=== PATIENT | female | born 1955 | race Caucasian/White ===

== ENCOUNTER 2025-05-12 08:24 | Outpatient (RCR) | payer MEDICARE, SELFPAY ==
--- NOTE | 2025-05-12 09:30 | HP.PTEVAL ---
Patient's Visit Information Visit Information Visit Information: JEOVANY POLO is a 70 year old F referred to Physical Therapy by Dr. Wilfrid Layne MD with a diagnosis of cervical spondylosis, lumbar radiculopathy. Date of Evaluation: 05/12/25 Physical Therapist: Peewee Mclean, JILLT, OCS, CSCS Visit Plan Frequency: 2x /Week Duration: 4-6 Weeks Plan: 2x/week for 3 visits in water to TEEACH cervical and lumbar ROM, general strength, core and postural strength with postural and NS focus and get I for her community pool in [place]. Pt wants to keep visits to min due to cost and try to do this in 3 visits then f/u with therapist a month later. Please ensure her I pool program is good after 3 visits if at all possible and consider more visits if unable to be I at that time up to 2x/week for 4 weeks. IE: Educated on activity modification, benefits of ex and movement, need to change something to expect improvements and importance of jail compliance. Subjective Subjective: I have pain issues. Dr. Matos sent to [facility]. Pain mgmt says nothing to do until tries PT due to Insurance. Will see pain mgmt in 2 weeks. Neck pain is intermittent and wors with housework and lifting for that. Volume of lifting groceries will cause pain next day. Pain is central neck and has hurt for years, just put up with it. Has had x rays and is full of OA. Tramadol used to help, not as much now.Numbness and tingling in both arms sleepy often often with reading or suing them. Back years of pain and worse with grocery which is once per month. Worse with activity. Feet can tingle with activity. Feels better with sitting down. Sleep is not great. Just can't sleep , pain may be a slight issue. Not employed. Retired hotel and dining room cashier. Spends day MF ex at center, Tuesdays done due to eex, usually does chair ex. Does some yoga also and spends an hour. Cleans house. Most of ex is seated UE adn LE movements. Walks with rollator which allows her to walk further or leans on cart. Pain Neck pain: Pain Intensity (Out of 10): 8 Pain Intensity Range: 0 and 8 LBP: Pain Intensity (Out of 10): 2 Pain Intensity Range: 0 and 9 Objective Objective: Walks into PT I but very short steps and no pelvic movement, stiff spine. Trasnfers I chair and bed with UE. Good balance. Hunched FW in stance with flat lordosis and max protruded head and neck protrusion structurally. [place] Hump is tender as are the muscle of the neck and scapula B. moderately. cervical AROM 40 B rotation, 6 B SB, 35 ext, poor reetraction. All of them accompanid by slight wincing. Lumbar AROM eext nil and painful, flexion tight in HS only and fair, SB max deficits. Most pain with x centrally. reeflxees 1/3 patella and achilles and bi and tri sensation UE WNL and LE WNL to gross light touch B. strength core 3/5, hip 3/5 with instability in seated teesting on core. knees 4-, anklees 4-, shoulders 3+, eelbows and wrist 4-. No specific myotomal problems. Balance/Special Test Scores Oswestry Low Back Score: 15 Goals Goal 1:: I appropriate pool baseed cervical and lumbar ROM, core and postural strength adn general ex to limit future problems. Goal Time Frame: 4-6 Weeks Goal 2:: Pt feel 50% better in overall pain to 4/10 at worst Goal Time Frame: 4-6 Weeks Goal 3:: Toleerate grocery trip without increased pain Goal Time Frame: 4-6 Weeks Goal 4:: oswestry 10 or beetter Goal Time Frame: 4-6 Weeks Rehabilitation Potential Physical Therapy Diagnosis: stiffness, loss of ROM, weakness and postural deficits comtributing to pain and diminished QOL Rehabilitation Potential: Fair Anticipated Interventions Patient/Client Instruction: Educate patient on: Condition For the Purpose of:: To decrease pain, To improve nutrient delivery to tissue, To improve muscle performance and motor function, To increase tolerance to activity/condition/position and To improve gait and locomotor functions Therapeutic Exercise to Include: Strength training, Postural training, Flexibilty training, In an aquatic setting, Passive ROM and Active ROM For the Purpose of:: To decrease pain, To increase ROM, To improve nutrient delivery to tissue, To improve muscle performance and motor function, To increase tolerance to activity/condition/position, To improve ability of physical actions for home/community/work/leisure and To improve gait and locomotor functions Text: Thank you for the opportunity to evaluate your patient. For Medicare and Medicare HMO plans, please review the plan of care and approve it. It will need to be FAXED BACK to us at [phone] for Medicare purposes. For Medicare only, by signing this I certify the plan of care. Please let me know if there are questions or concerns regarding this plan of care. Physician Signature: Date:
--- NOTE | 2025-07-08 15:39 | HP.PTDCNRP_ITS ---
Patient Information Patient Information: JEOVANY POLO was seen in my office for initial evaluation on 05/12/25. The following Plan of Care was established for this patient: POC Established Initial Frequency: 2x /Week Initial Duration: 4-6 Weeks Anticipated Interventions Patient/Client Instruction: Educate patient on: Condition For the Purpose of:: To decrease pain, To improve nutrient delivery to tissue, To improve muscle performance and motor function, To increase tolerance to activity/condition/position and To improve gait and locomotor functions Therapeutic Exercise to Include: Strength training, Postural training, Flexibilty training, In an aquatic setting, Passive ROM and Active ROM For the Purpose of:: To decrease pain, To increase ROM, To improve nutrient delivery to tissue, To improve muscle performance and motor function, To increase tolerance to activity/condition/position, To improve ability of phy sical actions for home/community/work/leisure and To improve gait and locomotor functions Last Seen Last Seen: This patient was last seen in our office 05/12/25. Pertinent comments regarding their Physical therapy will appear below: Pt seen for IE and POC stablished. She did not return for any further visits. At this point, it has been nearly two months and I will discontinue due to nonattendance. At this point I will be discontinuing this patient from physical therapy. I would be happy to see this patient again in the future if found appropriate by the physician. Thank you! Peewee Mclean, DPT, OCS, CSCS Balance/Gait/Functional tests Balance/Special Test Scores Oswestry Low Back Score: 15
== END 2025-05-12 19:00 | disposition home or self-care (01) ==
LOC: PT 08:24
PROVIDERS: PCP Anesthesiology; Referring Provider Anesthesiology; Visit Provider Anesthesiology
DX: M54.16 Radiculopathy, lumbar region (principal); M47.812 Spondylosis without myelopathy or radiculopathy, cervical region
CPT/HCPCS: 97162

== ENCOUNTER → 2025-06-25 | Outpatient (CLI) | payer MEDICARE, SELFPAY ==
--- NOTE | 2025-06-25 06:39 | MRI_ITS ---
PROCEDURE: SPINE LUMBAR (ROUTINE) 06/25/2025 REASON FOR EXAM: LUMBAR RADICULOPATHY TECHNIQUE: SPINE LUMBAR (ROUTINE) COMPARISON: Unremarkable. FINDINGS: Vertebrae: Unremarkable. No compression fracture. Alignment: Unremarkable. Conus Medullaris: Unremarkable. L1-2: Disc desiccation. Disc bulge. A superimposed 2 mm central disc protrusion. Facet joint arthropathy. Severe canal stenosis. Severe bilateral foramina stenosis. L2-3: Disc desiccation. Disc bulge. Facet joint arthropathy. Moderate bilateral foramina stenosis. Severe canal stenosis. L3-4: Disc desiccation. Disc bulge. Facet joint arthropathy. Moderate bilateral foramina stenosis. Severe canal stenosis. L4-5: Disc bulge. Facet joint arthropathy. Mild bilateral foramina stenosis. No significant canal stenosis. L5-S1: Disc desiccation. Disc bulge. Facet joint arthropathy. Mild bilateral foramina stenosis. No canal stenosis. Sacrum: Unremarkable. 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 Severe bilateral foramina stenosis at L1-L2. Moderate bilateral foramina steno sis at L3-L4. Reading Location: [id number]
--- OUTSIDE RECORDS SUMMARY | 2025-06-25 07:00 | XMS RPT_ITS | CCD ---
Author Organization [facility] Care Team Providers Care Fabric Cutter Name Role Phone Hong Matos DO Primary Care Provider HONG MATOS DO Primary Care Physician Hong Matos DO Primary Care Provider Hong Matos DO Primary Care Provider Hong Matos DO Primary Care Provider Hong Matos DO Primary Care Provider Will Alejandre MD Primary Care Provider Aj MANAGER MEDIA RELATIONS.Nisa RIVAS Unavailable Waleska MANAGER MEDIA RELATIONS.Petty RIVAS Unavailable Tatiana SCHAFER, Jarrod Unavailable MATOS, HONG L Attending Unavailable MATOS, HONG L Primary Care Unavailable MATOS, HONG L Referring Unavailable MATOS, HONG L Primary Care Unavailable MATOS, HONG L Attending Unavailable MATOS, HONG L Primary Care Unavailable MATOS, HONG L Referring Unavailable MATOS, HONG L Primary Care Unavailable MATOS, HONG L Attending Unavailable MATOS, HONG L Primary Care Unavailable MATOS, HONG L Referring Unavailable MATOS, HONG L Primary Care Unavailable MATOS, HONG L Referring Unavailable MATOS, HONG L Primary Care Unavailable MATOS, HONG L Attending Unavailable MATOS, HONG L Primary Care Unavailable MATOS, HONG L Referring Unavailable MATOS, HONG L Primary Care Unavailable MATOS, HONG L Referring Unavailable MATOS, HONG L Primary Care Unavailable Wilfrid Layne Referring Unavailable Wilfrid Layne Primary Care Unavailable Wilfrid Layne Attending Unavailable Wilfrid Layne Referring Unavailable Wilfrid Layne Primary Care Unavailable Wilfrid Layne Attending Unavailable Allergies Allergy Classification Reported Allergen(s) Allergy Type Date of Onset Reaction(s) Facility (20 sources) Acetaminophen / HYDROcodone; Translations: [acetaminophen-hyd rocodone] Drug [facility] Work Phone: Medications Current Medications Medication Drug Class(es) Dates Sig (Normalized) Sig (Original) acetaminophen 325 mg / HYDROcodone bitartrate 5 mg oral tablet (1 source) Opioid Agonist Start: 04-04-20 End: 04-07-20 take 1 tablet by mouth every six hours as needed for pain [place] 325- 5 mg oral tablet Dose = 1 tab(s), Oral, q6h, PRN as needed for pain, X 3 day(s), # 12 tab(s), 0 Refill(s), Drug reaction Anxiety, 88.2 Start Date: 04/04/22 Stop Date: 04/07/22 Status: Ordered amoxicillin 875 mg oral tablet (2 sources) Penicillin-class Antibacterial Start: 10-03-20 End: 10-13-20 take 1 tablet by mouth twice daily amoxicillin (AMOXIL) 875 mg tablet Indications: History of COVID-19 , Acute non-recurrent frontal sinusitis Take 1 tablet by mouth twice daily for 10 days. 20 tablet 0 10/03/2022 10/13/2022 Active Comment on above: Take 1 tablet by fox twice daily for 10 days. amoxicillin 875 mg / clavulanate 125 mg oral tablet (2 sources) Penicillin-class Antibacterial Start: 01-13-20 End: 01-23-20 take 1 tablet by mouth twice daily amoxicillin-clavulanate potassium (AUGMENTIN) 875-125 mg per tablet Indications: Acute non-recurrent maxillary sinusitis Take 1 tablet by mouth two times a day for 10 days. 20 tablet 01/13/2025 01/23/2025 Active atorvastatin 10 mg oral tablet (20 sources) HMG-CoA Reductase Inhibitor Start: 12-26-19 End: 06-14-20 take 1 tablet by mouth once daily at bedtime for hyperlipidemia atorvastatin (LIPITOR) 10 mg tablet Indications: Hyperlipidemia, mixed , Hypertriglyceridemia Take 1 tablet by mouth daily at bedtime. For cholesterol. 90 tablet 1 12/16/2024 06/14/2025 Active Comment on above: Take 1 tablet by [facility] daily at bedtime. For cholesterol. azithromycin 250 mg oral tablet (2 sources) Macrolide Antimicrobial Start: 11-07-20 End: 11-12-20 azithromycin (ZITHROMAX Z-VAN) 250 mg tablet Take 2 tablets day one, then, 1 tablet daily until gone. 6 tablet 0 11/07/2023 11/12/2023 Active Comment on above: Take 2 tablets day o ne, then, 1 tablet daily until gone. cephalexin 500 mg oral capsule (1 source) Cephalosporin Antibacterial Start: 07-22-20 End: 08-01-20 take 1 capsule by mouth four times daily cephALEXin (KEFLEX) 500 mg capsule Indications: Gluteal abscess Take 1 capsule by mouth four times daily for 10 days. 40 capsule 1 07/22/2024 08/01/2024 Active cholecalciferol 0.125 mg oral capsule (20 sources) Vitamin D Start: 04-06-20 take 1 capsule by mouth once daily Cholecalciferol, Vitamin D3, 5,000 unit cap Take 1 capsule by mouth once daily. 04/06/2019 Active Comment on above: Take 1 capsule by [facility] once daily. ciprofloxacin 500 mg oral tablet (1 source) Quinolone Antimicrobial Start: 07-04-20 End: 07-09-20 take 1 tablet by mouth twice daily ciprofloxacin HCl (CIPRO) 500 mg tablet Take 1 tablet by mouth twice daily for 5 days. 10 tablet 0 07/04/2022 07/09/2022 Active Comment on above: Take 1 tablet by [facility] twice daily for 5 days. cyclobenzaprine hydrochloride 10 mg oral tablet (1 source) Muscle Relaxant Start: 04-04-20 End: 04-09-20 cyclobenzaprine 10 mg oral tablet Dose : 10 mg = 1 tab(s), Oral, TID, X 5 day(s), # 20 tab(s), 0 Refill(s), 04/09/22 15:38:00 EDT, Drug reaction Anxiety Start Date: 04/04/22 Stop Date: 04/09/22 Status: Ordered DULoxetine 30 mg delayed release oral capsule (1 source) Serotonin and Norepinephrine Reuptake Inhibitor Start: 04-19-20 take 1 capsule by mouth once daily, then take 1 capsule by mouth once daily in the morning, then take 2 capsules by mouth once daily in the morning DULoxetine (CYMBALTA) 30 mg capsule Indications: Fibromyalgia , VÍCTOR (generalized anxiety disorder) , Depressive disorder Take 1 capsule by mouth once daily. Take 1 capsule PO daily in the AM x 2 weeks and then increase to 2 capsules PO daily in the AM 180 capsule 1 04/19/2025 Active estradiol 0.1 mg/ml vaginal cream (20 sources) Estrogen Start: 06-30-20 estradiol (ESTRACE) 0.01 % (0.1 mg/gram) vaginal cream Finger-tip amount each night applied as directed in instructions 42.5 g 2 06/30/2021 Active Comment on above: Finger-tip amount ea ch night applied as directed in instructions furosemide 20 mg oral tablet (20 sources) Loop Diuretic Start: 11-01-20 End: 12-15-19 furosemide (LASIX) 20 mg tablet Indications: Ankle edema, bilateral TAKE 1 TABLET ONE TIME DAILY NEEDED FOR SWELLING/EDEMA 90 tablet 1 12/16/2024 Active Comment on above: Take 1 tablet by fox th once daily as needed for swelling/edema. TAKE 1 TABLET ONE TI ME DAILY NEEDED FOR SWELLING/EDEMA gabapentin 600 mg oral tablet (20 sources) Anti-epileptic Agent Start: 07-23-20 End: 01-18-20 take 1 tablet by mouth three times daily gabapentin (NEURONTIN) 600 mg tablet Take 1 tablet by mouth three times a day for 90 days. 270 tablet 1 10/20/2024 Active Start: 12-23-2023 End: 02-02-2025 gabapentin (NEURONTIN) 300 m g capsule Indications: Osteoarthritis of spine with radiculopathy, lumbar region , Chronic midline low back pain with bilateral sciatica , Chronic pain syndrome , Chronic bilateral thoracic back pain , Fibromyalgia , Restless leg , Vitamin B12 deficiency Add to 600 mg capsule to total 900 mg 3 times a day for chronic pain 270 capsule 1 10/20/2024 Active Start: 12-23-2023 End: 07-20-2024 take 1 tablet by mouth three times daily gabapentin (NEURONTIN) 600 mg tablet Take 1 tablet by mouth three times a day for 90 days. 270 tablet 1 04/17/2024 07/20/2024 Discontinued Start: 04-11-2022 End: 12-07-2023 gabapentin (NEURONTIN) 300 m g capsule Indications: Osteoarthritis of spine with radiculopathy, lumbar region , Chronic midline low back pain with bilateral sciatica , Chronic pain syndrome , Chronic bilateral thoracic back pain , Fibromyalgia , Restless leg , Vitamin B12 deficiency Add to 600 mg capsule to total 900 mg 3 times a day for chronic pain 270 capsule 1 09/06/2023 12/07/2023 Active Start: 03-19-2022 End: 12-05-2023 take 1 tablet by mouth three times daily gabapentin (NEURONTIN) 600 mg tablet Take 1 tablet by mouth three times a day for 90 days. 270 tablet 1 09/06/2023 12/05/2023 Active Start: 12-15-2021 End: 04-11-2022 take 1 capsule by mouth three times daily gabapentin (NEURONTIN) 300 mg capsule Indications: Osteoarthritis of spine with radiculopathy, lumbar region , Chronic midline low back pain with bilateral sciatica , Chronic pain syndrome , Chronic bilateral thoracic back pain , Fibromyalgia , Restless leg , Vitamin B12 deficiency Take 1 capsule by mouth three times daily for 90 days. 90 capsule 2 12/15/2021 04/11/2022 Discontinued Start: 11-01-2021 take 1 tablet by fox three times daily gabapentin (NEURONTIN) 600 mg tablet Take 1 tablet by mouth three times daily for 90 days. 270 tablet 1 11/01/2021 Active Comment on above: Take 1 capsule by [facility] three times daily for 90 days. Take 1 tablet by fox three times daily for 90 days. Add to 600 mg capsul e to total 900 mg 3 times a day for chronic pain Take 1 tablet by fox th three times a day for 90 days. lisinopril 10 mg oral tablet (20 sources) Angiotensin Converting Enzyme Inhibitor Start: 10-05-2024 End: 02-23-2025 take 1 tablet by mouth once daily lisinopril (ZESTRIL) 10 mg tablet Indications: Hyperlipidemia, mixed Take 1 tablet by mouth once daily. 90 tablet 3 02/23/2025 Active Start: 11-01-2021 End: 10-02-2024 take 1 tablet by mouth once daily lisinopril (ZESTRIL) 10 mg tablet Indications: Hyperlipidemia, mixed Take 1 tablet by mouth once daily. 90 tablet 3 09/06/2023 10/02/2024 Discontinued Start: 01-14-2020 End: 12-28-2020 take 1 tablet by mouth once daily lisinopril (ZESTRIL, PRINIVIL) 10 mg tablet Indications: Hyperlipidemia, mixed Take 1 tablet by mouth once daily. 90 tablet 3 01/14/2020 12/28/2020 Discontinued Comment on above: Take 1 tablet by fox once daily. Magnesium (20 sources) take 1 tablet by mouth twice daily Magnesium 250 mg tab Take 250 mg by mouth twice daily. Active take 1 tablet by mouth twice fabián ly Magnesium 250 mg tab Take 250 mg by mouth twice daily. 0 Active Comment on above: Take 250 mg by mouth twice daily. MULTIVITAMIN ORAL (20 sources) MULTIVITAMIN ORA L Take by mouth. Active MULTIVITAMIN ORA L Take by mouth. 0 Active Comment on above: Take by mouth. nystatin 100 unt/mg topical ointment (3 sources) Polyene Antifungal Start: 12-23-2023 End: 01-22-2024 nystatin (MYCOSTATIN) ointment Indications: Gluteal abscess Apply to affected area two times a day. On sore on gluteal 30 g 1 12/23/2023 01/22/2024 Active Start: 03-19-2022 End: 04-18-2022 nystatin (MYCOSTATIN) ointme nt Indications: Gluteal abscess Apply to affected area twice daily. On sore on gluteal 30 g 1 03/19/2022 04/18/2022 Active Comment on above: Apply to affected ar ea twice daily. On sore on gluteal Apply to affected ar ea two times a day. On sore on gluteal ondansetron 4 mg disintegrating oral tablet (1 source) Serotonin-3 Receptor Antagonist Start: 04-04-20 End: 04-08-20 ondansetron 4 mg oral tablet, disintegrating Dose : 4 mg = 1 tab(s), Oral, q6h, X 4 day(s), # 16 tab(s), 0 Refill(s), 04/08/22 15:38:00 EDT, Drug reaction Anxiety Start Date: 04/04/22 Stop Date: 04/08/22 Status: Ordered phenazopyridine hydrochloride 200 mg oral tablet (20 sources) Start: 06-06-20 take 1 tablet by mouth every eight hours as needed phenazopyridine (PYRIDIUM) 200 mg tablet Take 1 tablet by mouth three times daily as needed. 14 tablet 06/06/2021 Active Comment on above: Take 1 tablet by fox th three times daily as needed. rosuvastatin calcium 10 mg oral tablet (20 sources) HMG-CoA Reductase Inhibitor Start: 01-25-20 End: 06-24-20 take 1 tablet by mouth once daily at bedtime rosuvastatin (CRESTOR) 10 mg tablet Indications: Hyperlipidemia, mixed Take 1 tablet by mouth daily at bedtime. 90 tablet 1 2023 Active Start: 06-13-2020 End: 10-17-2020 take 0.5 tablet by mouth once daily rosuvastatin (CRESTOR) 40 mg tablet Indications: Hyperlipidemia, mixed Take 0.5 tablets by mouth once daily. 45 tablet 1 06/13/2020 10/17/2020 Discontinued Comment on above: Take 1 tablet by fox th daily at bedtime. sertraline 50 mg oral tablet (20 sources) Serotonin Reuptake Inhibitor Start: 12-23-2023 End: 02-23-2025 take 1 tablet by mouth once daily at bedtime sertraline (ZOLOFT) 100 mg tablet Indications: VÍCTOR (generalized anxiety disorder) , Depressive disorder Take 1 tablet by mouth daily at bedtime. Take with 50 mg tablet to total 150 mg a day 90 tablet 3 02/23/2025 Active Start: 12-23-2023 End: 02-23-2025 take 1 tablet by mouth once daily sertraline (ZOLOFT) 50 mg tablet Take 1 tablet by mouth once daily. Add to 100 mg to total 150 mg a day 90 tablet 1 02/23/2025 Active Start: 09-06-2023 take 1 tablet by fox th once daily sertraline (ZOLOFT) 50 mg tablet Take 1 tablet by mouth once daily. Add to 100 mg to total 150 mg a day 90 tablet 1 09/06/2023 Active Start: 10-03-2022 End: 09-06-2023 take 1 tablet by mouth once daily at bedtime sertraline (ZOLOFT) 25 mg tablet Indications: VÍCTOR (generalized anxiety disorder) , Depressive disorder Take 1 tablet by mouth daily at bedtime. Take with 100 mg tablet to total 125 mg a day 90 tablet 3 03/07/2023 09/06/2023 Discontinued Start: 07-04-2022 End: 03-07-2023 take 1 tablet by mouth once daily at bedtime sertraline (ZOLOFT) 100 mg tablet Indications: VÍCTOR (generalized anxiety disorder) , Depressive disorder Take 1 tablet by mouth daily at bedtime. Take with 25 mg tablet to total 125 mg a day 90 tablet 3 03/07/2023 Active Start: 12-15-2021 End: 07-04-2022 take 1 tablet by mouth once daily at bedtime sertraline (ZOLOFT) 25 mg tablet Indications: VÍCTOR (generalized anxiety disorder) , Depressive disorder Take 1 tablet by mouth daily at bedtime. Take with 50 mg tablet to total 75 mg a day 90 tablet 1 04/26/2022 07/04/2022 Discontinued Start: 12-15-2021 End: 07-04-2022 take 1 tablet by mouth once daily at bedtime sertraline (ZOLOFT) 50 mg tablet Indications: VÍCTOR (generalized anxiety disorder) , Depressive disorder Take 1 tablet by mouth daily at bedtime. Take with 25 mg tablet to total 75 mg a day 90 tablet 1 04/26/2022 07/04/2022 Discontinued Comment on above: Take 1 tablet by fox th daily at bedtime. Take with 25 mg tablet to total 75 mg a day Take 1 tablet by fox th daily at bedtime. Take with 50 mg tablet to total 75 mg a day Take 1 tablet by fox th daily at bedtime. Take with 25 mg tablet to total 125 mg a day Take 1 tablet by fox th daily at bedtime. Take with 100 mg tablet to total 125 mg a day Take 1 tablet by fox th once daily. Add to 100 mg to total 150 mg a day traMADol hydrochloride 50 mg oral tablet (20 sources) Opioid Agonist Start: End: take 2 tablets by mouth every eight hours as needed for pain traMADol (ULTRAM) 50 mg tablet Indications: Osteoarthritis of spine with radiculopathy, lumbar region , Chronic midline low back pain with bilateral sciatica , Chronic pain syndrome , Chronic bilateral thoracic back pain , Fibromyalgia Take 2 tablets by mouth every 8 hours as needed for pain for up to 30 days. 180 tablet 2 04/19/2025 05/19/2025 Active Start: 03-16-2025 End: 04-15-2025 take 2 tablets by mouth every eight hours as needed for pain traMADol (ULTRAM) 50 mg tablet Indications: Osteoarthritis of spine with radiculopathy, lumbar region , Chronic midline low back pain with bilateral sciatica , Chronic pain syndrome , Chronic bilateral thoracic back pain , Fibromyalgia Take 2 tablets by mouth every 8 hours as needed for pain for up to 30 days. 180 tablet 03/16/2025 04/15/2025 Active Start: 03-15-2025 End: 03-15-2025 take 1 tablet by mouth every six hours as needed for pain traMADol (ULTRAM) 50 mg tablet Indications: Acute right-sided low back pain with bilateral sciatica , Right hip pain , Fibromyalgia , Chronic pain syndrome , Osteoarthritis of spine with radiculopathy, lumbar region Take 1 tablet by mouth every 6 hours as needed for pain for up to 30 days. 180 tablet 03/15/2025 03/15/2025 Discontinued (Erroneous entry) Start: 12-16-2024 End: 12-26-2024 traMADol (ULTRAM) 50 mg tabl et Indications: Osteoarthritis of spine with radiculopathy, lumbar region , Chronic midline low back pain with bilateral sciatica , Chronic pain syndrome , Chronic bilateral thoracic back pain , Fibromyalgia Take 2 every 8 hours as needed 180 tablet 2 12/16/2024 12/26/2024 Active Start: 10-27-2024 End: 11-07-2024 traMADol (ULTRAM) 50 mg tabl et Indications: Osteoarthritis of spine with radiculopathy, lumbar region , Chronic midline low back pain with bilateral sciatica , Chronic pain syndrome , Chronic bilateral thoracic back pain , Fibromyalgia Take 2 every 8 hours as needed Patient should start on October 27, 2024. 180 tablet 2 10/27/2024 11/07/2024 Active Start: 09-02-2024 End: 09-20-2024 traMADol (ULTRAM) 50 mg tabl et Indications: Osteoarthritis of spine with radiculopathy, lumbar region , Chronic midline low back pain with bilateral sciatica , Chronic pain syndrome , Chronic bilateral thoracic back pain , Fibromyalgia Take 2 every 8 hours as needed 180 tablet 2 09/02/2024 09/20/2024 Active Start: 07-23-2024 End: 08-19-2024 traMADol (ULTRAM) 50 mg tabl et Indications: Osteoarthritis of spine with radiculopathy, lumbar region , Chronic midline low back pain with bilateral sciatica , Chronic pain syndrome , Chronic bilateral thoracic back pain , Fibromyalgia Take 2 every 8 hours as needed 180 tablet 2 07/23/2024 08/19/2024 Active Start: 04-17-2024 End: 05-17-2024 traMADol (ULTRAM) 50 mg tabl et Indications: Osteoarthritis of spine with radiculopathy, lumbar region , Chronic midline low back pain with bilateral sciatica , Chronic pain syndrome , Chronic bilateral thoracic back pain , Fibromyalgia Take 2 every 8 hours as needed 180 tablet 2 04/17/2024 05/17/2024 Active Start: 12-23-2023 End: 01-22-2024 traMADol (ULTRAM) 50 mg tabl et Indications: Osteoarthritis of spine with radiculopathy, lumbar region , Chronic midline low back pain with bilateral sciatica , Chronic pain syndrome , Chronic bilateral thoracic back pain , Fibromyalgia Take 2 every 8 hours as needed 180 tablet 2 12/23/2023 01/22/2024 Active Start: 11-22-2023 traMADol (ULTR AM) 50 mg tablet Indications: Osteoarthritis of spine with radiculopathy, lumbar region , Chronic midline low back pain with bilateral sciatica , Chronic pain syndrome , Chronic bilateral thoracic back pain , Fibromyalgia Take 2 every 8 hours as needed Do not start before November 22, 2023. 180 tablet 1 11/22/2023 Active Start: 11-22-2023 traMADol (ULTR AM) 50 mg tablet Indications: Osteoarthritis of spine with radiculopathy, lumbar region , Chronic midline low back pain with bilateral sciatica , Chronic pain syndrome , Chronic bilateral thoracic back pain , Fibromyalgia Take 2 every 8 hours as needed Do not start before November 22, 2023. 180 tablet 1 11/22/2023 Active Start: 11-22-2023 traMADol (ULTR AM) 50 mg tablet Indications: Osteoarthritis of spine with radiculopathy, lumbar region , Chronic midline low back pain with bilateral sciatica , Chronic pain syndrome , Chronic bilateral thoracic back pain , Fibromyalgia Take 2 every 8 hours as needed Do not start before November 22, 2023. 180 tablet 1 11/22/2023 Active Start: 11-22-2023 traMADol (ULTR AM) 50 mg tablet Indications: Osteoarthritis of spine with radiculopathy, lumbar region , Chronic midline low back pain with bilateral sciatica , Chronic pain syndrome , Chronic bilateral thoracic back pain , Fibromyalgia Take 2 every 8 hours as needed Do not start before November 22, 2023. 180 tablet 1 11/22/2023 Active Start: 11-22-2023 traMADol (ULTR AM) 50 mg tablet Indications: Osteoarthritis of spine with radiculopathy, lumbar region , Chronic midline low back pain with bilateral sciatica , Chronic pain syndrome , Chronic bilateral thoracic back pain , Fibromyalgia Take 2 every 8 hours as needed Do not start before November 22, 2023. 180 tablet 1 11/22/2023 Active Start: 11-22-2023 End: 10-25-2023 traMADol (ULTRAM) 50 mg tabl et Indications: Osteoarthritis of spine with radiculopathy, lumbar region , Chronic midline low back pain with bilateral sciatica , Chronic pain syndrome , Chronic bilateral thoracic back pain , Fibromyalgia Take 2 every 8 hours as needed Do not start before November 22, 2023. 180 tablet 0 11/22/2023 10/25/2023 Discontinued Start: 11-20-2023 End: 11-25-2023 take 2 tablets by mouth every eight hours as needed for pain traMADol (ULTRAM) 50 mg tablet Indications: Chronic bilateral thoracic back pain , Fibromyalgia , Restless leg Take 2 tablets by mouth every 8 hours as needed for pain for up to 5 days. 30 tablet 0 11/20/2023 11/25/2023 Active Start: 11-13-2023 End: 11-18-2023 take 2 tablets by mouth every eight hours as needed for pain traMADol (ULTRAM) 50 mg tablet Indications: Chronic bilateral thoracic back pain , Fibromyalgia , Restless leg Take 2 tablets by mouth every 8 hours as needed for pain for up to 5 days. 30 tablet 0 11/13/2023 11/18/2023 Active Start: 11-06-2023 End: 11-11-2023 take 2 tablets by mouth every eight hours as needed for pain traMADol (ULTRAM) 50 mg tablet Indications: Chronic bilateral thoracic back pain , Fibromyalgia , Restless leg Take 2 tablets by mouth every 8 hours as needed for pain for up to 5 days. 30 tablet 0 11/06/2023 11/11/2023 Active Start: 08-29-2023 End: 10-30-2023 take 2 tablets by mouth every eight hours as needed for pain traMADol (ULTRAM) 50 mg tablet Indications: Chronic bilateral thoracic back pain , Fibromyalgia , Restless leg Take 2 tablets by mouth every 8 hours as needed for pain for up to 5 days. 30 tablet 0 10/25/2023 10/25/2023 Discontinued Start: 07-13-2022 End: 02-04-2023 traMADol (ULTRAM) 50 mg tabl et Indications: Osteoarthritis of spine with radiculopathy, lumbar region , Chronic midline low back pain with bilateral sciatica , Chronic pain syndrome , Chronic bilateral thoracic back pain , Fibromyalgia Take 2 every 8 hours as needed 540 tablet 1 02/04/2023 Active Start: 03-19-2022 End: 06-17-2022 take 1 tablet by mouth every eight hours as needed for pain traMADol (ULTRAM) 100 mg tablet Indications: Osteoarthritis of spine with radiculopathy, lumbar region , Chronic midline low back pain with bilateral sciatica , Chronic pain syndrome , Chronic bilateral thoracic back pain , Fibromyalgia Take 1 tablet by mouth every 8 hours as needed for pain for up to 90 days. 270 tablet 0 03/19/2022 06/17/2022 Active Comment on above: Take 1 tablet by fox every 8 hours as needed for pain for up to 90 days. Take 2 every 8 hours as needed Take 2 tablets by mo ut every 8 hours as needed for pain for up to 7 days. Take 2 every 8 hours as needed Do not start before November 22, 2023. Take 2 tablets by mo ut every 8 hours as needed for pain for up to 5 days. triamcinolone acetonide 5 mg/ml topical cream (20 sources) Corticosteroid Start: 06-06-2021 triamcinolone acetonide (KENALOG) 0.5 % cream Indications: Lichen sclerosus et atrophicus Apply to affected area twice daily. 15 g 6 06/06/2021 Active Comment on above: Apply to affected ar ea twice daily. Vitamin B Complex (20 sources) vitamin B comple x (B COMPLEX-100 ORAL) Take by mouth. Active vitamin B comple x (B COMPLEX-100 ORAL) Take by mouth. 0 Active Comment on above: Take by mouth. vitamin b12 1 mg/ml injectable solution (20 sources) Vitamin B12 Start: 12-23-19 inject 1 mL by intramuscular injection every other week cyanocobalamin 1,000 mcg/mL Indications: Vitamin B12 deficiency Inject 1 mL intramuscularly every 2 weeks. Vitamin B12 deficiency 10 mL 3 12/23/2023 Active Start: 02-26-2023 End: 01-27-2024 cyanocobalamin 1,000 mcg inj ection Start: 12-15-2021 End: 02-18-2023 cyanocobalamin 1,000 mcg inj ection Comment on above: Inject 1 mL intramus cularly every 2 weeks. Vitamin B12 deficiency WALKER ROLLATOR SEAT WITH 6" WHEELS - RED (20 sources) Start: 10-17-2022 WALKER ROLLATOR SEAT WITH 6" WHEELS - RED Dx: low back pain, lumbar DDD, lumbar DJD,balance disorder 1 Each 10/17/2022 Active Start: 10-17-2022 WALKER ROLLATO R SEAT WITH 6" WHEELS - RED Dx: low back pain, lumbar DDD, lumbar DJD,balance disorder 1 Each 0 10/17/2022 Active Start: 10-03-2022 WALKER ROLLATO R SEAT WITH 6" WHEELS - RED Dx: low back pain, lumbar DDD, lumbar DJD,balance disorder 1 Each 0 10/03/2022 Active Comment on above: Dx: low back pain, l umbar DDD, lumbar DJD,balance disorder Completed/Discontinued Medications Medication Drug Class(es) Dates Sig (Normalized) Sig (Original) acetaminophen 325 mg / oxyCODONE hydrochloride 5 mg oral tablet (2 sources) Opioid Agonist Start: 07-04-2022 End: 07-13-2022 take 1 tablet by mouth every eight hours as needed for pain oxyCODONE-acetamino phen (PERCOCET) 5-325 mg tablet Indications: Osteoarthritis of spine with radiculopathy, lumbar region , Chronic midline low back pain with bilateral sciatica , Chronic pain syndrome , Chronic bilateral thoracic back pain , Fibromyalgia , Restless leg Take 1 tablet by mouth every 8 hours as needed for pain. 60 tablet 0 07/04/2022 07/13/2022 Discontinued Comment on above: Take 1 tablet by fox th every 8 hours as needed for pain. Apple Cider Vinegar (1 source) End: 08-01-2021 APPLE CIDER VINEGAR ORAL Take by mouth. 08/01/2021 Discontinued bismuth subsalicylate 262 mg chewable tablet (20 sources) Bismuth Start: 10-17-2020 End: 04-17-2024 take 1 tablet by mouth four times daily bismuth subsalicylate (PEPTO-BISMOL) 262 mg chew Indications: Helicobacter pylori stool test positive Take 1 tablet by mouth four times daily for 14 days. 56 tablet 0 10/17/2020 04/17/2024 Discontinued Comment on above: Take 1 tablet by fox four times daily for 14 days. clobetasol propionate 0.0005 mg/mg topical ointment (1 source) Corticosteroid Start: 06-17-2020 End: 12-23-2023 clobetasol (TEMOVATE) 0.05 % ointment Indications: Lichen sclerosus et atrophicus Apply 1 application to affected area twice daily. 60 g 6 06/17/2020 12/23/2023 Discontinued 24 hr desvenlafaxine succinate 50 mg extended release oral tablet (1 source) Serotonin and Norepinephrine Reuptake Inhibitor Start: 06-13-2020 End: 12-28-2020 take 1 tablet by mouth once daily desvenlafaxine ER (PRISTIQ) 50 mg 24 hr tablet Take 1 tablet by mouth once daily. 90 tablet 1 06/13/2020 12/28/2020 Discontinued ezetimibe 10 mg oral tablet (15 sources) Dietary Cholesterol Absorption Inhibitor Start: 01-25-2023 End: 09-06-2023 ezetimibe (ZETIA) 10 mg tablet TAKE 1 TABLET EVERY DAY 90 tablet 1 04/11/2023 09/06/2023 Discontinued Start: 06-13-2020 End: 12-28-2020 take 1 tablet by mouth once daily ezetimibe (ZETIA) 10 mg tablet Indications: Hyperlipidemia, mixed Take 1 tablet by mouth once daily. 90 tablet 1 06/13/2020 12/28/2020 Discontinued Comment on above: Take 1 tablet by fox once daily. TAKE 1 TABLET EVERY DAY fluticasone propionate 0.05 mg/actuat metered dose nasal spray (4 sources) Corticosteroid Start: 08-12-20 End: 09-11-20 take 2 spray(s) by mouth once daily fluticasone (FLONASE) 50 mcg/actuation nasal spray Use 2 Sprays in each nostril once daily. Rinse mouth after use. 16 g 0 08/12/2023 09/11/2023 Comment on above: Use 2 Sprays in each nostril once daily. Rinse mouth after use. magnesium oxide 400 mg oral tablet (1 source) End: 08-01-20 take 1 tablet by mouth once daily magnesium oxide (MAG-OX) 400 mg (241.3 mg magnesium) tablet Take 400 mg by mouth once daily. 08/01/2021 Discontinued Omeprazole (20 sources) Proton Pump Inhibitor End: 03-26-20 omeprazole magnesium (PRILOSEC ORAL) Take by mouth. 0 2023 Discontinued omeprazole magne sium (PRILOSEC ORAL) Take by mouth. 0 Active Comment on above: Take by mouth. PARoxetine hydrochloride 40 mg oral tablet (16 sources) Serotonin Reuptake Inhibitor Start: 4 End: take 1 tablet by mouth once daily PARoxetine (PAXIL) 40 mg tablet Take 1 tablet by mouth once daily. 90 tablet 1 07/23/2024 02/23/2025 Discontinued rOPINIRole 1 mg oral tablet (2 sources) Nonergot Dopamine Agonist Start: take 1-2 tablets by mouth once daily at bedtime rOPINIRole (REQUIP) 1 mg tablet Indications: Restless leg Take 1-2 tablets by mouth daily at bedtime. 0 07/18/2021 Active Start: 09-23-2020 End: 12-28-2020 take 1-2 tablets by mouth once daily at bedtime, then take 1 tablet by mouth at bedtime rOPINIRole (REQUIP) 1 mg tablet Indications: Restless leg Take 1-2 tablets by mouth daily at bedtime. Take one pill 1-3 hours before bedtime 09/23/2020 12/28/2020 Discontinued Comment on above: Take 1-2 tablets by mouth daily at bedtime. Problems Active Problems Problem Classification Problem Date Documented Da te Episodic/Chronic Acquired foot deformities (1 source) Deformity of foot; Translations: [Other acquired deformities of unspecified foot] 01-10-2024 Episodic Anxiety disorders (20 sources) Generalized anxiety disorder; Translations: [Generalized anxiety disorder] Onset: 08-01-2021 08-01-2021 Chronic Disorders of lipid metabolism (20 sources) Mixed hyperlipidemia; Translations: [Mixed hyperlipidemia] Onset: 08-01-2021 08-01-2021 Chronic E Codes: Adverse effects of medical drugs (1 source) Adverse reaction to biological substance; Translations: [Adverse effect of unspecified drugs, medicaments and biological substances, initial encounter] Onset: 04-04-2022 Episodic Genitourinary symptoms and ill-defined conditions (20 sources) Dysuria; Translations: [Dysuria] Onset: 02-04-2014 Resolved: 03-22-2014 Episodic Mood disorders (20 sources) Depressive disorder; Translations: [Depressive disorder] Onset: 08-01-2021 08-01-2021 Chronic Nausea and vomiting (1 source) Nausea; Translations: [Nausea] Episodic Nutritional deficiencies (20 sources) Vitamin D deficiency; Translations: [Vitamin D deficiency, unspecified] Onset: 12-15-2021 12-15-2021 Chronic Osteoarthritis (1 source) Inflammation of joint of foot; Translations: [Primary osteoarthritis, unspecified ankle and foot] 01-10-2024 Chronic Other connective tissue disease (20 sources) Fibromyalgia; Translations: [Fibromyalgia] 01-14-2020 Episodic Other connective tissue disease (1 source) Pain in both feet; Translations: [Pain in right foot] 01-10-2024 Episodic Other gastrointestinal disorders (1 source) Diarrhea; Translations: [Diarrhea, unspecified] 11-06-2023 Episodic Other hereditary and degenerative nervous system conditions (20 sources) Restless legs; Translations: [Restless legs syndrome] Onset: 08-01-2021 08-01-2021 Chronic Other infections; including parasitic (1 source) Personal history of other infectious and parasitic diseases; Translations: [History of COVID-19] Episodic Other nervous system disorders (20 sources) Chronic pain syndrome; Translations: [Chronic pain syndrome] Onset: 03-27-2021 03-27-2021 Chronic Other nervous system disorders (2 sources) Other chronic pain; Translations: [Chronic midline low back pain with bilateral sciatica] Onset: 03-27-2021 Chronic Other nervous system disorders (1 source) Chronic pain syndrome; Translations: [Chronic pain syndrome] Onset: 03-27-2021 Chronic Other non-traumatic joint disorders (6 sources) Ankle edema; Translations: [Effusion, right ankle] Episodic Other non-traumatic joint disorders (5 sources) Hip pain; Translations: [Pain in right hip] 01-13-2025 Episodic Other nutritional; endocrine; and metabolic disorders (20 sources) Body mass index 40+ - severely obese; Translations: [Body mass index (BMI) 45.0-49.9, adult] Onset: 03-27-2023 Chronic Other nutritional; endocrine; and metabolic disorders (20 sources) Hypercalcemia; Translations: [Hypercalcemia] Onset: 04-22-2024 04-17-2024 Chronic Other nutritional; endocrine; and metabolic disorders (1 source) Hypercalcemia; Translations: [Hypercalcemia] Onset: 04-22-2024 Chronic Other skin disorders (20 sources) Lichen sclerosus et atrophicus; Translations: [Circumscribed scleroderma] Onset: 03-22-2014 03-22-2014 Chronic Other upper respiratory disease (1 source) Respiratory tract congestion; Translations: [Nasal congestion] 08-12-2023 Episodic Other upper respiratory infections (3 sources) Acute frontal sinusitis; Translations: [Acute frontal sinusitis, unspecified] Episodic Peripheral and visceral atherosclerosis (20 sources) Peripheral vascular disease; Translations: [Peripheral vascular disease, unspecified] Onset: 03-27-2023 Chronic Residual codes; unclassified (1 source) Generalized aches and pains; Translations: [Pain, unspecified] 11-06-2023 Episodic Residual codes; unclassified (2 sources) Amnesia; Translations: [Other amnesia] 10-20-2024 Episodic Spondylosis; intervertebral disc disorders; other back problems (20 sources) Disorder of joint of spine; Translations: [Other spondylosis with radiculopathy, lumbar region] Onset: 03-27-2021 03-27-2021 Chronic Spondylosis; intervertebral disc disorders; other back problems (20 sources) Chronic thoracic back pain; Translations: [Pain in thoracic spine] Onset: 03-27-2021 03-27-2021 Episodic Viral infection (1 source) Disease caused by 2019-nCoV; Translations: [COVID-19] Episodic Past or Other Problems Problem Classification Problem Date Documented Date Episodic/Chronic Allergic reactions (20 sources) Vulval eczema; Translations: [Dermatitis, unspecified] Onset: 02-04-2014 Resolved: 03-22-2014 03-22-2014 Episodic Conditions associated with dizziness or vertigo (4 sources) Lightheadedness; Translations: [Dizziness and giddiness] Onset: 11-03-2024 Episodic Diabetes mellitus without complication (20 sources) Impaired fasting glycemia; Translations: [Impaired fasting glucose] Onset: 08-01-2021 08-01-2021 Episodic Malaise and fatigue (20 sources) Fatigue; Translations: [Other fatigue] Onset: 12-24-2023 12-24-2023 Episodic Nutritional deficiencies (20 sources) Cobalamin deficiency; Translations: [Deficiency of other specified B group vitamins] Onset: 12-15-2021 12-15-2021 Episodic Other connective tissue disease (1 source) Fibromyalgia; Translations: [Fibromyalgia] Onset: 01-14-2020 Episodic Other female genital disorders (20 sources) Lesion of vulva; Translations: [Other specified noninflammatory disorders of vulva and perineum] Onset: 02-04-2014 Resolved: 03-22-2014 03-22-2014 Episodic Other non-traumatic joint disorders (1 source) Pain in right hip; Translations: [Right hip pain] Onset: 01-14-2025 Episodic Other screening for suspected conditions (not mental disorders or infectious disease) (20 sources) Thyroid function tests abnormal; Translations: [Abnormal results of thyroid function studies] Onset: 04-22-2024 04-17-2024 Episodic Other skin disorders (20 sources) Excessive sweating; Translations: [Generalized hyperhidrosis] Onset: 04-22-2024 04-22-2024 Episodic Residual codes; unclassified (1 source) Other amnesia; Translations: [Memory loss] Onset: 11-03-2024 Episodic Skin and subcutaneous tissue infections (20 sources) Abscess of buttock; Translations: [Cutaneous abscess of buttock] Onset: 03-21-2022 03-21-2022 Episodic Results Test Name Value Interpretation Reference Range Facility Inital Evaluation (1) - PTon 05-12-2025 Inital Evaluation (1) - PT [facility] [address] [place] [address]. [address] [place] [address] / REHABILITATION SERVICES INITIAL EVALUATION MR#: [id number] Acct: [id number] Name: VALENCIA POLO Rep #: [id number] : 1955 70 From: Peewee MELCHORT, OCS, CSCS Referring Dr.: Dr. Wilfrid Layne MD Status: REG RCR Insurance: [employer] MEDICARE SELF PAY INSURANCE Patient's Visit Information Visit Information Visit Information: VALENCIA POLO is a 70 year old F referred to Physical Therapy by Dr. Wilfrid Layne MD with a diagnosis of cervical spondylosis, lumbar radiculopathy. Date of Evaluation: 05/12/25 Physical Therapist: Peewee Mclean DPT, OCS, CSCS Visit Plan Frequency: 2x /Week Duration: 4-6 Weeks Plan: 2x/week for 3 visits in water to TEEACH cervical and lumbar ROM, general strength, core and postural strength with postural and NS focus and get I for her community pool in [place]. Pt wants to keep visits to min due to cost and try to do this in 3 visits then f/u with therapist a month later. Please ensure her I pool program is good after 3 visits if at all possible and consider more visits if unable to be I at that time up to 2x/week for 4 weeks. IE: Educated on activity modification, benefits of ex and movement, need to change something to expect improvements and importance of long term care administrator compliance. Subjective Subjective: I have pain issues. Dr. Matos sent to [facility]. Pain mgmt says nothing to do until tries PT due to Insurance. Will see pain mgmt in 2 weeks. Neck pain is intermittent and wors with housework and lifting for that. Volume of lifting groceries will cause pain next day. Pain is central neck and has hurt for years, just put up with it. Has had x rays and is full of OA. Tramadol used to help, not as much now.Numbness and tingling in both arms sleepy often often with reading or suing them. Back years of pain and worse with grocery which is once per month. Worse with activity. Feet can tingle with activity. Feels better with sitting down. Sleep is not great. Just can't sleep , pain may be a slight issue. Not employed. Retired casino cashier. Spends day MF ex at center, Tuesdays done due to eex, usually does chair ex. Does some yoga also and spends an hour. Cleans house. Most of ex is seated UE adn LE movements. Walks with rollator which allows her to walk further or leans on cart. Pain Neck pain: Pain Intensity (Out of 10): 8 Pain Intensity Range: 0 and 8 LBP: Pain Intensity (Out of 10): 2 Pain Intensity Range: 0 and 9 Objective Objective: Walks into PT I but very short steps and no pelvic movement, stiff spine. Trasnfers I chair and bed with UE. Good balance. Hunched FW in stance with flat lordosis and max protruded head and neck protrusion structurally. Dowagers Hump is tender as are the muscle of the neck and scapula B. moderately. cervical AROM 40 B rotation, 6 B SB, 35 ext, poor reetraction. All of them accompanid by slight wincing. Lumbar AROM eext nil and painful, flexion tight in HS only and fair, SB max deficits. Most pain with x centrally. reeflxees 1/3 patella and achilles and bi and tri sensation UE WNL and LE WNL to gross light touch B. strength core 3/5, hip 3/5 with instability in seated teesting on core. knees 4-, anklees 4-, shoulders 3+, eelbows and wrist 4-. No specific myotomal problems. Balance/Special Test Scores Oswestry Low Back Score: 15 Goals Goal 1:: I appropriate pool baseed cervical and lumbar ROM, core and postural strength adn general ex to limit future problems. Goal Time Frame: 4-6 Weeks Goal 2:: Pt feel 50% better in overall pain to 4/10 at worst Goal Time Frame: 4-6 Weeks Goal 3:: Toleerate grocery trip without increased pain Goal Time Frame: 4-6 Weeks Goal 4:: oswestry 10 or beetter Goal Time Frame: 4-6 Weeks Rehabilitation Potential Physical Therapy Diagnosis: stiffness, loss of ROM, weakness and postural deficits comtributing to pain and diminished QOL Rehabilitation Potential: Fair Anticipated Interventions Patient/Client Instruction: Educate patient on: Condition For the Purpose of:: To decrease pain, To improve nutrient delivery to tissue, To improve muscle performance and motor function, To increase tolerance to activity/condition/p osition and To improve gait and locomotor functions Therapeutic Exercise to Include: Strength training, Postural training, Flexibilty training, "In an aquatic setting", Passive ROM and Active ROM For the Purpose of:: To decrease pain, To increase ROM, To improve nutrient delivery to tissue, To improve muscle performance and motor function, To increase tolerance to activity/condition/p osition, To improve ability of physical actions for home/community/work/ leisure and To improve gait and locomotor functions Text: Thank you for the opportunity to evaluate your patient. (more content not included)... Normal [facility] Bacteria Ur Culton 5 Bacteria identified Cx Nom (U) ORGANISM ID: 1 10,000 -<50,000 CFU/ml Escherichia coli ORGANISM ID: 1 (ESCHERICHIA COLI) ANTIBIOTIC INTERPRETATION HOLLEY STATUS REFERENCE RANGE Ampicillin S <=2 F Susceptible <=8 , Intermediate >8 , Resistant >16 Cefazolin S <=4 F Susceptible 0-16 , Intermediate <0 or >16 , Resistant >16 For uncomplicated urinary tract infections, cefazolin results can be used to predict susceptibility or resistance to cephalexin. Ceftriaxone S <=1 F Susceptible <=1 , Intermediate >1 , Resistant >=4 Cefepime S <=1 F Susceptible <=2 , Susceptible-Dose Dependent >2 , Resistant >=16 Ertapenem S <=0.5 F Susceptible <=0.5 , Intermediate >.5 , Resistant >1 Meropenem S <=0.25 F Susceptible <=1 , Intermediate >1 , Resistant >2 Ampicillin/Sulbact S <=2 F Susceptible <=8 , Intermediate >8 , Resistant >16 Piperacillin/Tazobac S <=4 F Susceptible <16 , Susceptible-Dose Dependent >=16 , Resistant >=32 Gentamicin S <=1 F Susceptible <=2 , Intermediate >2 , Resistant >=8 Tobramycin S <=1 F Susceptible <4 , Intermediate >=4 , Resistant >=8 Trimeth sulfameth S <=20 F Susceptible <=40 , Resistant >40 Ciprofloxacin S <=0.25 F Susceptible <0.5 , Intermediate >=.5 , Resistant >=1 Nitrofurantoin S <=16 F Susceptible <=32 , Intermediate >32 , Resistant >64 Abnormal [facility] Comment on above: Performed By: #### 6 30-4 #### [facility] CLIA [id number] [address] [place] [address] OF [facility] CNOVon 04-19-2025 CNOV Office Visit (FAMPWS) CHRISTVALENCIA HERNDON ([id number]) 1955 F Date Time Provider Department 04/19/25 12:40 PM [facility] During your visit today, we recorded the following information about you: Temperature Pulse Respiration Blood pressure 97 degrees 80/minute 20/minute 110/70 Weight Height 88.5 kg 1.53 m Hong Matos DO 04/19/2025 1:38 PM Signed CC: Valencia Polo is a 70 year old female who presents to the office for follow up HPI: Recently with increased Right low back pain raditating into right gluteal area and into right thigh posterior and right calf. Was only getting minimal relief with layiing on her right side in the bed and stretching her leg out. Hx of arthritis in lumbar spine, last xrays in 01/2025- hasn't had any recent falls or injuries Restless legs, chronic. Last labs in April 2024. Has a fmhx in her mother of severe RLS Urinary symptoms of urgency and frequency and dysuria the last few days. No hematuria, no fevers or chills or flank pains. Chronic pain, has been taking her gabapentin 900 mg 3 times a day as well as the Tramadol. She feels that the tramadol is helping her pain symptoms, she is trying to do walking and stretches to help with management of her chronic neck pain, chronic low back pain and chronic myalgia discomfort. she is still trying to do exercises she is able and stretches at least 3 days a week at the [facility] for chair exercises- knows that this benefits her even though it is uncomfortable for her to perform. She notices that her pain is increased the day after she exercises to the point that she is unsure if she can still exercise. Hasn't gotten opinion from pain mgmt recently but is interested in this. Mood, taking zoloft 150 mg at bedtime, struggling with depressed mood and lack of motivation. Was previously in 2017/2018 on cymbalta without any SE. Did have SE with Pristiq as well as Paxil in the past few years. No SI or HI. Does have support from her daughter. PAST MEDICAL HISTORY Diagnosis Date Chronic pain syndrome normal ESR, suspect fibromyalgia Depression Elevated cholesterol with high triglycerides Fibromyalgia GERD (gastroesophageal reflux disease) Hypertension Prediabetes RLS (restless legs syndrome) PAST SURGICAL HISTORY Procedure Laterality Date HYSTERECTOMY HX 1989 ovaries removed PAST SURGICAL HISTORY OF gallbladder removal PAST SURGICAL HISTORY OF benign tumor removed from L shoulder blade Current Outpatient Medications Medication Sig lisinopril (ZESTRIL) 10 mg tablet Take 1 tablet by mouth once daily. sertraline (ZOLOFT) 100 mg tablet Take 1 tablet by mouth daily at bedtime. Take with 50 mg tablet to total 150 mg a day sertraline (ZOLOFT) 50 mg tablet Take 1 tablet by mouth once daily. Add to 100 mg to total 150 mg a day atorvastatin (LIPITOR) 10 mg tablet Take 1 tablet by mouth daily at bedtime. For cholesterol. furosemide (LASIX) 20 mg tablet TAKE 1 TABLET ONE TIME DAILY NEEDED FOR SWELLING/EDEMA gabapentin (NEURONTIN) 300 mg capsule Add to 600 mg capsule to total 900 mg 3 times a day for chronic pain gabapentin (NEURONTIN) 600 mg tablet Take 1 tablet by mouth three times a day for 90 days. cyanocobalamin 1,000 mcg/mL Inject 1 mL intramuscularly every 2 weeks. Vitamin B12 deficiency Syringe with Needle, Disp, 1 mL 25 gauge x 1" syrg 1 Syringe as directed. Vitamin b12 deficiency rosuvastatin (CRESTOR) 10 mg tablet Take 1 tablet by mouth daily at bedtime. WALKER ROLLATOR SEAT WITH 6" WHEELS - RED Dx: low back pain, lumbar DDD, lumbar DJD,balance disorder vitamin B complex (B COMPLEX-100 ORAL) Take by mouth. Magnesium 250 mg tab Take 250 mg by mouth twice daily. estradiol (ESTRACE) 0.01 % (0.1 mg/gram) vaginal cream Finger-tip amount each night applied as directed in instructions phenazopyridine (PYRIDIUM) 200 mg tablet Take 1 tablet by mouth three times daily as needed. triamcinolone acetonide (KENALOG) 0.5 % cream Apply to affected area twice daily. Cholecalciferol, Vitamin D3, 5,000 unit cap Take 1 capsule by mouth once daily. MULTIVITAMIN ORAL Take by mouth. No current facility-administere d medications for this visit. ALLERGIES Allergen Reactions Upper Tract [Hydrocodone-* Hives Social History Tobacco Use Smoking status: Former Smokeless tobacco: Never Substance Use Topics Alcohol use: Not Currently Drug use: No ROS: See HPI PE: BP 110/70 Pulse 80 Temp (Src) 97 (Left Tympanic) Resp 20 Ht 5' .236" (1.53m) Wt 195 lb (88.5kg) BMI 37.79 kg/(m2). Gen: AANDO, NAD, non-toxic appearing, hard of hearing, cooperative HEENT: NT/AC, PERRLA, EOMs intact b/l, sinus TTP frontal and maxillary, nares clear and patent b/l, pharynx without erythema, exudate or lesions. MMM, Uvula midline. EACs without erythema or debris. Neck: supple, No (more content not included)... Normal [facility] Comprehensive metabolic 2000 panelon 04-19-2025 Albumin [Mass/Vol] 4.8 g/dL Normal 3.9-4.9 [facility] Comment on above: Order Comment: Speci men Type: BLOOD SPECIMENOrdering Facility: [facility] Address: [address] [place], [place] [id number] Performed By: #### 2 4323-8, 2532-0, 2731-8 ####[facility] [id number] [place] [address] [place] ALP [Catalytic activity/Vol] 70 U/L Normal 34-123 [facility] Comment on above: Order Comment: Speci men Type: BLOOD SPECIMENOrdering Facility: [facility] Address: [address] [place] [address] Performed By: #### 2 4323-8, 2531-0, 2731-07 ####[facility] [id number] [place] [address] [place] ALT [Catalytic activity/Vol] 17 U/L Normal 7-38 [facility] Comment on above: Order Comment: Speci men Type: BLOOD SPECIMENOrdering Facility: [facility] Address: [address] [place] [address] Performed By: #### 2 4323-8, 2531-0, 2731-07 ####[facility] [id number] [place] [address] [place] Anion gap [Moles/Vol] 18 mmol/L High 8-15 [facility] Comment on above: Order Comment: Speci men Type: BLOOD SPECIMENOrdering Facility: [facility] Address: [address] [place] [address] Performed By: #### 2 4323-8, 2531-0, 2731-07 ####[facility] [id number] [place] [address] [place] AST [Catalytic activity/Vol] 22 U/L Normal 13-35 [facility] Comment on above: Order Comment: Speci men Type: BLOOD SPECIMENOrdering Facility: [facility] Address: [address] [place] [address] Performed By: #### 2 4323-8, 2531-0, 8 ####[facility] [id number] [place] [id number] [place] Bilirubin [Mass/Vol] 0.2 mg/dL Normal 0.2-1.3 [facility] Comment on above: Order Comment: Speci men Type: BLOOD SPECIMENOrdering Facility: [facility] Address: [address] [place], [place] [id number] Performed By: #### 2 4323-8, 2531-0, 2731-07 ####[facility] [id number] [facility] [address] [address] [place] Calcium [Mass/Vol] 10.6 mg/dL High 8.5-10.2 [facility] Comment on above: Order Comment: Speci men Type: BLOOD SPECIMENOrdering Facility: [facility] Address: [address] [place] [address] Performed By: #### 2 4323-8, 0, 2731-07 ####[facility] LABCLIA [id number] [facility] [place] [id number] [place] Chloride [Moles/Vol] 99 mmol/L Normal 98-107 [facility] Comment on above: Order Comment: Speci men Type: BLOOD SPECIMENOrdering Facility: [facility] Address: [address] [place] [address] Performed By: #### 2 4323-8, 0, 2731-07 ####[facility] LABCLIA [id number] [facility] [address] [address] [place] CO2 [Moles/Vol] 23 mmol/L Normal 22-30 [facility] Comment on above: Order Comment: Speci men Type: BLOOD SPECIMENOrdering Facility: [facility] Address: [address] [place] [address] Performed By: #### 2 4323-8, 0, 2731-07 ####[facility] LABCLIA [id number] [facility] [address] [address] [place] Creatinine [Mass/Vol] 0.76 mg/dL Normal 0.58-0.96 [facility] Comment on above: Order Comment: Ashley fairbanks Type: BLOOD SPECIMENOrdering Facility: [facility] Address: [address] [place] [address] Performed By: #### 2 4323-8, 2-0, 2731-07 ####[facility] LABCLIA [id number] [place] [address] [place] Creatinine and Glomerular filtration rate.predicted panel (S/P/Bld) 83 mL/min/1.73m??? Normal >=60 [facility] Comment on above: Order Comment: Ashley fairbanks Type: BLOOD SPECIMENOrdering Facility: [facility] Address: [address] [place] [address] Result Comment: Iona mated Glomerular Filtration Rate (eGFR) is calculated using the 2020 CKD-EPI creatinine equation. This equation utilizes serum creatinine, sex, and age as parameters. The creatinine assay has traceable calibration to isotope dilution-mass spectrometry. Refer to KDIGO guidelines for clinical interpretation. In patients with unstable renal function, e.g. those with acute kidney injury, the eGFR may not accurately reflect actual GFR. Performed By: #### 2 4323-8, 2-0, 2731-07 ####[facility] LABIA [id number] [place] [address] [place] Glucose [Mass/Vol] 97 mg/dL Normal 74-99 [facility] Comment on above: Order Comment: Ashley fairbanks Type: BLOOD SPECIMENOrdering Facility: [facility] Address: [address] [place] [address] Result Comment: The [place] Diabetes Association (ADA) provides guidance for cutoff values for fasting glucose and random glucose. The ADA defines fasting as no caloric intake for at least 8 hours. Fasting plasma glucose results between 100 to 125 mg/dL indicate increased risk for diabetes (prediabetes). Fasting plasma glucose results greater than or equal to 126 mg/dL meet the criteria for diagnosis of diabetes. In the absence of unequivocal hyperglycemia, results should be confirmed by repeat testing. In a patient with classic symptoms of hyperglycemia or hyperglycemic crisis, random plasma glucose results greater than or equal to 200 mg/dL meet the criteria for diagnosis of diabetes. Reference: Standards of Medical Care in Diabetes 2016, [place] Diabetes Association. Diabetes Care. 2016.39(Suppl 1). Performed By: #### 2 4323-8, 0, 2731-07 ####[facility] LABCLIA [id number] [address] [address] [place] Potassium [Moles/Vol] 4.5 mmol/L Normal 3.7-5.1 [facility] Comment on above: Order Comment: Speci men Type: BLOOD SPECIMENOrdering Facility: [facility] Address: [address] [place] [address] Performed By: #### 2 4323-8, 0, 2731-07 ####[facility] LABCLIA [id number] [place] [id number] [place] Protein [Mass/Vol] 7.6 g/dL Normal 6.3-8.0 [facility] Comment on above: Order Comment: Speci men Type: BLOOD SPECIMENOrdering Facility: [facility] Address: [address] [place] [address] Performed By: #### 2 4323-8, 0, 2731-07 ####[facility] LABCLIA [id number] [address] [address] [place] Sodium [Moles/Vol] 140 mmol/L Normal 136-144 [facility] Comment on above: Order Comment: Speci men Type: BLOOD SPECIMENOrdering Facility: [facility] Address: [address] [place], [place] [id number] Performed By: #### 2 4323-8, 0, 2731-07 ####[facility] LABCLIA [id number] [address] [address] [place] Urea nitrogen [Mass/Vol] 20 mg/dL Normal 7-21 [facility] Comment on above: Order Comment: Speci men Type: BLOOD SPECIMENOrdering Facility: [facility] Address: [address] [place] [address] Performed By: #### 2 4323-8, 0, 2731-07 ####[facility] [id number] [place] [address] [place] LDH SerPl-cCncon 04-19-2025 LDH [Catalytic activity/Vol] 150 U/L Normal 135-214 [facility] Comment on above: Order Comment: Speci men Type: BLOOD SPECIMENOrdering Facility: [facility] Address: [address] [place] [address] Performed By: #### 2 4323-8, 0, 2731-07 ####[facility] [id number] [place] [address] [place] PTH-Intact SerPl-mCncon 04-01 Parathyrin.intact [Mass/Vol] 24 pg/mL Normal 15-65 [facility] Comment on above: Order Comment: Speci men Type: BLOOD SPECIMENOrdering Facility: [facility] Address: [address] [place] [address] Performed By: #### 2 4323-8, 2531-0, 2731-07 ####[facility] [id number] [address] [place] UA DIP, URINE (POC)on 2024 BILIRUBIN UA (POCT) Negative Negative [facility] CLARITY UA (POCT) Clear [facility] COLOR UA (POCT) Yellow [facility] GLUCOSE UA (POCT) Negative Negative mg/dL [facility] Hemoglobin Ql (U) Negative Negative [facility] Interpretation and review of laboratory results Abnormal [facility] KETONE UA (POCT) Negative Negative mg/dL [facility] LEUKOCYTES UA (POCT) Small Abnormal Negative [facility] NITRITE UA (POCT) Negative Negative [facility] PH UA (POCT) 7 4.5 - 8.0 [facility] Protein Ql (U) Negative Negative mg/dL [facility] SPECIFIC GRAVITY UA (POCT) 1.015 1.005 - 1.030 [facility] UROBILINOGEN UA (POCT) 0.2 Normal E.U./dL [facility] Location:[facility], [address], [place], [place], [id number] [place] [address] POINT OF CARE [facility] CNPNon 03-15-2025 CNPN Telephone (FAMPWS) VALENCIA POLO ([id number]) 1955 F Date Time Provider Department 03/15/25 HONG MATOS FAMPWS During your visit today, we recorded the following information about you: Stacie Lemons RN 03/15/2025 4:31 PM Signed Veronica from [facility] pharmacy in [place] calling in questioning prescription refill that just got sent in to them from [facility] for pt's Tramadol. Script sent in today has directions of take 1 tablet by mouth every 6 hours as needed for up to 30 days. Dispense # was 180 with no refills. Per directions, the dispense # is 60 more tablets (1 every 6 hrs for 30 days would be 120). Also Veronica states pt's previous scripts' directions have been take 2 every 8 hours as needed. Dispense 180 with 2 refills. Wondering if the new directions are correct. Called and spoke with pt who states that she takes 2 tablets 3 times a day (approx every 8 hrs). 1) Questioning directions as different from previous scripts? 2) # of tablets to dispense needs to match directions? Needs corrected new script sent to pharmacy. Script pended with previous directions of take 2 tablets 3 times a day as needed. Provider to confirm these directions and gerardo # to dispense and if any refills. Art Starr PA-C 03/16/2025 11:38 AM Signed The following approved medication requests have been transmitted electronically. Requested Prescriptions Signed Prescriptions Disp Refills traMADol (ULTRAM) 50 mg tablet 180 tablet 0 Sig: Take 2 tablets by mouth every 8 hours as needed for pain for up to 30 days. Authorizing Provider: ART STARR PA-C Allergies As of Date: 03/15/2025 Noted Allergy Reaction NORCO (HYDROCODONE-ACETAMI NOPHEN) 06/13/2021 4 - Hives Date Reviewed: 01/13/2025 Reviewed by: Marta So MA - Fully Assessed Reason for Visit: Medication Problem [65] Cmt: Tramadol prescription Visit Diagnoses:Osteoarthr itis of spine with radiculopathy, lumbar region [M47.26] Chronic midline low back pain with bilateral sciatica [M54.41, M54.42, G89.29] Chronic pain syndrome [G89.4] Chronic bilateral thoracic back pain [M54.6, G89.29] Fibromyalgia [M79.7] Order(s):traMADol (ULTRAM) 50 mg tabletTake 2 tablets by mouth every 8 hours as needed for pain for up to 30 days.Disp: 180 tabletRfl: 0 Prescriptions as of 03/16/2025 - traMADol (ULTRAM) 50 mg tablet Take 2 tablets by mouth every 8 hours as needed for pain for up to 30 days. - lisinopril (ZESTRIL) 10 mg tablet Take 1 tablet by mouth once daily. - sertraline (ZOLOFT) 100 mg tablet Take 1 tablet by mouth daily at bedtime. Take with 50 mg tablet to total 150 mg a day - sertraline (ZOLOFT) 50 mg tablet Take 1 tablet by mouth once daily. Add to 100 mg to total 150 mg a day - atorvastatin (LIPITOR) 10 mg tablet Take 1 tablet by mouth daily at bedtime. For cholesterol. - furosemide (LASIX) 20 mg tablet TAKE 1 TABLET ONE TIME DAILY NEEDED FOR SWELLING/EDEMA - gabapentin (NEURONTIN) 300 mg capsule Add to 600 mg capsule to total 900 mg 3 times a day for chronic pain - gabapentin (NEURONTIN) 600 mg tablet Take 1 tablet by mouth three times a day for 90 days. - cyanocobalamin 1,000 mcg/mL Inject 1 mL intramuscularly every 2 weeks. Vitamin B12 deficiency - Syringe with Needle, Disp, 1 mL 25 gauge x 1" syrg 1 Syringe as directed. Vitamin b12 deficiency - rosuvastatin (CRESTOR) 10 mg tablet Take 1 tablet by mouth daily at bedtime. - WALKER ROLLATOR SEAT WITH 6" WHEELS - RED Dx: low back pain, lumbar DDD, lumbar DJD,balance disorder - vitamin B complex (B COMPLEX-100 ORAL) Take by mouth. - Magnesium 250 mg tab Take 250 mg by mouth twice daily. - estradiol (ESTRACE) 0.01 % (0.1 mg/gram) vaginal cream Finger-tip amount each night applied as directed in instructions - phenazopyridine (PYRIDIUM) 200 mg tablet Take 1 tablet by mouth three times daily as needed. - triamcinolone acetonide (KENALOG) 0.5 % cream Apply to affected area twice daily. - clobetasol (TEMOVATE) 0.05 % ointment (Discontinued) Apply 1 application to affected area twice daily. - Cholecalciferol, Vitamin D3, 5,000 unit cap Take 1 capsule by mouth once daily. - MULTIVITAMIN ORAL Take by mouth. Problem List As Of Date 03/15/2025 Noted Resolved Dysuria [R30.0] 02/04/2014 03/22/2014 Hematuria [R31.9] 02/04/2014 03/22/2014 Vulval lesion [N90.89] 02/04/2014 03/22/2014 Vulvar dermatitis [L30.9] 02/04/2014 03/22/2014 Lichen sclerosus [L90.0] 03/22/2014 Fibromyalgia [M79.7] Chronic bilateral thoracic back pain [M54.6, G8*03/27/2021 Chronic pain syndrome [G89.4] 03/27/2021 Chronic midline low back pain with bilateral sc*03/27/2021 Osteoarthritis of spine with radiculopathy, lum*03/27/2021 IFG (impaired fasting glucose) [R73.01] 08/01/2021 Restless leg [G25.81] 08/01/2021 Hyperlipidemia, mixed [E78 (more content not included)... Normal [facility] Marjan 02-23-2025 [facility] Telephone (FAMPWS) CHRISTVALENCIA Christian ([id number]) 1955 F Date Time Provider Department 02/23/25 HONG MATOS During your visit today, we recorded the following information about you: Lesvia Naranjo LPN 02/23/2025 3:06 PM Signed Diamond with [facility] is calling in regards to the two sertraline rx sent in today. There is a rx for 100 mg (take 1 tab at bedtime with 25 mg tab to total 125 mg daily) and a rx for 50 mg (take 1 tablet daily with 100 mg to total 150 mg a day). Diamond is calling to ask if pt is taking 125 mg daily or 150 mg daily. Please clarify. Call Diamond with 's message. JEAN Brand Jordan L, DO 02/23/2025 4:54 PM Signed The following approved medication requests have been transmitted electronically. Requested Prescriptions Signed Prescriptions Disp Refills sertraline (ZOLOFT) 100 mg tablet 90 tablet 3 Sig: Take 1 tablet by mouth daily at bedtime. Take with 50 mg tablet to total 150 mg a day Authorizing Provider: HONG MATOS sertraline (ZOLOFT) 50 mg tablet 90 tablet 1 Sig: Take 1 tablet by mouth once daily. Add to 100 mg to total 150 mg a day Authorizing Provider: HONG MATOS DO Allergies As of Date: 02/23/2025 Noted Allergy Reaction NORCO (HYDROCODONE-ACETAMI NOPHEN) 06/13/2021 4 - Hives Date Reviewed: 01/13/2025 Reviewed by: Marta So MA - Fully Assessed Reason for Visit: Medication Question [5838] Visit Diagnoses:VÍCTOR (generalized anxiety disorder) [F41.1] Depressive disorder [F32.A] Order(s):sertraline (ZOLOFT) 100 mg tabletTake 1 tablet by mouth daily at bedtime. Take with 50 mg tablet to total 150 mg a dayDisp: 90 tabletRfl: 3 sertraline (ZOLOFT) 50 mg tabletTake 1 tablet by mouth once daily. Add to 100 mg to total 150 mg a dayDisp: 90 tabletRfl: 1 Prescriptions as of 02/23/2025 - lisinopril (ZESTRIL) 10 mg tablet Take 1 tablet by mouth once daily. - sertraline (ZOLOFT) 100 mg tablet Take 1 tablet by mouth daily at bedtime. Take with 50 mg tablet to total 150 mg a day - sertraline (ZOLOFT) 50 mg tablet Take 1 tablet by mouth once daily. Add to 100 mg to total 150 mg a day - traMADol (ULTRAM) 50 mg tablet Take 50 mg by mouth every 6 hours as needed for pain. - atorvastatin (LIPITOR) 10 mg tablet Take 1 tablet by mouth daily at bedtime. For cholesterol. - furosemide (LASIX) 20 mg tablet TAKE 1 TABLET ONE TIME DAILY NEEDED FOR SWELLING/EDEMA - gabapentin (NEURONTIN) 300 mg capsule Add to 600 mg capsule to total 900 mg 3 times a day for chronic pain - gabapentin (NEURONTIN) 600 mg tablet Take 1 tablet by mouth three times a day for 90 days. - cyanocobalamin 1,000 mcg/mL Inject 1 mL intramuscularly every 2 weeks. Vitamin B12 deficiency - Syringe with Needle, Disp, 1 mL 25 gauge x 1" syrg 1 Syringe as directed. Vitamin b12 deficiency - rosuvastatin (CRESTOR) 10 mg tablet Take 1 tablet by mouth daily at bedtime. - WALKER ROLLATOR SEAT WITH 6" WHEELS - RED Dx: low back pain, lumbar DDD, lumbar DJD,balance disorder - vitamin B complex (B COMPLEX-100 ORAL) Take by mouth. - Magnesium 250 mg tab Take 250 mg by mouth twice daily. - estradiol (ESTRACE) 0.01 % (0.1 mg/gram) vaginal cream Finger-tip amount each night applied as directed in instructions - phenazopyridine (PYRIDIUM) 200 mg tablet Take 1 tablet by mouth three times daily as needed. - triamcinolone acetonide (KENALOG) 0.5 % cream Apply to affected area twice daily. - clobetasol (TEMOVATE) 0.05 % ointment (Discontinued) Apply 1 application to affected area twice daily. - Cholecalciferol, Vitamin D3, 5,000 unit cap Take 1 capsule by mouth once daily. - MULTIVITAMIN ORAL Take by mouth. Problem List As Of Date 02/23/2025 Noted Resolved Dysuria [R30.0] 02/04/2014 03/22/2014 Hematuria [R31.9] 02/04/2014 03/22/2014 Vulval lesion [N90.89] 02/04/2014 03/22/2014 Vulvar dermatitis [L30.9] 02/04/2014 03/22/2014 Lichen sclerosus [L90.0] 03/22/2014 Fibromyalgia [M79.7] Chronic bilateral thoracic back pain [M54.6, G8*03/27/2021 Chronic pain syndrome [G89.4] 03/27/2021 Chronic midline low back pain with bilateral sc*03/27/2021 Osteoarthritis of spine with radiculopathy, lum*03/27/2021 IFG (impaired fasting glucose) [R73.01] 08/01/2021 Restless leg [G25.81] 08/01/2021 Hyperlipidemia, mixed [E78.2] 08/01/2021 VÍCTOR (generalized anxiety disorder) [F41.1] 08/01/2021 Depressive disorder [F32.A] 08/01/2021 Vitamin B12 deficiency [E53.8] 12/15/2021 Vitamin D deficiency [E55.9] 12/15/2021 Gluteal abscess [L02.31] 03/21/2022 PVD (peripheral vascular disease) ([facility]) [I73.9] 03/27/2023 Body mass index (BMI) 45.0-49.9, adult (HCC) [Z*03/27/2023 PAD (peripheral artery disease) ([facility]) [I73.9] 09/12/2023 Fatigue [R53.83] 12/24/2023 Hypercalcemia [E83.52] 04/22/2024 Sweating increase [R61] (more content not included)... Normal [facility] Marjan 02-03-2025 [facility] CHRIST,VALENCIA S ([id number]) 1955 F Date Time Provider Department 02/03/25 HONG MATOS FAMPWS During your visit today, we recorded the following information about you: Leena Mathur, RN 02/03/2025 9:34 AM Signed Pt asking pcp to review and advise on labs and xrays done on 01-14-25. Hong Matos DO 02/08/2025 8:24 AM Signed Please let her know that her protein levels and calcium were slightly high. I would like these to be rechecked and some additional labs obtained to check to see if improved Also her cholesterol is high. She needs to cut back on her animal fats, fried/fast and fatty foods. Eat more lean meats and vegetables and fresh fruits Other labs are overall stable. Can cut back to every other day dosing of her vitamin B12 as well. Her hip xrays show moderate osteoarthritis of the right hip and mild osteoarthritis of the left hip. Can consider seeing orthopedics for injections as well as PHYSICAL THERAPY if interested Her xrays of her lumbar spine show significant osteoarthritis in the low back and degenerative disc changes as well. No instability. Can consider pain mgmt for injections as well as PHYSICAL THERAPY DO Victoriano Sigala Jane, MA 02/08/2025 8:49 AM Signed Patient notified. Allergies As of Date: 02/03/2025 Noted Allergy Reaction NORCO (HYDROCODONE-ACETAMI NOPHEN) 06/13/2021 4 - Hives Date Reviewed: 01/13/2025 Reviewed by: Marta So MA - Fully Assessed Reason for Visit: Results [95] Prescriptions as of 02/08/2025 - traMADol (ULTRAM) 50 mg tablet Take 50 mg by mouth every 6 hours as needed for pain. - atorvastatin (LIPITOR) 10 mg tablet Take 1 tablet by mouth daily at bedtime. For cholesterol. - furosemide (LASIX) 20 mg tablet TAKE 1 TABLET ONE TIME DAILY NEEDED FOR SWELLING/EDEMA - gabapentin (NEURONTIN) 300 mg capsule Add to 600 mg capsule to total 900 mg 3 times a day for chronic pain - gabapentin (NEURONTIN) 600 mg tablet Take 1 tablet by mouth three times a day for 90 days. - lisinopril (ZESTRIL) 10 mg tablet Take 1 tablet by mouth once daily. - sertraline (ZOLOFT) 100 mg tablet Take 1 tablet by mouth daily at bedtime. Take with 25 mg tablet to total 125 mg a day - sertraline (ZOLOFT) 50 mg tablet Take 1 tablet by mouth once daily. Add to 100 mg to total 150 mg a day - PARoxetine (PAXIL) 40 mg tablet Take 1 tablet by mouth once daily. - cyanocobalamin 1,000 mcg/mL Inject 1 mL intramuscularly every 2 weeks. Vitamin B12 deficiency - Syringe with Needle, Disp, 1 mL 25 gauge x 1" syrg 1 Syringe as directed. Vitamin b12 deficiency - rosuvastatin (CRESTOR) 10 mg tablet Take 1 tablet by mouth daily at bedtime. - WALKER ROLLATOR SEAT WITH 6" WHEELS - RED Dx: low back pain, lumbar DDD, lumbar DJD,balance disorder - vitamin B complex (B COMPLEX-100 ORAL) Take by mouth. - Magnesium 250 mg tab Take 250 mg by mouth twice daily. - estradiol (ESTRACE) 0.01 % (0.1 mg/gram) vaginal cream Finger-tip amount each night applied as directed in instructions - phenazopyridine (PYRIDIUM) 200 mg tablet Take 1 tablet by mouth three times daily as needed. - triamcinolone acetonide (KENALOG) 0.5 % cream Apply to affected area twice daily. - clobetasol (TEMOVATE) 0.05 % ointment (Discontinued) Apply 1 application to affected area twice daily. - Cholecalciferol, Vitamin D3, 5,000 unit cap Take 1 capsule by mouth once daily. - MULTIVITAMIN ORAL Take by mouth. Problem List As Of Date 02/03/2025 Noted Resolved Dysuria [R30.0] 02/04/2014 03/22/2014 Hematuria [R31.9] 02/04/2014 03/22/2014 Vulval lesion [N90.89] 02/04/2014 03/22/2014 Vulvar dermatitis [L30.9] 02/04/2014 03/22/2014 Lichen sclerosus [L90.0] 03/22/2014 Fibromyalgia [M79.7] Chronic bilateral thoracic back pain [M54.6, G8*03/27/2021 Chronic pain syndrome [G89.4] 03/27/2021 Chronic midline low back pain with bilateral sc*03/27/2021 Osteoarthritis of spine with radiculopathy, lum*03/27/2021 IFG (impaired fasting glucose) [R73.01] 08/01/2021 Restless leg [G25.81] 08/01/2021 Hyperlipidemia, mixed [E78.2] 08/01/2021 VÍCTOR (generalized anxiety disorder) [F41.1] 08/01/2021 Depressive disorder [F32.A] 08/01/2021 Vitamin B12 deficiency [E53.8] 12/15/2021 Vitamin D deficiency [E55.9] 12/15/2021 Gluteal abscess [L02.31] 03/21/2022 PVD (peripheral vascular disease) ([facility]) [I73.9] 03/27/2023 Body mass index (BMI) 45.0-49.9, adult (HCC) [Z*03/27/2023 PAD (peripheral artery disease) ([facility]) [I73.9] 09/12/2023 Fatigue [R53.83] 12/24/2023 Hypercalcemia [E83.52] 04/22/2024 Sweating increase [R61] 04/22/2024 Borderline abnormal thyroid function test [R94.*04/22/2024 Low serum cortisol level [R79.89] 07/23/2024 Hypertriglyceridemia [E78.1] 01/13/2025 Encounter Status:Closed by ELAINE PASTRANA on 02/08/25 Normal [facility] 25(OH)D3 [facility] 20[facility] 25-hydroxyvitamin D3 [Mass/Vol] 68.9 ng/mL Normal >=30.0 [facility] Comment on above: Order Comment: Speci men Type: BLOOD SPECIMENOrdering Facility: [facility] Address: [address] [place] [address] Result Comment: Clas sification of 25 [place] Vitamin D status: Deficiency: <= 20.0 ng/ml. Insufficiency: 21.0-29.0 ng/ml. Sufficiency: >= 30.0 ng/ml. Performed By: #### 1 989-3 ####[facility] LABORATORYCLIA [id number] [place] [address] [place] CBC W Auto Differential pane l (Bld)on 01-14-2025 Basophils (Bld) [#/Vol] 0.03 10*3/uL Normal <0.11 [facility] Comment on above: Order Comment: Speci men Type: BLOOD SPECIMENOrdering Facility: [facility] Address: [address] [place] [address] Performed By: #### 5 7021-8 ####[facility] [id number] [place] [address] [place] Basophils/100 WBC (Bld) 0.5 % Normal [facility] Comment on above: Order Comment: Speci men Type: BLOOD SPECIMENOrdering Facility: [facility] Address: [address] [place] [address] Performed By: #### 5 7021-8 ####[facility] [id number] [place] [address] [place] Differential cell count method Nom (Bld) Auto Normal [facility] Comment on above: Order Comment: Speci men Type: BLOOD SPECIMENOrdering Facility: [facility] Address: [address] [place] [address] Performed By: #### 5 7021-8 ####[facility] [id number] [place] [address] [place] Eosinophils (Bld) [#/Vol] 0.10 10*3/uL Normal <0.46 [facility] Comment on above: Order Comment: Speci men Type: BLOOD SPECIMENOrdering Facility: [facility] Address: [address] [place] [address] Performed By: #### 5 7021-8 ####[facility] [id number] [place] [address] [place] Eosinophils/100 WBC (Bld) 1.7 % Normal [facility] Comment on above: Order Comment: Speci men Type: BLOOD SPECIMENOrdering Facility: [facility] Address: [address] [place] [address] Performed By: #### 5 7021-8 ####[facility] NANCY [id number] [place] [address] [place] Erythrocyte distribution width (RBC) [Ratio] 14.2 % Normal 11.5-15.0 [facility] Comment on above: Order Comment: Speci men Type: BLOOD SPECIMENOrdering Facility: [facility] Address: [address] [place] [address] Performed By: #### 5 7021-8 ####[facility] SHRAVANSAN PEDRONAIN [id number] [place] [address] [place] Hematocrit (Bld) [Volume fraction] 43.6 % Normal 36.0-46.0 [facility] Comment on above: Order Comment: Speci men Type: BLOOD SPECIMENOrdering Facility: [facility] Address: [address] [place] [address] Performed By: #### 5 7021-8 ####[facility] SHRA[facility]ANS[facility] PEDROBHASKARA [id number] [place] [address] [place] Hemoglobin (Bld) [Mass/Vol] 14.7 g/dL Normal 11.5-15.5 [facility] Comment on above: Order Comment: Speci men Type: BLOOD SPECIMENOrdering Facility: [facility] Address: [address] [place] [address] Performed By: #### 5 7021-8 ####[facility] EMERGENCYWESLYLIA [id number] [place] [address] [place] Immature granulocytes (Bld) [#/Vol] 0.03 10*3/uL Normal <0.10 [facility] Comment on above: Order Comment: Speci men Type: BLOOD SPECIMENOrdering Facility: [facility] Address: [address] [place] [address] Performed By: #### 5 7021-8 ####[facility] MILLWNCLIA [id number] [place] [address] [place] Immature granulocytes/100 WBC (Bld) 0.5 % Normal [facility] Comment on above: Order Comment: Speci men Type: BLOOD SPECIMENOrdering Facility: [facility] Address: [address] [place] [address] Performed By: #### 5 7021-8 ####[facility] EMERGENCYNCLIA [id number] [place] [address] [place] Lymphocytes (Bld) [#/Vol] 1.42 10*3/uL Normal 1.00-4.00 [facility] Comment on above: Order Comment: Speci men Type: BLOOD SPECIMENOrdering Facility: [facility] Address: [address] [place] [address] Performed By: #### 5 7021-8 ####[facility] EMERGENCYNCLIA [id number] [place] [address] [place] Lymphocytes/100 WBC (Bld) 23.5 % Normal [facility] Comment on above: Order Comment: Speci men Type: BLOOD SPECIMENOrdering Facility: [facility] Address: [address] [place] [address] Performed By: #### 5 7021-8 ####[facility] EMERGENCYWESLYLIA [id number] [place] [address] [place] MCH (RBC) [Entitic mass] 31.3 pg Normal 26.0-34.0 [facility] Comment on above: Order Comment: Speci men Type: BLOOD SPECIMENOrdering Facility: [facility] Address: [address] [place] [address] Performed By: #### 5 7021-8 ####[facility] EMERGENCYNCLIA [id number] [place] [address] [place] MCHC (RBC) [Mass/Vol] 33.7 g/dL Normal 30.5-36.0 [facility] Comment on above: Order Comment: Speci men Type: BLOOD SPECIMENOrdering Facility: [facility] Address: [address] [place] [address] Performed By: #### 5 7021-8 ####[facility] EMERGENCYWESLYA [id number] [place] [address] [place] MCV (RBC) [Entitic vol] 93.0 fL Normal 80.0-100.0 [facility] Comment on above: Order Comment: Speci men Type: BLOOD SPECIMENOrdering Facility: [facility] Address: [address] [place] [address] Performed By: #### 5 7021-8 ####[facility] EMERGENCYNCA [id number] [place] [address] [place] Monocytes (Bld) [#/Vol] 0.44 10*3/uL Normal <0.87 [facility] Comment on above: Order Comment: Speci men Type: BLOOD SPECIMENOrdering Facility: [facility] Address: [address] [place] [address] Performed By: #### 5 7021-8 ####[facility] [id number] [place] [address] [place] Monocytes/100 WBC (Bld) 7.3 % Normal [facility] Comment on above: Order Comment: Speci men Type: BLOOD SPECIMENOrdering Facility: [facility] Address: [address] [place] [address] Performed By: #### 5 7021-8 ####[facility] EMERGENCYNCLIA [id number] [place] [address] [place] Neutrophils (Bld) [#/Vol] 4.03 10*3/uL Normal 1.45-7.50 [facility] Comment on above: Order Comment: Speci men Type: BLOOD SPECIMENOrdering Facility: [facility] Address: [address] [place] [address] Performed By: #### 5 7021-8 ####[facility] SHRAVANACACIA [id number] [place] [address] [place] Neutrophils/100 WBC (Bld) 66.5 % Normal [facility] Comment on above: Order Comment: Speci men Type: BLOOD SPECIMENOrdering Facility: [facility] Address: [address] [place] [address] Performed By: #### 5 7021-8 ####[facility]ENCYNC[facility] [id number] [place] [address] [place] Nucleated RBC (Bld) [#/Vol] 10*3/uL Normal <0.01 [facility] Comment on above: Order Comment: Speci men Type: BLOOD SPECIMENOrdering Facility: [facility] Address: [address] [place] [address] Performed By: #### 5 7021-8 ####[facility] [id number] [place] [address] [place] Nucleated RBC/100 WBC (Bld) [Ratio] 0.0 /100 WBC Normal [facility] Comment on above: Order Comment: Speci men Type: BLOOD SPECIMENOrdering Facility: [facility] Address: [address] [place] [address] Performed By: #### 5 7021-8 ####[facility] [id number] [place] [address] [place] Platelet mean volume (Bld) [Entitic vol] 8.9 fL Low 9.0-12.7 [facility] Comment on above: Order Comment: Speci men Type: BLOOD SPECIMENOrdering Facility: [facility] Address: [address] [place] [address] Performed By: #### 5 7021-8 ####[facility] EMERGENCYNCLIA [id number] [place] [address] [place] Platelets (Bld) [#/Vol] 186 10*3/uL Normal 150-400 [facility] Comment on above: Order Comment: Speci men Type: BLOOD SPECIMENOrdering Facility: [facility] Address: [address] [place] [address] Performed By: #### 5 7021-8 ####[facility] EMERGENCYNCLIA [id number] [place] [address] [place] RBC (Bld) [#/Vol] 4.69 10*6/uL Normal 3.90-5.20 [facility] Comment on above: Order Comment: Speci men Type: BLOOD SPECIMENOrdering Facility: [facility] Address: [address] [place] [address] Performed By: #### 5 7021-8 ####[facility] [id number] [place] [address] [place] WBC (Bld) [#/Vol] 6.05 10*3/uL Normal 3.70-11.00 [facility] Comment on above: Order Comment: Speci men Type: BLOOD SPECIMENOrdering Facility: [facility] Address: [address] [place] [address] Performed By: #### 5 7021-8 ####[facility] [id number] [place] [address] [place] Cholesterol in LDL Direct as say [Mass/Vol]on 01-14-2025 Cholesterol in LDL [Mass/Vol] 159 mg/dL High <100 [facility] Comment on above: Order Comment: Speci men Type: BLOOD SPECIMENOrdering Facility: [facility] Address: [address] [place] [address] Result Comment: <100 mg/dL, Optimal 100-129 mg/dL, Near optimal/above optimal 130-159 mg/dL, Borderline high 160-189 mg/dL, High >189 mg/dL, Very high Secondary prevention optimal LDL Cholesterol levels are recommended to be < 70 mg/dL Performed By: #### 6 30-4 #### [facility] CLIA [id number] [address] [place], [place] [address] [place] Cholesterol in VLDL [Mass/Vol] 81 mg/dL High <30 [facility] Comment on above: Order Comment: Speci men Type: BLOOD SPECIMENOrdering Facility: [facility] Address: [address] [place] [address] Performed By: #### 6 30-4 #### [facility] CLIA [id number] [address] [place] [address] [place] Comprehensive metabolic 2000 panelon 01-14-2025 Albumin [Mass/Vol] 5.0 g/dL High 3.9-4.9 [facility] Comment on above: Order Comment: Speci men Type: BLOOD SPECIMENOrdering Facility: [facility] Address: [address] [place] [address] Performed By: #### 6 30-4 #### [facility] CLIA [id number] [address] [place], [place] [address] [place] ALP [Catalytic activity/Vol] 73 U/L Normal 34-123 [facility] Comment on above: Order Comment: Speci men Type: BLOOD SPECIMENOrdering Facility: [facility] Address: [address] [place] [address] Performed By: #### 6 30-4 #### [facility] CLIA [id number] [address] [place] [address] [place] ALT [Catalytic activity/Vol] 15 U/L Normal 7-38 [facility] Comment on above: Order Comment: Speci men Type: BLOOD SPECIMENOrdering Facility: [facility] Address: [address] [place] [address] Performed By: #### 6 30-4 #### [facility] CLIA [id number] [address] [place] [address] [place] Anion gap [Moles/Vol] 14 mmol/L Normal 8-15 [facility] Comment on above: Order Comment: Speci men Type: BLOOD SPECIMENOrdering Facility: [facility] Address: [address] [place] [address] Performed By: #### 6 30-4 #### [facility] CLIA [id number] [address] [place] [address] [place] AST [Catalytic activity/Vol] 23 U/L Normal 13-35 [facility] Comment on above: Order Comment: Speci men Type: BLOOD SPECIMENOrdering Facility: [facility] Address: [address] [place] [address] Performed By: #### 6 30-4 #### [facility] CLIA [id number] [address] [place] [address] [place] Bilirubin [Mass/Vol] 0.4 mg/dL Normal 0.2-1.3 [facility] Comment on above: Order Comment: Speci men Type: BLOOD SPECIMENOrdering Facility: [facility] Address: [address] [place] [address] Performed By: #### 6 30-4 #### [facility] CLIA [id number] [address] [place] [address] [place] Calcium [Mass/Vol] 10.5 mg/dL High 8.5-10.2 [facility] Comment on above: Order Comment: Speci men Type: BLOOD SPECIMENOrdering Facility: [facility] Address: [address] [place] [address] Performed By: #### 6 30-4 #### [facility] CLIA [id number] [address] [place], [place] [address] [place] Chloride [Moles/Vol] 98 mmol/L Normal 98-107 [facility] Comment on above: Order Comment: Speci men Type: BLOOD SPECIMENOrdering Facility: [facility] Address: [address] [place] [address] Performed By: #### 6 30-4 #### [facility] CLIA [id number] [address] [place] [address] [place] CO2 [Moles/Vol] 25 mmol/L Normal 22-30 [facility] Comment on above: Order Comment: Speci men Type: BLOOD SPECIMENOrdering Facility: [facility] Address: [address] [place] [address] Performed By: #### 6 30-4 #### [facility] CLIA [id number] [address] [place] [address] [place] Creatinine [Mass/Vol] 0.82 mg/dL Normal 0.58-0.96 [facility] Comment on above: Order Comment: Speci men Type: BLOOD SPECIMENOrdering Facility: [facility] Address: [address] [place] [address] Performed By: #### 6 30-4 #### [facility] CLIA [id number] [address] [place] [address] [facility] Creatinine and Glomerular filtration rate.predicted panel (S/P/Bld) 77 mL/min/1.73m??? Normal >=60 [facility] Comment on above: Order Comment: Speci men Type: BLOOD SPECIMENOrdering Facility: [facility] Address: [address] [place] [address] Result Comment: Iona mated Glomerular Filtration Rate (eGFR) is calculated using the 2020 CKD-EPI creatinine equation. This equation utilizes serum creatinine, sex, and age as parameters. The creatinine assay has traceable calibration to isotope dilution-mass spectrometry. Refer to KDIGO guidelines for clinical interpretation. In patients with unstable renal function, e.g. those with acute kidney injury, the eGFR may not accurately reflect actual GFR. Performed By: #### 6 30-4 #### [facility] CLIA [id number] [address] [place] [address] [place] Glucose [Mass/Vol] 88 mg/dL Normal 74-99 [facility] Comment on above: Order Comment: Speci men Type: BLOOD SPECIMENOrdering Facility: [facility] Address: [address] [place] [address] Result Comment: The [place] Diabetes Association (ADA) provides guidance for cutoff values for fasting glucose and random glucose. The ADA defines fasting as no caloric intake for at least 8 hours. Fasting plasma glucose results between 100 to 125 mg/dL indicate increased risk for diabetes (prediabetes). Fasting plasma glucose results greater than or equal to 126 mg/dL meet the criteria for diagnosis of diabetes. In the absence of unequivocal hyperglycemia, results should be confirmed by repeat testing. In a patient with classic symptoms of hyperglycemia or hyperglycemic crisis, random plasma glucose results greater than or equal to 200 mg/dL meet the criteria for diagnosis of diabetes. Reference: Standards of Medical Care in Diabetes 2016, [place] Diabetes Association. Diabetes Care. 2016.39(Suppl 1). Performed By: #### 6 30-4 #### [facility] IA [id number] [address] [place] [address] [place] Potassium [Moles/Vol] 3.9 mmol/L Normal 3.7-5.1 [facility] Comment on above: Order Comment: Speci men Type: BLOOD SPECIMENOrdering Facility: [facility] Address: [address] [place] [address] Performed By: #### 6 30-4 #### [facility] [place] [id number] [address] [place], [place] [address] [place] Protein [Mass/Vol] 8.1 g/dL High 6.3-8.0 [facility] Comment on above: Order Comment: Speci men Type: BLOOD SPECIMENOrdering Facility: [facility] Address: [address] [place] [address] Performed By: #### 6 30-4 #### [facility] IA [id number] [address] [place] [address] [place] Sodium [Moles/Vol] 137 mmol/L Normal 136-144 [facility] Comment on above: Order Comment: Mindyi men Type: BLOOD SPECIMENOrdering Facility: [facility] Address: [address] [place] [address] Performed By: #### 6 30-4 #### [facility] CLIA [id number] [address] [place] [address] [place] Urea nitrogen [Mass/Vol] 25 mg/dL High 7-21 [facility] Comment on above: Order Comment: Mindyi men Type: BLOOD SPECIMENOrdering Facility: [facility] Address: [address] [place] [address] Performed By: #### 6 30-4 #### [facility] CLIA [id number] [address] [place] [address] [place] HbA1c (Bld)on 01-14-2025 Average glucose Estimated from glycated hemoglobin (Bld) [Mass/Vol] 103 mg/dL Normal [facility] Comment on above: Order Comment: Mindyi men Type: BLOOD SPECIMENOrdering Facility: [facility] Address: [address] [place] [address] Result Comment: eAG: (Estimated average glucose) is a calculated value from HgbA1c and is patient intake representative of the average blood glucose level in the last 2-3 month period. Performed By: #### 5 5454-3 ####[facility] [id number] [place] [address] [place] HbA1c (Bld) [Mass fraction] 5.2 % Normal 4.3-5.6 [facility] Comment on above: Order Comment: Ashley men Type: BLOOD SPECIMENOrdering Facility: [facility] Address: [address] [place] [address] Result Comment: Amer [place] Diabetes Association guidelines indicate that patients with HgbA1c in the range 5.7-6.4% are at increased risk for development of diabetes, and intervention by lifestyle modification may be beneficial. HgbA1c greater or equal to 6.5% is considered diagnostic of diabetes. Performed By: #### 5 5454-3 ####[facility] [id number] [place] [address] [place] Lipid 1996 panelon 5 Cholesterol [Mass/Vol] 283 mg/dL High <200 [facility] Comment on above: Order Comment: Speci men Type: BLOOD SPECIMENOrdering Facility: [facility] Address: [address] [place] [address] Result Comment: <200 mg/dL, Desirable 200-239 mg/dL, Borderline high >239 mg/dL, High Performed By: #### 6 30-4 #### [facility] CLIA [id number] [address] [place] [address] [place] Cholesterol in HDL [Mass/Vol] 43 mg/dL Normal >39 [facility] Comment on above: Order Comment: Speci men Type: BLOOD SPECIMENOrdering Facility: [facility] Address: [address] [place] [address] Result Comment: 40-5 9 mg/dL, Acceptable >59 mg/dL, High: Negative risk factor for coronary heart disease <40 mg/dL, Low: Positive risk factor for coronary heart disease Performed By: #### 6 30-4 #### [facility] CLIA [id number] [address] [place] [address] [place] Cholesterol in LDL [Mass/Vol] Normal [facility] Comment on above: Order Comment: Speci men Type: BLOOD SPECIMENOrdering Facility: [facility] Address: [address] [place] [address] Result Comment: Unab le to calculate due to increased Triglycerides. See LDL-Chol, Direct. Performed By: #### 6 30-4 #### [facility] CLIA [id number] [address] [place] [address] [place] Cholesterol in LDL/Cholesterol in HDL [Mass ratio] Normal [facility] Comment on above: Order Comment: Speci men Type: BLOOD SPECIMENOrdering Facility: [facility] Address: [address] [place] [address] Result Comment: Unab le to calculate due to elevated Triglycerides. Reference: 1. National Cholesterol Education Program ATP III Guideline At-A-Glance Quick Desk Reference: National Heart, Lung, and Blood Lingle. National Institutes of Health. 2001: NIH Publication No. 01-3305. 2. An International Atherosclerosis Society position paper: global recommendations for the management of dyslipidemia: executive summary, Atherosclerosis. 2014: 232(2):410-413. Performed By: #### 6 30-4 #### [facility] CLIA [id number] [address] [place] [address] [place] Cholesterol in VLDL [Mass/Vol] Normal [facility] Comment on above: Order Comment: Speci men Type: BLOOD SPECIMENOrdering Facility: [facility] Address: [address] [place] [address] Result Comment: Unab le to calculate due to increased Triglycerides. See LDL-Chol, Direct. Performed By: #### 6 30-4 #### [facility] CLIA [id number] [address] [place] [address] [place] Cholesterol non HDL [Mass/Vol] 240 mg/dL High <130 [facility] Comment on above: Order Comment: Speci men Type: BLOOD SPECIMENOrdering Facility: [facility] Address: [address] [place] [address] Result Comment: <130 mg/dL, Optimal 130-159 mg/dL, Near optimal/above optimal 160-189 mg/dL, Borderline high 190-219 mg/dL, High >219 mg/dL, Very high Secondary prevention optimal non HDL Cholesterol levels are recommended to be <100 mg/dL Performed By: #### 6 30-4 #### [facility] CLIA [id number] [address] [place] [address] [place] Cholesterol.total/Cho lesterol in HDL [Mass ratio] 6.58 {ratio} High <5.10 [facility] Comment on above: Order Comment: Speci men Type: BLOOD SPECIMENOrdering Facility: [facility] Address: [address] [place] [address] Performed By: #### 6 30-4 #### [facility] CLIA [id number] [address] [place] [address] [place] FASTING TIME 12 hrs Normal [facility] Comment on above: Order Comment: Speci men Type: BLOOD SPECIMENOrdering Facility: [facility] Address: [address] [place] [address] Performed By: #### 6 30-4 #### [facility] CLIA [id number] [address] [place] [address] [place] Triglyceride [Mass/Vol] 509 mg/dL High <150 [facility] Comment on above: Order Comment: Speci men Type: BLOOD SPECIMENOrdering Facility: [facility] Address: [address] [place] [address] Result Comment: <150 mg/dL, Normal 150-199 mg/dL, Borderline high 200-499 mg/dL, High >499 mg/dL, Very high Performed By: #### 6 30-4 #### [facility] CLIA [id number] [address] [place] [address] [place] Magnesium SerPl-mCncon 01-14 Magnesium [Mass/Vol] 2.4 mg/dL High 1.7-2.3 [facility] Comment on above: Order Comment: Speci men Type: BLOOD SPECIMENOrdering Facility: [facility] Address: [address] [place] [address] Performed By: #### 6 30-4 #### [facility] CLIA [id number] [address] [place] [address] [place] TOXICOLOGY SCREEN, ROUTINE U RINEon 01-14-2025 Amphetamines Confirm (U) [Mass/Vol] Negative Normal Negative [facility] Comment on above: Order Comment: Speci men Type: URINE SPECIMENOrdering Facility: [facility] Address: [address] [place] [address] Result Comment: Cuto ff threshold at 1000 ng/mL. Performed By: #### 6 30-4 #### [facility] CLIA [id number] [address] [place] [address] [place] BARBITURATES, URINE Negative Normal Negative [facility] Comment on above: Order Comment: Speci men Type: URINE SPECIMENOrdering Facility: [facility] Address: [address] [place] [address] Result Comment: Cuto ff threshold at 200 ng/mL. Performed By: #### 6 30-4 #### [facility] CLIA [id number] [address] [place] [address] [place] BENZODIAZEPINES, UR Negative Normal Negative [facility] Comment on above: Order Comment: Speci men Type: URINE SPECIMENOrdering Facility: [facility] Address: [address] [place] [address] Result Comment: Cuto ff threshold at 200 ng/mL. Performed By: #### 6 30-4 #### [facility] CLIA [id number] [address] [place] [address] [place] Cannabinoids Screen Ql (U) Negative Normal Negative [facility] Comment on above: Order Comment: Speci men Type: URINE SPECIMENOrdering Facility: [facility] Address: [address] [place] [address] Result Comment: Cuto ff threshold at 50 ng/mL. Performed By: #### 6 30-4 #### [facility] CLIA [id number] [address] [place] [address] [place] Cocaine Ql (U) Negative Normal Negative [facility] Comment on above: Order Comment: Speci men Type: URINE SPECIMENOrdering Facility: [facility] [facility] Address: [address] [place] [address] Result Comment: Cuto ff threshold at 300 ng/mL. Performed By: #### 6 30-4 #### [facility] CLIA [id number] [address] [place] [address] [place] Ethanol (U) [Mass/Vol] <11 Normal <11 [facility] Comment on above: Order Comment: Speci men Type: URINE SPECIMENOrdering Facility: [facility] Address: [address] [place] [address] Performed By: #### 6 30-4 #### [facility] CLIA [id number] [address] [place] [address] [place] Opiates Screen Ql (U) Negative Normal Negative [facility] Comment on above: Order Comment: Speci men Type: URINE SPECIMENOrdering Facility: [facility] Address: [address] [place] [address] Result Comment: Cuto ff threshold at 300 ng/mL. Performed By: #### 6 30-4 #### [facility] CLIA [id number] [address] [place] [address] [place] oxyCODONE cutoff Screen (U) [Mass/Vol] Negative Normal Negative [facility] Comment on above: Order Comment: Speci men Type: URINE SPECIMENOrdering Facility: [facility] Address: [address] [place] [address] Result Comment: Cuto ff threshold at 100 ng/mL. Performed By: #### 6 30-4 #### [facility] CLIA [id number] [address] [place] [address] [place] Phencyclidine Ql (U) Negative Normal Negative [facility] Comment on above: Order Comment: Speci men Type: URINE SPECIMENOrdering Facility: [facility] Address: [address] [place] [address] Result Comment: Cuto ff threshold at 25 ng/mL. Performed By: #### 6 30-4 #### [facility] CLIA [id number] [address] [place] [address] [place] TSH SerPl-aCncon 01-14-2025 TSH Qn 0.523 m[IU]/L Normal 0.270-4.200 [facility] Comment on above: Order Comment: Speci men Type: BLOOD SPECIMENOrdering Facility: [facility] Address: [address] [place] [address] Performed By: #### 6 30-4 #### [facility] CLIA [id number] [address] [place] [address] [place] Vit B12 SerPl-mCncon 025 Cobalamin (Vitamin B12) [Mass/Vol] pg/mL High 232-1245 [facility] Comment on above: Order Comment: Speci men Type: BLOOD SPECIMENOrdering Facility: [facility] Address: [address] [place] [address] Performed By: #### 6 30-4 #### [facility] CLIA [id number] [address] [place] [address] [place] XR HIP HARJIT 5V PEL+ AP/LAT EA HIPon 01-14-2025 XR HIP HARJIT 5V PEL+ AP/LAT EA HIP * * *Final Report* * * DATE OF EXAM: Jan 14 2025 9:34AM [id number] - XR HIP HARJIT 5V PEL+ AP/LAT EA HIP / PROCEDURE REASON: multiple diagnoses * * * * Physician Interpretation * * * * EXAM(s): XR HIP HARJIT 5V PEL+ AP/LAT EA HIP..... HISTORY: 69 years old Clinical information: Acute right-sided low back pain with bilateral sciatica Acute right-sided low back pain with bilateral sciatica Right hip pain PT STATES RIGHT HIP PAIN NO FALLS TECHNIQUE: Images: XR HIP HARJIT 5V PEL+ AP/LAT EA HIP Comparison: None. RESULT: Findings: The right femoro-acetabular joint space is moderately narrowed associated with subchondral sclerosis and spur formation. Mild degenerative left hip joint. SI joints are intact. Exostoses at the margins of the greater trochanter bilaterally. Pelvic soft tissues unremarkable.. IMPRESSION: Moderate degenerative changes of the right hip. Crew Clerk: TANYA Transcribe Date/Time: Jan 15 2025 2:49P Dictated by : MURRAY JEFFERY MD This examination was interpreted and the report reviewed and electronically signed by: MURRAY JEFFERY MD on Jan 15 2025 2:54PM EST [id number] CN Normal [facility] XR LUMBAR 3V AP/LAT/L5-S1on 01-14-2025 XR LUMBAR 3V AP/LAT/L5-S1 * * *Final Report* * * DATE OF EXAM: Jan 14 2025 9:35AM [id number] - XR LUMBAR 3V AP/LAT/L5-S1 / PROCEDURE REASON: multiple diagnoses * * * * Physician Interpretation * * * * EXAM(s): XR LUMBAR 3V AP/LAT/L5-S1..... HISTORY: 69 years old Clinical information: Acute right-sided low back pain with bilateral sciatica Acute right-sided low back pain with bilateral sciatica Right hip pain PT STATES HISTORY OF RA LOWER BACK TECHNIQUE: Images: XR LUMBAR 3V AP/LAT/L5-S1 Comparison: 09/23/2020. RESULT: Findings: 5 lumbar type vertebral bodies. Generalized osteopenia. Advanced degenerative disc disease at L5-S1 manifested by disc space narrowing, subchondral sclerosis, and marginal spurring. Degenerative disc disease with prominent osteophyte formation also noted from the T10-L3 levels. No compression fractures. Pedicles intact. Moderate degenerative changes, both hips. SI joints intact. Surgical clips, right upper quadrant. . IMPRESSION: Multilevel lumbar spondylosis associated with advanced degenerative disc disease at the L5-S1 level Crew Clerk: [facility] Transcribe Date/Time: Jan 15 2025 2:45P Dictated by : MURRAY JEFFERY MD This examination was interpreted and the report reviewed and electronically signed by: MURRAY JEFFERY MD on Jan 15 2025 2:48PM EST [id number] CN Normal [facility] CNOVon 01-13-2025 CNOV Office Visit (FAMPWS) VALENCIA POLO ([id number]) 1955 F Date Time Provider Department 01/13/25 10:00 AM HONG MATOSPYOSI During your visit today, we recorded the following information about you: Pulse Respiration Blood pressure Weight 77/minute 16/minute 100/68 85.7 kg Hong Matos, DO 01/13/2025 12:12 PM Signed CC: Valencia Polo is a 69 year old female who presents to the office for follow up. HPI: Recently with increased Right low back pain raditating into right gluteal area and into right thigh posterior and right calf. Was only getting minimal relief with layiing on her right side in the bed and stretching her leg out. 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 Last labs in April 2024. Has a fmhx in her mother of severe RLS Sinus pressure and congestion, x 1 weeks, pressure feeling, no fevers or chills. Using OTC supplements without relief Chronic pain, has been taking her gabapentin 900 mg 3 times a day as well as the Tramadol. She feels that the tramadol is helping her pain symptoms, she is trying to do walking and stretches to help with management of her chronic neck pain, chronic low back pain and chronic myalgia discomfort. she is still trying to do exercises she is able and stretches at least 3 [facility] a [facility]- knows that this benefits her even though it is uncomfortable for her to perform. She notices that her pain is increased the day after she exercises. PAST MEDICAL HISTORY Diagnosis Date Chronic pain syndrome normal ESR, suspect fibromyalgia Depression Elevated cholesterol with high triglycerides Fibromyalgia GERD (gastroesophageal reflux disease) Hypertension Prediabetes RLS (restless legs syndrome) PAST SURGICAL HISTORY Procedure Laterality Date HYSTERECTOMY HX 1989 ovaries removed PAST SURGICAL HISTORY OF gallbladder removal PAST SURGICAL HISTORY OF benign tumor removed from L shoulder blade Current Outpatient Medications Medication Sig traMADol (ULTRAM) 50 mg tablet Take 50 mg by mouth every 6 hours as needed for pain. atorvastatin (LIPITOR) 10 mg tablet Take 1 tablet by mouth daily at bedtime. For cholesterol. furosemide (LASIX) 20 mg tablet TAKE 1 TABLET ONE TIME DAILY NEEDED FOR SWELLING/EDEMA gabapentin (NEURONTIN) 300 mg capsule Add to 600 mg capsule to total 900 mg 3 times a day for chronic pain gabapentin (NEURONTIN) 600 mg tablet Take 1 tablet by mouth three times a day for 90 days. lisinopril (ZESTRIL) 10 mg tablet Take 1 tablet by mouth once daily. sertraline (ZOLOFT) 100 mg tablet Take 1 tablet by mouth daily at bedtime. Take with 25 mg tablet to total 125 mg a day sertraline (ZOLOFT) 50 mg tablet Take 1 tablet by mouth once daily. Add to 100 mg to total 150 mg a day cyanocobalamin 1,000 mcg/mL Inject 1 mL intramuscularly every 2 weeks. Vitamin B12 deficiency Syringe with Needle, Disp, 1 mL 25 gauge x 1" syrg 1 Syringe as directed. Vitamin b12 deficiency WALKER ROLLATOR SEAT WITH 6" WHEELS - RED Dx: low back pain, lumbar DDD, lumbar DJD,balance disorder vitamin B complex (B COMPLEX-100 ORAL) Take by mouth. Magnesium 250 mg tab Take 250 mg by mouth twice daily. estradiol (ESTRACE) 0.01 % (0.1 mg/gram) vaginal cream Finger-tip amount each night applied as directed in instructions triamcinolone acetonide (KENALOG) 0.5 % cream Apply to affected area twice daily. Cholecalciferol, Vitamin D3, 5,000 unit cap Take 1 capsule by mouth once daily. MULTIVITAMIN ORAL Take by mouth. amoxicillin-clavulan ate potassium (AUGMENTIN) 875-125 mg per tablet Take 1 tablet by mouth two times a day for 10 days. PARoxetine (PAXIL) 40 mg tablet Take 1 tablet by mouth once daily. rosuvastatin (CRESTOR) 10 mg tablet Take 1 tablet by mouth daily at bedtime. phenazopyridine (PYRIDIUM) 200 mg tablet Take 1 tablet by mouth three times daily as needed. No current facility-administere d medications for this visit. ALLERGIES Allergen Reactions [place] [Hydrocodone-* Hives Social History Tobacco Use Smoking status: Former Smokeless tobacco: Never Substance Use Topics Alcohol use: Not Currently Drug use: No ROS: See HPI PE: BP 100/68 Pulse 77 Resp 16 Wt 189 lb (85.7kg) Gen: AANDO, NAD, non-toxic appearing, hard of hearing, cooperative HEENT: NT/AC, PERRLA, EOMs intact b/l, sinus TTP frontal and maxillary, nares clear and patent b/l, pharynx without erythema, exudate or lesions. MMM, Uvula midline. EACs without erythema or debris. Neck: supple, No cervical LAD, no thyromegaly, no carotid bruits, significant ROM decrease in rotation and Flexion and extension due to arthritis CV: RRR, normal S1 and S2, no murmurs, no gallops, no rubs, Pulses 2+ and symmetric in UE and LE b/l Lungs: norm (more content not included)... [facility]ENC[facility] ([id number]) 1955 F Date Time Provider Department 11/16/24 HONG MATOS [facility] During your visit today, we recorded the following information about you: Hong Matos DO 11/16/2024 7:32 AM Signed Please inform patient that her CT brain is negative/normal DO Coretta Sigala Linda M, [facility] 11/16/2024 2:48 PM Signed Spoke with pt gave information provided. Pt voices understanding. Allergies As of Date: 11/16/2024 Noted Allergy Reaction NORCO (HYDROCODONE-ACETAMI NOPHEN) 06/13/2021 4 - Hives Date Reviewed: 10/30/2024 Reviewed by: Sherry Cruz, RT(R) - Fully Assessed Prescriptions as of 11/16/2024 - gabapentin (NEURONTIN) 300 mg capsule Add to 600 mg capsule to total 900 mg 3 times a day for chronic pain - gabapentin (NEURONTIN) 600 mg tablet Take 1 tablet by mouth three times a day for 90 days. - lisinopril (ZESTRIL) 10 mg tablet Take 1 tablet by mouth once daily. - sertraline (ZOLOFT) 100 mg tablet Take 1 tablet by mouth daily at bedtime. Take with 25 mg tablet to total 125 mg a day - sertraline (ZOLOFT) 50 mg tablet Take 1 tablet by mouth once daily. Add to 100 mg to total 150 mg a day - PARoxetine (PAXIL) 40 mg tablet Take 1 tablet by mouth once daily. - atorvastatin (LIPITOR) 10 mg tablet Take 1 tablet by mouth daily at bedtime. For cholesterol. - furosemide (LASIX) 20 mg tablet TAKE 1 TABLET ONE TIME DAILY NEEDED FOR SWELLING/EDEMA - cyanocobalamin 1,000 mcg/mL Inject 1 mL intramuscularly every 2 weeks. Vitamin B12 deficiency - Syringe with Needle, Disp, 1 mL 25 gauge x 1" syrg 1 Syringe as directed. Vitamin b12 deficiency - rosuvastatin (CRESTOR) 10 mg tablet Take 1 tablet by mouth daily at bedtime. - WALKER ROLLATOR SEAT WITH 6" WHEELS - RED Dx: low back pain, lumbar DDD, lumbar DJD,balance disorder - vitamin B complex (B COMPLEX-100 ORAL) Take by mouth. - Magnesium 250 mg tab Take 250 mg by mouth twice daily. - estradiol (ESTRACE) 0.01 % (0.1 mg/gram) vaginal cream Finger-tip amount each night applied as directed in instructions - phenazopyridine (PYRIDIUM) 200 mg tablet Take 1 tablet by mouth three times daily as needed. - triamcinolone acetonide (KENALOG) 0.5 % cream Apply to affected area twice daily. - clobetasol (TEMOVATE) 0.05 % ointment (Discontinued) Apply 1 application to affected area twice daily. - Cholecalciferol, Vitamin D3, 5,000 unit cap Take 1 capsule by mouth once daily. - MULTIVITAMIN ORAL Take by mouth. Problem List As Of Date 11/16/2024 Noted Resolved Dysuria [R30.0] 02/04/2014 03/22/2014 Hematuria [R31.9] 02/04/2014 03/22/2014 Vulval lesion [N90.89] 02/04/2014 03/22/2014 Vulvar dermatitis [L30.9] 02/04/2014 03/22/2014 Lichen sclerosus [L90.0] 03/22/2014 Fibromyalgia [M79.7] Chronic bilateral thoracic back pain [M54.6, G8*03/27/2021 Chronic pain syndrome [G89.4] 03/27/2021 Chronic midline low back pain with bilateral sc*03/27/2021 Osteoarthritis of spine with radiculopathy, lum*03/27/2021 IFG (impaired fasting glucose) [R73.01] 08/01/2021 Restless leg [G25.81] 08/01/2021 Hyperlipidemia, mixed [E78.2] 08/01/2021 VÍCTOR (generalized anxiety disorder) [F41.1] 08/01/2021 Depressive disorder [F32.A] 08/01/2021 Vitamin B12 deficiency [E53.8] 12/15/2021 Vitamin D deficiency [E55.9] 12/15/2021 Gluteal abscess [L02.31] 03/21/2022 PVD (peripheral vascular disease) (HCC) [I73.9] 03/27/2023 Body mass index (BMI) 45.0-49.9, adult (HCC) [Z*03/27/2023 PAD (peripheral artery disease) (HCC) [I73.9] 09/12/2023 Fatigue [R53.83] 12/24/2023 Hypercalcemia [E83.52] 04/22/2024 Sweating increase [R61] 04/22/2024 Borderline abnormal thyroid function test [R94.*04/22/2024 Low serum cortisol level [R79.89] 07/23/2024 Encounter Status:Closed by DIAMOND DODGE on 11/16/24 [address] [facility] [address] BRAIN WO IVCONon 11-03-20 CT BRAIN WO IVCON * * *Final Report* * * DATE OF EXAM: Nov 03 2024 9:57AM [facility] 0504 - CT BRAIN WO IVCON / PROCEDURE REASON: multiple diagnoses * * * * Physician Interpretation * * * * EXAMINATION: CT BRAIN WO IVCON CLINICAL HISTORY: Memory loss TECHNIQUE: Serial axial images without IV contrast were obtained from the vertex to the foramen magnum. MQ: CTBWO_3 CT Radiation dose: Integrated Dose-Length Product (DLP) for this visit = 719 mGy*cm CT Dose Reduction Employed: Automated exposure control(AEC) and iterative recon COMPARISON: None. RESULT: Localizer images: Unremarkable. Post-operative change: None. Acute change: No evidence of an acute infarct or other acute parenchymal process. Hemorrhage: No evidence of acute intracranial hemorrhage. ECASS hemorrhagic transformation score: Not Applicable Mass Lesion / Mass Effect: There is no evidence of an intracranial mass or extraaxial fluid collection. No mass effect. Chronic change: Intracranial arterial calcifications are present. Parenchyma: There is no significant volume loss. Ventricles: The ventricles are within normal limits of size and configuration for age. Paranasal sinuses and skull base: The visualized paranasal sinuses are grossly clear. The skull base and imaged soft tissues are unremarkable. IMPRESSION: Normal CT of the head for the patient's age. No evidence of acute intracranial abnormality. Crew Clerk: [facility] Transcribe Date/Time: Nov 03 2024 10:43A Dictated by : CORINNA WEBSTER MD This examination was interpreted and the report reviewed and electronically signed by: CORINNA WEBSTER MD on Nov 03 2024 10:46AM EST [id number] CN Normal [facility] CT Head WO contraston 2023 IMPRESSION: Normal CT of the head for the patient's age. No evidence of acute intracranial abnormality. Crew Clerk: [facility] Transcribe Date/Time: Nov 03 2024 10:43A Dictated by : CORINNA WEBSTER MD This examination was interpreted and the report reviewed and electronically signed by: CORINNA WEBSTER MD on Nov 03 2024 10:46AM EST DIVISION OF RADIOLOGY * * *Final Report* * * DATE OF EXAM: Nov 03 2024 9:57AM [facility] 0504 - CT BRAIN WO IVCON / PROCEDURE REASON: multiple diagnoses * * * * Physician Interpretation * * * * EXAMINATION: CT BRAIN WO IVCON CLINICAL HISTORY: Memory loss TECHNIQUE: Serial axial images without IV contrast were obtained from the vertex to the foramen magnum. MQ: CTBWO_3 CT Radiation dose: Integrated Dose-Length Product (DLP) for this visit = 719 mGy*cm CT Dose Reduction Employed: Automated exposure control(AEC) and iterative recon COMPARISON: None. RESULT: Localizer images: Unremarkable. Post-operative change: None. Acute change: No evidence of an acute infarct or other acute parenchymal process. Hemorrhage: No evidence of acute intracranial hemorrhage. ECASS hemorrhagic transformation score: Not Applicable Mass Lesion / Mass Effect: There is no evidence of an intracranial mass or extraaxial fluid collection. No mass effect. Chronic change: Intracranial arterial calcifications are present. Parenchyma: There is no significant volume loss. Ventricles: The ventricles are within normal limits of size and configuration for age. Paranasal sinuses and skull base: The visualized paranasal sinuses are grossly clear. The skull base and imaged soft tissues are unremarkable. DIVISION OF RADIOLOGY Provider, [facility] [place] - 11/03/2024 * * *Final Report* * * DATE OF EXAM: Nov 03 2024 9:57AM [facility] 0504 - CT BRAIN WO IVCON / PROCEDURE REASON: multiple diagnoses * * * * Physician Interpretation * * * * EXAMINATION: CT BRAIN WO IVCON CLINICAL HISTORY: Memory loss TECHNIQUE: Serial axial images without IV contrast were obtained from the vertex to the foramen magnum. MQ: CTBWO_3 CT Radiation dose: Integrated Dose-Length Product (DLP) for this visit = 719 mGy*cm CT Dose Reduction Employed: Automated exposure control(AEC) and iterative recon COMPARISON: None. RESULT: Localizer images: Unremarkable. Post-operative change: None. Acute change: No evidence of an acute infarct or other acute parenchymal process. Hemorrhage: No evidence of acute intracranial hemorrhage. ECASS hemorrhagic transformation score: Not Applicable Mass Lesion / Mass Effect: There is no evidence of an intracranial mass or extraaxial fluid collection. No mass effect. Chronic change: Intracranial arterial calcifications are present. Parenchyma: There is no significant volume loss. Ventricles: The ventricles are within normal limits of size and configuration for age. Paranasal sinuses and skull base: The visualized paranasal sinuses are grossly clear. The skull base and imaged soft tissues are unremarkable. IMPRESSION IMPRESSION: Normal CT of the head for the patient's age. No evidence of acute intracranial abnormality. Crew Clerk: [facility] Transcribe Date/Time: Nov 03 2024 10:43A Dictated by : CORINNA WEBSTER MD This examination was interpreted and the report reviewed and electronically signed by: CORINNA WEBSTER MD on Nov 03 2024 10:46AM EST [facility] Radiology Study observation (narrative) [facility] CT Head WO contrastOrdered B y: [facility] Provider on 11-03-2024 [facility] CNOVon 10-20-2024 CNOV Office Visit (FAMPWS) VALENCIA POLO ([id number]) 1955 F Date Time Provider Department 10/20/24 10:00 AM HONG MATOSPWS During your visit today, we recorded the following information about you: Temperature Pulse Respiration Blood pressure 97 degrees 80/minute 16/minute 110/60 Weight 87.5 kg Hnog Matos, DO 10/20/2024 10:31 AM Signed OMRON blood pressure upper arm automatic cuff Hong Matos, DO 10/20/2024 5:18 PM Signed CC: Valencia Polo is a 69 year old female who presents to follow up HPI: Seen in office last on 01/02/2023, at that time Chronic pain, has been taking her gabapentin as well as the Tramadol. Really not feeling that the tramadol is helping her pain symptoms, is interested in any other options to help with management of her chronic neck pain, chronic low back pain and chronic myalgia discomfort. Sometimes feels like it makes her overwhelmed and she will cry in the afternoon. Does feel the zoloft is helping mood but wondering if rx dosing needs adjusted. Lives alone in an apartment complex. No SI or HI. Does have support from her grown children. Knows she would benefit from a rollator walker. Sometimes struggles with her balance due to her arthritis HTN, stable, taking medications as prescribed Mood, still feels that she gets "antsy" and restless at times, mostly in the afternoon. Does feel that her zoloft is helping at 125 mg a day. No SI or HI. Does live alone and has been going to the local community center and doing chair exercise Sat, Sat and Saturday and also going to play bingo or do crafts there intermittently At follow up on 2023 Chronic pain, has been taking her gabapentin as well as the Tramadol. Really not feeling that the tramadol is helping her pain symptoms, is interested in any other options to help with management of her chronic neck pain, chronic low back pain and chronic myalgia discomfort. Sometimes feels like it makes her overwhelmed and she will cry in the afternoon. Does feel the zoloft is helping mood but wondering if rx dosing needs adjusted. Lives alone in an apartment complex. No SI or HI. Does have support from her grown children Mood, stable, no recent concerns, trying to be involved in the community areas around her home. At follow up on 09/06/2023 Chronic pain, has been taking her gabapentin 900 mg 3 times a day as well as the Tramadol. She now feels that the tramadol is helping her pain symptoms, she is trying to do walking and stretches to help with management of her chronic neck pain, chronic low back pain and chronic myalgia discomfort. Sometimes feels like it makes her overwhelmed and she will cry in the afternoon. Does feel the zoloft is helping mood but wondering if rx dosing needs adjusted. Lives alone in an apartment complex. No SI or HI. Does have support from her grown children Mood, stable, no recent concerns, trying to be involved in the community areas around her home. Taking zoloft as prescribed Does have pain in her legs with walking. No known hx of PAD but does feel sometimes her feet and lower legs are more cold than she would expect. At OFFICE VISIT on 12/23/23 Chronic pain, has been taking her gabapentin 900 mg 3 times a day as well as the Tramadol. She now feels that the tramadol is helping her pain symptoms, she is trying to do walking and stretches to help with management of her chronic neck pain, chronic low back pain and chronic myalgia discomfort. she is still trying to do exercises she is able and stretches at least 3 days a week- knows that this benefits her even though it is uncomfortable for her to perform. Mood, Does feel the zoloft is helping mood but wondering if rx dosing needs adjusted. Lives alone in an apartment complex. No SI or HI. Does have support from her grown children + chronic fatigue, vitamin B12 deficiency, has been taking oral supplement but still struggling with fatigue Skin lesion / sore on buttock on right, has had this in the past about 2 years ago and resolved. Needing assessed again, it is sore. Chronic foot pain, soles of the feet, no obvious injuries, no swelling or skin changes. At OFFICE VISIT on 04/17/2024 Chronic pain, has been taking her gabapentin 900 mg 3 times a day as well as the Tramadol. She now feels that the tramadol is helping her pain symptoms, she is trying to do walking and stretches to help with management of her chronic neck pain, chronic low back pain and chronic myalgia discomfort. she is still trying to do exercises she is able and stretches at least 3 days a [facility]- knows that this benefits her even though it is uncomfortable for her to perform. Mood, Does feel the zoloft is helping mood . No SI or HI. Does have support from her grown children + chronic fatigue, vitamin B12 defi (more content not included)... Normal [facility] [facility] CNPN Telephone (FAMPST) VALENCIA POLO ([id number]) 1955 F Date Time Provider Department 08/24/24 HONG MATOS During your visit today, we recorded the following information about you: Radha Valerio 08/24/2024 3:13 PM Signed Valencia is calling Hong Matos DO today to request a medication not on current med list: Tramadol 50 mg tablet Disp 180 tablets refill "2" Please send to [facility] mail order pharmacy Patient has been identified by name and birthdate. Person calling: self Call patient at: at home [phone] (home) [phone] (cell) Was an appointment scheduled: Yes: Date/Time: 10/20/2024 Last seen 07/20/2024 Closing statement: Results or non-symptom based questions: Thank you for calling [facility], your call will be returned within the next business day. Radha Stokes [facility] [place]li Sorenson MA 08/24/2024 3:32 PM Signed Patient has been identified by name and date of : Yes, Provider Date 08/24/24 Time 3:31 pm Patient phones for refill(s): Requested Prescriptions Pending Prescriptions Disp Refills traMADol (ULTRAM) 50 mg tablet 180 tablet 2 Sig: Take 2 every 8 hours as needed Date of last office visit in primary care: 07/20/2024 Date of next office visit in primary care: 10/20/2024 Please advise. Thank you. Areli Sorenson MA. Lesvia Naranjo LPN 08/31/2024 1:02 PM Signed Pt is calling to check on status of medication. Please review. JEAN Brand Jordan L, DO 09/02/2024 7:52 AM Signed PDMP website checked and validated . All prescriptions have been APPROPRIATELY filled. No suspicious activity was identified. 09/02/2024 by Hong Matos DO The following approved medication requests have been transmitted electronically. Requested Prescriptions Signed Prescriptions Disp Refills traMADol (ULTRAM) 50 mg tablet 180 tablet 2 Sig: Take 2 every 8 hours as needed Authorizing Provider: HONG MATOS DO Hudson, M Robin, RN 09/02/2024 8:02 AM Signed Notified patient. Allergies As of Date: 08/24/2024 Noted Allergy Reaction NORCO (HYDROCODONE-ACETAMI NOPHEN) 06/13/2021 4 - Hives Date Reviewed: 07/20/2024 Reviewed by: Pravin Hernandez LPN - Fully Assessed Reason for Visit: medication not on current med list [Other] Visit Diagnoses:Osteoarthr itis of spine with radiculopathy, lumbar region [M47.26] Chronic midline low back pain with bilateral sciatica [M54.41, M54.42, G89.29] Chronic pain syndrome [G89.4] Chronic bilateral thoracic back pain [M54.6, G89.29] Fibromyalgia [M79.7] Order(s):traMADol (ULTRAM) 50 mg tabletTake 2 every 8 hours as neededDisp: 180 tabletRfl: 2 Prescriptions as of 09/02/2024 - traMADol (ULTRAM) 50 mg tablet Take 2 every 8 hours as needed - gabapentin (NEURONTIN) 300 mg capsule Add to 600 mg capsule to total 900 mg 3 times a day for chronic pain - gabapentin (NEURONTIN) 600 mg tablet Take 1 tablet by mouth three times a day for 90 days. - PARoxetine (PAXIL) 40 mg tablet Take 1 tablet by mouth once daily. - atorvastatin (LIPITOR) 10 mg tablet Take 1 tablet by mouth daily at bedtime. For cholesterol. - furosemide (LASIX) 20 mg tablet TAKE 1 TABLET ONE TIME DAILY NEEDED FOR SWELLING/EDEMA - sertraline (ZOLOFT) 50 mg tablet Take 1 tablet by mouth once daily. Add to 100 mg to total 150 mg a day - sertraline (ZOLOFT) 100 mg tablet Take 1 tablet by mouth daily at bedtime. Take with 25 mg tablet to total 125 mg a day - cyanocobalamin 1,000 mcg/mL Inject 1 mL intramuscularly every 2 weeks. Vitamin B12 deficiency - Syringe with Needle, Disp, 1 mL 25 gauge x 1" syrg 1 Syringe as directed. Vitamin b12 deficiency - lisinopril (ZESTRIL) 10 mg tablet Take 1 tablet by mouth once daily. - rosuvastatin (CRESTOR) 10 mg tablet Take 1 tablet by mouth daily at bedtime. - WALKER ROLLATOR SEAT WITH 6" WHEELS - RED Dx: low back pain, lumbar DDD, lumbar DJD,balance disorder - vitamin B complex (B COMPLEX-100 ORAL) Take by mouth. - Magnesium 250 mg tab Take 250 mg by mouth twice daily. - estradiol (ESTRACE) 0.01 % (0.1 mg/gram) vaginal cream Finger-tip amount each night applied as directed in instructions - phenazopyridine (PYRIDIUM) 200 mg tablet Take 1 tablet by mouth three times daily as needed. - triamcinolone acetonide (KENALOG) 0.5 % cream Apply to affected area twice daily. - clobetasol (TEMOVATE) 0.05 % ointment (Discontinued) Apply 1 application to affected area twice daily. - Cholecalciferol, Vitamin D3, 5,000 unit cap Take 1 capsule by mouth once daily. - MULTIVITAMIN ORAL Take by mouth. Problem List As Of Date 08/24/2024 Noted Resolved Dysuria [R30.0] 02/04/2014 03/22/2014 Hematuria [R31.9] 02/04/2014 03/22/2014 Vulval lesion [N90.89] 02/04/2014 03/22/2014 Vulvar dermatitis [L30.9] 02/04/2014 03/22/20 (more content not included)... [facility] VALENCIA POL[facility] ([id number]) 1955 F Date Time Provider Department 08/18/24 HONG MATOS [facility] During your visit today, we recorded the following information about you: Leena Mathur, HANH 08/18/2024 1:05 PM Signed Patient reports she has taken 2 doses of paxil, and does not feel right when taking it. Last night she was up all night, legs and arms were shaking, the only time they stopped shaking is when she stood up, her stomach is upset and she has diarrhea today. Patient states she wants to stop taking the paxil and go back on the zoloft. Reports she still has zoloft. Please advise patient. Art Starr PA-C 08/18/2024 2:00 PM Signed If she just switched from the Zoloft to the Paxil, she can switch back to the Zoloft 125 mg daily and stop the Paxil.40 mg. It may take more than a few doses to adjust to the new mediation, but can certainly switch back if she prefers. Art Starr PA-C 08/18/2024 Wendy Alva MA 08/18/2024 3:01 PM Signed Pt notified. Would prefer to go back on the Zoloft, has zoloft at home to restart. Wendy Alva MA Allergies As of Date: 08/18/2024 Noted Allergy Reaction NORCO (HYDROCODONE-ACETAMI NOPHEN) 06/13/2021 4 - Hives Date Reviewed: 07/20/2024 Reviewed by: Pravin Hernandez LPN - Fully Assessed Reason for Visit: Medication Problem [65] Prescriptions as of 08/18/2024 - gabapentin (NEURONTIN) 300 mg capsule Add to 600 mg capsule to total 900 mg 3 times a day for chronic pain - gabapentin (NEURONTIN) 600 mg tablet Take 1 tablet by mouth three times a day for 90 days. - traMADol (ULTRAM) 50 mg tablet Take 2 every 8 hours as needed - PARoxetine (PAXIL) 40 mg tablet Take 1 tablet by mouth once daily. - atorvastatin (LIPITOR) 10 mg tablet Take 1 tablet by mouth daily at bedtime. For cholesterol. - furosemide (LASIX) 20 mg tablet TAKE 1 TABLET ONE TIME DAILY NEEDED FOR SWELLING/EDEMA - sertraline (ZOLOFT) 50 mg tablet Take 1 tablet by mouth once daily. Add to 100 mg to total 150 mg a day - sertraline (ZOLOFT) 100 mg tablet Take 1 tablet by mouth daily at bedtime. Take with 25 mg tablet to total 125 mg a day - cyanocobalamin 1,000 mcg/mL Inject 1 mL intramuscularly every 2 weeks. Vitamin B12 deficiency - Syringe with Needle, Disp, 1 mL 25 gauge x 1" syrg 1 Syringe as directed. Vitamin b12 deficiency - lisinopril (ZESTRIL) 10 mg tablet Take 1 tablet by mouth once daily. - rosuvastatin (CRESTOR) 10 mg tablet Take 1 tablet by mouth daily at bedtime. - WALKER ROLLATOR SEAT WITH 6" WHEELS - RED Dx: low back pain, lumbar DDD, lumbar DJD,balance disorder - vitamin B complex (B COMPLEX-100 ORAL) Take by mouth. - Magnesium 250 mg tab Take 250 mg by mouth twice daily. - estradiol (ESTRACE) 0.01 % (0.1 mg/gram) vaginal cream Finger-tip amount each night applied as directed in instructions - phenazopyridine (PYRIDIUM) 200 mg tablet Take 1 tablet by mouth three times daily as needed. - triamcinolone acetonide (KENALOG) 0.5 % cream Apply to affected area twice daily. - clobetasol (TEMOVATE) 0.05 % ointment (Discontinued) Apply 1 application to affected area twice daily. - Cholecalciferol, Vitamin D3, 5,000 unit cap Take 1 capsule by mouth once daily. - MULTIVITAMIN ORAL Take by mouth. Problem List As Of Date 08/18/2024 Noted Resolved Dysuria [R30.0] 02/04/2014 03/22/2014 Hematuria [R31.9] 02/04/2014 03/22/2014 Vulval lesion [N90.89] 02/04/2014 03/22/2014 Vulvar dermatitis [L30.9] 02/04/2014 03/22/2014 Lichen sclerosus [L90.0] 03/22/2014 Fibromyalgia [M79.7] Chronic bilateral thoracic back pain [M54.6, G8*03/27/2021 Chronic pain syndrome [G89.4] 03/27/2021 Chronic midline low back pain with bilateral sc*03/27/2021 Osteoarthritis of spine with radiculopathy, lum*03/27/2021 IFG (impaired fasting glucose) [R73.01] 08/01/2021 Restless leg [G25.81] 08/01/2021 Hyperlipidemia, mixed [E78.2] 08/01/2021 VÍCTOR (generalized anxiety disorder) [F41.1] 08/01/2021 Depressive disorder [F32.A] 08/01/2021 Vitamin B12 deficiency [E53.8] 12/15/2021 Vitamin D deficiency [E55.9] 12/15/2021 Gluteal abscess [L02.31] 03/21/2022 PVD (peripheral vascular disease) ([facility]) [I73.9] 03/27/2023 Body mass index (BMI) 45.0-49.9, adult (HCC) [Z*03/27/2023 PAD (peripheral artery disease) ([facility]) [I73.9] 09/12/2023 Fatigue [R53.83] 12/24/2023 Hypercalcemia [E83.52] 04/22/2024 Sweating increase [R61] 04/22/2024 Borderline abnormal thyroid function test [R94.*04/22/2024 Low serum cortisol level [R79.89] 07/23/2024 Encounter Status:Closed by WENDY ALVA on 08/18/24 Normal [facility] Marjan 08-07-2024 CNPN Telephone (FAMPWS) VALENCIA POLO ([id number]) 1955 F Date Time Provider Department 08/07/24 PETTY MENDENHALL During your visit today, we recorded the following information about you: Petty Mendenhall APRN.CNP 08/07/2024 1:19 PM Signed Please let her know that her cortisol level is 6.4 and has returned to normal target range. ELISHA Licona Jazzmin, MA 08/07/2024 1:24 PM Signed Pt informed Myla Tucker MA Allergies As of Date: 08/07/2024 Noted Allergy Reaction NORCO (HYDROCODONE-ACETAMI NOPHEN) 06/13/2021 4 - Hives Date Reviewed: 07/20/2024 Reviewed by: Pravin Hernandez LPN - Fully Assessed Reason for Visit: Results [95] Prescriptions as of 08/07/2024 - gabapentin (NEURONTIN) 300 mg capsule Add to 600 mg capsule to total 900 mg 3 times a day for chronic pain - gabapentin (NEURONTIN) 600 mg tablet Take 1 tablet by mouth three times a day for 90 days. - traMADol (ULTRAM) 50 mg tablet Take 2 every 8 hours as needed - PARoxetine (PAXIL) 40 mg tablet Take 1 tablet by mouth once daily. - atorvastatin (LIPITOR) 10 mg tablet Take 1 tablet by mouth daily at bedtime. For cholesterol. - furosemide (LASIX) 20 mg tablet TAKE 1 TABLET ONE TIME DAILY NEEDED FOR SWELLING/EDEMA - sertraline (ZOLOFT) 50 mg tablet Take 1 tablet by mouth once daily. Add to 100 mg to total 150 mg a day - sertraline (ZOLOFT) 100 mg tablet Take 1 tablet by mouth daily at bedtime. Take with 25 mg tablet to total 125 mg a day - cyanocobalamin 1,000 mcg/mL Inject 1 mL intramuscularly every 2 weeks. Vitamin B12 deficiency - Syringe with Needle, Disp, 1 mL 25 gauge x 1" syrg 1 Syringe as directed. Vitamin b12 deficiency - lisinopril (ZESTRIL) 10 mg tablet Take 1 tablet by mouth once daily. - rosuvastatin (CRESTOR) 10 mg tablet Take 1 tablet by mouth daily at bedtime. - WALKER ROLLATOR SEAT WITH 6" WHEELS - RED Dx: low back pain, lumbar DDD, lumbar DJD,balance disorder - vitamin B complex (B COMPLEX-100 ORAL) Take by mouth. - Magnesium 250 mg tab Take 250 mg by mouth twice daily. - estradiol (ESTRACE) 0.01 % (0.1 mg/gram) vaginal cream Finger-tip amount each night applied as directed in instructions - phenazopyridine (PYRIDIUM) 200 mg tablet Take 1 tablet by mouth three times daily as needed. - triamcinolone acetonide (KENALOG) 0.5 % cream Apply to affected area twice daily. - clobetasol (TEMOVATE) 0.05 % ointment (Discontinued) Apply 1 application to affected area twice daily. - Cholecalciferol, Vitamin D3, 5,000 unit cap Take 1 capsule by mouth once daily. - MULTIVITAMIN ORAL Take by mouth. Problem List As Of Date 08/07/2024 Noted Resolved Dysuria [R30.0] 02/04/2014 03/22/2014 Hematuria [R31.9] 02/04/2014 03/22/2014 Vulval lesion [N90.89] 02/04/2014 03/22/2014 Vulvar dermatitis [L30.9] 02/04/2014 03/22/2014 Lichen sclerosus [L90.0] 03/22/2014 Fibromyalgia [M79.7] Chronic bilateral thoracic back pain [M54.6, G8*03/27/2021 Chronic pain syndrome [G89.4] 03/27/2021 Chronic midline low back pain with bilateral sc*03/27/2021 Osteoarthritis of spine with radiculopathy, lum*03/27/2021 IFG (impaired fasting glucose) [R73.01] 08/01/2021 Restless leg [G25.81] 08/01/2021 Hyperlipidemia, mixed [E78.2] 08/01/2021 VÍCTOR (generalized anxiety disorder) [F41.1] 08/01/2021 Depressive disorder [F32.A] 08/01/2021 Vitamin B12 deficiency [E53.8] 12/15/2021 Vitamin D deficiency [E55.9] 12/15/2021 Gluteal abscess [L02.31] 03/21/2022 PVD (peripheral vascular disease) ([facility]) [I73.9] 03/27/2023 Body mass index (BMI) 45.0-49.9, adult (HCC) [Z*03/27/2023 PAD (peripheral artery disease) ([facility]) [I73.9] 09/12/2023 Fatigue [R53.83] 12/24/2023 Hypercalcemia [E83.52] 04/22/2024 Sweating increase [R61] 04/22/2024 Borderline abnormal thyroid function test [R94.*04/22/2024 Low serum cortisol level [R79.89] 07/23/2024 Encounter Status:Closed by MYLA TUCKER on 08/07/24 [facility] CNOVon 07-20-2024 CNOV Office Visit (FAMPWS) CHRISTVALENCIA Christian ([id number]) 1955 F Date Time Provider Department 07/20/24 12:00 PM [facility] During your visit today, we recorded the following information about you: Temperature Pulse Respiration Blood pressure 97 degrees 80/minute 20/minute 110/60 Weight 88 kg Hong Matos DO 07/23/2024 12:01 PM Signed CC: Valnecia Christian Christ is a 69 year old female who presents to the office for follow up HPI: Seen in office last on 01/02/2023, at that time Chronic pain, has been taking her gabapentin as well as the Tramadol. Really not feeling that the tramadol is helping her pain symptoms, is interested in any other options to help with management of her chronic neck pain, chronic low back pain and chronic myalgia discomfort. Sometimes feels like it makes her overwhelmed and she will cry in the afternoon. Does feel the zoloft is helping mood but wondering if rx dosing needs adjusted. Lives alone in an apartment complex. No SI or HI. Does have support from her grown children. Knows she would benefit from a rollator walker. Sometimes struggles with her balance due to her arthritis HTN, stable, taking medications as prescribed Mood, still feels that she gets "antsy" and restless at times, mostly in the afternoon. Does feel that her zoloft is helping at 125 mg a day. No SI or HI. Does live alone and has been going to the local [employer] and doing chair exercise Sat, Sat and Saturday and also going to play bingo or do crafts there intermittently At follow up on 2023 Chronic pain, has been taking her gabapentin as well as the Tramadol. Really not feeling that the tramadol is helping her pain symptoms, is interested in any other options to help with management of her chronic neck pain, chronic low back pain and chronic myalgia discomfort. Sometimes feels like it makes her overwhelmed and she will cry in the afternoon. Does feel the zoloft is helping mood but wondering if rx dosing needs adjusted. Lives alone in an apartment complex. No SI or HI. Does have support from her grown children Mood, stable, no recent concerns, trying to be involved in the community areas around her home. At follow up on 09/06/2023 Chronic pain, has been taking her gabapentin 900 mg 3 times a day as well as the Tramadol. She now feels that the tramadol is helping her pain symptoms, she is trying to do walking and stretches to help with management of her chronic neck pain, chronic low back pain and chronic myalgia discomfort. Sometimes feels like it makes her overwhelmed and she will cry in the afternoon. Does feel the zoloft is helping mood but wondering if rx dosing needs adjusted. Lives alone in an apartment complex. No SI or HI. Does have support from her grown children Mood, stable, no recent concerns, trying to be involved in the community areas around her home. Taking zoloft as prescribed Does have pain in her legs with walking. No known hx of PAD but does feel sometimes her feet and lower legs are more cold than she would expect. At OFFICE VISIT on 12/23/23 Chronic pain, has been taking her gabapentin 900 mg 3 times a day as well as the Tramadol. She now feels that the tramadol is helping her pain symptoms, she is trying to do walking and stretches to help with management of her chronic neck pain, chronic low back pain and chronic myalgia discomfort. she is still trying to do exercises she is able and stretches at least 3 days a week- knows that this benefits her even though it is uncomfortable for her to perform. Mood, Does feel the zoloft is helping mood but wondering if rx dosing needs adjusted. Lives alone in an apartment complex. No SI or HI. Does have support from her grown children + chronic fatigue, vitamin B12 deficiency, has been taking oral supplement but still struggling with fatigue Skin lesion / sore on buttock on right, has had this in the past about 2 years ago and resolved. Needing assessed again, it is sore. Chronic foot pain, soles of the feet, no obvious injuries, no swelling or skin changes. At last OFFICE VISIT on 04/17/2024 Chronic pain, has been taking her gabapentin 900 mg 3 times a day as well as the Tramadol. She now feels that the tramadol is helping her pain symptoms, she is trying to do walking and stretches to help with management of her chronic neck pain, chronic low back pain and chronic myalgia discomfort. she is still trying to do exercises she is able and stretches at least 3 days a week at [facility] for chair exercises- knows that this benefits her even though it is uncomfortable for her to perform. Mood, Does feel the zoloft is helping mood . No SI or HI. Does have support from her grown children + chronic fatigue, vitamin B12 deficiency, has been taking oral supplement but still struggling with fatigue. [facility] [place]more content not included)... Normal [facility] Caprice Duffy-Jyoti 07-20-20 24 Cortisol [Mass/Vol] 6.4 ug/dL Normal 4.8-19.5 [facility] Comment on above: Order Comment: Speci men Type: BLOOD SPECIMENOrdering Facility: [facility] Address: [address] [place] [address] Result Comment: Prov ided reference range is from 6-10 AM sample collection time. Cortisol Reference Range: 6-10 AM = 4.8-19.5 ug/dL, 4-8 PM = 2.5-11.9 ug/dL Performed By: #### 6 30-4 #### [facility] CLIA [id number] [address] [place] [address] OF [facility] Marjan 05-04-2024 [facility] VALENCIA POLO ([id number]) 1955 F Date Time Provider Department 05/04/24 [facility] During your visit today, we recorded the following information about you: Hong Matos DO 05/04/2024 7:44 AM Signed Please inform patient that her ACTH level is normal but her cortisol level is still somewhat low, but improved from previous. Need this to be rechecked again in 2-3 weeks between 7-9 am blood draw DO Racquel Sigala Susan LPN 05/04/2024 10:28 AM Signed Pt. informed. Allergies As of Date: 05/04/2024 Noted Allergy Reaction NORCO (HYDROCODONE-ACETAMI NOPHEN) 06/13/2021 4 - Hives Date Reviewed: 04/17/2024 Reviewed by: Pravin Hernandez LPN - Fully Assessed Primary Visit Diagnosis:Low serum cortisol level [R79.89] Order(s):CORTISOL, SERUM [SQCOR] Order #: [id number] FUTURE Prescriptions as of 05/04/2024 - gabapentin (NEURONTIN) 300 mg capsule Add to 600 mg capsule to total 900 mg 3 times a day for chronic pain - gabapentin (NEURONTIN) 600 mg tablet Take 1 tablet by mouth three times a day for 90 days. - traMADol (ULTRAM) 50 mg tablet Take 2 every 8 hours as needed - sertraline (ZOLOFT) 50 mg tablet Take 1 tablet by mouth once daily. Add to 100 mg to total 150 mg a day - atorvastatin (LIPITOR) 10 mg tablet Take 1 tablet by mouth daily at bedtime. For cholesterol. - sertraline (ZOLOFT) 100 mg tablet Take 1 tablet by mouth daily at bedtime. Take with 25 mg tablet to total 125 mg a day - cyanocobalamin 1,000 mcg/mL Inject 1 mL intramuscularly every 2 weeks. Vitamin B12 deficiency - Syringe with Needle, Disp, 1 mL 25 gauge x 1" syrg 1 Syringe as directed. Vitamin b12 deficiency - lisinopril (ZESTRIL) 10 mg tablet Take 1 tablet by mouth once daily. - furosemide (LASIX) 20 mg tablet TAKE 1 TABLET ONE TIME DAILY NEEDED FOR SWELLING/EDEMA - rosuvastatin (CRESTOR) 10 mg tablet Take 1 tablet by mouth daily at bedtime. - WALKER ROLLATOR SEAT WITH 6" WHEELS - RED Dx: low back pain, lumbar DDD, lumbar DJD,balance disorder - vitamin B complex (B COMPLEX-100 ORAL) Take by mouth. - Magnesium 250 mg tab Take 250 mg by mouth twice daily. - estradiol (ESTRACE) 0.01 % (0.1 mg/gram) vaginal cream Finger-tip amount each night applied as directed in instructions - phenazopyridine (PYRIDIUM) 200 mg tablet Take 1 tablet by mouth three times daily as needed. - triamcinolone acetonide (KENALOG) 0.5 % cream Apply to affected area twice daily. - clobetasol (TEMOVATE) 0.05 % ointment (Discontinued) Apply 1 application to affected area twice daily. - Cholecalciferol, Vitamin D3, 5,000 unit cap Take 1 capsule by mouth once daily. - MULTIVITAMIN ORAL Take by mouth. Problem List As Of Date 05/04/2024 Noted Resolved Dysuria [R30.0] 02/04/2014 03/22/2014 Hematuria [R31.9] 02/04/2014 03/22/2014 Vulval lesion [N90.89] 02/04/2014 03/22/2014 Vulvar dermatitis [L30.9] 02/04/2014 03/22/2014 Lichen sclerosus [L90.0] 03/22/2014 Fibromyalgia [M79.7] Chronic bilateral thoracic back pain [M54.6, G8*03/27/2021 Chronic pain syndrome [G89.4] 03/27/2021 Chronic midline low back pain with bilateral sc*03/27/2021 Osteoarthritis of spine with radiculopathy, lum*03/27/2021 IFG (impaired fasting glucose) [R73.01] 08/01/2021 Restless leg [G25.81] 08/01/2021 Hyperlipidemia, mixed [E78.2] 08/01/2021 VÍCTOR (generalized anxiety disorder) [F41.1] 08/01/2021 Depressive disorder [F32.A] 08/01/2021 Vitamin B12 deficiency [E53.8] 12/15/2021 Vitamin D deficiency [E55.9] 12/15/2021 Gluteal abscess [L02.31] 03/21/2022 PVD (peripheral vascular disease) ([facility]) [I73.9] 03/27/2023 Body mass index (BMI) 45.0-49.9, adult (HCC) [Z*03/27/2023 PAD (peripheral artery disease) ([facility]) [I73.9] 09/12/2023 Fatigue [R53.83] 12/24/2023 Hypercalcemia [E83.52] 04/22/2024 Sweating increase [R61] 04/22/2024 Borderline abnormal thyroid function test [R94.*04/22/2024 Encounter Status:Closed by PRAVIN HERNANDEZ LPN on 05/04/24 Normal [facility] ACTH Plas-ncon 04-30-2024 Corticotropin (P) [Mass/Vol] 11.4 pg/mL Normal 7.2-63.3 [facility] Comment on above: Order Comment: Speci men Type: BLOOD SPECIMENOrdering Facility: [facility] Address: [address] [place] [address] Result Comment: ACTH Reference Range: 7-10 am: 7.2 - 63.3 pg/mL Performed By: #### 2 141-0 ####[facility] [id number] [place] [address] [place] Cortis SerPl-mCncon 04-30-20 Cortisol [Mass/Vol] 4.2 ug/dL Low 4.8-19.5 [facility] Comment on above: Order Comment: Speci men Type: BLOOD SPECIMENOrdering Facility: [facility] Address: [address] [place] [address] Result Comment: Prov ided reference range is from 6-10 AM sample collection time. Cortisol Reference Range: 6-10 AM = 4.8-19.5 ug/dL, 4-8 PM = 2.5-11.9 ug/dL Performed By: #### 2 143-6 ####[facility] [id number] [address] [id number] CNPNon 04-28-2024 CNPN Telephone (FAMWS) VALENCIA POLO ([id number]) 1955 F Date Time Provider Department 04/28/24 HONG MATOS [facility] During your visit today, we recorded the following information about you: Hong Matos DO 04/28/2024 8:46 AM Signed Please inform patient that her recent labs overall looked great other than low cortisol levels. This needs to be rechecked as well as ACTH level needs to be checked DO Niurka Sigala [place], [place] 04/28/2024 9:10 AM Signed Pt informed, verbalized understanding. Myla Tucker MA Allergies As of Date: 04/28/2024 Noted Allergy Reaction NORCO (HYDROCODONE-ACETAMI NOPHEN) 06/13/2021 4 - Hives Date Reviewed: 04/17/2024 Reviewed by: Pravin Hernandez LPN - Fully Assessed Primary Visit Diagnosis:Low serum cortisol level [R79.89] Order(s):ACTH BLD [SQACTH] Order #: [id number] FUTURE CORTISOL, SERUM [SQCOR] Order #: [id number] FUTURE Prescriptions as of 04/28/2024 - gabapentin (NEURONTIN) 300 mg capsule Add to 600 mg capsule to total 900 mg 3 times a day for chronic pain - gabapentin (NEURONTIN) 600 mg tablet Take 1 tablet by mouth three times a day for 90 days. - traMADol (ULTRAM) 50 mg tablet Take 2 every 8 hours as needed - sertraline (ZOLOFT) 50 mg tablet Take 1 tablet by mouth once daily. Add to 100 mg to total 150 mg a day - atorvastatin (LIPITOR) 10 mg tablet Take 1 tablet by mouth daily at bedtime. For cholesterol. - sertraline (ZOLOFT) 100 mg tablet Take 1 tablet by mouth daily at bedtime. Take with 25 mg tablet to total 125 mg a day - cyanocobalamin 1,000 mcg/mL Inject 1 mL intramuscularly every 2 weeks. Vitamin B12 deficiency - Syringe with Needle, Disp, 1 mL 25 gauge x 1" syrg 1 Syringe as directed. Vitamin b12 deficiency - lisinopril (ZESTRIL) 10 mg tablet Take 1 tablet by mouth once daily. - furosemide (LASIX) 20 mg tablet TAKE 1 TABLET ONE TIME DAILY NEEDED FOR SWELLING/EDEMA - rosuvastatin (CRESTOR) 10 mg tablet Take 1 tablet by mouth daily at bedtime. - WALKER ROLLATOR SEAT WITH 6" WHEELS - RED Dx: low back pain, lumbar DDD, lumbar DJD,balance disorder - vitamin B complex (B COMPLEX-100 ORAL) Take by mouth. - Magnesium 250 mg tab Take 250 mg by mouth twice daily. - estradiol (ESTRACE) 0.01 % (0.1 mg/gram) vaginal cream Finger-tip amount each night applied as directed in instructions - phenazopyridine (PYRIDIUM) 200 mg tablet Take 1 tablet by mouth three times daily as needed. - triamcinolone acetonide (KENALOG) 0.5 % cream Apply to affected area twice daily. - clobetasol (TEMOVATE) 0.05 % ointment (Discontinued) Apply 1 application to affected area twice daily. - Cholecalciferol, Vitamin D3, 5,000 unit cap Take 1 capsule by mouth once daily. - MULTIVITAMIN ORAL Take by mouth. Problem List As Of Date 04/28/2024 Noted Resolved Dysuria [R30.0] 02/04/2014 03/22/2014 Hematuria [R31.9] 02/04/2014 03/22/2014 Vulval lesion [N90.89] 02/04/2014 03/22/2014 Vulvar dermatitis [L30.9] 02/04/2014 03/22/2014 Lichen sclerosus [L90.0] 03/22/2014 Fibromyalgia [M79.7] Chronic bilateral thoracic back pain [M54.6, G8*03/27/2021 Chronic pain syndrome [G89.4] 03/27/2021 Chronic midline low back pain with bilateral sc*03/27/2021 Osteoarthritis of spine with radiculopathy, lum*03/27/2021 IFG (impaired fasting glucose) [R73.01] 08/01/2021 Restless leg [G25.81] 08/01/2021 Hyperlipidemia, mixed [E78.2] 08/01/2021 VÍCTOR (generalized anxiety disorder) [F41.1] 08/01/2021 Depressive disorder [F32.A] 08/01/2021 Vitamin B12 deficiency [E53.8] 12/15/2021 Vitamin D deficiency [E55.9] 12/15/2021 Gluteal abscess [L02.31] 03/21/2022 PVD (peripheral vascular disease) (HCC) [I73.9] 03/27/2023 Body mass index (BMI) 45.0-49.9, adult (HCC) [Z*03/27/2023 PAD (peripheral artery disease) (HCC) [I73.9] 09/12/2023 Fatigue [R53.83] 12/24/2023 Hypercalcemia [E83.52] 04/22/2024 Sweating increase [R61] 04/22/2024 Borderline abnormal thyroid function test [R94.*04/22/2024 Encounter Status:Closed by HOLIDAYMYLA on 04/28/24 Normal [facility] CK [Catalytic activity/Vol]o n 04-18-2024 Interpretation and review of laboratory results Normal [facility] CORTISOL, SERUMon 04-18-2024 Cortisol [Mass/Vol] 2.8 ug/dL Low 4.8 - 19 .5 ug/dL [facility] Comment on above: Provided reference tasha lester is from 6-10 AM sample collection time. Cortisol Reference Range: 6-10 AM = 4.8-19.5 ug/dL, 4-8 PM = 2.5-11.9 ug/dL CREATINE KINASE/CKon CK [Catalytic activity/Vol] 49 U/L 42 - 196 U/L [facility] Comprehensive metabolic 2000 panelon 04-18-2024 Albumin [Mass/Vol] 4.6 g/dL 3.9 - 4.9 g/dL [facility] ALP [Catalytic activity/Vol] 84 U/L 34 - 123 U/L [facility] ALT [Catalytic activity/Vol] 14 U/L 7 - 38 U/L [facility] Anion gap [Moles/Vol] 14 mmol/L 9 - 18 mmol/L [facility] AST [Catalytic activity/Vol] 20 U/L 13 - 35 U/L [facility] Bilirubin [Mass/Vol] 0.3 mg/dL 0.2 - 1 .3 mg/dL [facility] Calcium [Mass/Vol] 9.7 mg/dL 8.5 - 10. 2 mg/dL [facility] Chloride [Moles/Vol] 100 mmol/L 97 - 10 5 mmol/L [facility] CO2 [Moles/Vol] 24 mmol/L 22 - 30 mmol/L [facility] Creatinine [Mass/Vol] 0.85 mg/dL 0.58 - 0.96 mg/dL [facility] GFR/1.73 sq M.predicted among non-blacks MDRD (S/P/Bld) [Vol rate/Area] 73 mL/min/{1.73_m2} - PINF [facility] Comment on above: Estimated Glomerular Filtration Rate (eGFR) is calculated using the 2020 CKD-EPI creatinine equation. This equation utilizes serum creatinine, sex, and age as parameters. The creatinine assay has traceable calibration to isotope dilution-mass spectrometry. Refer to KDIGO guidelines for clinical interpretation. In patients with unstable renal function, e.g. those with acute kidney injury, the eGFR may not accurately reflect actual GFR. Glucose [Mass/Vol] 92 mg/dL 74 - 99 mg/dL [facility] Comment on above: The [place] Di[employer] (ADA) provides guidance for cutoff values for fasting glucose and random glucose. The ADA defines fasting as no caloric intake for at least 8 hours. Fasting plasma glucose results between 100 to 125 mg/dL indicate increased risk for diabetes (prediabetes). Fasting plasma glucose results greater than or equal to 126 mg/dL meet the criteria for diagnosis of diabetes. In the absence of unequivocal hyperglycemia, results should be confirmed by repeat testing. In a patient with classic symptoms of hyperglycemia or hyperglycemic crisis, random plasma glucose results greater than or equal to 200 mg/dL meet the criteria for diagnosis of diabetes. Reference: Standards of Medical Care in Diabetes 2016, [place] [employer]. Diabetes Care. 2016.39(Suppl 1). Interpretation and review of laboratory results Abnormal [facility] Potassium [Moles/Vol] 4.7 mmol/L 3.7 - 5.1 mmol/L [facility] Protein [Mass/Vol] 6.8 g/dL 6.3 - 8.0 g/dL [facility] Sodium [Moles/Vol] 138 mmol/L 136 - 144 mmol/L [facility] Urea nitrogen [Mass/Vol] 26 mg/dL High 7 - 21 mg/dL [facility] Cortisol [Mass/Vol]on 2023 Interpretation and review of laboratory results Abnormal [facility] HbA1c (Bld)on 04-18-2024 Average glucose Estimated from glycated hemoglobin (Bld) [Mass/Vol] 108 mg/dL [facility] Comment on above: eAG: (Estimated aver age glucose) is a calculated value from HgbA1c and is patient intake representative of the average blood glucose level in the last 2-3 month period. HbA1c (Bld) [Mass fraction] 5.4 % 4.3 - 5.6 % [facility] Comment on above: [place] Diabetes As sociation guidelines indicate that patients with HgbA1c in the range 5.7-6.4% are at increased risk for development of diabetes, and intervention by lifestyle modification may be beneficial. HgbA1c greater or equal to 6.5% is considered diagnostic of diabetes. [facility] No Panel Informationon 04-18 [facility] Interpretation and review of laboratory results Normal [facility] PTH INTACTon 04-18-2024 Parathyrin.intact [Mass/Vol] 33 pg/mL 15 - 65 pg/mL [facility] Parathyrin.intact [Mass/Vol] on 04-18-2024 Interpretation and review of laboratory results Normal [facility] T3, FREEon 04-18-2024 Free T3 [Mass/Vol] 2.7 pg/mL 2.3 - 4.1 pg/mL [facility] T4 FREE/FREE THYROXINEon Free T4 [Mass/Vol] 0.9 ng/dL 0.9 - 1.7 ng/dL [facility] THYROID STIMULATING HORMONEo n 04-18-2024 TSH Qn 1.290 m[IU]/L [facility] CBC W Auto Differential pane l (Bld)on 04-17-2024 Basophils (Bld) [#/Vol] 0.04 10*3/uL [facility] Basophils/100 WBC (Bld) 0.7 % [facility] Differential cell count method Nom (Bld) Auto [facility] Eosinophils (Bld) [#/Vol] 0.13 10*3/uL [facility] Eosinophils/100 WBC (Bld) 2.3 % [facility] Erythrocyte distribution width (RBC) [Ratio] 13.2 % 11.5 - 15.0 % [facility] Hematocrit (Bld) [Volume fraction] 43.8 % 36.0 - 46.0 % [facility] Hemoglobin (Bld) [Mass/Vol] 14.9 g/dL 11.5 - 15.5 g/dL [facility] Immature granulocytes (Bld) [#/Vol] [facility] Immature granulocytes/100 WBC (Bld) 0.2 % [facility] Lymphocytes (Bld) [#/Vol] 1.67 10*3/uL [facility] Lymphocytes/100 WBC (Bld) 29.7 % [facility] MCH (RBC) [Entitic mass] 31.2 pg 26.0 - 34.0 pg [facility] MCHC (RBC) [Mass/Vol] 34.0 g/dL 30.5 - 36.0 g/dL [facility] MCV (RBC) [Entitic vol] 91.6 fL 80.0 - 100.0 fL [facility] Monocytes (Bld) [#/Vol] 0.53 10*3/uL [facility] Monocytes/100 WBC (Bld) 9.4 % [facility] Neutrophils (Bld) [#/Vol] 3.25 10*3/uL [facility] Neutrophils/100 WBC (Bld) 57.7 % [facility] Nucleated RBC (Bld) [#/Vol] [facility] Nucleated RBC/100 WBC (Bld) [Ratio] 0.0 % /100 WBC [facility] Platelet mean volume (Bld) [Entitic vol] 9.5 fL 9.0 - 12.7 fL [facility] Platelets (Bld) [#/Vol] 199 10*3/uL [facility] RBC (Bld) [#/Vol] 4.78 10*6/uL 3.90 - 5.2 0 m/uL [facility] WBC (Bld) [#/Vol] 5.63 10*3/uL [facility] STREP A MOLECULAR (POC)on Procedural Control Valid [facility] Strep A (POCT) Negative Negative [facility] Basic metabolic 2000 panelon 08-20-2022 Anion gap [Moles/Vol] 12 mmol/L 9 - 18 mmol/L [facility] Calcium [Mass/Vol] 9.8 mg/dL 8.5 - 10. 2 mg/dL [facility] Chloride [Moles/Vol] 99 mmol/L 97 - 10 5 mmol/L [facility] CO2 [Moles/Vol] 25 mmol/L 22 - 30 mmol/L [facility] Creatinine [Mass/Vol] 0.78 mg/dL 0.58 - 0.96 mg/dL [facility] Estimated Glomerular Filtration Rate 82 mL/min/1.73m >=60 mL/min/1.73m [facility] Glucose [Mass/Vol] 113 mg/dL High 74 - 99 mg/dL [facility] Potassium [Moles/Vol] 4.2 mmol/L 3.7 - 5.1 mmol/L [facility] Sodium [Moles/Vol] 136 mmol/L 136 - 144 mmol/L [facility] Urea nitrogen [Mass/Vol] 14 mg/dL 7 - 21 mg/dL [facility] CBC W Auto Differential pane l (Bld)on 08-20-2022 Abs Immature Gran <0.10 k/uL [facility] Basophils (Bld) [#/Vol] <0.11 k/uL [facility] Basophils/100 WBC (Bld) 0.3 % [facility] Differential cell count method Nom (Bld) Auto [facility] Eosinophils (Bld) [#/Vol] <0.46 k/uL [facility] Eosinophils/100 WBC (Bld) 0.3 % [facility] Erythrocyte distribution width (RBC) [Ratio] 13.5 % 11.5 - 15.0 % [facility] Hematocrit (Bld) [Volume fraction] 43.9 % 36.0 - 46.0 % [facility] Hemoglobin (Bld) [Mass/Vol] 15.1 g/dL 11.5 - 15.5 g/dL [facility] Immature Gran % 0.3 % [facility] Lymphocytes (Bld) [#/Vol] 1.11 10*3/uL 1.00 - 4.00 k/uL [facility] Lymphocytes/100 WBC (Bld) 32.0 % [facility] MCH (RBC) [Entitic mass] 31.1 pg 26.0 - 34.0 pg [facility] MCHC (RBC) [Mass/Vol] 34.4 g/dL 30.5 - 36.0 g/dL [facility] MCV (RBC) [Entitic vol] 90.5 fL 80.0 - 100.0 fL [facility] Monocytes (Bld) [#/Vol] 0.41 10*3/uL <0.87 k/uL [facility] Monocytes/100 WBC (Bld) 11.8 % [facility] Neutrophils (Bld) [#/Vol] 1.92 10*3/uL 1.45 - 7.50 k/uL [facility] Neutrophils/100 WBC (Bld) 55.3 % [facility] Nucleated RBC (Bld) [#/Vol] <0.01 k/uL [facility] Nucleated RBC/100 WBC (Bld) [Ratio] 0.0 /100 WBC [facility] Platelet mean volume (Bld) [Entitic vol] 9.3 fL 9.0 - 12.7 fL [facility] Platelets (Bld) [#/Vol] 131 10*3/uL Low 150 - 400 k/uL [facility] RBC (Bld) [#/Vol] 4.85 10*6/uL 3.90 - 5.2 0 m/uL [facility] WBC (Bld) [#/Vol] 3.47 10*3/uL Low 3.70 - 11. 00 k/uL [facility] GLUCOSE, BLOOD (POC)on 08-20 Glucose [Mass/Vol] 103 mg/dL Abnormal 74 - 99 mg/dL [facility] UA DIP, URINE (POC)on 2021 BILIRUBIN UA (POCT) Negative Negative [facility] CLARITY UA (POCT) Clear [facility] COLOR UA (POCT) Yellow [facility] GLUCOSE UA (POCT) Negative Negative mg/dL [facility] HEMOGLOBIN/BLOOD UA (POCT) Negative Negative [facility] KETONE UA (POCT) Negative Negative mg/dL [facility] LEUKOCYTES UA (POCT) Negative Negative [facility] NITRITE UA (POCT) Negative Negative [facility] PH UA (POCT) 7.0 4.5 - 8.0 [facility] Protein Ql (U) Negative Negative mg/dL [facility] SPECIFIC GRAVITY UA (POCT) 1.020 1.005 - 1.030 [facility] UROBILINOGEN UA (POCT) 0.2 E.U./dL Normal E.U./dL [facility] UA DIP, URINE (POC)on 2021 BILIRUBIN UA (POCT) Negative Negative [facility] CLARITY UA (POCT) Clear [facility] COLOR UA (POCT) Yellow [facility] GLUCOSE UA (POCT) Negative Negative mg/dL [facility] HEMOGLOBIN/BLOOD UA (POCT) Negative Negative [facility] KETONE UA (POCT) Negative Negative mg/dL [facility] LEUKOCYTES UA (POCT) Negative Negative [facility] NITRITE UA (POCT) Negative Negative [facility] PH UA (POCT) 7.0 4.5 - 8.0 [facility] Protein Ql (U) Negative Negative mg/dL [facility] SPECIFIC GRAVITY UA (POCT) 1.020 1.005 - 1.030 [facility] UROBILINOGEN UA (POCT) 0.2 E.U./dL Normal E.U./dL [facility] .Auto Diffon 04-04-2022 Basophil, Absolute 0.00 10 3/mcL Normal 0.00-0.19 [facility] ([place]) Comment on above: Performed By: #### C BC, ADIFF, ANEU, BMP, GFR, TROPHS #### [address] [address] Basophils/100 WBC (Bld) 0.4 % Normal 0.0-2.5 [facility] ([place]) Comment on above: Performed By: #### C BC, ADIFF, ANEU, BMP, GFR, TROPHS #### [address] [address] Eosinophil, Absolute 0.00 10 3/mcL Normal 0.00-0.40 A [facility] ([place]) Comment on above: Performed By: #### C BC, ADIFF, ANEU, BMP, GFR, TROPHS #### [address] [address] Eosinophils/100 WBC (Bld) 0.0 % Normal 0.0-7.0 [facility] ([place] Comment on above: Performed By: #### C BC, ADIFF, ANEU, BMP, GFR, TROPHS #### [address] [address] Lymphocyte, Absolute 0.90 10 3/mcL Normal 0.77-3.85 A [facility] ([place]) Comment on above: Performed By: #### C BC, ADIFF, ANEU, BMP, GFR, TROPHS #### [address] [address] Lymphocytes/100 WBC (Bld) 13.5 % Normal 10.0-50.0 [facility] ([place] Comment on above: Performed By: #### C BC, ADIFF, ANEU, BMP, GFR, TROPHS #### [address] [address] Monocyte, Absolute 0.30 10 3/mcL Normal 0.15-1.00 [facility] ([place]) Comment on above: Performed By: #### C BC, ADIFF, ANEU, BMP, GFR, TROPHS #### [address] [address] Monocytes/100 WBC (Bld) 4.5 % Normal 1.7-13.0 [facility] ([place] Comment on above: Performed By: #### C BC, ADIFF, ANEU, BMP, GFR, TROPHS #### [address] [address] Neutrophils/100 WBC (Bld) 81.6 % High 37.0-80.0 [facility] ([place] Comment on above: Performed By: #### C BC, ADIFF, ANEU, BMP, GFR, TROPHS #### [address] [address] .GFRon 04-04-2022 GFR 96 ml/min/1.73sqm Normal [facility] ([place] Comment on above: Result Comment: GFR Population mean for , Non- Americans Ages 20-29 = 116 mL/min/1.73 sq.m. Ages 30-39 = 107 mL/min/1.73 sq.m. Ages 40-49 = 99 mL/min/1.73 sq.m. Ages 50-59 = 93 mL/min/1.73 sq.m. Ages 60-69 = 85 mL/min/1.73 sq.m. Ages 70+ = 75 mL/min/1.73 sq.m. Chronic Kidney Disease: Less than 60 mL/min/1.73 square meters End Stage Renal Disease: Less than 15 mL/min/1.73 square meters Performed By: #### C BC, ADIFF, ANEU, BMP, GFR, TROPHS #### [address] [address] GFR Non- 79 ml/min/1.73sqm Normal [facility] ([place] Comment on above: Result Comment: GFR Population mean for , Non- Americans Ages 20-29 = 116 mL/min/1.73 sq.m. Ages 30-39 = 107 mL/min/1.73 sq.m. Ages 40-49 = 99 mL/min/1.73 sq.m. Ages 50-59 = 93 mL/min/1.73 sq.m. Ages 60-69 = 85 mL/min/1.73 sq.m. Ages 70+ = 75 mL/min/1.73 sq.m. Chronic Kidney Disease: Less than 60 mL/min/1.73 square meters End Stage Renal Disease: Less than 15 mL/min/1.73 square meters Performed By: #### C BC, ADIFF, ANEU, BMP, GFR, TROPHS #### [address] [place] [address] .NEUABSon 04-04-2022 Neutrophil, Absolute 5.20 10 3/mcL Normal 2.85-6.16 A [facility] ([place]) Comment on above: Performed By: #### C BC, ADIFF, ANEU, BMP, GFR, TROPHS #### [address] [address] BMPon 04-04-2022 BUN/Creatinine Ratio 18 ratio Normal 7-27 [facility] ([place] Comment on above: Performed By: #### C BC, ADIFF, ANEU, BMP, GFR, TROPHS #### [place] [address] Calcium [Mass/Vol] 9.9 mg/dL Normal 8.4-10.2 [facility] ([place]) Comment on above: Performed By: #### C BC, ADIFF, ANEU, BMP, GFR, TROPHS #### [place] [address] Chloride [Moles/Vol] 102 mmol/L Normal 98-107 [facility] [place] Comment on above: Performed By: #### C BC, ADIFF, ANEU, BMP, GFR, TROPHS #### [place] [address] CO2 [Moles/Vol] 24 mmol/L Normal 23-31 [facility] ([place] Comment on above: Performed By: #### C BC, ADIFF, ANEU, BMP, GFR, TROPHS #### [place] [id number] Creatinine [Mass/Vol] 0.73 mg/dL Normal 0.55-1.02 [facility] ([place]) Comment on above: Performed By: #### C BC, ADIFF, ANEU, BMP, GFR, TROPHS #### [address] [address] Electrolyte Balance 14.0 mEq/L Normal 4.0-15.0 Pending sale to [facility] ([place]) Comment on above: Performed By: #### C BC, ADIFF, ANEU, BMP, GFR, TROPHS #### [address] [address] Glucose [Mass/Vol] 130 mg/dL High 80-115 [facility] ([place]) Comment on above: Performed By: #### C BC, ADIFF, ANEU, BMP, GFR, TROPHS #### [address] [address] Potassium [Moles/Vol] 4.0 mmol/L Normal 3.5-5.1 [facility] ([place]) Comment on above: Performed By: #### C BC, ADIFF, ANEU, BMP, GFR, TROPHS #### [address] [address] Sodium [Moles/Vol] 140 mmol/L Normal 136-145 [facility] ([place]) Comment on above: Performed By: #### C BC, ADIFF, ANEU, BMP, GFR, TROPHS #### [address] [address] Urea nitrogen [Mass/Vol] 13 mg/dL Normal 7-18 [facility] ([place] Comment on above: Performed By: #### C BC, ADIFF, ANEU, BMP, GFR, TROPHS #### [address] [address] CBCon 04-04-2022 Erythrocyte distribution width (RBC) [Ratio] 13.4 % Normal 11.5-14.5 [facility] ([place] Comment on above: Performed By: #### C BC, ADIFF, ANEU, BMP, GFR, TROPHS #### [address] [address] Hematocrit (Bld) [Volume fraction] 46.5 % Normal 37.0-47.0 [facility] ([place] Comment on above: Performed By: #### C BC, ADIFF, ANEU, BMP, GFR, TROPHS #### [address] [address] Hgb 16.2 G/dL High 12.0-16.0 [facility] ([place] Comment on above: Performed By: #### C BC, ADIFF, ANEU, BMP, GFR, TROPHS #### [address] [address] MCH (RBC) [Entitic mass] 31.4 pg High 27.0-31.2 [facility] ([place] Comment on above: Performed By: #### C BC, ADIFF, ANEU, BMP, GFR, TROPHS #### [place] [id number] MCHC 34.9 G/dL Normal 33.0-37.0 [facility] ([place] Comment on above: Performed By: #### C BC, ADIFF, ANEU, BMP, GFR, TROPHS #### [address] [address] MCV (RBC) [Entitic vol] 89.9 fL Normal 80.0-94.0 [facility] ([place] Comment on above: Performed By: #### C BC, ADIFF, ANEU, BMP, GFR, TROPHS #### [address] [address] Platelet 233 10 3/mcL Normal 130-400 [facility] ([place] Comment on above: Performed By: #### C BC, ADIFF, ANEU, BMP, GFR, TROPHS #### [address] [address] Platelet mean volume (Bld) [Entitic vol] 7.2 fL Low 7.4-10.4 [facility] ([place] Comment on above: Performed By: #### C BC, ADIFF, ANEU, BMP, GFR, TROPHS #### [address] [address] RBC 5.17 10 6/mcL Normal 4.20-5.40 [facility] ([place] Comment on above: Performed By: #### C BC, ADIFF, ANEU, BMP, GFR, TROPHS #### [address] [address] WBC 6.40 10 3/mcL Normal 4.60-10.80 [facility] ([place] Comment on above: Performed By: #### C BC, ADIFF, ANEU, BMP, GFR, TROPHS #### [place] [id number] [place], [place] [address] CT ANGIO CHEST W+W/O CONTRAS T DISSECTIONon 04-04-2022 CT ANGIO CHEST W+W/O CONTRAST DISSECTION ORIGINAL EXAMINATION: CTA OF THE CHEST WITH AND WITHOUT CONTRAST 04/04/2022 3:09 pm TECHNIQUE: CTA of the chest was performed before and after the administration of intravenous contrast. Multiplanar reformatted images are provided for review. MIP images are provided for review. Dose modulation, iterative reconstruction, and/or weight based adjustment of the mA/kV was utilized to reduce the radiation dose to as low as reasonably achievable. COMPARISON: None. HISTORY: ORDERING SYSTEM PROVIDED HISTORY: Reason for Exam: r/o dissection Chest pain FINDINGS: There is some patient motion artifact present obscuring portions of the images. There are mild degenerative changes noted in the spine. Scattered areas of pulmonary and pleural scarring are noted. No consolidation is visible and there is no pleural fluid seen. No mediastinal adenopathy is evident. A small sliding hiatal hernia is evident. No definite pulmonary artery abnormality is seen. The thoracic aorta shows only minimal atherosclerotic irregularity. Its enhancement is normal with no evidence for dissection. The ascending thoracic aorta is normal in caliber with no evidence for aneurysm. The noncontrast portion of the study shows no evidence for thoracic aortic mural hematoma. No additional contributory finding seen. IMPRESSION: No acute abnormality identified on this exam. No evidence for thoracic aortic aneurysm or dissection. Interpreted by: Frank Rojas MD Preliminary Report By: Frank Rojas MD Electronically signed By Frank Rojas MD Dictated Date: 04/04/2022 3:19:07 PM Prelim Date: 04/04/2022 3:22:24 PM Sign Date: 04/04/2022 3:22:24 PM Ordering Provider: HENRY [facility] LAB[facility]ATORYOrdered By: Sterling Arguelles on 04-04-2022 Basophil, Absolute 0.00 103/mcL Invalid Interpretation Code 0.00 - 0.19 10^3/mcL AO Auto Heme SS Basophils/100 WBC (Bld) 0.4 % Invalid Interpretation Code 0.0 - 2.5 % AO Auto Heme SS Eosinophil, Absolute 0.00 103/mcL Invalid Interpretation Code 0.00 - 0.40 10^3/mcL AO Auto Heme SS Eosinophils/100 WBC (Bld) 0.0 % Invalid Interpretation Code 0.0 - 7.0 % AO Auto Heme SS Erythrocyte distribution width (RBC) [Ratio] 13.4 % Invalid Interpretation Code 11.5 - 14.5 % AO Auto Heme SS Hematocrit (Bld) [Volume fraction] 46.5 % Invalid Interpretation Code 37.0 - 47.0 % AO Auto Heme SS Hemoglobin (Bld) [Mass/Vol] 16.2 G/dL Invalid Interpretation Code 12.0 - 16.0 G/dL AO Auto Heme SS Lymphocyte, Absolute 0.90 103/mcL Invalid Interpretation Code 0.77 - 3.85 10^3/mcL AO Auto Heme SS Lymphocytes/100 WBC (Bld) 13.5 % Invalid Interpretation Code 10.0 - 50.0 % AO Auto Heme SS MCH (RBC) [Entitic mass] 31.4 pg Invalid Interpretation Code 27.0 - 31.2 pg AO Auto Heme SS MCHC (RBC) [Mass/Vol] 34.9 G/dL Invalid Interpretation Code 33.0 - 37.0 G/dL AO Auto Heme SS MCV (RBC) [Entitic vol] 89.9 fL Invalid Interpretation Code 80.0 - 94.0 fL AO Auto Heme SS Monocyte, Absolute 0.30 103/mcL Invalid Interpretation Code 0.15 - 1.00 10^3/mcL AO Auto Heme SS Monocytes/100 WBC (Bld) 4.5 % Invalid Interpretation Code 1.7 - 13.0 % AO Auto Heme SS Neutrophil, Absolute 5.20 103/mcL Invalid Interpretation Code 2.85 - 6.16 10^3/mcL AO Auto Heme SS Neutrophils/100 WBC (Bld) 81.6 % Invalid Interpretation Code 37.0 - 80.0 % AO Auto Heme SS Platelet mean volume (Bld) [Entitic vol] 7.2 fL Invalid Interpretation Code 7.4 - 10.4 fL AO Auto Heme SS Platelets (Bld) [#/Vol] 233 103/mcL Invalid Interpretation Code 130 - 400 10^3/mcL AO Auto Heme SS RBC (Bld) [#/Vol] 5.17 106/mcL Invalid Interpretation Code 4.20 - 5.40 10^6/mcL AO Auto Heme SS WBC (Bld) [#/Vol] 6.40 103/mcL Invalid Interpretation Code 4.60 - 10.80 10^3/mcL AO Auto Heme SS LABORATORYOrdered By: Kecia Bundy on 04-04-2022 Calcium [Mass/Vol] 9.9 mg/dL Invalid Interpretation Code 8.4 - 10.2 mg/dL AO ADM SS Chloride [Moles/Vol] 102 mmol/L Invalid Interpretation Code 98 - 107 mmol/L AO ADM SS CO2 [Moles/Vol] 24 mmol/L Invalid Interpretation Code 23 - 31 mmol/L AO ADM SS Creatinine [Mass/Vol] 0.73 mg/dL Invalid Interpretation Code 0.55 - 1.02 mg/dL AO ADM SS Electrolyte Balance 14.0 mEq/L Invalid Interpretation Code 4.0 - 15.0 mEq/L AO ADM SS Glucose [Mass/Vol] 130 mg/dL Invalid Interpretation Code 80 - 115 mg/dL AO ADM SS Potassium [Moles/Vol] 4.0 mmol/L Invalid Interpretation Code 3.5 - 5.1 mmol/L AO ADM SS Sodium [Moles/Vol] 140 mmol/L Invalid Interpretation Code 136 - 145 mmol/L AO ADM SS Troponin I.cardiac DL <= 0.01 ng/mL [Mass/Vol] 7.0 ng/L Invalid Interpretation Code 0.0 - 51.4 ng/L AO ADM SS Urea nitrogen [Mass/Vol] 13 mg/dL Invalid Interpretation Code 7 - 18 mg/dL AO ADM SS Urea nitrogen/Creatinine [Mass ratio] 18 ratio Invalid Interpretation Code 7 - 27 ratio AO ADM SS LABORATORYOrdered By: SYSTEM SYSTEM on 04-04-2022 GFR 96 ml/min/1.73sqm Invalid Interpretation Code AO Chemistry S GFR Non- 79 ml/min/1.73sqm Invalid Interpretation Code AO Chemistry S TROPHSon 04-04-2022 Troponin I High Sensitivity 7.0 ng/L Normal 0.0-51.4 [facility], [facility] ([place]) Comment on above: Performed By: #### C BC, ADIFF, ANEU, BMP, GFR, TROPHS #### [id number] [place], [place] [address] No Panel Informationon 09-23 Radiology Study observation (narrative) [facility] XR Cervical spine AP and Lat eral and obliqueon 09-23-2020 IMPRESSION: Osteopenia and degenerative changes as detailed in report. No acute process. Crew Clerk: TANYA Transcribe Date/Time: Sep 23 2020 1:18P Dictated by : REYNA PEREIRA MD This examination was interpreted and the report reviewed and electronically signed by: REYNA PEREIRA MD on Sep 23 2020 1:21PM [facility] DIVISION OF RADIOLOGY * * *Final Report* * * DATE OF EXAM: Sep 23 2020 12:23PM WOX 5311 - XR CERVICAL 4V AP/LAT/OBL / PROCEDURE REASON: multiple diagnoses * * * * Physician Interpretation * * * * EXAMINATION: XR CERVICAL 4V AP/LAT/OBL HISTORY: pt states pain for 2 years on both sides of neck into the shoulders, and all across the lower lumbar. Negative injury. Chronic pain syndrome. Chronic neck pain TECHNIQUE: XR CERVICAL 4V AP/LAT/OBL Laterality: NOT APPLICABLE Number of different views (projections): 4 M: XB_1 COMPARISON: There are no prior relevant examinations available for comparison. RESULT: 4 views of the cervical spine demonstrate osteopenia and multilevel degenerative change with vertebral body osteophytosis and disc space narrowing, greatest at C4-5, C5-6 and C6-7. There is a 1 to 2 mm anterolisthesis of C5 on C6 with intact spinolaminal line suggesting degenerative etiology.. There are no vertebral body compression deformities and alignment is well maintained. Bilateral obliques demonstrate moderate foraminal narrowing at C3-4, C4-5 and C5-6 on the left and at C3-4, C5-6 and C6-7 on the right.. The atlantoaxial interval and craniocervical junction are intact. There is no prevertebral soft tissue abnormality. DIVISION OF RADIOLOGY Provider, [facility] - 09/23/2020 * * *Final Report* * * DATE OF EXAM: Sep 23 2020 12:23PM WOX 5311 - XR CERVICAL 4V AP/LAT/OBL / PROCEDURE REASON: multiple diagnoses * * * * Physician Interpretation * * * * EXAMINATION: XR CERVICAL 4V AP/LAT/OBL HISTORY: pt states pain for 2 years on both sides of neck into the shoulders, and all across the lower lumbar. Negative injury. Chronic pain syndrome. Chronic neck pain TECHNIQUE: XR CERVICAL 4V AP/LAT/OBL Laterality: NOT APPLICABLE Number of different views (projections): 4 M: XB_1 COMPARISON: There are no prior relevant examinations available for comparison. RESULT: 4 views of the cervical spine demonstrate osteopenia and multilevel degenerative change with vertebral body osteophytosis and disc space narrowing, greatest at C4-5, C5-6 and C6-7. There is a 1 to 2 mm anterolisthesis of C5 on C6 with intact spinolaminal line suggesting degenerative etiology.. There are no vertebral body compression deformities and alignment is well maintained. Bilateral obliques demonstrate moderate foraminal narrowing at C3-4, C4-5 and C5-6 on the left and at C3-4, C5-6 and C6-7 on the right.. The atlantoaxial interval and craniocervical junction are intact. There is no prevertebral soft tissue abnormality. IMPRESSION IMPRESSION: Osteopenia and degenerative changes as detailed in report. No acute process. Crew Clerk: TANYA Transcribe Date/Time: Sep 23 2020 1:18P Dictated by : REYNA PEREIRA MD This examination was interpreted and the report reviewed and electronically signed by: REYNA PEREIRA MD on Sep 23 2020 1:21PM EST [facility] XR Cervical spine AP and Lat eral and obliqueOrdered By: Ccf Provider on 09-23-2020 [facility] XR Lumbar spine 3 Viewson IMPRESSION: No radiographic evidence of acute osseous pathology. Moderate lumbar spondylosis. Crew Clerk: TANYA Transcribe Date/Time: Sep 23 2020 2:58P Dictated by : SHANNON HADDAD MD This examination was interpreted and the report reviewed and electronically signed by: SHANNON HADDAD MD on Sep 23 2020 2:59PM [facility] DIVISION OF RADIOLOGY * * *Final Report* * * DATE OF EXAM: Sep 23 2020 12:23PM WOX 5228 - XR LUMBAR 3V AP/LAT/L5-S1 / PROCEDURE REASON: multiple diagnoses * * * * Physician Interpretation * * * * PROCEDURE: LUMBAR SPINE RADIOGRAPHS. CLINICAL INDICATION: Chronic low back pain. COMPARISON: None. TECHNIQUE: AP, lateral and spot lateral views of the lumbar spine were performed. RESULT: No radiographic evidence of fracture. No loss of vertebral body height is noted. No listhesis. Severe narrowing of the T12-L1, L1-L2, L2-L3 and L5-S1 intervertebral disc spaces and plate spurring/osteophyte formation is identified at multiple levels. Hypertrophic changes the facet joints, predominantly the lower levels. Degenerative changes of the bilateral SI joints. The bones appear mildly osteopenic. - DIVISION OF RADIOLOGY Provider, [facility] [place] - 09/23/2020 * * *Final Report* * * DATE OF EXAM: Sep 23 2020 12:23PM WOX 5228 - XR LUMBAR 3V AP/LAT/L5-S1 / PROCEDURE REASON: multiple diagnoses * * * * Physician Interpretation * * * * PROCEDURE: LUMBAR SPINE RADIOGRAPHS. CLINICAL INDICATION: Chronic low back pain. COMPARISON: None. TECHNIQUE: AP, lateral and spot lateral views of the lumbar spine were performed. RESULT: No radiographic evidence of fracture. No loss of vertebral body height is noted. No listhesis. Severe narrowing of the T12-L1, L1-L2, L2-L3 and L5-S1 intervertebral disc spaces and plate spurring/osteophyte formation is identified at multiple levels. Hypertrophic changes the facet joints, predominantly the lower levels. Degenerative changes of the bilateral SI joints. The bones appear mildly osteopenic. - IMPRESSION IMPRESSION: No radiographic evidence of acute osseous pathology. Moderate lumbar spondylosis. Crew Clerk: TANYA Transcribe Date/Time: Sep 23 2020 2:58P Dictated by : SHANNON HADDAD MD This examination was interpreted and the report reviewed and electronically signed by: SHANNON HADDAD MD on Sep 23 2020 2:59PM EST [facility] XR Thoracic spine AP and Lat eral and [place] 09-23-2020 IMPRESSION: No Radiographic evidence of acute osseous pathology. Moderate degenerative changes of the thoracic spine. Crew Clerk: TANYA Transcribe Date/Time: Sep 23 2020 3:00P Dictated by : SHANNON HADDAD MD This examination was interpreted and the report reviewed and electronically signed by: SHANNON HADDAD MD on Sep 23 2020 3:00PM [facility] DIVISION OF RADIOLOGY * * *Final Report* * * DATE OF EXAM: Sep 23 2020 12:23PM WOX 5261 - XR THORACIC 3V AP/LAT/SWIMMERS / PROCEDURE REASON: multiple diagnoses * * * * Physician Interpretation * * * * PROCEDURE: THORACIC SPINE RADIOGRAPHS TECHNIQUE: AP, swimmer's and lateral views of the thoracic spine. CLINICAL INDICATION: Chronic back pain. COMPARISON: None. RESULT: There is no acute fracture, listhesis. No loss of vertebral body height is noted. Osteophyte formation/endplate spurring is identified at multiple levels. Narrowing of multiple intervertebral disc spaces. The bones appear osteopenic. - DIVISION OF RADIOLOGY Provider, [facility] [place] - 09/23/2020 * * *Final Report* * * DATE OF EXAM: Sep 23 2020 12:23PM WOX 5261 - XR THORACIC 3V AP/LAT/SWIMMERS / PROCEDURE REASON: multiple diagnoses * * * * Physician Interpretation * * * * PROCEDURE: THORACIC SPINE RADIOGRAPHS TECHNIQUE: AP, swimmer's and lateral views of the thoracic spine. CLINICAL INDICATION: Chronic back pain. COMPARISON: None. RESULT: There is no acute fracture, listhesis. No loss of vertebral body height is noted. Osteophyte formation/endplate spurring is identified at multiple levels. Narrowing of multiple intervertebral disc spaces. The bones appear osteopenic. - IMPRESSION IMPRESSION: No Radiographic evidence of acute osseous pathology. Moderate degenerative changes of the thoracic spine. Crew Clerk: TANYA Transcribe Date/Time: Sep 23 2020 3:00P Dictated by : SHANNON HADDAD MD This examination was interpreted and the report reviewed and electronically signed by: SHANNON HADDAD MD on Sep 23 2020 3:00PM [facility] Vital Signs Date Time Vital Sign Value Performing Clinician Facility 04-19-2025 12:040 Body height 153 cm Hong Matos DO Work Phone: [facility] 04-19-2025 12:040 Body mass index (BMI) [Ratio] 37.79 kg/m2 Hong Matos DO Work Phone: [facility] 04-19-2025 12:040 Body temperature 97 [degF] Hong Matos DO Work Phone: [facility] 04-19-2025 12:040 Body weight 88.45 kg Hong Matos DO Work Phone: [facility] 04-19-2025 12:26-040 Diastolic blood pressure 70 mm[Hg] Hong Matos DO Work Phone: [facility] 04-19-2025 12:26-0400 Heart rate 80 /min Hong Matos DO Work Phone: [facility] 04-19-2025 12:26-0400 Respiratory rate 20 /min Hong Matos DO Work Phone: [facility] 04-19-2025 12:26-0400 Systolic blood pressure 110 mm[Hg] Hong Matos DO Work Phone: [facility] 01-13-2025 10:15-0500 Body mass index (BMI) [Ratio] 35.13 kg/m2 Hong Matos DO Work Phone: [facility] 01-13-2025 10:15-0500 Body weight 85.73 kg Hong Matos DO Work Phone: [facility] 01-13-2025 10:15-0500 Diastolic blood pressure 68 mm[Hg] Hong Matos DO Work Phone: [facility] 01-13-2025 10:15-0500 Heart rate 77 /min Hong Matos DO Work Phone: [facility] 01-13-2025 10:15-0500 Respiratory rate 16 /min Hong Matos DO Work Phone: [facility] 01-13-2025 10:15-0500 Systolic blood pressure 100 mm[Hg] Hong Matos DO Work Phone: [facility] 10-20-2024 09:54-0500 Body mass index (BMI) [Ratio] 35.88 kg/m2 Hong Matos DO Work Phone: [facility] 10-20-2024 09:54-0500 Body temperature 97 [degF] Hong Matos DO Work Phone: [facility] 10-20-2024 09:54-0500 Body weight 87.54 kg Hong Matos DO Work Phone: [facility] 10-20-2024 09:54-0500 Diastolic blood pressure 60 mm[Hg] Hong Matos DO Work Phone: [facility] 10-20-2024 09:54-0500 Heart rate 80 /min Hong Matos DO Work Phone: [facility] 10-20-2024 09:54-0500 Respiratory rate 16 /min Hong Matos DO Work Phone: [facility] 10-20-2024 09:54-0500 Systolic blood pressure 110 mm[Hg] Hong Matos DO Work Phone: [facility] 07-20-2024 12:03-0400 Body mass index (BMI) [Ratio] 36.06 kg/m2 Hong Matos DO Work Phone: [facility] 07-20-2024 12:03-0400 Body temperature 97 [degF] Hong Matos DO Work Phone: [facility] 07-20-2024 12:03-0400 Body weight 88 kg Hong Matos DO Work Phone: [facility] 07-20-2024 12:03-0400 Diastolic blood pressure 60 mm[Hg] Hong Matos DO Work Phone: [facility] 07-20-2024 12:03-0400 Heart rate 80 /min Hong Matos DO Work Phone: [facility] 07-20-2024 12:03-0400 Respiratory rate 20 /min Hong Matos DO Work Phone: [facility] 07-20-2024 12:03-0400 Systolic blood pressure 110 mm[Hg] Hong Matos DO Work Phone: [facility] 04-17-2024 11:40-0400 Body mass index (BMI) [Ratio] 35.88 kg/m2 Hong Matos DO Work Phone: [facility] 04-17-2024 11:40-0400 Body temperature 97.3 [degF] Hong Matos DO Work Phone: [facility] 04-17-2024 11:40-0400 Body weight 87.54 kg Hong Matos DO Work Phone: [facility] 04-17-2024 11:40-0400 Diastolic blood pressure 60 mm[Hg] Hong Matos DO Work Phone: [facility] 04-17-2024 11:40-0400 Heart rate 80 /min Hong Matos DO Work Phone: [facility] 04-17-2024 11:40-0400 Respiratory rate 16 /min Hong Matos DO Work Phone: [facility] 04-17-2024 11:40-0400 Systolic blood pressure 100 mm[Hg] Hong Matos DO Work Phone: [facility] 11-06-2023 08:11-0500 Body weight 83.01 kg Nisa Rocha MANAGER MEDIA RELATIONS.CARE MANAGEMENT SPECIALIST Work Phone: [facility] 11-06-2023 08:11-0500 Diastolic blood pressure 80 mm[Hg] Nisa Rocha MANAGER MEDIA RELATIONS.CARE MANAGEMENT SPECIALIST Work Phone: [facility] 11-06-2023 08:11-0500 Heart rate 62 /min Nisa Rocha MANAGER MEDIA RELATIONS.CARE MANAGEMENT SPECIALIST Work Phone: [facility] 11-06-2023 08:11-0500 Respiratory rate 14 /min Nisa Rocha MANAGER MEDIA RELATIONS.CARE MANAGEMENT SPECIALIST Work Phone: [facility] 11-06-2023 08:11-0500 Systolic blood pressure 120 mm[Hg] Nisa Rocha MANAGER MEDIA RELATIONS.CARE MANAGEMENT SPECIALIST Work Phone: [facility] 09-06-2023 14:16-0400 Body temperature 96.8 [degF] Hong Matos DO Work Phone: [facility] 09-06-2023 14:16-0400 Body weight 85.91 kg Hong Matos DO Work Phone: [facility] 09-06-2023 14:16-0400 Diastolic blood pressure 62 mm[Hg] Hong Matos DO Work Phone: [facility] 09-06-2023 14:16-0400 Heart rate 83 /min Hong Matos DO Work Phone: [facility] 09-06-2023 14:16-0400 Respiratory rate 16 /min Hong Matos DO Work Phone: [facility] 09-06-2023 14:16-0400 Systolic blood pressure 98 mm[Hg] Hong Matos DO Work Phone: [facility] 08-12-2023 11:27-0400 Body temperature 98.8 [degF] Nisa Rocha MANAGER MEDIA RELATIONS.CARE MANAGEMENT SPECIALIST Work Phone: [facility] 08-12-2023 11:27-0400 Body weight 86.27 kg Nisa Rocha MANAGER MEDIA RELATIONS.CARE MANAGEMENT SPECIALIST Work Phone: [facility] 08-12-2023 11:27-0400 Diastolic blood pressure 60 mm[Hg] Nisa Rocha MANAGER MEDIA RELATIONS.CARE MANAGEMENT SPECIALIST Work Phone: [facility] 08-12-2023 11:27-0400 Heart rate 86 /min Nisa Rocha MANAGER MEDIA RELATIONS.CARE MANAGEMENT SPECIALIST Work Phone: [facility] 08-12-2023 11:27-0400 Respiratory rate 14 /min Nisa Rocha MANAGER MEDIA RELATIONS.CARE MANAGEMENT SPECIALIST Work Phone: [facility] 08-12-2023 11:27-0400 SaO2% (BldA) [Mass fraction] 96 % Nisa Rocha MANAGER MEDIA RELATIONS.CARE MANAGEMENT SPECIALIST Work Phone: [facility] 08-12-2023 11:27-0400 Systolic blood pressure 100 mm[Hg] Nisa Rocha MANAGER MEDIA RELATIONS.CARE MANAGEMENT SPECIALIST Work Phone: [facility] 2023 08:50-0400 Body temperature 97.5 [degF] Hong Matos DO Work Phone: [facility] 2023 08:50-0400 Body weight 86.64 kg Hong Matos DO Work Phone: [facility] 2023 08:50-0400 Diastolic blood pressure 80 mm[Hg] Hong Matos DO Work Phone: [facility] 2023 08:50-0400 Heart rate 80 /min Hong Matos DO Work Phone: [facility] 2023 08:50-0400 Respiratory rate 16 /min Hong Amtos DO Work Phone: [facility] 2023 08:50-0400 Systolic blood pressure 120 mm[Hg] Hong Matos DO Work Phone: [facility] 10-03-2022 09:58-0400 Body temperature 96.49 [degF] Hong Matos DO Work Phone: [facility] 10-03-2022 09:58-0400 Body weight 84.82 kg Hong Matos DO Work Phone: [facility] 10-03-2022 09:58-0400 Diastolic blood pressure 80 mm[Hg] Hong Matos DO Work Phone: [facility] 10-03-2022 09:58-0400 Heart rate 88 /min Hong Matos DO Work Phone: [facility] 10-03-2022 09:58-0400 Respiratory rate 16 /min Hong Matos DO Work Phone: [facility] 10-03-2022 09:58-0400 Systolic blood pressure 110 mm[Hg] Hong Matos DO Work Phone: [facility] 08-27-2022 11:17-0400 Body temperature 97.2 [degF] Petty Waleska MANAGER MEDIA RELATIONS.CARE MANAGEMENT SPECIALIST Work Phone: [facility] 08-27-2022 11:17-0400 Body weight 85.28 kg Petty Waleska MANAGER MEDIA RELATIONS.CARE MANAGEMENT SPECIALIST Work Phone: [facility] 08-27-2022 11:17-0400 Diastolic blood pressure 80 mm[Hg] Petty Waleska MANAGER MEDIA RELATIONS.CARE MANAGEMENT SPECIALIST Work Phone: [facility] 08-27-2022 11:17-0400 Heart rate 87 /min Petty Waleska MANAGER MEDIA RELATIONS.CARE MANAGEMENT SPECIALIST Work Phone: [facility] 08-27-2022 11:17-0400 Respiratory rate 16 /min Petty Waleska MANAGER MEDIA RELATIONS.CARE MANAGEMENT SPECIALIST Work Phone: [facility] 08-27-2022 11:17-0400 SaO2% (BldA) [Mass fraction] 97 % Petty Waleska MANAGER MEDIA RELATIONS.CARE MANAGEMENT SPECIALIST Work Phone: [facility] 08-27-2022 11:17-0400 Systolic blood pressure 106 mm[Hg] Petty Waleska MANAGER MEDIA RELATIONS.CARE MANAGEMENT SPECIALIST Work Phone: [facility] 08-20-2022 10:17-0400 Body temperature 96.4 [degF] Art Bogner PA-C Work Phone: [facility] 08-20-2022 10:17-0400 Body weight 85.19 kg Art Bogner PA-C Work Phone: [facility] 08-20-2022 10:17-0400 Diastolic blood pressure 76 mm[Hg] Art Bogner PA-C Work Phone: [facility] 08-20-2022 10:17-0400 Heart rate 87 /min Art Bogner PA-C Work Phone: [facility] 08-20-2022 10:17-0400 Respiratory rate 18 /min Art Bogner PA-C Work Phone: [facility] 08-20-2022 10:17-0400 SaO2% (BldA) [Mass fraction] 95 % Art Bogner PA-C Work Phone: [facility] 08-20-2022 10:17-0400 Systolic blood pressure 108 mm[Hg] Art Bogner PA-C Work Phone: [facility] 07-04-2022 09:04-0400 Body temperature 96.6 [degF] Hong Matos DO Work Phone: [facility] 07-04-2022 09:04-0400 Body weight 86.64 kg Hong Matos DO Work Phone: [facility] 07-04-2022 09:04-0400 Diastolic blood pressure 60 mm[Hg] Hong Matos DO Work Phone: [facility] 07-04-2022 09:04-0400 Heart rate 80 /min Hong Matos DO Work Phone: [facility] 07-04-2022 09:04-0400 Respiratory rate 16 /min Hong Matos DO Work Phone: [facility] 07-04-2022 09:04-0400 Systolic blood pressure 100 mm[Hg] Hong Matos DO Work Phone: [facility] 04-11-2022 10:20-0400 Body temperature 97 [degF] Hong Matos DO Work Phone: [facility] 04-11-2022 10:20-0400 Body weight 88.45 kg Hong Matos DO Work Phone: [facility] 04-11-2022 10:20-0400 Diastolic blood pressure 60 mm[Hg] Hong Matos DO Work Phone: [facility] 04-11-2022 10:20-0400 Heart rate 76 /min Hong Matos DO Work Phone: [facility] 04-11-2022 10:20-0400 Respiratory rate 16 /min Hong Matos DO Work Phone: [facility] 04-11-2022 10:20-0400 Systolic blood pressure 98 mm[Hg] Hong Matos DO Work Phone: [facility] 04-04-2022 15:52-0400 Diastolic blood pressure 87 mm[Hg] HENRY FROMPREMT DO [facility] 04-04-2022 15:52-0400 Heart rate 88 /min HENRY TOVART DO [facility] 04-04-2022 15:52-0400 Respiratory rate 16 /min HENRY TOVART DO [facility] 04-04-2022 15:52-0400 Systolic blood pressure 131 mm[Hg] HENRY FROMMELT DO [facility] 04-04-2022 15:08-0400 Diastolic blood pressure 105 mm[Hg] HENRY FROMMELT DO [facility] 04-04-2022 15:08-0400 Heart rate 92 /min HENRY FROMMELT DO [facility] 04-04-2022 15:08-0400 Reason For Taking VItal Signs HENRY FROMPREMT DO [facility] 04-04-2022 15:08-0400 Respiratory rate 18 /min HENRY ROWEMELT DO [facility] 04-04-2022 15:08-0400 Systolic blood pressure 156 mm[Hg] HENRY FROMMELT DO [facility] 04-04-2022 14:55-0400 Diastolic blood pressure 98 mm[Hg] HENRY FROMMELT DO [facility] 04-04-2022 14:55-0400 Respiratory rate 16 /min HENRY FROMMELT DO [facility] 04-04-2022 14:55-0400 Systolic blood pressure 168 mm[Hg] HENRY DE SOUZA DO [facility] 04-04-2022 14:29-0400 Heart rate 108 /min HENRY DE SOUZA DO [facility] 04-04-2022 12:42-0400 Heart rate 110 /min HENRY TOVART DO [facility] 04-04-2022 12:05-0400 Heart rate 82 /min HENRY DE SOUZA DO [facility] 04-04-2022 12:05-0400 Reason For Taking VItal Signs HENRY DE SOUZA DO [facility] 04-04-2022 11:18-0400 Body temperature 98.24 [degF] HERNY DE SOUZA DO [facility] 04-04-2022 11:18-0400 Body weight 88.2 kg HENRY DE SOUZA DO [facility] 04-04-2022 11:18-0400 Heart rate 95 /min HENRY DE SOUZA DO [facility] Encounters Encounter Date Encounter Type Care Provider Facility Start: 06-25-2025 ambulatory Wilfrid Sweet ty:[facility] Start: 05-12-2025 ambulatory Wilfrid Sweet ty:[facility] Start: 04-19-2025 End: 04-19-2025 ambulatory HONG MATOS Facility:[facility] Start: 04-19-2025 End: 04-19-2025 Patient encounter procedure Hong Gonsaleson DO Work Phone: [facility] Comment on above: Medicare annual well ness visit, subsequent (Primary Dx); Osteoarthritis of spine with radiculopathy, lumbar region; Chronic midline low back pain with bilateral sciatica; Chronic pain syndrome; Chronic bilateral thoracic back pain; Fibromyalgia; VÍCTOR (generalized anxiety disorder); Depressive disorder; Hyperlipidemia, mixed; Hypercalcemia; Dysuria Start: 04-19-2025 End: 04-19-2025 ambulatory HONG L MATOS Facility:[facility] Start: 03-15-2025 End: 03-16-2025 Refill Hong Gonsaleson DO Work Phone: Family [facility] Comment on above: Refill Request Medication Problem ( Tramadol prescription) Start: 02-23-2025 End: 02-23-2025 Refill Hong Gonsaleson DO Work Phone: [facility] Comment on above: Refill Request Medication Question Start: 02-03-2025 End: 02-08-2025 Telephone encounter Hong Mookie Matos DO Work Phone: [facility] Comment on above: Results Start: 01-14-2025 End: 01-14-2025 Subsequent hospital visit by physician Christian delfino Herrera Mob Work Phone: Radiology Comment on above: Acute right-sided lo w back pain with bilateral sciatica [M54.42, M54.41] Start: 01-14-2025 End: 01-14-2025 ambulatory HONG L MATOS Facility:[facility] Start: 01-13-2025 End: 01-13-2025 ambulatory HONG L MATOS Facility:[facility] Start: 01-13-2025 End: 01-13-2025 Patient encounter procedure Hong Lundyrison DO Work Phone: Family [facility] Comment on above: Acute right-sided lo w back pain with bilateral sciatica (Primary Dx); Right hip pain; Acute non-recurrent maxillary sinusitis; Fibromyalgia; Hypertriglyceridemia; Chronic pain syndrome; Osteoarthritis of spine with radiculopathy, lumbar region; Vitamin B12 deficiency; Vitamin D deficiency; Fatigue, unspecified type; Hyperglycemia; Restless legs Start: 12-15-2024 End: 12-16-2024 Refill Hong Lundyrison DO Work Phone: [facility] [place] Comment on above: Refill Request Start: 11-16-2024 End: 11-16-2024 Refill Nisa Solanoirma PATELCARE MANAGEMENT SPECIALIST Work Phone: [facility] [place] Comment on above: Refill Request Start: 11-16-2024 End: 11-16-2024 Telephone encounter Hong Lundyrison DO Work Phone: [facility] Start: 11-03-2024 End: 11-03-2024 ambulatory HONG L MATOS Facility:[facility] Start: 11-03-2024 End: 11-03-2024 Subsequent hospital visit by physician [facility] W[facility] (I-Stat) Work Phone: Cat Scan Comment on above: Memory loss [R41.3] Start: 10-20-2024 End: 10-20-2024 ambulatory HONG L MATOS Facility:[facility] Start: 10-20-2024 End: 10-20-2024 Patient encounter procedure Hong Lundyrison DO Work Phone: [facility] [place] Comment on above: Memory loss (Primary Dx); Osteoarthritis of spine with radiculopathy, lumbar region; Chronic midline low back pain with bilateral sciatica; Chronic pain syndrome; Chronic bilateral thoracic back pain; Fibromyalgia; Restless leg; Vitamin B12 deficiency; Dizziness Start: 10-02-2024 End: 10-05-2024 Refill Hong Lundyrison DO Work Phone: [facility] [place] Comment on above: Refill Request Start: 09-04-2024 End: 09-04-2024 Refill Hong Mookie LundyMatos DO Work Phone: [facility] [place] Comment on above: Refill Request Start: 08-24-2024 End: 09-02-2024 Telephone encounter Hong Lundyrison DO Work Phone: [facility] [place] Comment on above: medication not on cu rrent med list Start: 08-18-2024 End: 08-18-2024 Telephone encounter Hong Matos DO Work Phone: [facility] [place] Comment on above: Medication Problem Start: 08-07-2024 End: 08-07-2024 Telephone encounter Petty Mendenhall NEVILLE.CARE MANAGEMENT SPECIALIST Work Phone: [facility] [place] Comment on above: Results Start: 07-20-2024 End: 07-22-2024 Refill Hong Matos DO Work Phone: [facility] [place] Comment on above: Refill Request Chronic pain syndrom e (Primary Dx); Osteoarthritis of spine with radiculopathy, lumbar region; Chronic midline low back pain with bilateral sciatica; Chronic bilateral thoracic back pain; Fibromyalgia; Restless leg; Vitamin B12 deficiency; Low serum cortisol level; Fatigue, unspecified type; Vitamin D deficiency Start: 06-24-2024 Refill Hong solis DO Work Phone: [facility] Comment on above: Refill Request Start: 05-04-2024 Telephone encounter Hong hebert DO Work Phone: [facility] [place] Start: 04-30-2024 End: 04-30-2024 ambulatory HONG Mookie MATOS Facility:[facility] Start: 04-28-2024 Telephone encounter Hong hebert DO Work Phone: [facility] [place] Start: 04-17-2024 End: 04-17-2024 Patient encounter procedure Hong Matos DO Work Phone: [facility] Comment on above: Chronic midline low back pain with bilateral sciatica (Primary Dx); Osteoarthritis of spine with radiculopathy, lumbar region; Chronic pain syndrome; Chronic bilateral thoracic back pain; Fibromyalgia; Restless leg; Vitamin B12 deficiency; Sweating increase; Fatigue, unspecified type; Hypercalcemia; Borderline abnormal thyroid function test; IFG (impaired fasting glucose); PAD (peripheral artery disease) ([facility]); Body mass index (BMI) 45.0-49.9, adult ([facility]) Start: 01-10-2024 End: 01-10-2024 Patient encounter procedure Cornelius Carranza Work Phone: Podiatry Comment on above: Arthritis of foot (P rimary Dx); Foot pain, bilateral; Skew foot deformity, unspecified laterality Start: 11-20-2023 Telephone encounter Nisa solis MANAGER MEDIA RELATIONS.CARE MANAGEMENT SPECIALIST Work Phone: [facility] [place] Comment on above: Medication Problem Start: 11-13-2023 Refill Hong solis DO Work Phone: [facility] [place] Comment on above: Refill Request Start: 11-12-2023 End: 11-12-2023 Nursing evaluation of patient and report Mi Nurse Work Phone: [facility] [place] Comment on above: Vitamin B12 deficien cy (Primary Dx) Start: 11-06-2023 Telephone encounter Nisa solis MANAGER MEDIA RELATIONS.CARE MANAGEMENT SPECIALIST Work Phone: [facility] [place] Comment on above: Results Start: 11-06-2023 End: 11-06-2023 Patient encounter procedure Nisa Rocha MANAGER MEDIA RELATIONS.CARE MANAGEMENT SPECIALIST Work Phone: [facility] [place] Comment on above: Body aches (Primary Dx); Osteoarthritis of spine with radiculopathy, lumbar region; Chronic midline low back pain with bilateral sciatica; Chronic pain syndrome; Chronic bilateral thoracic back pain; Fibromyalgia; Restless leg; Diarrhea, unspecified type Start: 11-04-2023 Telephone encounter Hong herrerashirlene DO Work Phone: [facility] Comment on above: Medication Request Start: 10-25-2023 Refill Hong solis DO Work Phone: [facility] [place] Comment on above: Refill Request Start: 10-15-2023 End: 10-15-2023 Nursing evaluation of patient and report Mi Nurse Work Phone: [facility] [place] Comment on above: Vitamin B12 deficien cy (Primary Dx) Start: 09-17-2023 End: 09-17-2023 Nursing evaluation of patient and report Mi Nurse Work Phone: [facility] [place] Comment on above: Vitamin B12 deficien cy (Primary Dx) Start: 09-06-2023 End: 09-06-2023 Patient encounter procedure Hong Matos DO Work Phone: [facility] [place] Comment on above: Chronic midline low back pain with bilateral sciatica (Primary Dx); Hyperlipidemia, mixed; Osteoarthritis of spine with radiculopathy, lumbar region; Chronic pain syndrome; Chronic bilateral thoracic back pain; Fibromyalgia; Restless leg; Vitamin B12 deficiency; PAD (peripheral artery disease) ([facility]); Body mass index (BMI) 45.0-49.9, adult ([facility]) Start: 08-19-2023 Refill Nisa Rocha MANAGER MEDIA RELATIONS.CARE MANAGEMENT SPECIALIST Work Phone: [facility] [place] Comment on above: Refill Request Start: 08-14-2023 Telephone encounter Nisasachin solis MANAGER MEDIA RELATIONS.CARE MANAGEMENT SPECIALIST Work Phone: [facility] [place] Comment on above: Results Start: 08-12-2023 End: 08-12-2023 Patient encounter procedure Nisa Rocha MANAGER MEDIA RELATIONS.CARE MANAGEMENT SPECIALIST Work Phone: [facility] [place] Comment on above: Head congestion ([facility] wayne Dx); Sore throat Start: 07-23-2023 End: 07-23-2023 Nursing evaluation of patient and report Mi Nurse Work Phone: [facility] [place] Comment on above: Vitamin B12 deficien cy (Primary Dx) Start: 05-30-2023 Telephone encounter Hong hebert DO Work Phone: [facility] [place] Comment on above: Results Start: 05-28-2023 End: 05-28-2023 Nursing evaluation of patient and report Mi Nurse Work Phone: [facility] [place] Comment on above: Vitamin B12 deficien cy (Primary Dx) Start: 05-21-2023 Refill Nisa Rocha MANAGER MEDIA RELATIONS.CARE MANAGEMENT SPECIALIST Work Phone: [facility] [place] Comment on above: Refill Request Start: 04-11-2023 Refill Nisa Rocha MANAGER MEDIA RELATIONS.CARE MANAGEMENT SPECIALIST Work Phone: [facility] [place] Comment on above: Refill Request Start: 2023 End: 2023 Patient encounter procedure Hong Matos DO Work Phone: [facility] [place] Comment on above: Chronic pain syndrom e (Primary Dx); Hyperlipidemia, mixed; Osteoarthritis of spine with radiculopathy, lumbar region; Chronic midline low back pain with bilateral sciatica; Chronic bilateral thoracic back pain; Fibromyalgia; Restless leg; Vitamin B12 deficiency; Hyperglycemia; Vitamin D deficiency; PVD (peripheral vascular disease) ([facility]); Body mass index (BMI) 45.0-49.9, adult ([facility]) Start: 03-07-2023 Refill Hong solis DO Work Phone: [facility] [place] Comment on above: Refill Request (MAIL ORDER See Rx notes) Start: 02-04-2023 Refill Hong solis DO Work Phone: [facility] [place] Comment on above: Refill Request Start: 01-29-2023 End: 01-29-2023 Nursing evaluation of patient and report Mi Nurse Work Phone: [facility] [place] Comment on above: Vitamin B12 deficien cy (Primary Dx) Start: 01-24-2023 Orders Only Nisa Rocha MANAGER MEDIA RELATIONS.CARE MANAGEMENT SPECIALIST Work Phone: [facility] [place] Comment on above: Hyperlipidemia, mixe d (Primary Dx); Fibromyalgia Start: 01-21-2023 Refill Nisa Rocha MANAGER MEDIA RELATIONS.CARE MANAGEMENT SPECIALIST Work Phone: [facility] [place] Comment on above: Refill Request Start: 12-04-2022 End: 12-04-2022 Nursing evaluation of patient and report Mi Nurse Work Phone: [facility] [place] Comment on above: Vitamin B12 deficien cy (Primary Dx) Start: 11-12-2022 Refill Hong solis DO Work Phone: [facility] [place] Comment on above: Refill Request Start: 11-05-2022 End: 11-05-2022 Nursing evaluation of patient and report Mi Nurse Work Phone: [facility] [place] Comment on above: Vitamin B12 deficien cy (Primary Dx) Start: 10-11-2022 Refill Nisa Bridgerc k MANAGER MEDIA RELATIONS.CARE MANAGEMENT SPECIALIST Work Phone: [facility] [place] Comment on above: Refill Request Start: 10-03-2022 End: 10-03-2022 Patient encounter procedure Hong Matos DO Work Phone: [facility] [place] Comment on above: Osteoarthritis of sp ine with radiculopathy, lumbar region (Primary Dx); Chronic midline low back pain with bilateral sciatica; Chronic pain syndrome; Chronic bilateral thoracic back pain; Fibromyalgia; Restless leg; Vitamin B12 deficiency; VÍCTOR (generalized anxiety disorder); Depressive disorder; History of COVID-19; Acute non-recurrent frontal sinusitis Start: 08-27-2022 End: 08-27-2022 Patient encounter procedure Petty Mendenhall APRN.CARE MANAGEMENT SPECIALIST Work Phone: [facility] [place] Comment on above: COVID (Primary Dx); Vitamin B12 deficiency Start: 08-20-2022 Telephone encounter Art Starr PA-C Work Phone: [facility] Comment on above: Results Start: 08-20-2022 End: 08-20-2022 Office outpatient visit 25 minutes Art Starr PA-C Work Phone: [facility] Comment on above: Nausea (Primary Dx); Lightheaded Start: 08-01-2022 End: 08-01-2022 Nursing evaluation of patient and report Mi Nurse Work Phone: [facility] [place] Comment on above: Vitamin B12 deficien cy (Primary Dx) Start: 07-13-2022 Telephone encounter Hong hebert DO Work Phone: [facility] [place] Comment on above: Medication Problem Start: 07-04-2022 End: 07-04-2022 Patient encounter procedure Hong Matos DO Work Phone: [facility] [place] Comment on above: Osteoarthritis of sp ine with radiculopathy, lumbar region (Primary Dx); Dysuria; Chronic midline low back pain with bilateral sciatica; Chronic pain syndrome; Chronic bilateral thoracic back pain; Fibromyalgia; Restless leg; Vitamin B12 deficiency; VÍCTOR (generalized anxiety disorder); Depressive disorder Start: 06-06-2022 End: 06-06-2022 Nursing evaluation of patient and report Mi Nurse Work Phone: [facility] [place] Comment on above: Vitamin B12 deficien cy (Primary Dx) Start: 05-09-2022 End: 05-09-2022 Nursing evaluation of patient and report Mi Nurse Work Phone: [facility] [place] Comment on above: Vitamin B12 deficien cy (Primary Dx) Start: 04-26-2022 Refill Hong solis DO Work Phone: [facility] [place] Comment on above: Refill Request Start: 04-11-2022 End: 04-11-2022 Patient encounter procedure Hong Matos DO Work Phone: [facility] [place] Comment on above: Chronic pain syndrom e (Primary Dx); Osteoarthritis of spine with radiculopathy, lumbar region; Chronic midline low back pain with bilateral sciatica; Chronic bilateral thoracic back pain; Fibromyalgia; Restless leg; Vitamin B12 deficiency Start: 04-04-2022 End: 04-04-2022 Emergency department patient visit HENRY JAEBALA DO [facility] Start: 04-03-2022 Telephone encounter Hong hebert DO Work Phone: [facility] [place] Comment on above: Medication Request Start: 03-14-2022 Telephone encounter Petty Harris ELISHA Work Phone: [facility] [place] Comment on above: Results Start: 09-23-2020 End: 09-23-2020 Subsequent hospital visit by physician Xr [facility] [place] Work Phone: Radiology Comment on above: Chronic pain syndrom e [G89.4] Procedures Date Procedure Procedure Detail Performing Clinician Start: 04-19-2025 Urnls dip stick/tabl et rgnt auto w/o microscopy Hong Matos DO Work Phone: Start: 01-14-2025 Lipid 1996 panel - S darlene or Plasma Xr Mob Work Phone: Start: 11-03-2024 Ct head/brain w/o contrast material Hong L Matos DO Work Phone: Start: 12-23-2023 Lipid 1996 panel - S darlene or Plasma Cornelius Davenatalya Work Phone: Start: 08-12-2023 STREP A MOLECULAR (POC) Nisa Rocha MANAGER MEDIA RELATIONS.CARE MANAGEMENT SPECIALIST Work Phone: Start: 05-28-2023 Lipid 1996 panel - S darlene or Plasma Nisa Rocha MANAGER MEDIA RELATIONS.CARE MANAGEMENT SPECIALIST Work Phone: Start: 08-20-2022 Urnls dip stick/tabl et rgnt auto w/o microscopy Art Starr PA-C Work Phone: Start: 08-20-2022 Gluc bld gluc mntr d ev cleared fda spec home use [facility] Provider Start: 07-04-2022 Urnls dip stick/tabl et rgnt auto w/o microscopy Hong Matos DO Work Phone: Start: 09-23-2020 Radex spine cervical 4 or 5 views Hong Matos DO Work Phone: Plan of Treatment Date Care Activity Detail Author Start: 01-14-2030 Lipid panel Lipid Screening [facility] Start: 12-23-2028 Lipid panel Lipid Screening [facility] Start: 05-28-2028 Lipid 1996 panel - Serum or Plasma Lipid Screening [facility] Start: 05-28-2028 Lipid panel Lipid Screening [facility] Start: 05-28-2028 LIPID SCREEN LIPID SCREEN [facility] Start: 01-24-2028 LIPID SCREEN LIPID SCREEN [facility] Start: 01-14-2028 Diabetes Screening Diabetes Screening [facility] Start: 04-17-2027 Diabetes Screening Diabetes Screening [facility] Start: 03-13-2027 LIPID SCREEN LIPID SCREEN [facility] Start: 12-23-2026 Diabetes Screening Diabetes Screening [facility] Start: 05-28-2026 DIABETES SCREEN DIABETES SCREEN [facility] Start: 05-28-2026 Diabetes Screening Diabetes Screening [facility] Start: 01-24-2026 DIABETES SCREEN DIABETES SCREEN [facility] Start: 10-20-2025 Covid-19 Vaccine ( season) Covid-19 Vaccine () [facility] Comment on above: Postponed from 08/02/2024 (Declined at t his time) Start: 08-20-2025 DIABETES SCREEN DIABETES SCREEN [facility] Start: 08-02-2025 Influenza vaccination Influenza Vaccine (Season Ended) [facility] Start: 07-23-2025 End: 07-23-2025 Patient encounter procedure 07/23/2025 11:00 AM EDT Office Visit [facility] [address] [place] [address] Hong Matos DO [address] [place] [address] 3 month follow up [facility] Comment on above: 3 month follow up Start: 05-31-2025 Influenza vaccination Influenza Vaccine (#1) [facility] Comment on above: Postponed from 08/02/2024 (Declined at t his time) Start: 04-19-2025 End: 07-19-2025 Bacteria identified in Urine by Culture [facility] Comment on above: Expected: 04/19/2025, Expires: Start: 04-19-2025 End: 07-19-2025 Comprehensive metabolic 2000 panel - Serum or Plasma [facility] Work Phone: Comment on above: Expected: 04/19/2025, Expires: Start: 04-19-2025 End: 07-19-2025 Lactate dehydrogenase [Enzymatic activity/volume] in Serum or Plasma [facility] Comment on above: Expected: 04/19/2025, Expires: Start: 04-19-2025 End: 07-19-2025 Parathyrin.intact [Mass/volume] in Serum or Plasma [facility] Comment on above: Expected: 04/19/2025, Expires: Start: 04-19-2025 End: 04-19-2025 Patient encounter procedure Family Swapnil Herrera Comment on above: 3 mo follow up 3 mo follow up; erna jones Medicare Wellness Start: 04-17-2025 Covid-19 Vaccine () Covid-19 Vaccine () [facility] Comment on above: Postponed from 08/02/2023 (Declined at t his time) Start: 03-13-2025 DIABETES SCREEN DIABETES SCREEN [facility] Start: 01-13-2025 End: 04-14-2025 25-hydroxyvitamin D3 [Mass/volume] in Serum or Plasma VITAMIN D 25 HYDROXY Lab Routine Vitamin D deficiency Fatigue, unspecified type Expected: 01/13/2025, Expires: 04/14/2025 [facility] Comment on above: Expected: 01/13/2025, Expires: Start: 01-13-2025 End: 04-14-2025 CBC W Auto Differential panel - Blood COMPLETE BLOOD COUNT AND DIFFERENTIAL Lab Routine Fatigue, unspecified type Expected: 01/13/2025, Expires: 04/14/2025 [facility] Comment on above: Expected: 01/13/2025, Expires: Start: 01-13-2025 End: 04-14-2025 Cobalamin (Vitamin B12) [Mass/volume] in Serum or Plasma VITAMIN B12 Lab Routine Vitamin B12 deficiency Fatigue, unspecified type Expected: 01/13/2025, Expires: 04/14/2025 [facility] Comment on above: Expected: 01/13/2025, Expires: Start: 01-13-2025 End: 04-14-2025 Comprehensive metabolic 2000 panel - Serum or Plasma COMPREHENSIVE METABOLIC PANEL Lab Routine Fatigue, unspecified type Expected: 01/13/2025, Expires: 04/14/2025 [facility] Comment on above: Expected: 01/13/2025, Expires: Start: 01-13-2025 End: 04-14-2025 Hemoglobin A1c in Blood HEMOGLOBIN A1C Lab Routine Hyperglycemia Expected: 01/13/2025, Expires: 04/14/2025 [facility] Comment on above: Expected: 01/13/2025, Expires: Start: 01-13-2025 End: 04-14-2025 Lipid 1996 panel - Serum or Plasma LIPID PANEL BASIC Lab Routine Hypertriglyceridemia Expected: 01/13/2025, Expires: 04/14/2025 [facility] Comment on above: Expected: 01/13/2025, Expires: Start: 01-13-2025 End: 04-14-2025 Magnesium [Mass/volume] in Serum or Plasma MAGNESIUM Lab Routine Fibromyalgia Chronic pain syndrome Fatigue, unspecified type Expected: 01/13/2025, Expires: 04/14/2025 [facility] Comment on above: Expected: 01/13/2025, Expires: Start: 01-13-2025 End: 04-14-2025 Thyrotropin [Units/volume] in Serum or Plasma THYROID STIMULATING HORMONE Lab Routine Hypertriglyceridemia Expected: 01/13/2025, Expires: 04/14/2025 [facility] Comment on above: Expected: 01/13/2025, Expires: Start: 01-13-2025 End: 04-14-2025 TOXICOLOGY SCREEN, ROUTINE URINE TOXICOLOGY SCREEN, ROUTINE URINE Lab Routine Chronic pain syndrome Expected: 01/13/2025, Expires: 04/14/2025 [facility] Comment on above: Expected: 01/13/2025, Expires: Start: 01-13-2025 End: 01-13-2025 Patient encounter procedure 01/13/2025 10:00 AM EST Office Visit [facility] [address] [place] [address] Hong Matos DO [address] [place] [address] 3 month follow up [facility] Comment on above: 3 month follow up Start: 10-30-2024 End: 10-30-2024 Patient encounter procedure 10/30/2024 8:00 AM EST Appointment Cat Scan [address] [facility] [place] [address] Memory loss [R41.3] Cat Scan Comment on above: Memory loss [R41.3] Start: 10-20-2024 End: 10-20-2024 Patient encounter procedure 10/20/2024 10:00 AM EST Office Visit [facility] [address] [place] [address] Hong Matos DO [address] [place] [address] 3 month follow up [facility] Comment on above: 3 month follow up Start: 08-12-2024 SHINGRIX VACCINE (1 of 2) SHINGRIX VACCINE (1 of 2) [facility] Comment on above: Postponed from 2003 (Declined at t his time) Start: 08-12-2024 Urine microalbumin profile [facility] Comment on above: Postponed from 1972 (Declined at t his time) Start: 08-02-2024 Covid-19 Vaccine ( season) Covid-19 Vaccine () [facility] Start: 08-02-2024 Covid-19 Vaccine () Covid-19 Vaccine () [facility] Start: 08-02-2024 Influenza vaccination [facility] Start: 07-23-2024 End: 10-22-2024 25-hydroxyvitamin D3 [Mass/volume] in Serum or Plasma VITAMIN D 25 HYDROXY Lab Routine Fatigue, unspecified type Vitamin D deficiency Expected: 07/23/2024, Expires: 10/22/2024 [facility] Comment on above: Expected: 07/23/2024, Expires: Start: 07-23-2024 End: 10-22-2024 CBC W Auto Differential panel - Blood COMPLETE BLOOD COUNT AND DIFFERENTIAL Lab Routine Fatigue, unspecified type Expected: 07/23/2024, Expires: 10/22/2024 [facility] Comment on above: Expected: 07/23/2024, Expires: 4 Start: 07-23-2024 End: 10-22-2024 Cobalamin (Vitamin B12) [Mass/volume] in Serum or Plasma VITAMIN B12 Lab Routine Vitamin B12 deficiency Fatigue, unspecified type Expected: 07/23/2024, Expires: 10/22/2024 [facility] Comment on above: Expected: 07/23/2024, Expires: 4 Start: 07-23-2024 End: 10-22-2024 Comprehensive metabolic 2000 panel - Serum or Plasma COMPREHENSIVE METABOLIC PANEL Lab Routine Fatigue, unspecified type Expected: 07/23/2024, Expires: 10/22/2024 [facility] Work Phone: Comment on above: Expected: 07/23/2024, Expires: Start: 07-23-2024 End: 10-22-2024 Cortisol [Mass/volume] in Serum or Plasma CORTISOL, SERUM Lab Routine Low serum cortisol level Fatigue, unspecified type Expected: 07/23/2024, Expires: 10/22/2024 [facility] Comment on above: Expected: 07/23/2024, Expires: Start: 07-23-2024 End: 10-22-2024 Thyrotropin [Units/volume] in Serum or Plasma THYROID STIMULATING HORMONE Lab Routine Fatigue, unspecified type Expected: 07/23/2024, Expires: 10/22/2024 [facility] Comment on above: Expected: 07/23/2024, Expires: Start: 07-17-2024 End: 07-17-2024 Patient encounter procedure 07/17/2024 9:00 AM EDT Office Visit [facility] [address] [place] [address] Nisa Rocha, NEVILLE.CARE MANAGEMENT SPECIALIST [address] [place], [place] [id number] 3 month follow up [facility] Comment on above: 3 month follow up Start: 05-31-2024 Influenza vaccination [facility] Comment on above: Postponed from 08/02/2023 (Declined at t his time) Start: 05-04-2024 End: 08-03-2024 Cortisol [Mass/volume] in Serum or Plasma CORTISOL, SERUM Lab Routine Low serum cortisol level Expected: 05/04/2024, Expires: 08/03/2024 [facility] Work Phone: Comment on above: Expected: 05/04/2024, Expires: Start: 04-28-2024 End: 07-28-2024 Corticotropin [Mass/volume] in Plasma ACTH BLD Lab Routine Low serum cortisol level Expected: 04/28/2024, Expires: 07/28/2024 [facility] Work Phone: Comment on above: Expected: 04/28/2024, Expires: 4 Start: 04-28-2024 End: 07-28-2024 Cortisol [Mass/volume] in Serum or Plasma CORTISOL, SERUM Lab Routine Low serum cortisol level Expected: 04/28/2024, Expires: 07/28/2024 [facility] Comment on above: Expected: 04/28/2024, Expires: 4 Start: 01-02-2024 COVID-19 VACCINE (#1) COVID-19 VACCINE (#1) [facility] Comment on above: Postponed from 1955 (Declined at t his time) Start: 08-02-2023 Influenza vaccination [facility] Start: 06-25-2023 End: 08-25-2023 25-hydroxyvitamin D3 [Mass/volume] in Serum or Plasma VITAMIN D 25 HYDROXY Lab Routine Vitamin D deficiency Expected: 06/25/2023, Expires: 08/25/2023 [facility] Work Phone: Comment on above: Expected: 06/25/2023, Expires: 3 Start: 06-25-2023 End: 08-25-2023 Cobalamin (Vitamin B12) [Mass/volume] in Serum or Plasma VITAMIN B12 BLOOD Lab Routine Vitamin B12 deficiency Expected: 06/25/2023, Expires: 08/25/2023 [facility] Work Phone: Comment on above: Expected: 06/25/2023, Expires: 3 Start: 06-25-2023 End: 08-25-2023 Hemoglobin A1c in Blood HGB A1C Lab Routine Hyperglycemia Expected: 06/25/2023, Expires: 08/25/2023 [facility] Work Phone: Comment on above: Expected: 06/25/2023, Expires: 3 Start: 06-25-2023 End: 08-25-2023 Lipid 1996 panel - Serum or Plasma LIPID PANEL BASIC Lab Routine Hyperlipidemia, mixed Expected: 06/25/2023, Expires: 08/25/2023 [facility] Work Phone: Comment on above: Expected: 06/25/2023, Expires: 3 Start: 06-25-2023 End: 08-25-2023 Thyrotropin [Units/volume] in Serum or Plasma TSH BLD Lab Routine Hyperlipidemia, mixed Chronic pain syndrome Expected: 06/25/2023, Expires: 08/25/2023 [facility] Work Phone: Comment on above: Expected: 06/25/2023, Expires: 3 Start: 05-31-2023 Influenza vaccination INFLUENZA (#1) [facility] Comment on above: Postponed from 08/02/2022 (Declined at t his time) Start: 01-24-2023 End: 2023 CBC W Auto Differential panel - Blood [facility] Work Phone: Comment on above: Expected: 01/24/2023, Expires: 3 Start: 01-24-2023 End: 2023 Comprehensive metabolic 2000 panel - Serum or Plasma [facility] Work Phone: Comment on above: Expected: 01/24/2023, Expires: 3 Start: 01-24-2023 End: 2023 Lipid 1996 panel - Serum or Plasma [facility] Work Phone: Comment on above: Expected: 01/24/2023, Expires: 3 Start: 01-23-2023 End: 03-25-2023 PAIN PANEL, UR QUANT PAIN PANEL, UR QUANT Lab Routine Osteoarthritis of spine with radiculopathy, 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 Chronic pain syndrome Chronic bilateral thoracic back pain Fibromyalgia Expected: 01/23/2023, Expires: 03/25/2023 [facility] Work Phone: Comment on above: Expected: 01/23/2023, Expires: 3 Start: 01-23-2023 End: 03-25-2023 TOX SCREEN ROUT UR TOX SCREEN ROUT UR Lab Routine Osteoarthritis of spine with radiculopathy, 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 Chronic pain syndrome Chronic bilateral thoracic back pain Fibromyalgia Expected: 01/23/2023, Expires: 03/25/2023 [facility] Work Phone: Comment on above: Expected: 01/23/2023, Expires: 3 Start: 12-15-2022 COVID-19 VACCINE (#1) COVID-19 VACCINE (#1) [facility] Comment on above: Postponed from 1960 (Declined at t his time) Postponed from 09/25 (Declined at this time) Start: 12-15-2022 COVID-19 VACCINE (1) COVID-19 VACCINE (1) [facility] Comment on above: Postponed from 1960 (Declined at t his time) Start: 08-02-2022 Influenza vaccination [facility] Start: 07-04-2022 End: 09-03-2022 Bacteria identified in Urine by Culture [facility] Work Phone: Comment on above: Expected: 07/04/2022, Expires: 2 Start: 12-02-2021 ADVANCE DIRECTIVE DISCUSSION ADVANCE DIRECTIVE DISCUSSION [facility] Start: 2013 RSV Vaccine (1 - 1-dose 60+ series) RSV Vaccine (1 - 1-dose 60+ series) [facility] Start: 2013 RSV Vaccine (1 - Risk 60-74 years 1-dose series) RSV Vaccine (1 - Risk 60-74 years 1-dose series) [facility] Start: 2003 SHINGRIX VACCINE (1 of 2) SHINGRIX VACCINE (1 of 2) [facility] Start: 1998 COLOGUARD (FIT-DNA) COLOGUARD (FIT-DNA) [facility] Start: 1998 Colonoscopy COLONOSCOPY [facility] Start: [address] COLONOGRAPHY [facility] Start: 1998 FECAL OCCULT BLOOD FECAL OCCULT BLOOD [facility] Start: 1998 Screening for malignant neoplasm of colon [facility] Start: 1998 SIGMOIDOSCOPY SIGMOIDOSCOPY [facility] Start: 1972 Urine microalbumin profile [facility] Start: 1955 Covid-19 Vaccine (#1) Covid-19 Vaccine (#1) [facility] COVID & INFLUENZA A/ B & RSV NAAT, ROUTINE COVID & INFLUENZA A/B & RSV NAAT, ROUTINE Microbiology Routine Head congestion Sore throat 08/12/2023 11:56 AM EDT [facility] Work Phone: COVID & INFLUENZA A/ B & RSV NAAT, ROUTINE COVID & INFLUENZA A/B & RSV NAAT, ROUTINE Microbiology Routine Body aches Diarrhea, unspecified type Ordered: 11/06/2023 [facility] Work Phone: Comment on above: Ordered: 11/06/2023 End: 11-19-2025 CT Head WO contrast CT BRAIN WO IVCON Radiology Routine Memory loss Dizziness 1 Occurrences starting 10/20/2024 until 11/19/2025 [facility] Work Phone: Comment on above: 1 Occurrences starting 10/20/2024 until 11/19/2025 Glucose [Mass/volume ] in Serum or Plasma GLUCOSE, BLOOD (POC) Lab Routine Nausea Lightheaded Ordered: 08/20/2022 [facility] Work Phone: Comment on above: Ordered: 08/20/2022 End: 09-06-2024 PVR ANK PRESS HARJIT VAS LAB PVR ANK PRESS [facility] LAB Vascular Lab Routine PAD (peripheral artery disease) (HCC) 1 Occurrences starting 09/06/2023 until 09/06/2024 [facility] Work Phone: Comment on above: 1 Occurrences starting 09/06/2023 until 09/06/2024 ROUTINE FLU A/B + RSV ROUTINE FL U A/B + RSV Lab Routine Head congestion Sore throat 08/12/2023 11:56 AM EDT [facility] Work Phone: SARS-CoV-2 (COVID-19 ) RNA [Presence] in Respiratory specimen by CHILANGO with probe detection 2019 CORONAVIRUS Microbiology Routine Nausea Lightheaded 08/20/2022 11:52 AM EDT [facility] Work Phone: SARS-CoV-2 (COVID-19 ) RNA [Presence] in Respiratory specimen by CHILANGO with probe detection COVID NAAT, ROUTINE Microbiology Routine Head congestion Sore throat Ordered: 08/12/2023 [facility] Work Phone: Comment on above: Ordered: 08/12/2023 End: 02-12-2026 XR HIP BILATERAL 5V PEL/AP/LAT EACH HIP XR HIP BILATERAL 5V PEL/AP/LAT EACH HIP Radiology Routine Acute right-sided low back pain with bilateral sciatica Right hip pain 1 Occurrences starting 01/13/2025 until 02/12/2026 [facility] Comment on above: 1 Occurrences starting 01/13/2025 until 02/12/2026 XR HIP BILATERAL 5V PEL/AP/LAT EACH HIP XR HIP BILATERAL 5V PEL/AP/LAT EACH HIP Radiology Routine Acute right-sided low back pain with bilateral sciatica Right hip pain 01/14/2025 9:34 AM ANDRE [facility] End: 02-12-2026 XR Lumbar spine 3 Views XR LUMBAR GENERAL 3V AP/LAT/L5-S1 Radiology Routine Acute right-sided low back pain with bilateral sciatica Right hip pain 1 Occurrences starting 01/13/2025 until 02/12/2026 [facility] Work Phone: Comment on above: 1 Occurrences starting 01/13/2025 until 02/12/2026 XR Lumbar spine 3 Views XR LUMBAR GENERAL 3V AP/LAT/L5-S1 Radiology Routine Acute right-sided low back pain with bilateral sciatica Right hip pain 01/14/2025 9:35 AM ANDRE [facility] Work Phone: [facility] Payers Date Payer Category Payer Self-pay 2024 Medicare (Managed Care) MMO [employer] HMO Member Subscriber Plan / Payer (Effective 2024-Present) Name: Valencia Polo Relation to Subscriber: Self Name: Valencia Polo Payer ID: Not on file Type: HMO Address: [address] [place] [id number] 2024 Unknown [id number] 2022 Medicaid [id number] 2021 Medicare HUMANA MEDICARE HUMANA GOLD PLUS [id number] 2021-Present [phone] [address] [address] [place] [address] HMO [id number] 2020 Medicare [id number] 2020 Private Health Insurance [id number] 2016 Unknown [employer]M BLUE CARD PPO OOS [id number] 2016-[address] [place] [address] PPO [id number] Unknown [id number] Unknown [id number] Social History Date Type Detail Facility Start: 02-04-2014 End: 08-20-2022 Tobacco smoking status NHIS Ex-smoker [facility] Start: 02-04-2014 End: 08-20-2022 Tobacco use and exposure Smokeless tobacco non-user [facility] Start: 12-15-2021 End: 04-19-2025 Alcohol intake Ex-drinker (finding) [facility] Start: 04-06-2019 History SDOH Alcohol Frequency 1 [facility] Start: 1955 Sex Assigned At Not on file [facility] Start: 08-24-2020 End: 10-03-2022 Exposure to SARS-CoV-2 (event) Not sure [facility] Work Phone: Start: 04-04-2022 Tobacco smoking status Never s moked tobacco (finding) [facility] Sex Assigned At Sex [facility] History of tobacco use Current smoker [facility] Start: 04-06-2019 End: 04-26-2023 [facility] Work [facility]: Start: 04-06-2019 End: 04-26-2023 Alcohol Use Disorder Identification Test - Consumption [AUDIT-C] [facility] Work Phone: How often to you hav e a drink containing alcohol? Never [facility] Work Phone: Average Number of Drinks Not on file [facility] Has the [employer], or [employer] threatened to shut off services in your home in past 12Mo No [facility] Work Phone: (I/We) worried darleen er (my/our) food would run out before (I/we) got money to buy more. Never true [facility] Medical Equipment Procedure Code Equipment Code Equipment Origin al Text Equipment Identifier Dates 1 Syringe as directed. Vitamin b12 deficiency [id number] Start: 12-23-2023 Comment on above: 1 Syringe as directe d. Vitamin b12 deficiency Functional Status Date Assessment Result Facility 04-19-2025 Total score [AUDIT-C] 0 04/19/20 25 12:30 PM EDPravin Driscoll LPN [facility] 04-04-2022 Functional Status [facility] 04-04-2022 Functional Status [facility] 04-04-2022 Functional Status [facility]re[facility] [place] 03-22-2014 Are you deaf, or do you have serious difficulty hearing No 03/22/2014 3:18 PM EDT Uriel Jones [facility] Work Phone: 03-22-2014 Are you blind, or do you have serious difficulty seeing, even when wearing glasses No 03/22/2014 3:18 PM EDT Emmanuelle Trevino [facility] 03-22-2014 Do you have serious difficulty walking or climbing stairs No 03/22/2014 3:18 PM EDT [facility]le Trevino [facility] 03-22-2014 Do you have difficul ty dressing or bathing No 03/22/2014 3:18 PM EDT [facility]le Trevino [facility] 03-22-2014 Because of a physica l, mental, or emotional condition, do you have difficulty doing errands alone such as visiting a physician's office or shopping No 03/22/2014 3:18 PM EDT Emmanuelle Trevino [facility] Mental Status Date Assessment Result Facility 04-04-2022 Mental Status [facility]heed 04-04-2022 Mental Status [facility] Rasheed 03-22-2014 Because of a physica l, mental, or emotional condition, do you have serious difficulty concentrating, remembering, or making decisions No 03/22/2014 3:18 PM EDT [facility]le Trevino [facility] Clinical Notes 02-04-2014 to 04-19-2025 Patient InstructionsHong Matos, - 04/19/2025 12:47 PM EDTGHong hebert, - 04/19/2025 12:46 PM EDTTelephone Encounter - Art Starr PA-C - 03/16/2025 11:38 AM EDT Note Date & Type Note Facility 04-19-2025 Instructions Hong Matos DO - 04/19/2025 1:[address] [facility] Address: [address] [place] [address] [address], [place] [address] Taper off the Zoloft to take only the 100 mg tablet x 1 week then 50 mg x 1 week then stop medication Do this tapering off the zoloft while you are starting back on the Cymbalta. Take 1 capsule of Cymbalta in the AM x 2 weeks then increase to take 2 capsules of Cymbalta in the AM. By this time, you will be off the zoloft for mood/pain., documented in this encounter [facility] 04-19-2025 Note HNO ID: [id number] Author: HONG MATOS DO Service: ? Author Type: Physician Type: Progress Notes Filed: 04/19/2025 13:38 Note Text: Valencia Polo is a 70 year old female here for a Medicare wellness visit. Medicare Health Risk Assessment General Health Fair Exercise: Minutes/Day 60 min Exercise: Days/Week 3 days Alcohol: Daily Use Never Alcohol: Drinks/Day Patient does not drink Alcohol: 6 or more drinks Never Feel off balance Yes Concerns: Teeth/Dentures Yes Concerns: Sexual function No Troubled by feelings Isolated; Lonely; Angry; Irritable; Stressed; Anxious Frequency: Eating healthy diet Several days ADLs requiring help None of the above Safety precautions in home/vehicle Yes Smoke, vape, chews tobacco No Difficulty hearing No Difficulty seeing No Current Providers Specialists: I have reviewed specialist-related care of the patient in the medical record. Medical/Family history review Reviewed and updated problem list, medical/surgical/family/social history, medications, and allergies. Opioid use review Opioid Medications (last 90 days) 03/15/2025 03/16/2025 00:00 04/15/2025 23:59 Opioid Medications tramadol HCl Take 2 every 8 hours as needed (50 mg tab) -Discontinued (Error) tramadol HCl 50 mg q 6 H PRN ORAL (50 mg tab) -Discontinued tramadol HCl 50 mg q 6 H PRN ORAL -Discontinued (Error) tramadol HCl 100 mg q 8 H PRN ORAL -Rx End Details Outpatient prescription Patient-reported Anxiety/Depression screening PHQ-2 Score: 2 (Lower risk for depression) Changing medication from Zoloft to Cymbalta Recommendation: no further intervention at this time- changing medication Cognitive screening Mini Cog Score: 4 Cognitive screening reviewed and No further action needed (score 3-5). Functional Observation Was the patient's Timed Up AND Go test unsteady or >= 12 seconds? No Advance Care Planning Surrogate decision maker and/or advance care plan documented Measurements BP 110/70 Pulse 80 Temp 36.1 ?C (97 ?F) (Left Tympanic) Resp 20 Ht 153 cm (5' 0.24") Wt 88.5 kg (195 lb) BMI 37.79 kg/m? Vision Screening: Follows with optometry/ophthalmology Assessment/Plan Medicare annual wellness visit, subsequent (Z00.00) - Counseled on healthy diet and regular exercise - Fall avoidance information provided - Personalized prevention plan provided - Discussed need for and benefit of weight loss. BMI 37.79 kg/(m2) Hong Matos DO [facility] 04-19-2025 History of Present illness Narrative Images from the original note were not included. Valencia Polo is a 70 year old female here for a Medicare wellness visit. Medicare Health Risk Assessment General Health Fair Exercise: Minutes/Day 60 min Exercise: Days/Week 3 days Alcohol: Daily Use Never Alcohol: Drinks/Day Patient does not drink Alcohol: 6 or more drinks Never Feel off balance Yes Concerns: Teeth/Dentures Yes Concerns: Sexual function No Troubled by feelings Isolated; Lonely; Angry; Irritable; Stressed; Anxious Frequency: Eating healthy diet Several days ADLs requiring help None of the above Safety precautions in home/vehicle Yes Smoke, vape, chews tobacco No Difficulty hearing No Difficulty seeing No Current Providers Specialists: I have reviewed specialist-related care of the patient in the medical record. Medical/Family history review Reviewed and updated problem list, medical/surgical/family/social history, medications, and allergies. Opioid use review Opioid Medications (last 90 days) 03/15/2025 03/16/2025 00:00 04/15/2025 23:59 Opioid Medications tramadol HCl Take 2 every 8 hours as needed (50 mg tab) -Discontinued (Error) tramadol HCl 50 mg q 6 H PRN ORAL (50 mg tab) -Discontinued tramadol HCl 50 mg q 6 H PRN ORAL -Discontinued (Error) tramadol HCl 100 mg q 8 H PRN ORAL -Rx End Details Outpatient prescription Patient-reported Anxiety/Depression screening PHQ-2 Score: 2 (Lower risk for depression) Changing medication from Zoloft to Cymbalta Recommendation: no further intervention at this time- changing medication Cognitive screening Mini Cog Score: 4 Cognitive screening reviewed and No further action needed (score 3-5). Functional Observation Was the patient's Timed Up & Go test unsteady or >= 12 seconds? No Advance Care Planning Surrogate decision maker and/or advance care plan documented Measurements BP 110/70 Pulse 80 Temp 36.1 C (97 F) (Left Tympanic) Resp 20 Ht 153 cm (5' 0.24") Wt 88.5 kg (195 lb) BMI 37.79 kg/m Vision Screening: Follows with optometry/ophthalmology Assessment/Plan Medicare annual wellness visit, subsequent (Z00.) - Counseled on healthy diet and regular exercise - Fall avoidance information provided - Personalized prevention plan provided - Discussed need for and benefit of weight loss. BMI 37.79 kg/(m^2) Hong Matos DO CC: Valencia Polo is a 70 year old female who presents to the office for follow up HPI: Recently with increased Right low back pain raditating into right gluteal area and into right thigh posterior and right calf. Was only getting minimal relief with layiing on her right side in the bed and stretching her leg out. Hx of arthritis in lumbar spine, last xrays in 01/2025- hasn't had any recent falls or injuries Restless legs, chronic. Last labs in April 2024. Has a fmhx in her mother of severe RLS Urinary symptoms of urgency and frequency and dysuria the last few days. No hematuria, no fevers or chills or flank pains. Chronic pain, has been taking her gabapentin 900 mg 3 times a day as well as the Tramadol. She feels that the tramadol is helping her pain symptoms, she is trying to do walking and stretches to help with management of her chronic neck pain, chronic low back pain and chronic myalgia discomfort. she is still trying to do exercises she is able and stretches at least 3 [facility] a week at [facility] for chair exercises- knows that this benefits her even though it is uncomfortable for her to perform. She notices that her pain is increased the day after she exercises to the point that she is unsure if she can still exercise. Hasn't gotten opinion from pain mgmt recently but is interested in this. Mood, taking zoloft 150 mg at bedtime, struggling with depressed mood and lack of motivation. Was previously in 2017/2018 on cymbalta without any SE. Did have SE with Pristiq as well as Paxil in the past few years. No SI or HI. Does have support from her daughter. PAST MEDICAL HISTORY Diagnosis Date Chronic pain syndrome normal ESR, suspect fibromyalgia Depression Elevated cholesterol with high triglycerides Fibromyalgia GERD (gastroesophageal reflux disease) Hypertension Prediabetes RLS (restless legs syndrome) PAST SURGICAL HISTORY Procedure Laterality Date HYSTERECTOMY HX 1989 ovaries removed PAST SURGICAL HISTORY OF gallbladder removal PAST SURGICAL HISTORY OF benign tumor removed from L shoulder blade Current Outpatient Medications Medication Sig lisinopril (ZESTRIL) 10 mg tablet Take 1 tablet by mouth once daily. sertraline (ZOLOFT) 100 mg tablet Take 1 tablet by mouth daily at bedtime. Take with 50 mg tablet to total 150 mg a day sertraline (ZOLOFT) 50 mg tablet Take 1 tablet by mouth once daily. Add to 100 mg to total 150 mg a day atorvastatin (LIPITOR) 10 mg tablet Take 1 tablet by mouth daily at bedtime. For cholesterol. furosemide (LASIX) 20 mg tablet TAKE 1 TABLET ONE TIME DAILY NEEDED FOR SWELLING/EDEMA gabapentin (NEURONTIN) 300 mg capsule Add to 600 mg capsule to total 900 mg 3 times a day for chronic pain gabapentin (NEURONTIN) 600 mg tablet Take 1 tablet by mouth three times a day for 90 days. cyanocobalamin 1,000 mcg/mL Inject 1 mL intramuscularly every 2 weeks. Vitamin B12 deficiency Syringe with Needle, Disp, 1 mL 25 gauge x 1" syrg 1 Syringe as directed. Vitamin b12 deficiency rosuvastatin (CRESTOR) 10 mg tablet Take 1 tablet by mouth daily at bedtime. WALKER ROLLATOR SEAT WITH 6" WHEELS - RED Dx: low back pain, lumbar DDD, lumbar DJD,balance disorder vitamin B complex (B COMPLEX-100 ORAL) Take by mouth. Magnesium 250 mg tab Take 250 mg by mouth twice daily. estradiol (ESTRACE) 0.01 % (0.1 mg/gram) vaginal cream Finger-tip amount each night applied as directed in instructions phenazopyridine (PYRIDIUM) 200 mg tablet Take 1 tablet by mouth three times daily as needed. triamcinolone acetonide (KENALOG) 0.5 % cream Apply to affected area twice daily. Cholecalciferol, Vitamin D3, 5,000 unit cap Take 1 capsule by mouth once daily. MULTIVITAMIN ORAL Take by mouth. No current facility-administered medications for this visit. ALLERGIES Allergen Reactions [place] [Hydrocodone-* Hives Social History Tobacco Use Smoking status: Former Smokeless tobacco: Never Substance Use Topics Alcohol use: Not Currently Drug use: No ROS: See HPI PE: BP 110/70 Pulse 80 Temp (Src) 97 (Left Tympanic) Resp 20 Ht 5' .236" (1.53m) Wt 195 lb (88.5kg) BMI 37.79 kg/(m^2). Gen: A&O, NAD, non-toxic appearing, hard of hearing, cooperative HEENT: NT/AC, PERRLA, EOMs intact b/l, sinus TTP frontal and maxillary, nares clear and patent b/l, pharynx without erythema, exudate or lesions. MMM, Uvula midline. EACs without erythema or debris. Neck: supple, No cervical LAD, no thyromegaly, no carotid bruits, significant ROM decrease in rotation and Flexion and extension due to arthritis CV: RRR, normal S1 and S2, no murmurs, no gallops, no rubs, Pulses 2+ and symmetric in UE and LE b/l Lungs: normal respiratory effort, CTA b/l, no wheezing or rhonchi or rales Abd: soft, overweight, NT, ND, +BS, no hepatosplenomegaly MS: arthritis changes of spine - neck and lumbar areas Neuro: CN II-XII intact b/l,gait is slowed Skin: warm, dry, intact No edema, normal pulses PDMP website checked and validated. All prescriptions have been APPROPRIATELY filled. No suspicious activity was identified. 04/19/2025 by Hong Matos DO ASSESSMENT/PLAN: 1. Medicare annual wellness visit, subsequent - ICD9: V70.0, ICD10: Z00.00 (primary diagnosis) - Counseled on healthy diet and regular exercise - Discussed need and benefit for weight loss. BMI 37.79 kg/(m^2) 2. Osteoarthritis of spine with radiculopathy, lumbar region - ICD9: 721.3, ICD10: M47.26 rx refilled Severe pain symptoms Medication helping with ADLs and IADLs but still struggling with pain Recommend opinion with pain management- injections spine vs. Other alternatives. - CONSULT TO PAIN MGT - TRAMADOL 50 MG TABLET 3. Chronic midline low back pain with bilateral sciatica - ICD9: 724.2, 724.3, 338.29, ICD10: M54.41, M54.42, G89.29 rx refilled Severe pain symptoms Medication helping with ADLs and IADLs but still struggling with pain Recommend opinion with pain management- injections spine vs. Other alternatives. - CONSULT TO PAIN MGT - TRAMADOL 50 MG TABLET 4. Chronic pain syndrome - ICD9: 338.4, ICD10: G89.4 rx refilled Severe pain symptoms Medication helping with ADLs and IADLs but still struggling with pain Recommend opinion with pain management- injections spine vs. Other alternatives. - CONSULT TO PAIN MGT - TRAMADOL 50 MG TABLET 5. Chronic bilateral thoracic back pain - ICD9: 724.1, 338.29, ICD10: M54.6, G89.29 rx refilled Severe pain symptoms Medication helping with ADLs and IADLs but still struggling with pain Recommend opinion with pain management- injections spine vs. Other alternatives. - CONSULT TO PAIN MGT - TRAMADOL 50 MG TABLET 6. Fibromyalgia - ICD9: 729.1, ICD10: M79.7 rx refilled Severe pain symptoms Medication helping with ADLs and IADLs but still struggling with pain Recommend opinion with pain management- injections spine vs. Other alternatives. Taper off the Zoloft- start on Cymbalta and titrate up dose as able. - CONSULT TO PAIN MGT - DULOXETINE 30 MG CAPSULE,DELAYED RELEASE - TRAMADOL 50 MG TABLET 7. VÍCTOR (generalized anxiety disorder) - ICD9: 300.02, ICD10: F41.1 See above - DULOXETINE 30 MG CAPSULE,DELAYED RELEASE 8. Depressive disorder - ICD9: 311, ICD10: F32.A Taper off the Zoloft- start on Cymbalta and titrate up dose as able. \\ No SI or HI - DULOXETINE 30 MG CAPSULE,DELAYED RELEASE 9. Hyperlipidemia, mixed - ICD9: 272.2, ICD10: E78.2 - Control undetermined, due for labs - Continue current medications - Counseled on healthy diet and regular exercise 10. Hypercalcemia - ICD9: 275.42, ICD10: E83.52 Recheck labs as ordered No new symptoms. - COMPREHENSIVE METABOLIC PANEL - PTH INTACT - LACTATE DEHYDROGENASE 11. Dysuria - ICD9: 788.1, ICD10: R30.0 acute - UA positive for candelario esterase No treatment indicated until urine culture is resulted - Send urine for culture - Patient education for prevention given - UA DIP, URINE (POC) - BACTERIAL CULTURE, URINE Hong Matos DO Return if no improvement. Follow up with Hong Matos DO. To ER if develops chest pain, shortness of breath. Discussed risks, benefits, alternatives, and potential side effects of medications. Patient/Guardian expressed understanding and agreed with the plan. See patient instructions. Hong Matos DO [address] [place] [address] documented in this encounter [facility] 04-19-2025 Note HNO ID: [id number] Author: HONG MATOS DO Service: ? Author Type: Physician Type: Progress Notes Filed: 04/19/2025 13:38 Note Text: CC: Valencia Polo is a 70 year old female who presents to the office for follow up HPI: Recently with increased Right low back pain raditating into right gluteal area and into right thigh posterior and right calf. Was only getting minimal relief with layiing on her right side in the bed and stretching her leg out. Hx of arthritis in lumbar spine, last xrays in 01/2025- hasn't had any recent falls or injuries Restless legs, chronic. Last labs in April 2024. Has a fmhx in her mother of severe RLS Urinary symptoms of urgency and frequency and dysuria the last few days. No hematuria, no fevers or chills or flank pains. Chronic pain, has been taking her gabapentin 900 mg 3 times a day as well as the Tramadol. She feels that the tramadol is helping her pain symptoms, she is trying to do walking and stretches to help with management of her chronic neck pain, chronic low back pain and chronic myalgia discomfort. she is still trying to do exercises she is able and stretches at least 3 days a week at the [facility] for chair exercises- knows that this benefits her even though it is uncomfortable for her to perform. She notices that her pain is increased the day after she exercises to the point that she is unsure if she can still exercise. Hasn't gotten opinion from pain mgmt recently but is interested in this. Mood, taking zoloft 150 mg at bedtime, struggling with depressed mood and lack of motivation. Was previously in 2017/2018 on cymbalta without any SE. Did have SE with Pristiq as well as Paxil in the past few years. No SI or HI. Does have support from her daughter. PAST MEDICAL HISTORY Diagnosis Date Chronic pain syndrome normal ESR, suspect fibromyalgia Depression Elevated cholesterol with high triglycerides Fibromyalgia GERD (gastroesophageal reflux disease) Hypertension Prediabetes RLS (restless legs syndrome) PAST SURGICAL HISTORY Procedure Laterality Date HYSTERECTOMY HX 1989 ovaries removed PAST SURGICAL HISTORY OF gallbladder removal PAST SURGICAL HISTORY OF benign tumor removed from L shoulder blade Current Outpatient Medications Medication Sig lisinopril (ZESTRIL) 10 mg tablet Take 1 tablet by mouth once daily. sertraline (ZOLOFT) 100 mg tablet Take 1 tablet by mouth daily at bedtime. Take with 50 mg tablet to total 150 mg a day sertraline (ZOLOFT) 50 mg tablet Take 1 tablet by mouth once daily. Add to 100 mg to total 150 mg a day atorvastatin (LIPITOR) 10 mg tablet Take 1 tablet by mouth daily at bedtime. For cholesterol. furosemide (LASIX) 20 mg tablet TAKE 1 TABLET ONE TIME DAILY NEEDED FOR SWELLING/EDEMA gabapentin (NEURONTIN) 300 mg capsule Add to 600 mg capsule to total 900 mg 3 times a day for chronic pain gabapentin (NEURONTIN) 600 mg tablet Take 1 tablet by mouth three times a day for 90 days. cyanocobalamin 1,000 mcg/mL Inject 1 mL intramuscularly every 2 weeks. Vitamin B12 deficiency Syringe with Needle, Disp, 1 mL 25 gauge x 1" syrg 1 Syringe as directed. Vitamin b12 deficiency rosuvastatin (CRESTOR) 10 mg tablet Take 1 tablet by mouth daily at bedtime. WALKER ROLLATOR SEAT WITH 6" WHEELS - RED Dx: low back pain, lumbar DDD, lumbar DJD,balance disorder vitamin B complex (B COMPLEX-100 ORAL) Take by mouth. Magnesium 250 mg tab Take 250 mg by mouth twice daily. estradiol (ESTRACE) 0.01 % (0.1 mg/gram) vaginal cream Finger-tip amount each night applied as directed in instructions phenazopyridine (PYRIDIUM) 200 mg tablet Take 1 tablet by mouth three times daily as needed. triamcinolone acetonide (KENALOG) 0.5 % cream Apply to affected area twice daily. Cholecalciferol, Vitamin D3, 5,000 unit cap Take 1 capsule by mouth once daily. MULTIVITAMIN ORAL Take by mouth. No current facility-administered medications for this visit. ALLERGIES Allergen Reactions [place] [Hydrocodone-* Hives Social History Tobacco Use Smoking status: Former Smokeless tobacco: Never Substance Use Topics Alcohol use: Not Currently Drug use: No ROS: See HPI PE: BP 110/70 Pulse 80 Temp (Src) 97 (Left Tympanic) Resp 20 Ht 5' .236" (1.53m) Wt 195 lb (88.5kg) BMI 37.79 kg/(m2). Gen: AANDO, NAD, non-toxic appearing, hard of hearing, cooperative HEENT: NT/AC, PERRLA, EOMs intact b/l, sinus TTP frontal and maxillary, nares clear and patent b/l, pharynx without erythema, exudate or lesions. MMM, Uvula midline. EACs without erythema or debris. Neck: supple, No cervical LAD, no thyromegaly, no carotid bruits, significant ROM decrease in rotation and Flexion and extension due to arthritis CV: RRR, normal S1 and S2, no murmurs, no gallops, no rubs, Pulses 2+ and symmetric in UE and LE b/l Lungs: normal respiratory effort, CTA b/l, no wheezing or rhonchi or rales Abd: so (more content not included)... [facility] 03-16-2025 Telephone encounter Note The following approved medication requests have been transmitted electronically. Requested Prescriptions Signed Prescriptions Disp Refills traMADol (ULTRAM) 50 mg tablet 180 tablet 0 Sig: Take 2 tablets by mouth every 8 hours as needed for pain for up to 30 days. Authorizing Provider: ART STARR PA-C [facility] 03-16-2025 Miscellaneous Notes The following approved medication requests have been transmitted electronically. Requested Prescriptions Signed Prescriptions Disp Refills traMADol (ULTRAM) 50 mg tablet 180 tablet 0 Sig: Take 2 tablets by mouth every 8 hours as needed for pain for up to 30 days. Authorizing Provider: ART STARR PA-C Veronica from [facility] pharmacy in [place] calling in questioning prescription refill that just got sent in to them from Nisa Rocha for pt's Tramadol. Script sent in today has directions of take 1 tablet by mouth every 6 hours as needed for up to 30 days. Dispense # was 180 with no refills. Per directions, the dispense # is 60 more tablets (1 every 6 hrs for 30 days would be 120). Also Veronica states pt's previous scripts' directions have been take 2 every 8 hours as needed. Dispense 180 with 2 refills. Wondering if the new directions are correct. Called and spoke with pt who states that she takes 2 tablets 3 times a day (approx every 8 hrs). 1) Questioning directions as different from previous scripts? 2) # of tablets to dispense needs to match directions? Needs corrected new script sent to pharmacy. Script pended with previous directions of take 2 tablets 3 times a day as needed. Provider to confirm these directions and gerardo # to dispense and if any refills. documented in this encounter [facility] 03-15-2025 Telephone encounter Note Veronica from [facility] pharmacy in [place] calling in questioning prescription refill that just got sent in to them from Nisa Rocha for pt's Tramadol. Script sent in today has directions of take 1 tablet by mouth every 6 hours as needed for up to 30 days. Dispense # was 180 with no refills. Per directions, the dispense # is 60 more tablets (1 every 6 hrs for 30 days would be 120). Also Veronica states pt's previous scripts' directions have been take 2 every 8 hours as needed. Dispense 180 with 2 refills. Wondering if the new directions are correct. Called and spoke with pt who states that she takes 2 tablets 3 times a day (approx every 8 hrs). 1) Questioning directions as different from previous scripts? 2) # of tablets to dispense needs to match directions? Needs corrected new script sent to pharmacy. Script pended with previous directions of take 2 tablets 3 times a day as needed. Provider to confirm these directions and gerardo # to dispense and if any refills. [facility] 03-15-2025 Telephone encounter Note PDMP website checked and validated. All prescriptions have been APPROPRIATELY filled. No suspicious activity was identified. 03/15/2025 by Nisa Rocha APRN.CNP The following approved medication requests have been transmitted electronically. Requested Prescriptions Signed Prescriptions Disp Refills traMADol (ULTRAM) 50 mg tablet 180 tablet 0 Sig: Take 1 tablet by mouth every 6 hours as needed for pain for up to 30 days. Authorizing Provider: NISA ROCHA APRN.CNP [facility] 03-15-2025 Miscellaneous Notes PDMP website checked and validated. All prescriptions have been APPROPRIATELY filled. No suspicious activity was identified. 03/15/2025 by Nisa Rocha APRN.CNP The following approved medication requests have been transmitted electronically. Requested Prescriptions Signed Prescriptions Disp Refills traMADol (ULTRAM) 50 mg tablet 180 tablet 0 Sig: Take 1 tablet by mouth every 6 hours as needed for pain for up to 30 days. Authorizing Provider: NISA ROCHA APRN.CARE MANAGEMENT SPECIALIST Prescription Refill Information The patient has been identified by name and date of : Yes Caregiver verified no other encounters exist for this prescription request: Yes Caregiver confirmed with patient/requestor that no other refills are due, in the near future, with this provider at this time: Yes The last office visit in the department: 01/13/25 Does the patient have a future office visit with this provider/department: Yes Requested Prescriptions Pending Prescriptions Disp Refills traMADol (ULTRAM) 50 mg tablet Sig: Take 1 tablet by mouth every 6 hours as needed for pain. Zina Ramsey March 15, 2025 9:45 AM documented in this encounter [facility] 03-15-2025 Telephone encounter Note Prescription Refill Information The patient has been identified by name and date of : Yes Caregiver verified no other encounters exist for this prescription request: Yes Caregiver confirmed with patient/requestor that no other refills are due, in the near future, with this provider at this time: Yes The last office visit in the department: 01/13/25 Does the patient have a future office visit with this provider/department: Yes Requested Prescriptions Pending Prescriptions Disp Refills traMADol (ULTRAM) 50 mg tablet Sig: Take 1 tablet by mouth every 6 hours as needed for pain. Zina Ramsey March 15, 2025 9:45 AM [facility] 02-23-2025 Telephone encounter Note The following approved medication requests have been transmitted electronically. Requested Prescriptions Signed Prescriptions Disp Refills sertraline (ZOLOFT) 100 mg tablet 90 tablet 3 Sig: Take 1 tablet by mouth daily at bedtime. Take with 50 mg tablet to total 150 mg a day Authorizing Provider: HONG MATOS sertraline (ZOLOFT) 50 mg tablet 90 tablet 1 Sig: Take 1 tablet by mouth once daily. Add to 100 mg to total 150 mg a day Authorizing Provider: HONG MATOS DO [facility] 02-23-2025 Miscellaneous Notes The following approved medication requests have been transmitted electronically. Requested Prescriptions Signed Prescriptions Disp Refills sertraline (ZOLOFT) 100 mg tablet 90 tablet 3 Sig: Take 1 tablet by mouth daily at bedtime. Take with 50 mg tablet to total 150 mg a day Authorizing Provider: HONG MATOS sertraline (ZOLOFT) 50 mg tablet 90 tablet 1 Sig: Take 1 tablet by mouth once daily. Add to 100 mg to total 150 mg a day Authorizing Provider: HONG MAOTS DO Diamond with [facility] is calling in regards to the two sertraline rx sent in today. There is a rx for 100 mg (take 1 tab at bedtime with 25 mg tab to total 125 mg daily) and a rx for 50 mg (take 1 tablet daily with 100 mg to total 150 mg a day). Daimond is calling to ask if pt is taking 125 mg daily or 150 mg daily. Please clarify. Call Diamond with 's message. Lesvia Naranjo LPN documented in this encounter [facility] 02-23-2025 Telephone encounter Note Diamond with [facility] is calling in regards to the two sertraline rx sent in today. There is a rx for 100 mg (take 1 tab at bedtime with 25 mg tab to total 125 mg daily) and a rx for 50 mg (take 1 tablet daily with 100 mg to total 150 mg a day). Diamond is calling to ask if pt is taking 125 mg daily or 150 mg daily. Please clarify. Call Diamond with 's message. Lesvia Naranjo LPN [facility] 02-23-2025 Telephone encounter Note Patient has new insurance and new pharmacy. Please re-route scripts to [address] in [place]. [facility] 02-23-2025 Miscellaneous Notes Patient has new insurance and new pharmacy. Please re-route scripts to [address] in [place]. Prescription Refill Information The patient has been identified by name and date of : Yes Caregiver verified no other encounters exist for this prescription request: Yes Caregiver confirmed with patient/requestor that no other refills are due, in the near future, with this provider at this time: Yes The last office visit in the department: 01-13-25 Does the patient have a future office visit with this provider/department: Yes Requested Prescriptions Pending Prescriptions Disp Refills lisinopril (ZESTRIL) 10 mg tablet 90 tablet 3 Sig: Take 1 tablet by mouth once daily. sertraline (ZOLOFT) 50 mg tablet 90 tablet 1 Sig: Take 1 tablet by mouth once daily. Add to 100 mg to total 150 mg a day sertraline (ZOLOFT) 100 mg tablet 90 tablet 3 Sig: Take 1 tablet by mouth daily at bedtime. Take with 25 mg tablet to total 125 mg a day Amy Ramsey February 23, 2025 11:07 AM documented in this encounter [facility] 02-23-2025 Telephone encounter Note Prescription Refill Information The patient has been identified by name and date of : Yes Caregiver verified no other encounters exist for this prescription request: Yes Caregiver confirmed with patient/requestor that no other refills are due, in the near future, with this provider at this time: Yes The last office visit in the department: 01-13-25 Does the patient have a future office visit with this provider/department: Yes Requested Prescriptions Pending Prescriptions Disp Refills lisinopril (ZESTRIL) 10 mg tablet 90 tablet 3 Sig: Take 1 tablet by mouth once daily. sertraline (ZOLOFT) 50 mg tablet 90 tablet 1 Sig: Take 1 tablet by mouth once daily. Add to 100 mg to total 150 mg a day sertraline (ZOLOFT) 100 mg tablet 90 tablet 3 Sig: Take 1 tablet by mouth daily at bedtime. Take with 25 mg tablet to total 125 mg a day Amy Ramsey February 23, 2025 11:07 AM [facility] 02-08-2025 Telephone encounter Note Patient notified. [facility] 02-08-2025 Miscellaneous Notes Patient notified. Please let her know that her protein levels and calcium were slightly high. I would like these to be rechecked and some additional labs obtained to check to see if improved Also her cholesterol is high. She needs to cut back on her animal fats, fried/fast and fatty foods. Eat more lean meats and vegetables and fresh fruits Other labs are overall stable. Can cut back to every other day dosing of her vitamin B12 as well. Her hip xrays show moderate osteoarthritis of the right hip and mild osteoarthritis of the left hip. Can consider seeing orthopedics for injections as well as PHYSICAL THERAPY if interested Her xrays of her lumbar spine show significant osteoarthritis in the low back and degenerative disc changes as well. No instability. Can consider pain mgmt for injections as well as PHYSICAL THERAPY Hong Matos DO Pt asking pcp to review and advise on labs and xrays done on 01-14-25. documented in this encounter [facility] 02-08-2025 Telephone encounter Note Please let her know that her protein levels and calcium were slightly high. I would like these to be rechecked and some additional labs obtained to check to see if improved Also her cholesterol is high. She needs to cut back on her animal fats, fried/fast and fatty foods. Eat more lean meats and vegetables and fresh fruits Other labs are overall stable. Can cut back to every other day dosing of her vitamin B12 as well. Her hip xrays show moderate osteoarthritis of the right hip and mild osteoarthritis of the left hip. Can consider seeing orthopedics for injections as well as PHYSICAL THERAPY if interested Her xrays of her lumbar spine show significant osteoarthritis in the low back and degenerative disc changes as well. No instability. Can consider pain mgmt for injections as well as PHYSICAL THERAPY Hong Matos DO [facility] 02-03-2025 Telephone encounter Note Pt asking pcp to review and advise on labs and xrays done on 01-14-25. [facility] 01-29-2025 Note HNO ID: [id number] Author: JARROD NEW RN Service: ? Author Type: Registered Nurse Type: Progress Notes Filed: 01/29/2025 10:27 Note Text: CDM ENROLLMENT Provider Action / FYI: Patient identified by name and date of . Discussed care with patient. Program Details Chronic Disease Management Status: Enrolled Effective Dates: 01/29/2025 - present Responsible Staff: Jarrod New RN Support and Services: Hypertension Assessments CDM Assessment Medications: Do you have any questions about taking your medications or which medications you should be taking?: No Do you need any medication refills at this time, including any of the medication you might take only when needed?: No Social: It can be normal to feel anxious or down during a time like this. Would you like to talk to a mental health professional about how you have been feeling?: No Symptoms: Are you experiencing any new or worsening symptoms that you need to talk about today?: No ADLs Patients can perform the following activities without help: Dressing: Yes Bathing: Yes Doing laundry: Yes Climbing a flight of stairs: Yes (slowly) Walking briskly: Yes Instrumental activities of daily living Do you drive a car?: Yes Do you need help from others to take care of things inside the house, for example: laundry, house cleaning, preparing meals?: No Do you need help from others with errands outside the house, for example: shopping for groceries or clothes, going medical appointments?: No Fall Risk One or more falls in the last year:: No Any near falls in the last year?: No Advised to use a cane or walker to get around safely:: Yes (rolator and cane if needed) Feels unsteady when walking:: No Steadies self on furniture while walking at home:: No Worried about falling:: Yes (cautious) Has trouble stepping up onto a curb:: No Has lost some feeling in feet:: No SDOH Financial Resource Strain How hard is it for you to pay for the very basics like food, housing, medical care, and heating?: Not hard at all Housing Stability In the last 12 months, was there a time when you were not able to pay the mortgage or rent on time?: No At any time in the past 12 months, were you homeless or living in a custodial (including now)?: No Transportation Needs In the past 12 months, has lack of transportation kept you from medical appointments or from getting medications?: No In the past 12 months, has lack of transportation kept you from meetings, work, or from getting things needed for daily living?: No Food Insecurity Within the past 12 months, you worried that your food would run out before you got the money to buy more.: Never true Within the past 12 months, the food you bought just didn't last and you didn't have money to get more.: Never true Utilities In the past 12 months has the electric, [employer], [employer], or water [employer] threatened to shut off services in your home?: No Tobacco Use Patient reports that she has quit smoking. She has never used smokeless tobacco. Interventions The following were addressed during this visit: - Initial enrollment outreach - Intake assessments completed: ADLs, Fall Risk, SDOH - Biannual PCP visit addressed - Annual Medicare Wellness visit addressed - Patient-stated goal addressed (add comment) - Schedule Biannual PCP Appointment - Schedule Annual Wellness Visit - Develop a Patient-Stated Goal (add to [employer] comments) Jarrod New RN January 29, 2025 10:03 AM [facility] 01-29-2025 Note Patient Outreach ([facility] VALENCIA POLO ([id number]) 1955 F Date Time Provider Department 01/29/25 JARROD NEW AMBG During your visit today, we recorded the following information about you: Jarrod New RN 01/29/2025 10:27 AM Signed M ENROLLMENT Provider Action / FYI: Patient identified by name and date of . Discussed care with patient. Program Details Chronic Disease Management Status: Enrolled Effective Dates: 01/29/2025 - present Responsible Staff: Jarrod New RN Support and Services: Hypertension Assessments CDM Assessment Medications: Do you have any questions about taking your medications or which medications you should be taking?: No Do you need any medication refills at this time, including any of the medication you might take only when needed?: No Social: It can be normal to feel anxious or down during a time like this. Would you like to talk to a mental health professional about how you have been feeling?: No Symptoms: Are you experiencing any new or worsening symptoms that you need to talk about today?: No ADLs Patients can perform the following activities without help: Dressing: Yes Bathing: Yes Doing laundry: Yes Climbing a flight of stairs: Yes (slowly) Walking briskly: Yes Instrumental activities of daily living Do you drive a car?: Yes Do you need help from others to take care of things inside the house, for example: laundry, house cleaning, preparing meals?: No Do you need help from others with errands outside the house, for example: shopping for groceries or clothes, going medical appointments?: No Fall Risk One or more falls in the last year:: No Any near falls in the last year?: No Advised to use a cane or walker to get around safely:: Yes (rolator and cane if needed) Feels unsteady when walking:: No Steadies self on furniture while walking at home:: No Worried about falling:: Yes (cautious) Has trouble stepping up onto a curb:: No Has lost some feeling in feet:: No SDOH Financial Resource Strain How hard is it for you to pay for the very basics like food, housing, medical care, and heating?: Not hard at all Housing Stability In the last 12 months, was there a time when you were not able to pay the mortgage or rent on time?: No At any time in the past 12 months, were you homeless or living in a custodial (including now)?: No Transportation Needs In the past 12 months, has lack of transportation kept you from medical appointments or from getting medications?: No In the past 12 months, has lack of transportation kept you from meetings, work, or from getting things needed for daily living?: No Food Insecurity Within the past 12 months, you worried that your food would run out before you got the money to buy more.: Never true Within the past 12 months, the food you bought just didn't last and you didn't have money to get more.: Never true Utilities In the past 12 months has the electric, gas, oil, or water [employer] threatened to shut off services in your home?: No Tobacco Use Patient reports that she has quit smoking. She has never used smokeless tobacco. Interventions The following were addressed during this visit: - Initial enrollment outreach - Intake assessments completed: ADLs, Fall Risk, SDOH - Biannual PCP visit addressed - Annual Medicare Wellness visit addressed - Patient-stated goal addressed (add comment) - Schedule Biannual PCP Appointment - Schedule Annual Wellness Visit - Develop a Patient-Stated Goal (add to [employer] comments) Jarrod Willkomm, RN January 29, 2025 10:03 AM Allergies As of Date: 01/29/2025 Noted Allergy Reaction NORCO (HYDROCODONE-ACETAMINOPHEN) 06/13/2021 4 - Hives Date Reviewed: 01/13/2025 Reviewed by: Marta So MA - Fully Assessed Prescriptions as of 01/29/2025 - traMADol (ULTRAM) 50 mg tablet Take 50 mg by mouth every 6 hours as needed for pain. - atorvastatin (LIPITOR) 10 mg tablet Take 1 tablet by mouth daily at bedtime. For cholesterol. - furosemide (LASIX) 20 mg tablet TAKE 1 TABLET ONE TIME DAILY NEEDED FOR SWELLING/EDEMA - gabapentin (NEURONTIN) 300 mg capsule Add to 600 mg capsule to total 900 mg 3 times a day for chronic pain - gabapentin (NEURONTIN) 600 mg tablet Take 1 tablet by mouth three times a day for 90 days. - lisinopril (ZESTRIL) 10 mg tablet Take 1 tablet by mouth once daily. - sertraline (ZOLOFT) 100 mg tablet Take 1 tablet by mouth daily at bedtime. Take with 25 mg tablet to total 125 mg a day - sertraline (ZOLOFT) 50 mg tablet Take 1 tablet by mouth once daily. Add to 100 mg to total 150 mg a day - PARoxetine (PAXIL) 40 mg tablet Take 1 tablet by mouth once daily. - cyanocobalamin 1,000 mcg/mL Inject 1 mL intramuscularly every 2 weeks. Vitamin B12 deficiency - Syringe with Needle, Disp, 1 mL (more content not included)... [facility] 01-14-2025 History of Present illness Narrative Radiology Service Progress Note PATIENT NAME: Valencia Polo DATE OF SERVICE: January 14, 2025 TIME: 12:00 PM PATIENT IDENTITY VERIFICATION COMPLETED USING TWO (2) IDENTIFIERS: Name and Date of confirmed by patient verbally. FALL SCREENING: Has the patient had 2 falls in the last year or 1 fall with injury or currently using an Ambulatory Assistive Device (Walker, Cane, Wheelchair, Crutches, etc.)? No PATIENT GENDER DATA: Assigned female at . status: : No status: NO. PATIENT RELEVANT IMPLANT DATA REVIEWED: Not Applicable PATIENT PRESENTS WITH AN IMPLANTABLE OR ATTACHED TRAINING PROGRAM DEVELOPER: No RADIOLOGY DEPARTMENT: General X-ray: Exam(s) Completed: Spine X-Ray(s): Lumbar AP / LAT / L5-S1 Pelvis X-Ray: Pelvis with Hip Bilateral PERIPHERAL IV DATA: Not applicable SIGNED BY: RT Mario(Tasha) January 14, 2025 12:00 PM documented in this encounter [facility] 01-14-2025 Note HNO ID: [id number] Author: KATELIN CANDELARIA RT(Tasha) Service: ? Author Type: Technologist Type: Progress Notes Filed: 01/14/2025 12:00 Note Text: Radiology Service Progress Note PATIENT NAME: Valencia Polo DATE OF SERVICE: January 14, 2025 TIME: 12:00 PM PATIENT IDENTITY VERIFICATION COMPLETED USING TWO (2) IDENTIFIERS: Name and Date of confirmed by patient verbally. FALL SCREENING: Has the patient had 2 falls in the last year or 1 fall with injury or currently using an Ambulatory Assistive Device (Walker, Cane, Wheelchair, Crutches, etc.)? No PATIENT GENDER DATA: Assigned female at . status: : No status: NO. PATIENT RELEVANT IMPLANT DATA REVIEWED: Not Applicable PATIENT PRESENTS WITH AN IMPLANTABLE OR ATTACHED TRAINING PROGRAM DEVELOPER: No RADIOLOGY DEPARTMENT: General X-ray: Exam(s) Completed: Spine X-Ray(s): Lumbar AP / LAT / L5-S1 Pelvis X-Ray: Pelvis with Hip Bilateral PERIPHERAL IV DATA: Not applicable SIGNED BY: RT Mario(R) January 14, 2025 12:00 PM [facility] 01-13-2025 Note HNO ID: [id number] Author: HONG MATOS, Service: ? Author Type: Physician Type: Progress Notes Filed: 01/13/2025 12:12 Note Text: CC: Valencia Polo is a 69 year old female who presents to the office for follow up. HPI: Recently with increased Right low back pain raditating into right gluteal area and into right thigh posterior and right calf. Was only getting minimal relief with layiing on her right side in the bed and stretching her leg out. 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 Last labs in April 2024. Has a fmhx in her mother of severe RLS Sinus pressure and congestion, x 1 weeks, pressure feeling, no fevers or chills. Using OTC supplements without relief Chronic pain, has been taking her gabapentin 900 mg 3 times a day as well as the Tramadol. She feels that the tramadol is helping her pain symptoms, she is trying to do walking and stretches to help with management of her chronic neck pain, chronic low back pain and chronic myalgia discomfort. she is still trying to do exercises she is able and stretches at least 3 days a week [facility] for chair exercises- knows that this benefits her even though it is uncomfortable for her to perform. She notices that her pain is increased the day after she exercises. PAST MEDICAL HISTORY Diagnosis Date Chronic pain syndrome normal ESR, suspect fibromyalgia Depression Elevated cholesterol with high triglycerides Fibromyalgia GERD (gastroesophageal reflux disease) Hypertension Prediabetes RLS (restless legs syndrome) PAST SURGICAL HISTORY Procedure Laterality Date HYSTERECTOMY HX 1989 ovaries removed PAST SURGICAL HISTORY OF gallbladder removal PAST SURGICAL HISTORY OF benign tumor removed from L shoulder blade Current Outpatient Medications Medication Sig traMADol (ULTRAM) 50 mg tablet Take 50 mg by mouth every 6 hours as needed for pain. atorvastatin (LIPITOR) 10 mg tablet Take 1 tablet by mouth daily at bedtime. For cholesterol. furosemide (LASIX) 20 mg tablet TAKE 1 TABLET ONE TIME DAILY NEEDED FOR SWELLING/EDEMA gabapentin (NEURONTIN) 300 mg capsule Add to 600 mg capsule to total 900 mg 3 times a day for chronic pain gabapentin (NEURONTIN) 600 mg tablet Take 1 tablet by mouth three times a day for 90 days. lisinopril (ZESTRIL) 10 mg tablet Take 1 tablet by mouth once daily. sertraline (ZOLOFT) 100 mg tablet Take 1 tablet by mouth daily at bedtime. Take with 25 mg tablet to total 125 mg a day sertraline (ZOLOFT) 50 mg tablet Take 1 tablet by mouth once daily. Add to 100 mg to total 150 mg a day cyanocobalamin 1,000 mcg/mL Inject 1 mL intramuscularly every 2 weeks. Vitamin B12 deficiency Syringe with Needle, Disp, 1 mL 25 gauge x 1" syrg 1 Syringe as directed. Vitamin b12 deficiency WALKER ROLLATOR SEAT WITH 6" WHEELS - RED Dx: low back pain, lumbar DDD, lumbar DJD,balance disorder vitamin B complex (B COMPLEX-100 ORAL) Take by mouth. Magnesium 250 mg tab Take 250 mg by mouth twice daily. estradiol (ESTRACE) 0.01 % (0.1 mg/gram) vaginal cream Finger-tip amount each night applied as directed in instructions triamcinolone acetonide (KENALOG) 0.5 % cream Apply to affected area twice daily. Cholecalciferol, Vitamin D3, 5,000 unit cap Take 1 capsule by mouth once daily. MULTIVITAMIN ORAL Take by mouth. amoxicillin-clavulanate potassium (AUGMENTIN) 875-125 mg per tablet Take 1 tablet by mouth two times a day for 10 days. PARoxetine (PAXIL) 40 mg tablet Take 1 tablet by mouth once daily. rosuvastatin (CRESTOR) 10 mg tablet Take 1 tablet by mouth daily at bedtime. phenazopyridine (PYRIDIUM) 200 mg tablet Take 1 tablet by mouth three times daily as needed. No current facility-administered medications for this visit. ALLERGIES Allergen Reactions [place] [Hydrocodone-* Hives Social History Tobacco Use Smoking status: Former Smokeless tobacco: Never Substance Use Topics Alcohol use: Not Currently Drug use: No ROS: See HPI PE: BP 100/68 Pulse 77 Resp 16 Wt 189 lb (85.7kg) Gen: AANDO, NAD, non-toxic appearing, hard of hearing, cooperative HEENT: NT/AC, PERRLA, EOMs intact b/l, sinus TTP frontal and maxillary, nares clear and patent b/l, pharynx without erythema, exudate or lesions. MMM, Uvula midline. EACs without erythema or debris. Neck: supple, No cervical LAD, no thyromegaly, no carotid bruits, significant ROM decrease in rotation and Flexion and extension due to arthritis CV: RRR, normal S1 and S2, no murmurs, no gallops, no rubs, Pulses 2+ and symmetric in UE and LE b/l Lungs: normal respiratory effort, CTA b/l, no wheezing or rhonchi or rales Abd: soft, overweight, NT, ND, +BS, no hepatosplenomegaly MS: arthritis changes of spine - neck and lumbar areas Neuro: CN II-XII intact b/l,gait is slowed Skin: warm, dry, intact No edema, normal pulses PD (more content not included)... [facility] 01-13-2025 History of Present illness Narrative CC: Valencia Polo is a 69 year old female who presents to the office for follow up. HPI: Recently with increased Right low back pain raditating into right gluteal area and into right thigh posterior and right calf. Was only getting minimal relief with layiing on her right side in the bed and stretching her leg out. 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 Last labs in April 2024. Has a fmhx in her mother of severe RLS Sinus pressure and congestion, x 1 weeks, pressure feeling, no fevers or chills. Using OTC supplements without relief Chronic pain, has been taking her gabapentin 900 mg 3 times a day as well as the Tramadol. She feels that the tramadol is helping her pain symptoms, she is trying to do walking and stretches to help with management of her chronic neck pain, chronic low back pain and chronic myalgia discomfort. she is still trying to do exercises she is able and stretches at least 3 days a week at [facility] for chair exercises- knows that this benefits her even though it is uncomfortable for her to perform. She notices that her pain is increased the day after she exercises. PAST MEDICAL HISTORY Diagnosis Date Chronic pain syndrome normal ESR, suspect fibromyalgia Depression Elevated cholesterol with high triglycerides Fibromyalgia GERD (gastroesophageal reflux disease) Hypertension Prediabetes RLS (restless legs syndrome) PAST SURGICAL HISTORY Procedure Laterality Date HYSTERECTOMY HX 1989 ovaries removed PAST SURGICAL HISTORY OF gallbladder removal PAST SURGICAL HISTORY OF benign tumor removed from L shoulder blade Current Outpatient Medications Medication Sig traMADol (ULTRAM) 50 mg tablet Take 50 mg by mouth every 6 hours as needed for pain. atorvastatin (LIPITOR) 10 mg tablet Take 1 tablet by mouth daily at bedtime. For cholesterol. furosemide (LASIX) 20 mg tablet TAKE 1 TABLET ONE TIME DAILY NEEDED FOR SWELLING/EDEMA gabapentin (NEURONTIN) 300 mg capsule Add to 600 mg capsule to total 900 mg 3 times a day for chronic pain gabapentin (NEURONTIN) 600 mg tablet Take 1 tablet by mouth three times a day for 90 days. lisinopril (ZESTRIL) 10 mg tablet Take 1 tablet by mouth once daily. sertraline (ZOLOFT) 100 mg tablet Take 1 tablet by mouth daily at bedtime. Take with 25 mg tablet to total 125 mg a day sertraline (ZOLOFT) 50 mg tablet Take 1 tablet by mouth once daily. Add to 100 mg to total 150 mg a day cyanocobalamin 1,000 mcg/mL Inject 1 mL intramuscularly every 2 weeks. Vitamin B12 deficiency Syringe with Needle, Disp, 1 mL 25 gauge x 1" syrg 1 Syringe as directed. Vitamin b12 deficiency WALKER ROLLATOR SEAT WITH 6" WHEELS - RED Dx: low back pain, lumbar DDD, lumbar DJD,balance disorder vitamin B complex (B COMPLEX-100 ORAL) Take by mouth. Magnesium 250 mg tab Take 250 mg by mouth twice daily. estradiol (ESTRACE) 0.01 % (0.1 mg/gram) vaginal cream Finger-tip amount each night applied as directed in instructions triamcinolone acetonide (KENALOG) 0.5 % cream Apply to affected area twice daily. Cholecalciferol, Vitamin D3, 5,000 unit cap Take 1 capsule by mouth once daily. MULTIVITAMIN ORAL Take by mouth. amoxicillin-clavulanate potassium (AUGMENTIN) 875-125 mg per tablet Take 1 tablet by mouth two times a day for 10 days. PARoxetine (PAXIL) 40 mg tablet Take 1 tablet by mouth once daily. rosuvastatin (CRESTOR) 10 mg tablet Take 1 tablet by mouth daily at bedtime. phenazopyridine (PYRIDIUM) 200 mg tablet Take 1 tablet by mouth three times daily as needed. No current facility-administered medications for this visit. ALLERGIES Allergen Reactions [place] [Hydrocodone-* Hives Social History Tobacco Use Smoking status: Former Smokeless tobacco: Never Substance Use Topics Alcohol use: Not Currently Drug use: No ROS: See HPI PE: BP 100/68 Pulse 77 Resp 16 Wt 189 lb (85.7kg) Gen: A&O, NAD, non-toxic appearing, hard of hearing, cooperative HEENT: NT/AC, PERRLA, EOMs intact b/l, sinus TTP frontal and maxillary, nares clear and patent b/l, pharynx without erythema, exudate or lesions. MMM, Uvula midline. EACs without erythema or debris. Neck: supple, No cervical LAD, no thyromegaly, no carotid bruits, significant ROM decrease in rotation and Flexion and extension due to arthritis CV: RRR, normal S1 and S2, no murmurs, no gallops, no rubs, Pulses 2+ and symmetric in UE and LE b/l Lungs: normal respiratory effort, CTA b/l, no wheezing or rhonchi or rales Abd: soft, overweight, NT, ND, +BS, no hepatosplenomegaly MS: arthritis changes of spine - neck and lumbar areas Neuro: CN II-XII intact b/l,gait is slowed Skin: warm, dry, intact No edema, normal pulses PDMP website checked and validated. All prescriptions have been APPROPRIATELY filled. No suspicious activity was identified. 01/13/2025 by Hong Matos, ASSESSMENT/PLAN: 1. Acute right-sided low back pain with bilateral sciatica - ICD9: 724.2, 724.3, ICD10: M54.42, M54.41 (primary diagnosis) Sciatica - Ice for localized tenderness - Warm moist heat for 20 min three times a day - NSAIDS- see orders - Muscle relaxant- see orders - XR LUMBAR GENERAL 3V AP/LAT/L5-S1 - XR HIP BILATERAL 5V PEL/AP/LAT EACH HIP 2. Right hip pain - ICD9: 719.45, ICD10: M25.551 Xrays as ordered Consider pain mgmt and PHYSICAL THERAPY as well - XR LUMBAR GENERAL 3V AP/LAT/L5-S1 - XR HIP BILATERAL 5V PEL/AP/LAT EACH HIP 3. Acute non-recurrent maxillary sinusitis - ICD9: 461.0, ICD10: J01.00 - Will begin treatment with as per antibiotic as written, see orders - Supportive care with plenty of fluids, rest, and analgesia prn. - AMOXICILLIN 875 MG-POTASSIUM CLAVULANATE 125 MG TABLET 4. Fibromyalgia - ICD9: 729.1, ICD10: M79.7 Recheck labs Continue Tramadol- this is helping with ADLs and IADLs and she is taking as prescribed Check urine tox Is current on opiate agreement - MAGNESIUM 5. Hypertriglyceridemia - ICD9: 272.1, ICD10: E78.1 - Control undetermined, due for labs - Continue current medications - Counseled on healthy diet and regular exercise - Discussed need for and benefit of weight loss. BMI 35.13 kg/(m^2) - LIPID PANEL BASIC - THYROID STIMULATING HORMONE 6. Chronic pain syndrome - ICD9: 338.4, ICD10: G89.4 See above - TOXICOLOGY SCREEN, ROUTINE URINE - MAGNESIUM 7. Osteoarthritis of spine with radiculopathy, lumbar region - ICD9: 721.3, ICD10: M47.26 See yimi 8. Vitamin B12 deficiency - ICD9: 266.2, ICD10: E53.8 Recheck labs Continue supplement - VITAMIN B12 9. Vitamin D deficiency - ICD9: 268.9, ICD10: E55.9 See above - VITAMIN D 25 HYDROXY 10. Fatigue, unspecified type - ICD9: 780.79, ICD10: R53.83 Multifactorial with patient. She is aware of cause - COMPREHENSIVE METABOLIC PANEL - COMPLETE BLOOD COUNT AND DIFFERENTIAL - VITAMIN D 25 HYDROXY - VITAMIN B12 - MAGNESIUM 11. Hyperglycemia - ICD9: 790.29, ICD10: R73.9 - HEMOGLOBIN A1C 12. Restless legs - ICD9: 333.94, ICD10: G25.81 Chronic, recheck labs Hong Matos DO Return if no improvement. Follow up with Hong Matos DO. To ER if develops chest pain, shortness of breath. Discussed risks, benefits, alternatives, and potential side effects of medications. Patient/Guardian expressed understanding and agreed with the plan. See patient instructions. Hong Matos DO [address] [place] [address] documented in this encounter [facility] 12-15-2024 Telephone encounter Note Pt changing pharmacy. The patient has been identified by name and date of : Yes Caregiver verified no other encounters exist for this prescription request: Yes Caregiver confirmed with patient/requestor that no other refills are due, in the near future, with this provider at this time: Yes The last office visit in the department: 10/20/2024 Does the patient have a future office visit with this provider/department: Yes 01/13/2025 Requested Prescriptions Pending Prescriptions Disp Refills atorvastatin (LIPITOR) 10 mg tablet 90 tablet 1 Sig: Take 1 tablet by mouth daily at bedtime. For cholesterol. furosemide (LASIX) 20 mg tablet 90 tablet 1 Sig: TAKE 1 TABLET ONE TIME DAILY NEEDED FOR SWELLING/EDEMA traMADol (ULTRAM) 50 mg tablet 180 tablet 2 Sig: Take 2 every 8 hours as needed Gina Humphries LPN December 15, 2024 9:12 AM [facility] 12-15-2024 Miscellaneous Notes Pt changing pharmacy. The patient has been identified by name and date of : Yes Caregiver verified no other encounters exist for this prescription request: Yes Caregiver confirmed with patient/requestor that no other refills are due, in the near future, with this provider at this time: Yes The last office visit in the department: 10/20/2024 Does the patient have a future office visit with this provider/department: Yes 01/13/2025 Requested Prescriptions Pending Prescriptions Disp Refills atorvastatin (LIPITOR) 10 mg tablet 90 tablet 1 Sig: Take 1 tablet by mouth daily at bedtime. For cholesterol. furosemide (LASIX) 20 mg tablet 90 tablet 1 Sig: TAKE 1 TABLET ONE TIME DAILY NEEDED FOR SWELLING/EDEMA traMADol (ULTRAM) 50 mg tablet 180 tablet 2 Sig: Take 2 every 8 hours as needed Gina Humphries LPN December 15, 2024 9:12 AM documented in this encounter [facility] 11-16-2024 Telephone encounter Note Spoke with pt gave information provided. Pt voices understanding. [facility] 11-16-2024 Miscellaneous Notes Spoke with pt gave information provided. Pt voices understanding. Please inform patient that her CT brain is negative/normal Hong Matos DO documented in this encounter [facility] 11-16-2024 Telephone encounter Note Please inform patient that her CT brain is negative/normal Hong Matos DO [facility] 11-03-2024 History of Present illness Narrative Radiology Service Progress Note PATIENT NAME: Valencia Polo DATE OF SERVICE: November 03, 2024 TIME: 1:39 PM PATIENT IDENTITY VERIFICATION COMPLETED USING TWO (2) IDENTIFIERS: Name and Date of confirmed by patient verbally. FALL SCREENING: Has the patient had 2 falls in the last year or 1 fall with injury or currently using an Ambulatory Assistive Device (Walker, Cane, Wheelchair, Crutches, etc.)? No PATIENT GENDER DATA: Female. status: : No status: NO. PATIENT RELEVANT IMPLANT DATA REVIEWED: Not Applicable PATIENT PRESENTS WITH AN IMPLANTABLE OR ATTACHED TRAINING PROGRAM DEVELOPER: No RADIOLOGY DEPARTMENT: CT; Exam(s) Completed: Brain PERIPHERAL IV DATA: Not applicable SIGNED BY: RT Makenna(Tasha) November 03, 2024 1:39 PM documented in this encounter [facility] 11-03-2024 Note HNO ID: [id number] Author: SHERRY CRUZ RT(Tasha) Service: ? Author Type: Insurance Claims Clerk Type: Progress Notes Filed: 11/03/2024 13:39 Note Text: Radiology Service Progress Note PATIENT NAME: Valencia Polo DATE OF SERVICE: November 03, 2024 TIME: 1:39 PM PATIENT IDENTITY VERIFICATION COMPLETED USING TWO (2) IDENTIFIERS: Name and Date of confirmed by patient verbally. FALL SCREENING: Has the patient had 2 falls in the last year or 1 fall with injury or currently using an Ambulatory Assistive Device (Walker, Cane, Wheelchair, Crutches, etc.)? No PATIENT GENDER DATA: Female. status: : No status: NO. PATIENT RELEVANT IMPLANT DATA REVIEWED: Not Applicable PATIENT PRESENTS WITH AN IMPLANTABLE OR ATTACHED TRAINING PROGRAM DEVELOPER: No RADIOLOGY DEPARTMENT: CT; Exam(s) Completed: Brain PERIPHERAL IV DATA: Not applicable SIGNED BY: RT Makenna(R) November 03, 2024 1:39 PM [facility] 10-20-2024 Note HNO ID: [id number] Author: HONG MATOS, DO Service: ? Author Type: Physician Type: Progress Notes Filed: 10/20/2024 17:18 Note Text: CC: Valencia Polo is a 69 year old female who presents to follow up HPI: Seen in office last on 01/02/2023, at that time Chronic pain, has been taking her gabapentin as well as the Tramadol. Really not feeling that the tramadol is helping her pain symptoms, is interested in any other options to help with management of her chronic neck pain, chronic low back pain and chronic myalgia discomfort. Sometimes feels like it makes her overwhelmed and she will cry in the afternoon. Does feel the zoloft is helping mood but wondering if rx dosing needs adjusted. Lives alone in an apartment complex. No SI or HI. Does have support from her grown children. Knows she would benefit from a rollator walker. Sometimes struggles with her balance due to her arthritis HTN, stable, taking medications as prescribed Mood, still feels that she gets "antsy" and restless at times, mostly in the afternoon. Does feel that her zoloft is helping at 125 mg a day. No SI or HI. Does live alone and has been going to the local community center and doing chair exercise Sat, Sat and Saturday and also going to play bingo or do crafts there intermittently At follow up on 2023 Chronic pain, has been taking her gabapentin as well as the Tramadol. Really not feeling that the tramadol is helping her pain symptoms, is interested in any other options to help with management of her chronic neck pain, chronic low back pain and chronic myalgia discomfort. Sometimes feels like it makes her overwhelmed and she will cry in the afternoon. Does feel the zoloft is helping mood but wondering if rx dosing needs adjusted. Lives alone in an apartment complex. No SI or HI. Does have support from her grown children Mood, stable, no recent concerns, trying to be involved in the community areas around her home. At follow up on 09/06/2023 Chronic pain, has been taking her gabapentin 900 mg 3 times a day as well as the Tramadol. She now feels that the tramadol is helping her pain symptoms, she is trying to do walking and stretches to help with management of her chronic neck pain, chronic low back pain and chronic myalgia discomfort. Sometimes feels like it makes her overwhelmed and she will cry in the afternoon. Does feel the zoloft is helping mood but wondering if rx dosing needs adjusted. Lives alone in an apartment complex. No SI or HI. Does have support from her grown children Mood, stable, no recent concerns, trying to be involved in the community areas around her home. Taking zoloft as prescribed Does have pain in her legs with walking. No known hx of PAD but does feel sometimes her feet and lower legs are more cold than she would expect. At OFFICE VISIT on 12/23/23 Chronic pain, has been taking her gabapentin 900 mg 3 times a day as well as the Tramadol. She now feels that the tramadol is helping her pain symptoms, she is trying to do walking and stretches to help with management of her chronic neck pain, chronic low back pain and chronic myalgia discomfort. she is still trying to do exercises she is able and stretches at least 3 days a week- knows that this benefits her even though it is uncomfortable for her to perform. Mood, Does feel the zoloft is helping mood but wondering if rx dosing needs adjusted. Lives alone in an apartment complex. No SI or HI. Does have support from her grown children + chronic fatigue, vitamin B12 deficiency, has been taking oral supplement but still struggling with fatigue Skin lesion / sore on buttock on right, has had this in the past about 2 years ago and resolved. Needing assessed again, it is sore. Chronic foot pain, soles of the feet, no obvious injuries, no swelling or skin changes. At OFFICE VISIT on 04/17/2024 Chronic pain, has been taking her gabapentin 900 mg 3 times a day as well as the Tramadol. She now feels that the tramadol is helping her pain symptoms, she is trying to do walking and stretches to help with management of her chronic neck pain, chronic low back pain and chronic myalgia discomfort. she is still trying to do exercises she is able and stretches at least 3 days a week [facility] for chair exercises- knows that this benefits her even though it is uncomfortable for her to perform. Mood, Does feel the zoloft is helping mood . No SI or HI. Does have support from her grown children + chronic fatigue, vitamin B12 deficiency, has been taking oral supplement but still struggling with fatigue. Muscle aches, joint pains She states that she is chronically sweating as well Currently Chronic pain, has been taking her gabapentin 900 mg 3 times a day as well as the Tramadol. She feels that the tramadol is helping her pain symptoms, she is trying to do walking and stretches to help with management of her chronic neck (more content not included)... [facility] 10-20-2024 History of Present illness Narrative CC: Valencia Polo is a 69 year old female who presents to follow up HPI: Seen in office last on 01/02/2023, at that time Chronic pain, has been taking her gabapentin as well as the Tramadol. Really not feeling that the tramadol is helping her pain symptoms, is interested in any other options to help with management of her chronic neck pain, chronic low back pain and chronic myalgia discomfort. Sometimes feels like it makes her overwhelmed and she will cry in the afternoon. Does feel the zoloft is helping mood but wondering if rx dosing needs adjusted. Lives alone in an apartment complex. No SI or HI. Does have support from her grown children. Knows she would benefit from a rollator walker. Sometimes struggles with her balance due to her arthritis HTN, stable, taking medications as prescribed Mood, still feels that she gets "antsy" and restless at times, mostly in the afternoon. Does feel that her zoloft is helping at 125 mg a day. No SI or HI. Does live alone and has been going to the local [facility] and doing chair exercise Sat, Sat and Saturday and also going to play bingo or do crafts there intermittently At follow up on 2023 Chronic pain, has been taking her gabapentin as well as the Tramadol. Really not feeling that the tramadol is helping her pain symptoms, is interested in any other options to help with management of her chronic neck pain, chronic low back pain and chronic myalgia discomfort. Sometimes feels like it makes her overwhelmed and she will cry in the afternoon. Does feel the zoloft is helping mood but wondering if rx dosing needs adjusted. Lives alone in an apartment complex. No SI or HI. Does have support from her grown children Mood, stable, no recent concerns, trying to be involved in the community areas around her home. At follow up on 09/06/2023 Chronic pain, has been taking her gabapentin 900 mg 3 times a day as well as the Tramadol. She now feels that the tramadol is helping her pain symptoms, she is trying to do walking and stretches to help with management of her chronic neck pain, chronic low back pain and chronic myalgia discomfort. Sometimes feels like it makes her overwhelmed and she will cry in the afternoon. Does feel the zoloft is helping mood but wondering if rx dosing needs adjusted. Lives alone in an apartment complex. No SI or HI. Does have support from her grown children Mood, stable, no recent concerns, trying to be involved in the community areas around her home. Taking zoloft as prescribed Does have pain in her legs with walking. No known hx of PAD but does feel sometimes her feet and lower legs are more cold than she would expect. At OFFICE VISIT on 12/23/23 Chronic pain, has been taking her gabapentin 900 mg 3 times a day as well as the Tramadol. She now feels that the tramadol is helping her pain symptoms, she is trying to do walking and stretches to help with management of her chronic neck pain, chronic low back pain and chronic myalgia discomfort. she is still trying to do exercises she is able and stretches at least 3 days a week- knows that this benefits her even though it is uncomfortable for her to perform. Mood, Does feel the zoloft is helping mood but wondering if rx dosing needs adjusted. Lives alone in an apartment complex. No SI or HI. Does have support from her grown children + chronic fatigue, vitamin B12 deficiency, has been taking oral supplement but still struggling with fatigue Skin lesion / sore on buttock on right, has had this in the past about 2 years ago and resolved. Needing assessed again, it is sore. Chronic foot pain, soles of the feet, no obvious injuries, no swelling or skin changes. At OFFICE VISIT on 04/17/2024 Chronic pain, has been taking her gabapentin 900 mg 3 times a day as well as the Tramadol. She now feels that the tramadol is helping her pain symptoms, she is trying to do walking and stretches to help with management of her chronic neck pain, chronic low back pain and chronic myalgia discomfort. she is still trying to do exercises she is able and stretches at least 3 days a week at [facility] for chair exercises- knows that this benefits her even though it is uncomfortable for her to perform. Mood, Does feel the zoloft is helping mood . No SI or HI. Does have support from her grown children + chronic fatigue, vitamin B12 deficiency, has been taking oral supplement but still struggling with fatigue. Muscle aches, joint pains She states that she is chronically sweating as well Currently Chronic pain, has been taking her gabapentin 900 mg 3 times a day as well as the Tramadol. She feels that the tramadol is helping her pain symptoms, she is trying to do walking and stretches to help with management of her chronic neck pain, chronic low back pain and chronic myalgia discomfort. she is still trying to do exercises she is able and stretches at least 3 days a week at [facility] for chair exercises- knows that this benefits her even though it is uncomfortable for her to perform. She notices that her pain is increased the day after she exercises. Mood, Does not at this time feel the zoloft is helping mood . No SI or HI. Does have support from her grown children. She is struggling with lack of motivation and feeling down. No self harm + chronic fatigue, vitamin B12 deficiency, has been taking oral supplement but still struggling with fatigue. Muscle aches, joint pains Short term memory loss, no head injuries. No headaches, no fevers or chills. No hx of dementia in herself. She is struggling with losing objects and forgetting what she was going into a room to do PAST MEDICAL HISTORY Diagnosis Date Chronic pain syndrome normal ESR, suspect fibromyalgia Depression Elevated cholesterol with high triglycerides Fibromyalgia GERD (gastroesophageal reflux disease) Hypertension Prediabetes RLS (restless legs syndrome) PAST SURGICAL HISTORY Procedure Laterality Date HYSTERECTOMY HX 1989 ovaries removed PAST SURGICAL HISTORY OF gallbladder removal PAST SURGICAL HISTORY OF benign tumor removed from L shoulder blade Current Outpatient Medications Medication Sig gabapentin (NEURONTIN) 300 mg capsule Add to 600 mg capsule to total 900 mg 3 times a day for chronic pain gabapentin (NEURONTIN) 600 mg tablet Take 1 tablet by mouth three times a day for 90 days. [START ON 10/27/2024] traMADol (ULTRAM) 50 mg tablet Take 2 every 8 hours as needed Patient should start on October 27, 2024. lisinopril (ZESTRIL) 10 mg tablet Take 1 tablet by mouth once daily. sertraline (ZOLOFT) 100 mg tablet Take 1 tablet by mouth daily at bedtime. Take with 25 mg tablet to total 125 mg a day sertraline (ZOLOFT) 50 mg tablet Take 1 tablet by mouth once daily. Add to 100 mg to total 150 mg a day PARoxetine (PAXIL) 40 mg tablet Take 1 tablet by mouth once daily. atorvastatin (LIPITOR) 10 mg tablet Take 1 tablet by mouth daily at bedtime. For cholesterol. furosemide (LASIX) 20 mg tablet TAKE 1 TABLET ONE TIME DAILY NEEDED FOR SWELLING/EDEMA cyanocobalamin 1,000 mcg/mL Inject 1 mL intramuscularly every 2 weeks. Vitamin B12 deficiency Syringe with Needle, Disp, 1 mL 25 gauge x 1" syrg 1 Syringe as directed. Vitamin b12 deficiency rosuvastatin (CRESTOR) 10 mg tablet Take 1 tablet by mouth daily at bedtime. WALKER ROLLATOR SEAT WITH 6" WHEELS - RED Dx: low back pain, lumbar DDD, lumbar DJD,balance disorder vitamin B complex (B COMPLEX-100 ORAL) Take by mouth. Magnesium 250 mg tab Take 250 mg by mouth twice daily. estradiol (ESTRACE) 0.01 % (0.1 mg/gram) vaginal cream Finger-tip amount each night applied as directed in instructions phenazopyridine (PYRIDIUM) 200 mg tablet Take 1 tablet by mouth three times daily as needed. triamcinolone acetonide (KENALOG) 0.5 % cream Apply to affected area twice daily. Cholecalciferol, Vitamin D3, 5,000 unit cap Take 1 capsule by mouth once daily. MULTIVITAMIN ORAL Take by mouth. No current facility-administered medications for this visit. ALLERGIES Allergen Reactions [place] [Hydrocodone-* Hives Social History Tobacco Use Smoking status: Former Smokeless tobacco: Never Substance Use Topics Alcohol use: Not Currently Drug use: No ROS: See HPI PE: BP 110/60 Pulse 80 Temp (Src) 97 (Left Tympanic) Resp 16 Wt 193 lb (87.5kg) Gen: A&O, NAD, non-toxic appearing, hard of hearing, cooperative HEENT: NT/AC, PERRLA, EOMs intact b/l, sinus TTP frontal and maxillary, nares clear and patent b/l, pharynx without erythema, exudate or lesions. MMM, Uvula midline. EACs without erythema or debris. Neck: supple, No cervical LAD, no thyromegaly, no carotid bruits, significant ROM decrease in rotation and Flexion and extension due to arthritis CV: RRR, normal S1 and S2, no murmurs, no gallops, no rubs, Pulses 2+ and symmetric in UE and LE b/l Lungs: normal respiratory effort, CTA b/l, no wheezing or rhonchi or rales Abd: soft, overweight, NT, ND, +BS, no hepatosplenomegaly MS: arthritis changes of spine - neck and lumbar areas Neuro: CN II-XII intact b/l,gait is slowed Skin: warm, dry, intact No edema, normal pulses ASSESSMENT/PLAN: 1. Memory loss - ICD9: 780.93, ICD10: R41.3 (primary diagnosis) CT brain needed, f/u with Neurologist if symptoms are worsening - CT BRAIN WO IVCON 2. Osteoarthritis of spine with radiculopathy, lumbar region - ICD9: 721.3, ICD10: M47.26 rx refilled Medication is helping with ADLs and IADLs Continue gabapentin - GABAPENTIN 300 MG CAPSULE - TRAMADOL 50 MG TABLET 3. Chronic midline low back pain with bilateral sciatica - ICD9: 724.2, 724.3, 338.29, ICD10: M54.41, M54.42, G89.29 rx refilled Medication is helping with ADLs and IADLs Continue gabapentin - GABAPENTIN 300 MG CAPSULE - TRAMADOL 50 MG TABLET 4. Chronic pain syndrome - ICD9: 338.4, ICD10: G89.4 rx refilled Medication is helping with ADLs and IADLs Continue gabapentin - GABAPENTIN 300 MG CAPSULE - TRAMADOL 50 MG TABLET 5. Chronic bilateral thoracic back pain - ICD9: 724.1, 338.29, ICD10: M54.6, G89.29 rx refilled Medication is helping with ADLs and IADLs Continue gabapentin - GABAPENTIN 300 MG CAPSULE - TRAMADOL 50 MG TABLET 6. Fibromyalgia - ICD9: 729.1, ICD10: M79.7 rx refilled Medication is helping with ADLs and IADLs Continue gabapentin - GABAPENTIN 300 MG CAPSULE - TRAMADOL 50 MG TABLET 7. Restless leg - ICD9: 333.94, ICD10: G25.81 rx refilled Medication is helping with ADLs and IADLs Continue gabapentin - GABAPENTIN 300 MG CAPSULE 8. Vitamin B12 deficiency - ICD9: 266.2, ICD10: E53.8 rx refilled Medication is helping with ADLs and IADLs Continue gabapentin - GABAPENTIN 300 MG CAPSULE 9. Dizziness - ICD9: 780.4, ICD10: R42 CT brain needed, f/u with Neurologist if symptoms are worsening [facility] Return if no improvement. Follow up with Hong Matos DO. To ER if develops chest pain, shortness of breath. Discussed risks, benefits, alternatives, and potential side effects of medications. Patient/Guardian expressed understanding and agreed with the plan. See patient instructions. Hong Matos DO [address] [place] [address] documented in this encounter [facility] 10-20-2024 Instructions Hong Matos DO - 10/20/2024 10:31 AM EST [facility] blood pressure upper arm automatic cuff documented in this encounter [facility] 10-02-2024 Telephone encounter Note The patient has been identified by name and date of : Yes Caregiver verified no other encounters exist for this prescription request: Yes Caregiver confirmed with patient/requestor that no other refills are due, in the near future, with this provider at this time: Yes The last office visit in the department: 07/20/2024 Does the patient have a future office visit with this provider/department: Yes 10/20/2024 Requested Prescriptions Pending Prescriptions Disp Refills lisinopril (ZESTRIL) 10 mg tablet 90 tablet 3 Sig: Take 1 tablet by mouth once daily. Leena Mathur RN October 02, 2024 2:35 PM [facility] 10-02-2024 Miscellaneous Notes The patient has been identified by name and date of : Yes Caregiver verified no other encounters exist for this prescription request: Yes Caregiver confirmed with patient/requestor that no other refills are due, in the near future, with this provider at this time: Yes The last office visit in the department: 07/20/2024 Does the patient have a future office visit with this provider/department: Yes 10/20/2024 Requested Prescriptions Pending Prescriptions Disp Refills lisinopril (ZESTRIL) 10 mg tablet 90 tablet 3 Sig: Take 1 tablet by mouth once daily. Leena Mathur RN October 02, 2024 2:35 PM documented in this encounter [facility] 09-04-2024 Telephone encounter Note Prescription Refill Information The patient has been identified by name and date of : Yes Caregiver verified no other encounters exist for this prescription request: Yes Caregiver confirmed with patient/requestor that no other refills are due, in the near future, with this provider at this time: Yes The last office visit in the department: 07/20/24 Does the patient have a future office visit with this provider/department: Yes Requested Prescriptions Pending Prescriptions Disp Refills sertraline (ZOLOFT) 100 mg tablet 90 tablet 3 Sig: Take 1 tablet by mouth daily at bedtime. Take with 25 mg tablet to total 125 mg a day sertraline (ZOLOFT) 50 mg tablet 90 tablet 1 Sig: Take 1 tablet by mouth once daily. Add to 100 mg to total 150 mg a day Marta Ramsey September 04, 2024 8:58 AM [facility] 09-04-2024 Miscellaneous Notes Prescription Refill Information The patient has been identified by name and date of : Yes Caregiver verified no other encounters exist for this prescription request: Yes Caregiver confirmed with patient/requestor that no other refills are due, in the near future, with this provider at this time: Yes The last office visit in the department: 07/20/24 Does the patient have a future office visit with this provider/department: Yes Requested Prescriptions Pending Prescriptions Disp Refills sertraline (ZOLOFT) 100 mg tablet 90 tablet 3 Sig: Take 1 tablet by mouth daily at bedtime. Take with 25 mg tablet to total 125 mg a day sertraline (ZOLOFT) 50 mg tablet 90 tablet 1 Sig: Take 1 tablet by mouth once daily. Add to 100 mg to total 150 mg a day Marta Ramsey September 04, 2024 8:58 AM documented in this encounter [facility] 09-02-2024 Telephone encounter Note Notified patient. [facility] 09-02-2024 Miscellaneous Notes Notified patient. PDMP website checked and validated . All prescriptions have been APPROPRIATELY filled. No suspicious activity was identified. 09/02/2024 by Hong Matos DO The following approved medication requests have been transmitted electronically. Requested Prescriptions Signed Prescriptions Disp Refills traMADol (ULTRAM) 50 mg tablet 180 tablet 2 Sig: Take 2 every 8 hours as needed Authorizing Provider: HONG MATOS DO Pt is calling to check on status of medication. Please review. Lesvia Naranjo LPN Patient has been identified by name and date of : Yes, Provider Date 08/24/24 Time 3:31 pm Patient phones for refill(s): Requested Prescriptions Pending Prescriptions Disp Refills traMADol (ULTRAM) 50 mg tablet 180 tablet 2 Sig: Take 2 every 8 hours as needed Date of last office visit in primary care: 07/20/2024 Date of next office visit in primary care: 10/20/2024 Please advise. Thank you. Areli Sorenson MA. Valencia is calling Hong Matos DO today to request a medication not on current med list: Tramadol 50 mg tablet Disp 180 tablets refill "2" Please send to [facility] mail order pharmacy Patient has been identified by name and birthdate. Person calling: self Call patient at: at home [phone] (home) [phone] (cell) Was an appointment scheduled: Yes: Date/Time: 10/20/2024 Last seen 07/20/2024 Closing statement: Results or non-symptom based questions: Thank you for calling [facility], your call will be returned within the next business day. Radha Stearns documented in this encounter [facility] 09-02-2024 Telephone encounter Note PDMP website checked and validated . All prescriptions have been APPROPRIATELY filled. No suspicious activity was identified. 09/02/2024 by Hong Matos DO The following approved medication requests have been transmitted electronically. Requested Prescriptions Signed Prescriptions Disp Refills traMADol (ULTRAM) 50 mg tablet 180 tablet 2 Sig: Take 2 every 8 hours as needed Authorizing Provider: HONG MATOS DO [facility] 08-31-2024 Telephone encounter Note Pt is calling to check on status of medication. Please review. Lesvia Naranjo LPN [facility] 08-24-2024 Telephone encounter Note Patient has been identified by name and date of : Yes, Provider Date 08/24/24 Time 3:31 pm Patient phones for refill(s): Requested Prescriptions Pending Prescriptions Disp Refills traMADol (ULTRAM) 50 mg tablet 180 tablet 2 Sig: Take 2 every 8 hours as needed Date of last office visit in primary care: 07/20/2024 Date of next office visit in primary care: 10/20/2024 Please advise. Thank you. Areli Sorenson MA. [facility] 08-24-2024 Telephone encounter Note Valencia is calling Hong Matos DO today to request a medication not on current med list: Tramadol 50 mg tablet Disp 180 tablets refill "2" Please send to [facility] mail order pharmacy Patient has been identified by name and birthdate. Person calling: self Call patient at: at home [phone] (home) [phone] (cell) Was an appointment scheduled: Yes: Date/Time: 10/20/2024 Last seen 07/20/2024 Closing statement: Results or non-symptom based questions: Thank you for calling [facility], your call will be returned within the next business day. Radha Stearns [facility] 08-18-2024 Telephone encounter Note Pt notified. Would prefer to go back on the Zoloft, has zoloft at home to restart. Wendy Alva MA [facility] 08-18-2024 Miscellaneous Notes Pt notified. Would prefer to go back on the Zoloft, has zoloft at home to restart. Wendy Alva MA If she just switched from the Zoloft to the Paxil, she can switch back to the Zoloft 125 mg daily and stop the Paxil.40 mg. It may take more than a few doses to adjust to the new mediation, but can certainly switch back if she prefers. Art Starr PA-C 08/18/2024 Patient reports she has taken 2 doses of paxil, and does not feel right when taking it. Last night she was up all night, legs and arms were shaking, the only time they stopped shaking is when she stood up, her stomach is upset and she has diarrhea today. Patient states she wants to stop taking the paxil and go back on the zoloft. Reports she still has zoloft. Please advise patient. documented in this encounter [facility] 08-18-2024 Telephone encounter Note If she just switched from the Zoloft to the Paxil, she can switch back to the Zoloft 125 mg daily and stop the Paxil.40 mg. It may take more than a few doses to adjust to the new mediation, but can certainly switch back if she prefers. Art Starr PA-C 08/18/2024 [facility] Work Phone: 08-18-2024 Telephone encounter Note Patient reports she has taken 2 doses of paxil, and does not feel right when taking it. Last night she was up all night, legs and arms were shaking, the only time they stopped shaking is when she stood up, her stomach is upset and she has diarrhea today. Patient states she wants to stop taking the paxil and go back on the zoloft. Reports she still has zoloft. Please advise patient. [facility] 08-07-2024 Telephone encounter Note Pt informed Myla Tucker MA [facility] 08-07-2024 Miscellaneous Notes Pt informed Myla Tucker MA Please let her know that her cortisol level is 6.4 and has returned to normal target range. Petty Mendenhall APRN.CNP documented in this encounter [facility] 08-07-2024 Telephone encounter Note Please let her know that her cortisol level is 6.4 and has returned to normal target range. Petty Mendenhall APRN.CNP [facility] Work Phone: 07-23-2024 Note HNO ID: [id number] Author: HONG MATOS, DO Service: ? Author Type: Physician Type: Progress Notes Filed: 07/23/2024 12:01 Note Text: CC: Valencia Polo is a 69 year old female who presents to the office for follow up HPI: Seen in office last on 01/02/2023, at that time Chronic pain, has been taking her gabapentin as well as the Tramadol. Really not feeling that the tramadol is helping her pain symptoms, is interested in any other options to help with management of her chronic neck pain, chronic low back pain and chronic myalgia discomfort. Sometimes feels like it makes her overwhelmed and she will cry in the afternoon. Does feel the zoloft is helping mood but wondering if rx dosing needs adjusted. Lives alone in an apartment complex. No SI or HI. Does have support from her grown children. Knows she would benefit from a rollator walker. Sometimes struggles with her balance due to her arthritis HTN, stable, taking medications as prescribed Mood, still feels that she gets "antsy" and restless at times, mostly in the afternoon. Does feel that her zoloft is helping at 125 mg a day. No SI or HI. Does live alone and has been going to the local community center and doing chair exercise Sat, Sat and Saturday and also going to play bingo or do crafts there intermittently At follow up on 2023 Chronic pain, has been taking her gabapentin as well as the Tramadol. Really not feeling that the tramadol is helping her pain symptoms, is interested in any other options to help with management of her chronic neck pain, chronic low back pain and chronic myalgia discomfort. Sometimes feels like it makes her overwhelmed and she will cry in the afternoon. Does feel the zoloft is helping mood but wondering if rx dosing needs adjusted. Lives alone in an apartment complex. No SI or HI. Does have support from her grown children Mood, stable, no recent concerns, trying to be involved in the community areas around her home. At follow up on 09/06/2023 Chronic pain, has been taking her gabapentin 900 mg 3 times a day as well as the Tramadol. She now feels that the tramadol is helping her pain symptoms, she is trying to do walking and stretches to help with management of her chronic neck pain, chronic low back pain and chronic myalgia discomfort. Sometimes feels like it makes her overwhelmed and she will cry in the afternoon. Does feel the zoloft is helping mood but wondering if rx dosing needs adjusted. Lives alone in an apartment complex. No SI or HI. Does have support from her grown children Mood, stable, no recent concerns, trying to be involved in the community areas around her home. Taking zoloft as prescribed Does have pain in her legs with walking. No known hx of PAD but does feel sometimes her feet and lower legs are more cold than she would expect. At OFFICE VISIT on 12/23/23 Chronic pain, has been taking her gabapentin 900 mg 3 times a day as well as the Tramadol. She now feels that the tramadol is helping her pain symptoms, she is trying to do walking and stretches to help with management of her chronic neck pain, chronic low back pain and chronic myalgia discomfort. she is still trying to do exercises she is able and stretches at least 3 days a week- knows that this benefits her even though it is uncomfortable for her to perform. Mood, Does feel the zoloft is helping mood but wondering if rx dosing needs adjusted. Lives alone in an apartment complex. No SI or HI. Does have support from her grown children + chronic fatigue, vitamin B12 deficiency, has been taking oral supplement but still struggling with fatigue Skin lesion / sore on buttock on right, has had this in the past about 2 years ago and resolved. Needing assessed again, it is sore. Chronic foot pain, soles of the feet, no obvious injuries, no swelling or skin changes. At last OFFICE VISIT on 04/17/2024 Chronic pain, has been taking her gabapentin 900 mg 3 times a day as well as the Tramadol. She now feels that the tramadol is helping her pain symptoms, she is trying to do walking and stretches to help with management of her chronic neck pain, chronic low back pain and chronic myalgia discomfort. she is still trying to do exercises she is able and stretches at least 3 days a [facility]- knows that this benefits her even though it is uncomfortable for her to perform. Mood, Does feel the zoloft is helping mood . No SI or HI. Does have support from her grown children + chronic fatigue, vitamin B12 deficiency, has been taking oral supplement but still struggling with fatigue. Muscle aches, joint pains She states that she is chronically sweating as well Currently Chronic pain, has been taking her gabapentin 900 mg 3 times a day as well as the Tramadol. She feels that the tramadol is helping her pain symptoms, she is trying to do walking and stretches to help with managemen (more content not included)... [facility] 07-23-2024 History of Present illness Narrative CC: Valencia Polo is a 69 year old female who presents to the office for follow up HPI: Seen in office last on 01/02/2023, at that time Chronic pain, has been taking her gabapentin as well as the Tramadol. Really not feeling that the tramadol is helping her pain symptoms, is interested in any other options to help with management of her chronic neck pain, chronic low back pain and chronic myalgia discomfort. Sometimes feels like it makes her overwhelmed and she will cry in the afternoon. Does feel the zoloft is helping mood but wondering if rx dosing needs adjusted. Lives alone in an apartment complex. No SI or HI. Does have support from her grown children. Knows she would benefit from a rollator walker. Sometimes struggles with her balance due to her arthritis HTN, stable, taking medications as prescribed Mood, still feels that she gets "antsy" and restless at times, mostly in the afternoon. Does feel that her zoloft is helping at 125 mg a day. No SI or HI. Does live alone and has been going to the local [employer] and doing chair exercise Sat, Sat and Saturday and also going to play bingo or do crafts there intermittently At follow up on 2023 Chronic pain, has been taking her gabapentin as well as the Tramadol. Really not feeling that the tramadol is helping her pain symptoms, is interested in any other options to help with management of her chronic neck pain, chronic low back pain and chronic myalgia discomfort. Sometimes feels like it makes her overwhelmed and she will cry in the afternoon. Does feel the zoloft is helping mood but wondering if rx dosing needs adjusted. Lives alone in an apartment complex. No SI or HI. Does have support from her grown children Mood, stable, no recent concerns, trying to be involved in the community areas around her home. At follow up on 09/06/2023 Chronic pain, has been taking her gabapentin 900 mg 3 times a day as well as the Tramadol. She now feels that the tramadol is helping her pain symptoms, she is trying to do walking and stretches to help with management of her chronic neck pain, chronic low back pain and chronic myalgia discomfort. Sometimes feels like it makes her overwhelmed and she will cry in the afternoon. Does feel the zoloft is helping mood but wondering if rx dosing needs adjusted. Lives alone in an apartment complex. No SI or HI. Does have support from her grown children Mood, stable, no recent concerns, trying to be involved in the community areas around her home. Taking zoloft as prescribed Does have pain in her legs with walking. No known hx of PAD but does feel sometimes her feet and lower legs are more cold than she would expect. At OFFICE VISIT on 12/23/23 Chronic pain, has been taking her gabapentin 900 mg 3 times a day as well as the Tramadol. She now feels that the tramadol is helping her pain symptoms, she is trying to do walking and stretches to help with management of her chronic neck pain, chronic low back pain and chronic myalgia discomfort. she is still trying to do exercises she is able and stretches at least 3 days a week- knows that this benefits her even though it is uncomfortable for her to perform. Mood, Does feel the zoloft is helping mood but wondering if rx dosing needs adjusted. Lives alone in an apartment complex. No SI or HI. Does have support from her grown children + chronic fatigue, vitamin B12 deficiency, has been taking oral supplement but still struggling with fatigue Skin lesion / sore on buttock on right, has had this in the past about 2 years ago and resolved. Needing assessed again, it is sore. Chronic foot pain, soles of the feet, no obvious injuries, no swelling or skin changes. At last OFFICE VISIT on 04/17/2024 Chronic pain, has been taking her gabapentin 900 mg 3 times a day as well as the Tramadol. She now feels that the tramadol is helping her pain symptoms, she is trying to do walking and stretches to help with management of her chronic neck pain, chronic low back pain and chronic myalgia discomfort. she is still trying to do exercises she is able and stretches at least 3 days a week [facility] for chair exercises- knows that this benefits her even though it is uncomfortable for her to perform. Mood, Does feel the zoloft is helping mood . No SI or HI. Does have support from her grown children + chronic fatigue, vitamin B12 deficiency, has been taking oral supplement but still struggling with fatigue. Muscle aches, joint pains She states that she is chronically sweating as well Currently Chronic pain, has been taking her gabapentin 900 mg 3 times a day as well as the Tramadol. She feels that the tramadol is helping her pain symptoms, she is trying to do walking and stretches to help with management of her chronic neck pain, chronic low back pain and chronic myalgia discomfort. she is still trying to do exercises she is able and stretches at least 3 days a week [facility] for chair exercises- knows that this benefits her even though it is uncomfortable for her to perform. She notices that her pain is increased the day after she exercises. Mood, Does not at this time feel the zoloft is helping mood . No SI or HI. Does have support from her grown children. She is struggling with lack of motivation and feeling down. No self harm + chronic fatigue, vitamin B12 deficiency, has been taking oral supplement but still struggling with fatigue. Muscle aches, joint pains She states that she is chronically sweating as well Bloating, unsure what is causing symptoms. Unsure if any food triggers. Doesn't avoid any specific foods. Was recommended to try a low FODMAP diet which she hasn't done yet. No blood in stool. No vomiting. No fevers or chills. PAST MEDICAL HISTORY No date: Chronic pain syndrome Comment: normal ESR, suspect fibromyalgia No date: Depression No date: Elevated cholesterol with high triglycerides No date: Fibromyalgia No date: GERD (gastroesophageal reflux disease) No date: Hypertension No date: Prediabetes No date: RLS (restless legs syndrome) PAST SURGICAL HISTORY 1989: HYSTERECTOMY HX Comment: ovaries removed No date: PAST SURGICAL HISTORY OF Comment: gallbladder removal No date: PAST SURGICAL HISTORY OF Comment: benign tumor removed from L shoulder blade Current Outpatient Medications Medication Sig gabapentin (NEURONTIN) 300 mg capsule Add to 600 mg capsule to total 900 mg 3 times a day for chronic pain gabapentin (NEURONTIN) 600 mg tablet Take 1 tablet by mouth three times a day for 90 days. traMADol (ULTRAM) 50 mg tablet Take 2 every 8 hours as needed PARoxetine (PAXIL) 40 mg tablet Take 1 tablet by mouth once daily. cephALEXin (KEFLEX) 500 mg capsule Take 1 capsule by mouth four times daily for 10 days. atorvastatin (LIPITOR) 10 mg tablet Take 1 tablet by mouth daily at bedtime. For cholesterol. furosemide (LASIX) 20 mg tablet TAKE 1 TABLET ONE TIME DAILY NEEDED FOR SWELLING/EDEMA sertraline (ZOLOFT) 50 mg tablet Take 1 tablet by mouth once daily. Add to 100 mg to total 150 mg a day sertraline (ZOLOFT) 100 mg tablet Take 1 tablet by mouth daily at bedtime. Take with 25 mg tablet to total 125 mg a day cyanocobalamin 1,000 mcg/mL Inject 1 mL intramuscularly every 2 weeks. Vitamin B12 deficiency Syringe with Needle, Disp, 1 mL 25 gauge x 1" syrg 1 Syringe as directed. Vitamin b12 deficiency lisinopril (ZESTRIL) 10 mg tablet Take 1 tablet by mouth once daily. rosuvastatin (CRESTOR) 10 mg tablet Take 1 tablet by mouth daily at bedtime. WALKER ROLLATOR SEAT WITH 6" WHEELS - RED Dx: low back pain, lumbar DDD, lumbar DJD,balance disorder vitamin B complex (B COMPLEX-100 ORAL) Take by mouth. Magnesium 250 mg tab Take 250 mg by mouth twice daily. estradiol (ESTRACE) 0.01 % (0.1 mg/gram) vaginal cream Finger-tip amount each night applied as directed in instructions phenazopyridine (PYRIDIUM) 200 mg tablet Take 1 tablet by mouth three times daily as needed. triamcinolone acetonide (KENALOG) 0.5 % cream Apply to affected area twice daily. Cholecalciferol, Vitamin D3, 5,000 unit cap Take 1 capsule by mouth once daily. MULTIVITAMIN ORAL Take by mouth. No current facility-administered medications for this visit. ALLERGIES Allergen Reactions [place] [Hydrocodone-* Hives Social History Tobacco Use Smoking status: Former Smokeless tobacco: Never Substance Use Topics Alcohol use: Not Currently Drug use: No ROS: See HPI PE: BP 110/60 Pulse 80 Temp (Src) 97 (Left Tympanic) Resp 20 Wt 194 lb (88.0kg) Gen: A&O, NAD, non-toxic appearing, hard of hearing, cooperative HEENT: NT/AC, PERRLA, EOMs intact b/l, sinus TTP frontal and maxillary, nares clear and patent b/l, pharynx without erythema, exudate or lesions. MMM, Uvula midline. EACs without erythema or debris. Neck: supple, No cervical LAD, no thyromegaly, no carotid bruits, significant ROM decrease in rotation and Flexion and extension due to arthritis CV: RRR, normal S1 and S2, no murmurs, no gallops, no rubs, Pulses 2+ and symmetric in UE and LE b/l Lungs: normal respiratory effort, CTA b/l, no wheezing or rhonchi or rales Abd: soft, overweight, NT, ND, +BS, no hepatosplenomegaly MS: arthritis changes of spine - neck and lumbar areas Neuro: CN II-XII intact b/l,gait is slowed Skin: warm, dry, intact No edema, normal pulses ASSESSMENT/PLAN: 1. Chronic pain syndrome - ICD9: 338.4, ICD10: G89.4 (primary diagnosis) rx refilled- medication is helping with her ADLs and her IADLs D/w her again, that if she is interested, can consider seeing auto customize painter since I am not able to fully control or manage her pain. She isn't interested in this, at this time per patient. - GABAPENTIN 300 MG CAPSULE - TRAMADOL 50 MG TABLET 2. Osteoarthritis of spine with radiculopathy, lumbar region - ICD9: 721.3, ICD10: M47.26 rx refilled- medication is helping with her ADLs and her IADLs D/w her again, that if she is interested, can consider seeing auto customize painter since I am not able to fully control or manage her pain. She isn't interested in this, at this time per patient. - GABAPENTIN 300 MG CAPSULE - TRAMADOL 50 MG TABLET 3. Chronic midline low back pain with bilateral sciatica - ICD9: 724.2, 724.3, 338.29, ICD10: M54.41, M54.42, G89.29 rx refilled- medication is helping with her ADLs and her IADLs D/w her again, that if she is interested, can consider seeing auto customize painter since I am not able to fully control or manage her pain. She isn't interested in this, at this time per patient. - GABAPENTIN 300 MG CAPSULE - TRAMADOL 50 MG TABLET 4. Chronic bilateral thoracic back pain - ICD9: 724.1, 338.29, ICD10: M54.6, G89.29 rx refilled- medication is helping with her ADLs and her IADLs D/w her again, that if she is interested, can consider seeing auto customize painter since I am not able to fully control or manage her pain. She isn't interested in this, at this time per patient. - GABAPENTIN 300 MG CAPSULE - TRAMADOL 50 MG TABLET 5. Fibromyalgia - ICD9: 729.1, ICD10: M79.7 rx refilled- medication is helping with her ADLs and her IADLs D/w her again, that if she is interested, can consider seeing auto customize painter since I am not able to fully control or manage her pain. She isn't interested in this, at this time per patient. - GABAPENTIN 300 MG CAPSULE - TRAMADOL 50 MG TABLET 6. Restless leg - ICD9: 333.94, ICD10: G25.81 rx refilled- medication is helping with her ADLs and her IADLs D/w her again, that if she is interested, can consider seeing auto customize painter since I am not able to fully control or manage her pain. She isn't interested in this, at this time per patient. - GABAPENTIN 300 MG CAPSULE 7. Vitamin B12 deficiency - ICD9: 266.2, ICD10: E53.8 rx refilled- medication is helping with her ADLs and her IADLs D/w her again, that if she is interested, can consider seeing auto customize painter since I am not able to fully control or manage her pain. She isn't interested in this, at this time per patient. Continue supplement- recheck labs - GABAPENTIN 300 MG CAPSULE - VITAMIN B12 8. Low serum cortisol level - ICD9: 790.99, ICD10: R79.89 Recheck labs - CORTISOL, SERUM 9. Fatigue, unspecified type - ICD9: 780.79, ICD10: R53.83 Recheck labs - COMPREHENSIVE METABOLIC PANEL - CORTISOL, SERUM - COMPLETE BLOOD COUNT AND DIFFERENTIAL - THYROID STIMULATING HORMONE - VITAMIN D 25 HYDROXY - VITAMIN B12 10. Vitamin D deficiency - ICD9: 268.9, ICD10: E55.9 Continue supplement Recheck labs - VITAMIN D 25 HYDROXY Hong Matos DO PDMP website checked and validated. All prescriptions have been APPROPRIATELY filled. No suspicious activity was identified. 07/23/2024 by Hong Matos DO I spent 45 minutes in the visit, with more than 50% of the total [id number] time of the visit in counseling / coordination of care. Return if no improvement. Follow up with Hong Matos DO. To ER if develops chest pain, shortness of breath. Discussed risks, benefits, alternatives, and potential side effects of medications. Patient/Guardian expressed understanding and agreed with the plan. See patient instructions. Hong Matos DO [address] [place] [address] documented in this encounter [facility] 07-20-2024 Telephone encounter Note Patient calls with the name of medication that provider could not find during appointment. Patient asking for provider to send refills to [facility]. The patient has been identified by name and date of : Yes Caregiver verified no other encounters exist for this prescription request: Yes Caregiver confirmed with patient/requestor that no other refills are due, in the near future, with this provider at this time: Yes The last office visit in the department: 07/20/2024 Does the patient have a future office visit with this provider/department: Yes 10/20/2024 Requested Prescriptions Pending Prescriptions Disp Refills cephALEXin (KEFLEX) 500 mg capsule 40 capsule 1 Sig: Take 1 capsule by mouth four times daily for 10 days. Sharonda Crockett RN July 20, 2024 3:48 PM [facility] 07-20-2024 Miscellaneous Notes Patient calls with the name of medication that provider could not find during appointment. Patient asking for provider to send refills to [facility]. The patient has been identified by name and date of : Yes Caregiver verified no other encounters exist for this prescription request: Yes Caregiver confirmed with patient/requestor that no other refills are due, in the near future, with this provider at this time: Yes The last office visit in the department: 07/20/2024 Does the patient have a future office visit with this provider/department: Yes 10/20/2024 Requested Prescriptions Pending Prescriptions Disp Refills cephALEXin (KEFLEX) 500 mg capsule 40 capsule 1 Sig: Take 1 capsule by mouth four times daily for 10 days. Sharonda Crockett RN July 20, 2024 3:48 PM documented in this encounter [facility] 06-24-2024 Miscellaneous Notes Prescription Refill Information The patient has been identified by name and date of : Yes Caregiver verified no other encounters exist for this prescription request: Yes Caregiver confirmed with patient/requestor that no other refills are due, in the near future, with this provider at this time: Yes The last office visit in the department: 04/17/2024 Does the patient have a future office visit with this provider/department: Yes Requested Prescriptions Pending Prescriptions Disp Refills atorvastatin (LIPITOR) 10 mg tablet 90 tablet 1 Sig: Take 1 tablet by mouth daily at bedtime. For cholesterol. furosemide (LASIX) 20 mg tablet 90 tablet 1 Sig: TAKE 1 TABLET ONE TIME DAILY NEEDED FOR SWELLING/EDEMA Mami Rivera June 24, 2024 2:10 PM documented in this encounter [facility] 06-24-2024 Telephone encounter Note Prescription Refill Information The patient has been identified by name and date of : Yes Caregiver verified no other encounters exist for this prescription request: Yes Caregiver confirmed with patient/requestor that no other refills are due, in the near future, with this provider at this time: Yes The last office visit in the department: 04/17/2024 Does the patient have a future office visit with this provider/department: Yes Requested Prescriptions Pending Prescriptions Disp Refills atorvastatin (LIPITOR) 10 mg tablet 90 tablet 1 Sig: Take 1 tablet by mouth daily at bedtime. For cholesterol. furosemide (LASIX) 20 mg tablet 90 tablet 1 Sig: TAKE 1 TABLET ONE TIME DAILY NEEDED FOR SWELLING/EDEMA Mami Rivera June 24, 2024 2:10 PM [facility] 05-04-2024 Telephone encounter Note Pt. informed. [facility] Work Phone: 05-04-2024 Miscellaneous Notes Pt. informed. Please inform patient that her ACTH level is normal but her cortisol level is still somewhat low, but improved from previous. Need this to be rechecked again in 2-3 weeks between 7-9 am blood draw Hong Matos DO documented in this encounter [facility] 05-04-2024 Telephone encounter Note Please inform patient that her ACTH level is normal but her cortisol level is still somewhat low, but improved from previous. Need this to be rechecked again in 2-3 weeks between 7-9 am blood draw Hong Matos DO [facility] 04-28-2024 Telephone encounter Note Pt informed, verbalized understanding. Myla Tucker MA [facility] 04-28-2024 Miscellaneous Notes Pt informed, verbalized understanding. Myla Tucker MA Please inform patient that her recent labs overall looked great other than low cortisol levels. This needs to be rechecked as well as ACTH level needs to be checked Hong Matos DO documented in this encounter [facility] 04-28-2024 Telephone encounter Note Please inform patient that her recent labs overall looked great other than low cortisol levels. This needs to be rechecked as well as ACTH level needs to be checked Hong Matos DO [facility] 04-22-2024 Note HNO ID: [id number] Author: HONG MATOS DO Service: ? Author Type: Physician Type: Progress Notes Filed: 04/22/2024 21:29 Note Text: CC: Valencia Polo is a 69 year old female who presents to the office for follow up HPI: Seen in office last on 01/02/2023, at that time Chronic pain, has been taking her gabapentin as well as the Tramadol. Really not feeling that the tramadol is helping her pain symptoms, is interested in any other options to help with management of her chronic neck pain, chronic low back pain and chronic myalgia discomfort. Sometimes feels like it makes her overwhelmed and she will cry in the afternoon. Does feel the zoloft is helping mood but wondering if rx dosing needs adjusted. Lives alone in an apartment complex. No SI or HI. Does have support from her grown children. Knows she would benefit from a rollator walker. Sometimes struggles with her balance due to her arthritis HTN, stable, taking medications as prescribed Mood, still feels that she gets "antsy" and restless at times, mostly in the afternoon. Does feel that her zoloft is helping at 125 mg a day. No SI or HI. Does live alone and has been going to the local community center and doing chair exercise Sat, Sat and Saturday and also going to play bingo or do crafts there intermittently At follow up on 2023 Chronic pain, has been taking her gabapentin as well as the Tramadol. Really not feeling that the tramadol is helping her pain symptoms, is interested in any other options to help with management of her chronic neck pain, chronic low back pain and chronic myalgia discomfort. Sometimes feels like it makes her overwhelmed and she will cry in the afternoon. Does feel the zoloft is helping mood but wondering if rx dosing needs adjusted. Lives alone in an apartment complex. No SI or HI. Does have support from her grown children Mood, stable, no recent concerns, trying to be involved in the community areas around her home. At follow up on 09/06/2023 Chronic pain, has been taking her gabapentin 900 mg 3 times a day as well as the Tramadol. She now feels that the tramadol is helping her pain symptoms, she is trying to do walking and stretches to help with management of her chronic neck pain, chronic low back pain and chronic myalgia discomfort. Sometimes feels like it makes her overwhelmed and she will cry in the afternoon. Does feel the zoloft is helping mood but wondering if rx dosing needs adjusted. Lives alone in an apartment complex. No SI or HI. Does have support from her grown children Mood, stable, no recent concerns, trying to be involved in the community areas around her home. Taking zoloft as prescribed Does have pain in her legs with walking. No known hx of PAD but does feel sometimes her feet and lower legs are more cold than she would expect. At last OFFICE VISIT on 12/23/23 Chronic pain, has been taking her gabapentin 900 mg 3 times a day as well as the Tramadol. She now feels that the tramadol is helping her pain symptoms, she is trying to do walking and stretches to help with management of her chronic neck pain, chronic low back pain and chronic myalgia discomfort. she is still trying to do exercises she is able and stretches at least 3 days a week- knows that this benefits her even though it is uncomfortable for her to perform. Mood, Does feel the zoloft is helping mood but wondering if rx dosing needs adjusted. Lives alone in an apartment complex. No SI or HI. Does have support from her grown children + chronic fatigue, vitamin B12 deficiency, has been taking oral supplement but still struggling with fatigue Skin lesion / sore on buttock on right, has had this in the past about 2 years ago and resolved. Needing assessed again, it is sore. Chronic foot pain, soles of the feet, no obvious injuries, no swelling or skin changes. Currently Chronic pain, has been taking her gabapentin 900 mg 3 times a day as well as the Tramadol. She now feels that the tramadol is helping her pain symptoms, she is trying to do walking and stretches to help with management of her chronic neck pain, chronic low back pain and chronic myalgia discomfort. she is still trying to do exercises she is able and stretches at least 3 days a week [facility] for chair exercises- knows that this benefits her even though it is uncomfortable for her to perform. Mood, Does feel the zoloft is helping mood . No SI or HI. Does have support from her grown children + chronic fatigue, vitamin B12 deficiency, has been taking oral supplement but still struggling with fatigue. Muscle aches, joint pains She states that she is chronically sweating as well PAST MEDICAL HISTORY Diagnosis Date Chronic pain syndrome normal ESR, suspect fibromyalgia Depression Elevated cholesterol with high triglycerides Fibromyalgia GERD (gastroesophageal reflux disease) Hypertension Prediabetes RLS (more content not included)... [facility] 04-22-2024 History of Present illness Narrative CC: Valencia Polo is a 69 year old female who presents to the office for follow up HPI: Seen in office last on 01/02/2023, at that time Chronic pain, has been taking her gabapentin as well as the Tramadol. Really not feeling that the tramadol is helping her pain symptoms, is interested in any other options to help with management of her chronic neck pain, chronic low back pain and chronic myalgia discomfort. Sometimes feels like it makes her overwhelmed and she will cry in the afternoon. Does feel the zoloft is helping mood but wondering if rx dosing needs adjusted. Lives alone in an apartment complex. No SI or HI. Does have support from her grown children. Knows she would benefit from a rollator walker. Sometimes struggles with her balance due to her arthritis HTN, stable, taking medications as prescribed Mood, still feels that she gets "antsy" and restless at times, mostly in the afternoon. Does feel that her zoloft is helping at 125 mg a day. No SI or HI. Does live alone and has been going to the local [place] and doing chair exercise Sat, Sat and Saturday and also going to play bingo or do crafts there intermittently At follow up on 2023 Chronic pain, has been taking her gabapentin as well as the Tramadol. Really not feeling that the tramadol is helping her pain symptoms, is interested in any other options to help with management of her chronic neck pain, chronic low back pain and chronic myalgia discomfort. Sometimes feels like it makes her overwhelmed and she will cry in the afternoon. Does feel the zoloft is helping mood but wondering if rx dosing needs adjusted. Lives alone in an apartment complex. No SI or HI. Does have support from her grown children Mood, stable, no recent concerns, trying to be involved in the community areas around her home. At follow up on 09/06/2023 Chronic pain, has been taking her gabapentin 900 mg 3 times a day as well as the Tramadol. She now feels that the tramadol is helping her pain symptoms, she is trying to do walking and stretches to help with management of her chronic neck pain, chronic low back pain and chronic myalgia discomfort. Sometimes feels like it makes her overwhelmed and she will cry in the afternoon. Does feel the zoloft is helping mood but wondering if rx dosing needs adjusted. Lives alone in an apartment complex. No SI or HI. Does have support from her grown children Mood, stable, no recent concerns, trying to be involved in the community areas around her home. Taking zoloft as prescribed Does have pain in her legs with walking. No known hx of PAD but does feel sometimes her feet and lower legs are more cold than she would expect. At last OFFICE VISIT on 12/23/23 Chronic pain, has been taking her gabapentin 900 mg 3 times a day as well as the Tramadol. She now feels that the tramadol is helping her pain symptoms, she is trying to do walking and stretches to help with management of her chronic neck pain, chronic low back pain and chronic myalgia discomfort. she is still trying to do exercises she is able and stretches at least 3 days a week- knows that this benefits her even though it is uncomfortable for her to perform. Mood, Does feel the zoloft is helping mood but wondering if rx dosing needs adjusted. Lives alone in an apartment complex. No SI or HI. Does have support from her grown children + chronic fatigue, vitamin B12 deficiency, has been taking oral supplement but still struggling with fatigue Skin lesion / sore on buttock on right, has had this in the past about 2 years ago and resolved. Needing assessed again, it is sore. Chronic foot pain, soles of the feet, no obvious injuries, no swelling or skin changes. Currently Chronic pain, has been taking her gabapentin 900 mg 3 times a day as well as the Tramadol. She now feels that the tramadol is helping her pain symptoms, she is trying to do walking and stretches to help with management of her chronic neck pain, chronic low back pain and chronic myalgia discomfort. she is still trying to do exercises she is able and stretches at least 3 days a week at [facility] for chair exercises- knows that this benefits her even though it is uncomfortable for her to perform. Mood, Does feel the zoloft is helping mood . No SI or HI. Does have support from her grown children + chronic fatigue, vitamin B12 deficiency, has been taking oral supplement but still struggling with fatigue. Muscle aches, joint pains She states that she is chronically sweating as well PAST MEDICAL HISTORY Diagnosis Date Chronic pain syndrome normal ESR, suspect fibromyalgia Depression Elevated cholesterol with high triglycerides Fibromyalgia GERD (gastroesophageal reflux disease) Hypertension Prediabetes RLS (restless legs syndrome) PAST SURGICAL HISTORY Procedure Laterality Date HYSTERECTOMY HX 1989 ovaries removed PAST SURGICAL HISTORY OF gallbladder removal PAST SURGICAL HISTORY OF benign tumor removed from L shoulder blade Current Outpatient Medications Medication Sig gabapentin (NEURONTIN) 300 mg capsule Add to 600 mg capsule to total 900 mg 3 times a day for chronic pain gabapentin (NEURONTIN) 600 mg tablet Take 1 tablet by mouth three times a day for 90 days. traMADol (ULTRAM) 50 mg tablet Take 2 every 8 hours as needed sertraline (ZOLOFT) 50 mg tablet Take 1 tablet by mouth once daily. Add to 100 mg to total 150 mg a day atorvastatin (LIPITOR) 10 mg tablet Take 1 tablet by mouth daily at bedtime. For cholesterol. sertraline (ZOLOFT) 100 mg tablet Take 1 tablet by mouth daily at bedtime. Take with 25 mg tablet to total 125 mg a day cyanocobalamin 1,000 mcg/mL Inject 1 mL intramuscularly every 2 weeks. Vitamin B12 deficiency Syringe with Needle, Disp, 1 mL 25 gauge x 1" syrg 1 Syringe as directed. Vitamin b12 deficiency lisinopril (ZESTRIL) 10 mg tablet Take 1 tablet by mouth once daily. furosemide (LASIX) 20 mg tablet TAKE 1 TABLET ONE TIME DAILY NEEDED FOR SWELLING/EDEMA rosuvastatin (CRESTOR) 10 mg tablet Take 1 tablet by mouth daily at bedtime. WALKER ROLLATOR SEAT WITH 6" WHEELS - RED Dx: low back pain, lumbar DDD, lumbar DJD,balance disorder vitamin B complex (B COMPLEX-100 ORAL) Take by mouth. Magnesium 250 mg tab Take 250 mg by mouth twice daily. estradiol (ESTRACE) 0.01 % (0.1 mg/gram) vaginal cream Finger-tip amount each night applied as directed in instructions phenazopyridine (PYRIDIUM) 200 mg tablet Take 1 tablet by mouth three times daily as needed. triamcinolone acetonide (KENALOG) 0.5 % cream Apply to affected area twice daily. Cholecalciferol, Vitamin D3, 5,000 unit cap Take 1 capsule by mouth once daily. MULTIVITAMIN ORAL Take by mouth. No current facility-administered medications for this visit. ALLERGIES Allergen Reactions [place] [Hydrocodone-* Hives Social History Tobacco Use Smoking status: Former Smokeless tobacco: Never Substance Use Topics Alcohol use: Not Currently Drug use: No ROS: See HPI. PE: BP 100/60 Pulse 80 Temp (Src) 97.3 (Left Tympanic) Resp 16 Wt 193 lb (87.5kg) Gen: A&O, NAD, non-toxic appearing, hard of hearing, cooperative HEENT: NT/AC, PERRLA, EOMs intact b/l, sinus TTP frontal and maxillary, nares clear and patent b/l, pharynx without erythema, exudate or lesions. MMM, Uvula midline. EACs without erythema or debris. Neck: supple, No cervical LAD, no thyromegaly, no carotid bruits, significant ROM decrease in rotation and Flexion and extension due to arthritis CV: RRR, normal S1 and S2, no murmurs, no gallops, no rubs, Pulses 2+ and symmetric in UE and LE b/l Lungs: normal respiratory effort, CTA b/l, no wheezing or rhonchi or rales Abd: soft, overweight, NT, ND, +BS, no hepatosplenomegaly MS: arthritis changes of spine - neck and lumbar areas Neuro: CN II-XII intact b/l,gait is slowed Skin: warm, dry, intact No edema, normal pulses ASSESSMENT/PLAN: 1. Chronic midline low back pain with bilateral sciatica - ICD9: 724.2, 724.3, 338.29, ICD10: M54.41, M54.42, G89.29 (primary diagnosis) Chronic low back pain - Ice for localized tenderness - Warm moist heat for 20 min three times a day - continue same medications- helping with ADLs and IADLs - GABAPENTIN 300 MG CAPSULE - TRAMADOL 50 MG TABLET - PROTEIN ELECTROPHORESIS SERUM W/INTERP 2. Osteoarthritis of spine with radiculopathy, lumbar region - ICD9: 721.3, ICD10: M47.26 Chronic low back pain - Ice for localized tenderness - Warm moist heat for 20 min three times a day - continue same medications- helping with ADLs and IADLs - GABAPENTIN 300 MG CAPSULE - TRAMADOL 50 MG TABLET - PROTEIN ELECTROPHORESIS SERUM W/INTERP 3. Chronic pain syndrome - ICD9: 338.4, ICD10: G89.4 Chronic low back pain - Ice for localized tenderness - Warm moist heat for 20 min three times a day - continue same medications- helping with ADLs and IADLs - GABAPENTIN 300 MG CAPSULE - TRAMADOL 50 MG TABLET - PROTEIN ELECTROPHORESIS SERUM W/INTERP 4. Chronic bilateral thoracic back pain - ICD9: 724.1, 338.29, ICD10: M54.6, G89.29 Chronic low back pain - Ice for localized tenderness - Warm moist heat for 20 min three times a day - continue same medications- helping with ADLs and IADLs - GABAPENTIN 300 MG CAPSULE - TRAMADOL 50 MG TABLET 5. Fibromyalgia - ICD9: 729.1, ICD10: M79.7 Chronic low back pain - Ice for localized tenderness - Warm moist heat for 20 min three times a day - continue same medications- helping with ADLs and IADLs - GABAPENTIN 300 MG CAPSULE - TRAMADOL 50 MG TABLET - CREATINE KINASE/CK 6. Restless leg - ICD9: 333.94, ICD10: G25.81 Chronic low back pain - Ice for localized tenderness - Warm moist heat for 20 min three times a day - continue same medications- helping with ADLs and IADLs - GABAPENTIN 300 MG CAPSULE - CREATINE KINASE/CK 7. Vitamin B12 deficiency - ICD9: 266.2, ICD10: E53.8 Continue vitamin b12 injections for fatigue and symptoms - GABAPENTIN 300 MG CAPSULE 8. Sweating increase - ICD9: 780.8, ICD10: R61 Unsure cause, f/u with [facility] regarding potential post menopausal HRT? 9. Fatigue, unspecified type - ICD9: 780.79, ICD10: R53.83 Check labs as ordered, likely multifactorial - PTH INTACT - CORTISOL, SERUM 10. Hypercalcemia - ICD9: 275.42, ICD10: E83.52 Recheck labs - COMPLETE BLOOD COUNT AND DIFFERENTIAL - COMPREHENSIVE METABOLIC PANEL 11. Borderline abnormal thyroid function test - ICD9: 794.5, ICD10: R94.6 - check labs. - THYROID STIMULATING HORMONE - T4 FREE/FREE THYROXINE - T3, FREE 12. IFG (impaired fasting glucose) - ICD9: 790.21, ICD10: R73.01 - HEMOGLOBIN A1C 13. PAD (peripheral artery disease) (HCC) - ICD9: 443.9, ICD10: I73.9 14. Body mass index (BMI) 45.0-49.9, adult (HCC) - ICD9: V85.42, ICD10: Z68.42 Weight increasing - Behavioral intervention and - Eat well program Hong Matos DO Return if no improvement. Follow up with Hong Matos DO. To ER if develops chest pain, shortness of breath. Discussed risks, benefits, alternatives, and potential side effects of medications. Patient/Guardian expressed understanding and agreed with the plan. See patient instructions. Hong Matos DO [address] [place] [address] documented in this encounter [facility] 04-17-2024 Instructions Hong Matos DO - 04/17/2024 12:17 PM EDT Okay to hold the Vitamin B12 injections Continue to take daily 1000 mcg of vitamin B12 pill Okay to hold LASIX (furosemide) if you aren't having any swelling. Only take this as needed when legs are swelling BLOOD PRESSURE goal is 130/80s or less. Okay to stop the lisinopril medication documented in this encounter [facility] 01-10-2024 Instructions Cornelius Carranza - 01/10/2024 9:49 AM EST Powerstep Original Full length. Can purchase at [employer] and boots,shoes and more here in [place], [employer] in [place] or [place]. Also can find in [place] in [facility]. Powersteps can also be purchased online, starting around $45.00 If you have a metatarsal or dancer pad for your feet apply the pad directly to the insole so you can interchange between your shoes. Find a shoe with a removable insole and take this out and replace with your powerstep insole. Always bring powersteps with you when shopping for shoes so that you can make sure that everything fits well together Would alter the laces in your shoes such that they do not place pressure on the top of your foot If pain fails to improve, next step would be to administer an xray guided injection documented in this encounter [facility] 01-10-2024 History of Present illness Narrative Images from the original note were not included. Consultation requested by Dr. Matos for an opinion regarding b/l foot pain. My final recommendations will be communicated back to the requesting physician by way of shared Medical record or letter to requesting physician via US mail. Initial Podiatric Office Visit: Chief Complaint: This 68 year old female who presents with chief complaint:b/l foot pain HPI Patient presents to clinic for initial evaluation of b/l feet. Patient has pain to b/l feet that has been present for 4 years. She states the pain in both feet is all over, worse when she has been on her foot for long duration. She did have circulation studies done and her circulation was normal. She does take neurontin and tramadol and that does provide some relief. PAIN EVALUATION 01/10/2024 0914 Pain Level: 5 Pain Location: Other: See Comment bilateral feet Description: Sharp;Tightness Duration Units: Months Frequency: Continuous Intervention/Comfort measure: Reposition;Relaxation;Medication Hemoglobin A1C (%) Date Value 12/23/2023 5.4 05/28/2023 5.2 03/13/2022 5.6 08/02/2021 5.8 02/20/2021 6.0 04/11/2019 5.7 HBA1C, [place] (%) Date Value 11/07/2010 5.4 07/25/2010 5.8 PCP: Hong Matos, DO PAST MEDICAL HISTORY Diagnosis Date Chronic pain syndrome normal ESR, suspect fibromyalgia Depression Elevated cholesterol with high triglycerides Fibromyalgia GERD (gastroesophageal reflux disease) Hypertension Prediabetes RLS (restless legs syndrome) Current Outpatient Medications Medication Sig atorvastatin (LIPITOR) 10 mg tablet Take 1 tablet by mouth daily at bedtime. For cholesterol. gabapentin (NEURONTIN) 300 mg capsule Add to 600 mg capsule to total 900 mg 3 times a day for chronic pain gabapentin (NEURONTIN) 600 mg tablet Take 1 tablet by mouth three times a day for 90 days. sertraline (ZOLOFT) 50 mg tablet Take 1 tablet by mouth once daily. Add to 100 mg to total 150 mg a day sertraline (ZOLOFT) 100 mg tablet Take 1 tablet by mouth daily at bedtime. Take with 25 mg tablet to total 125 mg a day traMADol (ULTRAM) 50 mg tablet Take 2 every 8 hours as needed nystatin (MYCOSTATIN) ointment Apply to affected area two times a day. On sore on gluteal cyanocobalamin 1,000 mcg/mL Inject 1 mL intramuscularly every 2 weeks. Vitamin B12 deficiency Syringe with Needle, Disp, 1 mL 25 gauge x 1" syrg 1 Syringe as directed. Vitamin b12 deficiency lisinopril (ZESTRIL) 10 mg tablet Take 1 tablet by mouth once daily. furosemide (LASIX) 20 mg tablet TAKE 1 TABLET ONE TIME DAILY NEEDED FOR SWELLING/EDEMA WALKER ROLLATOR SEAT WITH 6" WHEELS - RED Dx: low back pain, lumbar DDD, lumbar DJD,balance disorder vitamin B complex (B COMPLEX-100 ORAL) Take by mouth. Magnesium 250 mg tab Take 250 mg by mouth twice daily. estradiol (ESTRACE) 0.01 % (0.1 mg/gram) vaginal cream Finger-tip amount each night applied as directed in instructions phenazopyridine (PYRIDIUM) 200 mg tablet Take 1 tablet by mouth three times daily as needed. triamcinolone acetonide (KENALOG) 0.5 % cream Apply to affected area twice daily. Cholecalciferol, Vitamin D3, 5,000 unit cap Take 1 capsule by mouth once daily. MULTIVITAMIN ORAL Take by mouth. rosuvastatin (CRESTOR) 10 mg tablet Take 1 tablet by mouth daily at bedtime. bismuth subsalicylate (PEPTO-BISMOL) 262 mg chew Take 1 tablet by mouth four times daily for 14 days. Current Facility-Administered Medications Medication Dose Route Frequency cyanocobalamin 1,000 mcg injection 1,000 mcg INTRAMUSCULAR q 4 WEEKS ALLERGIES Allergen Reactions Upper [place] [Hydrocodone-* Hives PAST SURGICAL HISTORY Procedure Laterality Date HYSTERECTOMY HX 1989 ovaries removed PAST SURGICAL HISTORY OF gallbladder removal PAST SURGICAL HISTORY OF benign tumor removed from L shoulder blade FAMILY HISTORY Problem Relation Age of Onset Cancer Mother esophagus other (angina) Mother other (angina) Father Social History Tobacco Use Smoking status: Former Smokeless tobacco: Never Substance Use Topics Alcohol use: Not Currently Drug use: No REVIEW OF SYSTEMS GENERAL: Negative for Malaise, significant weight loss, fever RESPIRATORY: Negative for cough, wheezing and shortness of breath CARDIOVASCULAR: Negative for chest pain, leg swelling and palpitations GI: Negative for abdominal discomfort, blood in stools or black stools and change in bowel habits : Negative for dysuria, frequency and incontinence MUSCULOSKELETAL: Negative for joint pain or swelling, back pain, and muscle pain. SKIN: Negative for lesions, rash, and itching. HEMATOLOGY/LYMPHOLOGY Negative for prolonged bleeding, bruising easily, and swollen nodes. ENDOCRINE: Negative for cold or heat intolerance, polyuria, polydipsia and goiter. NEURO: negative Physical Exam: Constitutional: Pt is a well developed 68 year old female who is alert, oriented and cooperative Eyes: Following during examination. No redness or drainage. Respiratory: RR normal and nonlabored. Even breathing. No evidence of distress or shortness of breath. Psychology: Patient is engaged during conversation. Normal affect and mood. Does not appear depressed or anxious during encounter. Vascular: Dorsalis pedis and posterior tibial pulses palpable as b/l Capillary Fill time < 5 seconds to digits 1-5 b/l Skin temperature warm to warm proximal to distal b/l Hair growth present to digits Neurological: intact light touch/epicritic sensation b/l intact protective sensation no significant neurological deficits Dermatological: Nails 1-5 b/l appear normal. Webspaces clean and dry 1-4 b/l. Skin appears well hydrated and supple. good color, texture, turgor. No open lesions present. No callosities present. Musculoskeletal/Orthopaedic: Patient has pain to palpation of b/l midfoot Foot type is skewfoot structurally AJ ROM is full with knee extended and flexed 1st MPJ is decreased when loaded and no pain or crepitus are noted with ROM. MTJ, STJ are full and free of pain and crepitus. 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 History and physical examination performed. 2. XR reviewed with patient and interpreted today. Suspect component of midfoot arthritis. 3. Would recommend she get more supportive shoes as the current shoes she is wearing is not very supportive 4. Would try gel inserts for better support 5. If pain fails to improve, would consider xray guided injection Cornelius Carranza DPM Podiatry [address] [facility] [address] Dept: [phone] Dept AMB ROOMING INTAKE FLOWSHEET DATA Pain Pain Level: 5 Pain Location: Other: See Comment (bilateral feet) Description: Sharp, Tightness Duration Units: Months Frequency: Continuous Intervention/Comfort measure: Reposition, Relaxation, Medication Patient presents with: Left Foot - New, Pain, Swelling Right Foot - New, Pain, Swelling Lorena Plaza LPN documented in this encounter [facility] 11-20-2023 Miscellaneous Notes Pt notified of such. Short term dose sent locally. PDMP website checked and validated. All prescriptions have been APPROPRIATELY filled. No suspicious activity was identified. 11/20/2023 by Nisa Rocha APRN.CARE MANAGEMENT SPECIALIST The following approved medication requests have been transmitted electronically. Requested Prescriptions Signed Prescriptions Disp Refills traMADol (ULTRAM) 50 mg tablet 30 tablet 0 Sig: Take 2 tablets by mouth every 8 hours as needed for pain for up to 5 days. Authorizing Provider: NISA ROCHA APRN.CNP Patient calling having problem with Tramadol rx with [facility] pharmacy not processing rx until 11/22/2023. She will not get in the mail for another 7 to 10 days. Patient is out of Tramadol and asking for rx to go locally to [facility] pharmacy please. Please advise documented in this encounter [facility] 11-13-2023 Miscellaneous Notes Spoke with pt and information listed below given. Pt verbalizes understanding. Gina Humphries LPN Short term sent to local pharmacy. New rx for monthly sent to [facility]. I am not sure the mix up with why rx said that. I apologize. The following approved medication requests have been transmitted electronically. Requested Prescriptions Signed Prescriptions Disp Refills traMADol (ULTRAM) 50 mg tablet 30 tablet 0 Sig: Take 2 tablets by mouth every 8 hours as needed for pain for up to 5 days. Authorizing Provider: NISA ROCHA APRN.CNP PDMP website checked and validated. All prescriptions have been APPROPRIATELY filled. No suspicious activity was identified. 11/13/2023 by Nisa Rocha APRN.EVELYN Pt calls advising she saw Nisa on 11/06 and that [facility] was agreeable to refill her tramadol. Pt states she is out of tramadol. Nisa sent in short term 5 day supply to [facility] for pt until rx came from [facility]. Pt has not gotten rx and called [facility] to check on this. They advised her rx states to not start before 11/22. Pt is upset and not sure why rx was written this way. Pt states [facility] advises that office would need to call them with VO to refill early or provider would need to send in new rx. Pt states she is completely out of this and that it helps with her restless leg syndrome. States she did not have any last night and it was a very bad night last night. Pt will still need short term supply sent to [facility] until she is able to get rx from [facility]. Please return call to pt to let her know what provider did regarding this. Advises someone from [facility] is going to call her back at 1 pm to see what she has heard from office regarding this. Noelle Garcia LPN documented in this encounter [facility] 11-12-2023 History of Present illness Narrative Patient presents for B-12 injection. Denies any problems at this time. Patient instructed on any SE of medication, verbalized understanding and agreed to proceed with treatment. Tolerated injection well. Nida Hedrick LPN documented in this encounter [facility] 11-07-2023 Miscellaneous Notes Phoned patient and aware rx sent to pharmacy. The following approved medication requests have been transmitted electronically. Requested Prescriptions Signed Prescriptions Disp Refills azithromycin (ZITHROMAX Z-VAN) 250 mg tablet 6 tablet 0 Sig: Take 2 tablets day one, then, 1 tablet daily until gone. Authorizing Provider: NISA ROCHA APRN.EVELYN Spoke with pt gave information provided. She voices understanding. She said was told if this was negative would call in atb. She uses [facility] in [place]. Please call patient and let her know that COVID/flu/RSV were all negative. Let me know if no improvement in symptoms within 3-5 days. Thank you, Nisa Rocha APRN.CARE MANAGEMENT SPECIALIST documented in this encounter [facility] 11-06-2023 Miscellaneous Notes rx sent in by Nisa Matos DO SINDHU 09/06/23 NOV 11/06/23 Marta So MA Valencia is calling Hong Matos DO today to request another 30 day RX to go to local pharmacy-[facility] and a 90 day with refills to mail order [facility]-- Tramadol this medication does not appear on current medication list for ordering. Tramadol 50 MG tablet taking two tablets by mouth every 8 hours which equals per patient is 4 daily # 120 please send this to [facility] Then: Tramadol 50 mg #180 with 0 refills to [facility] Mail order Please call patient with any questions. Also note patient is completely out of this medication Patient has been identified by name and birthdate. Duration of symptoms: N/A Person calling: self Call patient at: at home [phone] (home) [phone] (cell) Was an appointment scheduled: No Closing statement: Results or non-symptom based questions: Thank you for calling [facility], your call will be returned within the next business day. Radha Stearns documented in this encounter [facility] 11-06-2023 History of Present illness Narrative Chief Complaint Patient presents with: restless leg syndrom: Started Saturday at 4pm and has not stopped all day long HPI Valencia Polo is a 68 year old female who presents here today for Above Complaints. Valencia is an established patient of Dr. Carlo DO and myself. Concerns today... RLS -- Saturday afternoon started with severe restless leg symptoms constantly since. To bilateral arms and legs. Nonstop aching and pain sensation. Pain worse with walking. Hx of chronic back pain, leg pain and myalgia pain. Taking gabapentin 900 mg BID (prescribed TID but tries to save the 3rd dose per day to only when needed with flares). Pt also prescribed tramadol that she thinks really helps these symptoms. Has ran out of tramadol and has been unable to get refill yet. PVR testing on 10/01/23 was both normal. Pt also reports episodes of sinus pressure, cough, ear pressure, diarrhea, and upset stomach that started yesterday. Reports body aches, hot flashes, and chills as well. Had sinus congestion and headaches about 1-2 weeks ago that seemed to be improving on own but now worse today again. Was taking otc flonase and Claritin 1-2 weeks ago for these symptoms with some relief. Wondering if taking these medications flared up her RLS and chronic pain. Past medical history, appointments, medications, allergies reviewed. Previous Medical History PAST MEDICAL HISTORY Diagnosis Date Chronic pain syndrome normal ESR, suspect fibromyalgia Depression Elevated cholesterol with high triglycerides Fibromyalgia GERD (gastroesophageal reflux disease) Hypertension Prediabetes RLS (restless legs syndrome) Previous Surgical History PAST SURGICAL HISTORY Procedure Laterality Date HYSTERECTOMY HX 1989 ovaries removed PAST SURGICAL HISTORY OF gallbladder removal PAST SURGICAL HISTORY OF benign tumor removed from L shoulder blade Family History FAMILY HISTORY Problem Relation Age of Onset Cancer Mother esophagus other (angina) Mother other (angina) Father Patient Allergies ALLERGIES Allergen Reactions [place] [Hydrocodone-* Hives Current Medications Current Outpatient Medications on File Prior to Visit Medication Sig gabapentin (NEURONTIN) 300 mg capsule Add to 600 mg capsule to total 900 mg 3 times a day for chronic pain gabapentin (NEURONTIN) 600 mg tablet Take 1 tablet by mouth three times a day for 90 days. lisinopril (ZESTRIL) 10 mg tablet Take 1 tablet by mouth once daily. sertraline (ZOLOFT) 50 mg tablet Take 1 tablet by mouth once daily. Add to 100 mg to total 150 mg a day furosemide (LASIX) 20 mg tablet TAKE 1 TABLET ONE TIME DAILY NEEDED FOR SWELLING/EDEMA sertraline (ZOLOFT) 100 mg tablet Take 1 tablet by mouth daily at bedtime. Take with 25 mg tablet to total 125 mg a day WALKER ROLLATOR SEAT WITH 6" WHEELS - RED Dx: low back pain, lumbar DDD, lumbar DJD,balance disorder vitamin B complex (B COMPLEX-100 ORAL) Take by mouth. Magnesium 250 mg tab Take 250 mg by mouth twice daily. Cholecalciferol, Vitamin D3, 5,000 unit cap Take 1 capsule by mouth once daily. MULTIVITAMIN ORAL Take by mouth. rosuvastatin (CRESTOR) 10 mg tablet Take 1 tablet by mouth daily at bedtime. estradiol (ESTRACE) 0.01 % (0.1 mg/gram) vaginal cream Finger-tip amount each night applied as directed in instructions (Patient not taking: Reported on 11/06/2023) phenazopyridine (PYRIDIUM) 200 mg tablet Take 1 tablet by mouth three times daily as needed. (Patient not taking: Reported on 09/06/2023) triamcinolone acetonide (KENALOG) 0.5 % cream Apply to affected area twice daily. (Patient not taking: Reported on 09/06/2023) bismuth subsalicylate (PEPTO-BISMOL) 262 mg chew Take 1 tablet by mouth four times daily for 14 days. [DISCONTINUED] clobetasol (TEMOVATE) 0.05 % ointment Apply 1 application to affected area twice daily. Current Facility-Administered Medications on File Prior to Visit Medication cyanocobalamin 1,000 mcg injection Social History Social History Tobacco Use Smoking status: Former Smokeless tobacco: Never Substance Use Topics Alcohol use: Not Currently Drug use: No REVIEW OF SYSTEMS: as above Reviewed relevant PMHx, PSHx, Social Hx, current medications and allergies. Review of Symptoms REVIEW OF SYSTEMS See HPI. EXAM: BP 120/80 (BP Site: Left Arm, BP Position: Sitting, BP Cuff Size: Regular Adult) Pulse 62 Resp 14 Wt 83 kg (183 lb) BMI 34.02 kg/m General Appearance: Well appearing, alert, in no acute distress, well-hydrated, well nourished.. Skin: Skin color, texture, turgor normal, no suspicious rashes or lesions. Head: Normocephalic, no masses, lesions, tenderness or abnormalities. Eyes: Anicteric sclera. Pupils are equally round and reactive to light. Extraocular movements are intact. . Ears: External ears normal, canals clear, Positive findings: R TM: bulging, L TM: bulging. Nose/Sinuses: Nares normal, septum midline, mucosa normal, no drainage or sinus tenderness. Oropharynx: Lips, mucosa, and tongue normal, teeth and gums normal, oropharynx normal and Positive findings: post nasal drip. Lungs: Lungs clear to auscultation. No wheezing, rhonchi, rales.. Heart: RRR without murmur, gallop, or rubs. No ectopy. Extremities: No deformities, edema, skin discoloration, clubbing or cyanosis. Good capillary refill. . Peripheral Pulses: Normal. Health Maintenance List RSV Vaccine(1 - 1-dose 60+ series) Never done Covid-19 Vaccine(1) due on 01/02/2024 Influenza Vaccine(1) due on 05/31/2024 DTaP,Tdap,Td Vaccine(1 - Tdap) due on 08/12/2024 Shingrix Vaccine(1 of 2) due on 08/12/2024 Diabetes Screening due on 05/28/2026 Lipid Screening due on 05/28/2028 Hepatitis C Screening Completed Bone Density Screening Addressed Mammogram Screening Discontinued Colorectal Cancer Screening Discontinued Advance Directive Discussion Discontinued Pneumococcal Vaccine: 65+ Discontinued ASSESSMENT/PLAN: 1. Body aches - ICD9: 780.96, ICD10: R52 (primary diagnosis) Covid/flu/rsv testing. If no improvement by Saturday, may consider antibiotic due to symptoms 1-2 weeks ago. - COVID & INFLUENZA A/B & RSV NAAT, ROUTINE 2. Osteoarthritis of spine with radiculopathy, lumbar region - ICD9: 721.3, ICD10: M47.26 Refilled tramadol. Take gabapentin as prescribed TID to help current flare in symptoms. - TRAMADOL 50 MG TABLET Short term rx sent local. Monthly rx sent to mail service. PDMP website checked and validated. All prescriptions have been APPROPRIATELY filled. No suspicious activity was identified. 11/06/2023 by Nisa Rocha APRN.CARE MANAGEMENT SPECIALIST 3. Chronic midline low back pain with bilateral sciatica - ICD9: 724.2, 724.3, 338.29, ICD10: M54.41, M54.42, G89.29 Refilled tramadol. Take gabapentin as prescribed TID to help current flare in symptoms. - TRAMADOL 50 MG TABLET 4. Chronic pain syndrome - ICD9: 338.4, ICD10: G89.4 Refilled tramadol. Take gabapentin as prescribed TID to help current flare in symptoms. - TRAMADOL 50 MG TABLET 5. Chronic bilateral thoracic back pain - ICD9: 724.1, 338.29, ICD10: M54.6, G89.29 Refilled tramadol. Take gabapentin as prescribed TID to help current flare in symptoms. - TRAMADOL 50 MG TABLET - TRAMADOL 50 MG TABLET 6. Fibromyalgia - ICD9: 729.1, ICD10: M79.7 Refilled tramadol. Take gabapentin as prescribed TID to help current flare in symptoms. - TRAMADOL 50 MG TABLET - TRAMADOL 50 MG TABLET 7. Restless leg - ICD9: 333.94, ICD10: G25.81 Refilled tramadol. Take gabapentin as prescribed TID to help current flare in symptoms. - TRAMADOL 50 MG TABLET 8. Diarrhea, unspecified type - ICD9: 787.91, ICD10: R19.7 Covid/flu/rsv testing. If no improvement by Saturday, may consider antibiotic due to symptoms 1-2 weeks ago. - COVID & INFLUENZA A/B & RSV NAAT, ROUTINE RTO as scheduled, sooner if needed. Prescription instructions reviewed with patient as applicable. Potential red flag symptoms discussed with the patient. Reviewed appropriate action plan to take if red flag symptoms occur. Patient agreeable to treatment plan. Nisa Olson APRN.CARE MANAGEMENT SPECIALIST [address] [place] [address] documented in this encounter [facility] 10-25-2023 Miscellaneous Notes Pt informed script sent to pharmacy. Myla Tucker ma The following approved medication requests have been transmitted electronically. Requested Prescriptions Signed Prescriptions Disp Refills traMADol (ULTRAM) 50 mg tablet 30 tablet 0 Sig: Take 2 tablets by mouth every 8 hours as needed for pain for up to 5 days. Authorizing Provider: PETTY MENDENHALL APRN.CNP PDMP website checked and validated. All prescriptions have been APPROPRIATELY filled. No suspicious activity was identified. 10/25/2023 by Petty Mendenhall CNP. Patient needs a bridge amount sent to [facility] until she receives her mail order from [facility], as she will be out as of Saturday. Please call when the bridge amount is sent. She is also asking if refills can be added until she is seen so she does not run into this again next month. Patient has been identified by name and date of : Yes Requested Prescriptions Pending Prescriptions Disp Refills traMADol (ULTRAM) 50 mg tablet 180 tablet 0 Sig: Take 2 every 8 hours as needed RX INSTRUCTIONS: Patient requesting a call when RX is approved and sent to the pharmacy. Please call patient. Frida Jones documented in this encounter [facility] 10-15-2023 History of Present illness Narrative Patient presents for B-12 injection. Denies any problems at this time. Patient instructed on any SE of medication, verbalized understanding and agreed to proceed with treatment. Tolerated injection well. Nida Hedrick LPN documented in this encounter [facility] 09-17-2023 History of Present illness Narrative Patient presents for B-12 injection. Denies any problems at this time. Patient instructed on any SE of medication, verbalized understanding and agreed to proceed with treatment. Tolerated injection well. Nida Hedrick LPN documented in this encounter [facility] 09-12-2023 History of Present illness Narrative CC: Valencia Polo is a 68 year old female who presents to the office for follow up HPI: Seen in office last on 01/02/2023, at that time Chronic pain, has been taking her gabapentin as well as the Tramadol. Really not feeling that the tramadol is helping her pain symptoms, is interested in any other options to help with management of her chronic neck pain, chronic low back pain and chronic myalgia discomfort. Sometimes feels like it makes her overwhelmed and she will cry in the afternoon. Does feel the zoloft is helping mood but wondering if rx dosing needs adjusted. Lives alone in an apartment complex. No SI or HI. Does have support from her grown children. Knows she would benefit from a rollator walker. Sometimes struggles with her balance due to her arthritis HTN, stable, taking medications as prescribed Mood, still feels that she gets "antsy" and restless at times, mostly in the afternoon. Does feel that her zoloft is helping at 125 mg a day. No SI or HI. Does live alone and has been going to the local community center and doing chair exercise Sat, Sat and Saturday and also going to play bingo or do crafts there intermittently At follow up on 2023 Chronic pain, has been taking her gabapentin as well as the Tramadol. Really not feeling that the tramadol is helping her pain symptoms, is interested in any other options to help with management of her chronic neck pain, chronic low back pain and chronic myalgia discomfort. Sometimes feels like it makes her overwhelmed and she will cry in the afternoon. Does feel the zoloft is helping mood but wondering if rx dosing needs adjusted. Lives alone in an apartment complex. No SI or HI. Does have support from her grown children Mood, stable, no recent concerns, trying to be involved in the community areas around her home. Currently Chronic pain, has been taking her gabapentin 900 mg 3 times a day as well as the Tramadol. She now feels that the tramadol is helping her pain symptoms, she is trying to do walking and stretches to help with management of her chronic neck pain, chronic low back pain and chronic myalgia discomfort. Sometimes feels like it makes her overwhelmed and she will cry in the afternoon. Does feel the zoloft is helping mood but wondering if rx dosing needs adjusted. Lives alone in an apartment complex. No SI or HI. Does have support from her grown children Mood, stable, no recent concerns, trying to be involved in the community areas around her home. Taking zoloft as prescribed Does have pain in her legs with walking. No known hx of PAD but does feel sometimes her feet and lower legs are more cold than she would expect. PAST MEDICAL HISTORY Diagnosis Date Chronic pain syndrome normal ESR, suspect fibromyalgia Depression Elevated cholesterol with high triglycerides Fibromyalgia GERD (gastroesophageal reflux disease) Hypertension Prediabetes RLS (restless legs syndrome) PAST SURGICAL HISTORY Procedure Laterality Date HYSTERECTOMY HX 1989 ovaries removed PAST SURGICAL HISTORY OF gallbladder removal PAST SURGICAL HISTORY OF benign tumor removed from L shoulder blade Current Outpatient Medications Medication Sig bismuth subsalicylate (PEPTO-BISMOL) 262 mg chew Take 1 tablet by mouth four times daily for 14 days. Cholecalciferol, Vitamin D3, 5,000 unit cap Take 1 capsule by mouth once daily. estradiol (ESTRACE) 0.01 % (0.1 mg/gram) vaginal cream Finger-tip amount each night applied as directed in instructions furosemide (LASIX) 20 mg tablet TAKE 1 TABLET ONE TIME DAILY NEEDED FOR SWELLING/EDEMA gabapentin (NEURONTIN) 300 mg capsule Add to 600 mg capsule to total 900 mg 3 times a day for chronic pain gabapentin (NEURONTIN) 600 mg tablet Take 1 tablet by mouth three times a day for 90 days. lisinopril (ZESTRIL) 10 mg tablet Take 1 tablet by mouth once daily. Magnesium 250 mg tab Take 250 mg by mouth twice daily. MULTIVITAMIN ORAL Take by mouth. phenazopyridine (PYRIDIUM) 200 mg tablet Take 1 tablet by mouth three times daily as needed. (Patient not taking: Reported on 09/06/2023) rosuvastatin (CRESTOR) 10 mg tablet Take 1 tablet by mouth daily at bedtime. sertraline (ZOLOFT) 100 mg tablet Take 1 tablet by mouth daily at bedtime. Take with 25 mg tablet to total 125 mg a day sertraline (ZOLOFT) 50 mg tablet Take 1 tablet by mouth once daily. Add to 100 mg to total 150 mg a day traMADol (ULTRAM) 50 mg tablet Take 2 every 8 hours as needed traMADol (ULTRAM) 50 mg tablet Take 2 tablets by mouth every 8 hours as needed for pain for up to 7 days. triamcinolone acetonide (KENALOG) 0.5 % cream Apply to affected area twice daily. (Patient not taking: Reported on 09/06/2023) vitamin B complex (B COMPLEX-100 ORAL) Take by mouth. WALKER ROLLATOR SEAT WITH 6" WHEELS - RED Dx: low back pain, lumbar DDD, lumbar DJD,balance disorder Current Facility-Administered Medications Medication Dose Route Frequency cyanocobalamin 1,000 mcg injection 1,000 mcg INTRAMUSCULAR q 4 WEEKS ALLERGIES Allergen Reactions [place] [Hydrocodone-* Hives Social History Tobacco Use Smoking status: Former Smokeless tobacco: Never Substance Use Topics Alcohol use: Not Currently Drug use: No ROS: See HPI PE: BP 98/62 Pulse 83 Temp (Src) 96.8 (Temporal) Resp 16 Wt 189 lb 6.4 oz (85.9kg) Gen: A&O, NAD, non-toxic appearing, hard of hearing, cooperative HEENT: NT/AC, PERRLA, EOMs intact b/l, sinus TTP frontal and maxillary, nares clear and patent b/l, pharynx without erythema, exudate or lesions. MMM, Uvula midline. EACs without erythema or debris. Neck: supple, No cervical LAD, no thyromegaly, no carotid bruits, significant ROM decrease in rotation and Flexion and extension due to arthritis CV: RRR, normal S1 and S2, no murmurs, no gallops, no rubs, Pulses 2+ and symmetric in UE and LE b/l Lungs: normal respiratory effort, CTA b/l, no wheezing or rhonchi or rales Abd: soft, overweight, NT, ND, +BS, no hepatosplenomegaly MS: arthritis changes of spine - neck and lumbar areas Neuro: CN II-XII intact b/l,gait is slowed Skin: warm, dry, intact, No rashes or lesions on exposed skin. No edema, normal pulses ASSESSMENT/PLAN: 1. Chronic midline low back pain with bilateral sciatica - ICD9: 724.2, 724.3, 338.29, ICD10: M54.41, M54.42, G89.29 (primary diagnosis) Chronic low back pain - Ice for localized tenderness - Warm moist heat for 20 min three times a day - NSAIDS- see orders Continue same medications that she is currently taking. Helping with ADLs and IADLs - GABAPENTIN 300 MG CAPSULE - TRAMADOL 50 MG TABLET 2. Hyperlipidemia, mixed - ICD9: 272.2, ICD10: E78.2 - Controlled - Continue current medications - Counseled on healthy diet and regular exercise - Discussed need for and benefit of weight loss. BMI 35.21 kg/(m^2) - LISINOPRIL 10 MG TABLET 3. Osteoarthritis of spine with radiculopathy, lumbar region - ICD9: 721.3, ICD10: M47.26 Chronic low back pain - Ice for localized tenderness - Warm moist heat for 20 min three times a day - NSAIDS- see orders Continue same medications that she is currently taking. Helping with ADLs and IADLs - GABAPENTIN 300 MG CAPSULE - TRAMADOL 50 MG TABLET 4. Chronic pain syndrome - ICD9: 338.4, ICD10: G89.4 Chronic low back pain - Ice for localized tenderness - Warm moist heat for 20 min three times a day - NSAIDS- see orders Continue same medications that she is currently taking. Helping with ADLs and IADLs - GABAPENTIN 300 MG CAPSULE - TRAMADOL 50 MG TABLET 5. Chronic bilateral thoracic back pain - ICD9: 724.1, 338.29, ICD10: M54.6, G89.29 Chronic low back pain - Ice for localized tenderness - Warm moist heat for 20 min three times a day - NSAIDS- see orders Continue same medications that she is currently taking. Helping with ADLs and IADLs - GABAPENTIN 300 MG CAPSULE - TRAMADOL 50 MG TABLET - TRAMADOL 50 MG TABLET 6. Fibromyalgia - ICD9: 729.1, ICD10: M79.7 Chronic low back pain - Ice for localized tenderness - Warm moist heat for 20 min three times a day - NSAIDS- see orders Continue same medications that she is currently taking. Helping with ADLs and IADLs - GABAPENTIN 300 MG CAPSULE - TRAMADOL 50 MG TABLET - TRAMADOL 50 MG TABLET 7. Restless leg - ICD9: 333.94, ICD10: G25.81 Chronic low back pain - Ice for localized tenderness - Warm moist heat for 20 min three times a day - NSAIDS- see orders Continue same medications that she is currently taking. Helping with ADLs and IADLs - GABAPENTIN 300 MG CAPSULE - TRAMADOL 50 MG TABLET 8. Vitamin B12 deficiency - ICD9: 266.2, ICD10: E53.8 Continue supplement - GABAPENTIN 300 MG CAPSULE 9. PAD (peripheral artery disease) (HCC) - ICD9: 443.9, ICD10: I73.9 - PVR ANK PRESS [facility] 10. Body mass index (BMI) 45.0-49.9, adult (HCC) - ICD9: V85.42, ICD10: Z68.42 Stable - Behavioral intervention, - PSMF, - Eat well program, and - Continue current medications Hong Matos DO PDMP website checked and validated. All prescriptions have been APPROPRIATELY filled. No suspicious activity was identified. 09/12/2023 by Hong Matos DO Return if no improvement. Follow up with Hong Matos DO. To ER if develops chest pain, shortness of breath Discussed risks, benefits, alternatives, and potential side effects of medications. Patient/Guardian expressed understanding and agreed with the plan. See patient instructions. Hong Matos DO [address] [place] [address] documented in this encounter [facility] 09-06-2023 Instructions Hong Matos DO - 09/06/2023 2:38 PM EDT Probiotic refrigerated - take at bedtime Option is PB8 or Primadolphilus documented in this encounter [facility] 08-21-2023 Miscellaneous Notes Spoke with pt gave information provided.She has enough to make it to her next appointment with you in Sep.Will delete. Patient is overdue for an appt for pain medication follow up. Needs to be seen at max interval before every 90 days Hong Matos DO Patient has been identified by name and date of : Yes Requested Prescriptions Pending Prescriptions Disp Refills traMADol (ULTRAM) 50 mg tablet [Pharmacy Med Name: TRAMADOL HYDROCHLORIDE 50 MG Tablet] 180 tablet Sig: TAKE 2 TABLETS EVERY 8 HOURS NEEDED RX INSTRUCTIONS: Patient aware RX will be sent to pharmacy. No need to notify patient. Patient last office visit: 08/12/23 Patient next office visit: 08/20/23 Marta So MA documented in this encounter [facility] 08-14-2023 Miscellaneous Notes Pt. informed Please call patient and let her know that COVID/flu/RSV were all negative. Let us know if no improvement in symptoms by the end of the week. Thank you, Nisa Rocha APRN.CARE MANAGEMENT SPECIALIST documented in this encounter [facility] 08-12-2023 History of Present illness Narrative Chief Complaint Patient presents with: sore throat, runny nose ,slight cough, sinus pressiure , bi: Started Saturday evening. HPI Valencia Polo is a 68 year old female who presents here today for Above Complaints.. Valencia is an established patient of Dr. Carlo DO. She is a new patient to me today. Concerns today.. Sore throat/ congestion/ body aches --- Started Saturday evening with a bad sore throat. Sore throat slightly improved, but now has runny nose, head congestion and mild cough. No known fevers -- but goes from very hot to very cold. And reports chills and night sweats. No known exposure to COVID. Lives in an assisted living facility and wants to make sure she is not contagious before she leaves apartment to go to common area for games/etc. No other concerns or complaints. Past medical history, appointments, medications, allergies reviewed. Previous Medical History PAST MEDICAL HISTORY Diagnosis Date Chronic pain syndrome normal ESR, suspect fibromyalgia Depression Elevated cholesterol with high triglycerides Fibromyalgia GERD (gastroesophageal reflux disease) Hypertension Prediabetes RLS (restless legs syndrome) Previous Surgical History PAST SURGICAL HISTORY Procedure Laterality Date HYSTERECTOMY HX 1989 ovaries removed PAST SURGICAL HISTORY OF gallbladder removal PAST SURGICAL HISTORY OF benign tumor removed from L shoulder blade Family History FAMILY HISTORY Problem Relation Age of Onset Cancer Mother esophagus other (angina) Mother other (angina) Father Patient Allergies ALLERGIES Allergen Reactions [place] [Hydrocodone-* Hives Current Medications Current Outpatient Medications on File Prior to Visit Medication Sig furosemide (LASIX) 20 mg tablet TAKE 1 TABLET ONE TIME DAILY NEEDED FOR SWELLING/EDEMA ezetimibe (ZETIA) 10 mg tablet TAKE 1 TABLET EVERY DAY rosuvastatin (CRESTOR) 10 mg tablet Take 1 tablet by mouth daily at bedtime. gabapentin (NEURONTIN) 300 mg capsule Add to 600 mg capsule to total 900 mg 3 times a day for chronic pain gabapentin (NEURONTIN) 600 mg tablet Take 1 tablet by mouth three times daily for 90 days. sertraline (ZOLOFT) 100 mg tablet Take 1 tablet by mouth daily at bedtime. Take with 25 mg tablet to total 125 mg a day sertraline (ZOLOFT) 25 mg tablet Take 1 tablet by mouth daily at bedtime. Take with 100 mg tablet to total 125 mg a day traMADol (ULTRAM) 50 mg tablet Take 2 every 8 hours as needed lisinopril (ZESTRIL, PRINIVIL) 10 mg tablet Take 1 tablet by mouth once daily. WALKER ROLLATOR SEAT WITH 6" WHEELS - RED Dx: low back pain, lumbar DDD, lumbar DJD,balance disorder vitamin B complex (B COMPLEX-100 ORAL) Take by mouth. Magnesium 250 mg tab Take 250 mg by mouth twice daily. estradiol (ESTRACE) 0.01 % (0.1 mg/gram) vaginal cream Finger-tip amount each night applied as directed in instructions phenazopyridine (PYRIDIUM) 200 mg tablet Take 1 tablet by mouth three times daily as needed. triamcinolone acetonide (KENALOG) 0.5 % cream Apply to affected area twice daily. bismuth subsalicylate (PEPTO-BISMOL) 262 mg chew Take 1 tablet by mouth four times daily for 14 days. [DISCONTINUED] clobetasol (TEMOVATE) 0.05 % ointment Apply 1 application to affected area twice daily. Cholecalciferol, Vitamin D3, 5,000 unit cap Take 1 capsule by mouth once daily. MULTIVITAMIN ORAL Take by mouth. Current Facility-Administered Medications on File Prior to Visit Medication cyanocobalamin 1,000 mcg injection Social History Social History Tobacco Use Smoking status: Former Smokeless tobacco: Never Substance Use Topics Alcohol use: Not Currently Drug use: No REVIEW OF SYSTEMS: as above Reviewed relevant PMHx, PSHx, Social Hx, current medications and allergies. Review of Symptoms REVIEW OF SYSTEMS See HPI. EXAM: BP 100/60 (BP Site: Left Arm, BP Position: Sitting, BP Cuff Size: Regular Adult) Pulse 86 Temp 37.1 C (98.8 F) Resp 14 Wt 86.3 kg (190 lb 3.2 oz) SpO2 96% BMI 35.36 kg/m General Appearance: Well appearing, alert, in no acute distress, well-hydrated, well nourished.. Skin: Skin color, texture, turgor normal, no suspicious rashes or lesions. Head: Normocephalic, no masses, lesions, tenderness or abnormalities. Nose/Sinuses: Nares normal, septum midline, mucosa normal, no drainage or sinus tenderness. Oropharynx: Lips, mucosa, and tongue normal, teeth and gums normal, oropharynx normal. Neck: Supple, no adenopathy; thyroid symmetric, normal size, no bruits. Back:no pain to palpation of vertebrae, good flexion and extension, good range of motion, no muscle tenderness, reflexes are 2+ and symmetric, motor and sensory appear to be normal, negative SLR test, no evidence of scoliosis Lungs: Lungs clear to auscultation. No wheezing, rhonchi, rales.. Heart: RRR without murmur, gallop, or rubs. No ectopy. Health Maintenance List DTAP,TDAP,TD(1 - Tdap) Never done SHINGRIX VACCINE(1 of 2) Never done INFLUENZA(1) due on 08/02/2023 COVID-19 VACCINE(1) due on 01/02/2024 DIABETES SCREEN due on 05/28/2026 LIPID SCREEN due on 05/28/2028 HEPATITIS C SCREENING Completed BONE DENSITY Addressed MAMMOGRAM Discontinued COLORECTAL CANCER SCREENING Discontinued ADVANCE DIRECTIVE DISCUSSION Discontinued PNEUMOCOCCAL: 65+ Discontinued ASSESSMENT/PLAN: 1. Head congestion - ICD9: 478.19, ICD10: R09.81 (primary diagnosis) Concerns for COVID. Told patient to quarantine until confirmed results of testing as below due to living in assisted living facility. - STREP A MOLECULAR (POC) - COVID & INFLUENZA A/B & RSV NAAT, ROUTINE - COVID NAAT, ROUTINE - ROUTINE FLU A/B + RSV 2. Sore throat - ICD9: 462, ICD10: J02.9 - suspect viral - Rapid Strep negative in the office today - Discussed supportive care treatment with fluids, rest and analgesia. - The patient may also use OTC decongestants prn, OTC cough and cold meds as needed, warm salt water gargles, throat lozenges and/or OTC throat spray as needed, and nasal saline gtts and suction prn. - The patient should follow up in 3-5 days if symptoms persist or worsen - STREP A MOLECULAR (POC) - COVID & INFLUENZA A/B & RSV NAAT, ROUTINE - COVID NAAT, ROUTINE - ROUTINE FLU A/B + RSV RTO as needed. Prescription instructions reviewed with patient as applicable. Potential red flag symptoms discussed with the patient. Reviewed appropriate action plan to take if red flag symptoms occur. Patient agreeable to treatment plan. Nisa Olson APRN.EVELYN [address] [place] [address] documented in this encounter [facility] 07-23-2023 History of Present illness Narrative Patient presents for B-12 injection. Denies any problems at this time. Patient instructed on any SE of medication, verbalized understanding and agreed to proceed with treatment. Tolerated injection well. Nida Hedrick LPN documented in this encounter [facility] 05-30-2023 Miscellaneous Notes Patient notified of results, verbalizes understanding of instructions. Stacie Navarrete LPN Please call and inform patient that her lab results are much better! Cholesterol is improving well. Continue same medications Hong Matos DO documented in this encounter [facility] 05-28-2023 History of Present illness Narrative Patient presents for B-12 injection. Denies any problems at this time. Patient instructed on any SE of medication, verbalized understanding and agreed to proceed with treatment. Tolerated injection well. Nida Hedrick LPN documented in this encounter [facility] 05-21-2023 Miscellaneous Notes Patient has been identified by name and date of : Patient phones for refill(s): Requested Prescriptions Pending Prescriptions Disp Refills furosemide (LASIX) 20 mg tablet [Pharmacy Med Name: FUROSEMIDE 20 MG Tablet] 90 tablet 1 Sig: TAKE 1 TABLET ONE TIME DAILY NEEDED FOR SWELLING/EDEMA Date of last office visit in primary care: 03/26/23 Last 2 Encounter Wt Readings: Date: Wt: 2023 86.6 kg (191 lb) 01/02/2023 85.3 kg (188 lb) Previous labs/tests for medication: Not applicable Please advise. Thank you. Pravin Hernandez LPN documented in this encounter [facility] 04-11-2023 Miscellaneous Notes Patient has been identified by name and date of : Yes Requested Prescriptions Pending Prescriptions Disp Refills ezetimibe (ZETIA) 10 mg tablet [Pharmacy Med Name: EZETIMIBE 10 MG Tablet] 90 tablet Sig: TAKE 1 TABLET EVERY DAY RX INSTRUCTIONS: Patient aware RX will be sent to pharmacy. No need to notify patient. DANG Addison 03/2023 Nov 07/2023 Last refill: 01/2023 documented in this encounter [facility] 2023 Instructions Hong Matos DO - 2023 9:14 AM EDT Actinic keratosis on helix of the ear Consider trial of Zyrtec 10 mg a day for 1 week or Claritin 10 mg once a day for 1 week to help your ear drum fluid documented in this encounter [facility] 2023 History of Present illness Narrative CC: Valencia Polo is a 68 year old female who presents to the office for follow up HPI: Seen in office last on 01/02/2023, at that time Chronic pain, has been taking her gabapentin as well as the Tramadol. Really not feeling that the tramadol is helping her pain symptoms, is interested in any other options to help with management of her chronic neck pain, chronic low back pain and chronic myalgia discomfort. Sometimes feels like it makes her overwhelmed and she will cry in the afternoon. Does feel the zoloft is helping mood but wondering if rx dosing needs adjusted. Lives alone in an apartment complex. No SI or HI. Does have support from her grown children. Knows she would benefit from a rollator walker. Sometimes struggles with her balance due to her arthritis HTN, stable, taking medications as prescribed Mood, still feels that she gets "antsy" and restless at times, mostly in the afternoon. Does feel that her zoloft is helping at 125 mg a day. No SI or HI. Does live alone and has been going to the local community center and doing chair exercise Sat, Sat and Saturday and also going to play bingo or do crafts there intermittently Currently Chronic pain, has been taking her gabapentin as well as the Tramadol. Really not feeling that the tramadol is helping her pain symptoms, is interested in any other options to help with management of her chronic neck pain, chronic low back pain and chronic myalgia discomfort. Sometimes feels like it makes her overwhelmed and she will cry in the afternoon. Does feel the zoloft is helping mood but wondering if rx dosing needs adjusted. Lives alone in an apartment complex. No SI or HI. Does have support from her grown children Mood, stable, no recent concerns, trying to be involved in the community areas around her home. HTN, stable PAST MEDICAL HISTORY Diagnosis Date Chronic pain syndrome normal ESR, suspect fibromyalgia Depression Elevated cholesterol with high triglycerides Fibromyalgia GERD (gastroesophageal reflux disease) Hypertension Prediabetes RLS (restless legs syndrome) PAST SURGICAL HISTORY Procedure Laterality Date HYSTERECTOMY HX 1989 ovaries removed PAST SURGICAL HISTORY OF gallbladder removal PAST SURGICAL HISTORY OF benign tumor removed from L shoulder blade Social History: Social History Tobacco Use Smoking status: Former Smokeless tobacco: Never Substance Use Topics Alcohol use: Not Currently Drug use: No FAMILY HISTORY Problem Relation Age of Onset Cancer Mother esophagus other (angina) Mother other (angina) Father Current Outpatient prescriptions: sertraline (ZOLOFT) 100 mg tablet^Take 1 tablet by mouth daily at bedtime. Take with 25 mg tablet to total 125 mg a day^Disp: 90 tablet^Rfl: 3 sertraline (ZOLOFT) 25 mg tablet^Take 1 tablet by mouth daily at bedtime. Take with 100 mg tablet to total 125 mg a day^Disp: 90 tablet^Rfl: 3 traMADol (ULTRAM) 50 mg tablet^Take 2 every 8 hours as needed^Disp: 540 tablet^Rfl: 1 ezetimibe (ZETIA) 10 mg tablet^Take 1 tablet by mouth once daily.^Disp: 30 tablet^Rfl: 2 lisinopril (ZESTRIL, PRINIVIL) 10 mg tablet^Take 1 tablet by mouth once daily.^Disp: 90 tablet^Rfl: 3 WALKER ROLLATOR SEAT WITH 6" WHEELS - RED^Dx: low back pain, lumbar DDD, lumbar DJD,balance disorder^Disp: 1 Each^Rfl: 0 furosemide (LASIX) 20 mg tablet^TAKE 1 TABLET ONE TIME DAILY NEEDED FOR SWELLING/EDEMA^Disp: 90 tablet^Rfl: 1 vitamin B complex (B COMPLEX-100 ORAL)^Take by mouth.^Disp: ^Rfl: Magnesium 250 mg tab^Take 250 mg by mouth twice daily.^Disp: ^Rfl: estradiol (ESTRACE) 0.01 % (0.1 mg/gram) vaginal cream^Finger-tip amount each night applied as directed in instructions^Disp: 42.5 g^Rfl: 2 omeprazole magnesium (PRILOSEC ORAL)^Take by mouth.^Disp: ^Rfl: phenazopyridine (PYRIDIUM) 200 mg tablet^Take 1 tablet by mouth three times daily as needed.^Disp: 14 tablet^Rfl: 0 triamcinolone acetonide (KENALOG) 0.5 % cream^Apply to affected area twice daily.^Disp: 15 g^Rfl: 6 bismuth subsalicylate (PEPTO-BISMOL) 262 mg chew^Take 1 tablet by mouth four times daily for 14 days.^Disp: 56 tablet^Rfl: 0 [DISCONTINUED] clobetasol (TEMOVATE) 0.05 % ointment^Apply 1 application to affected area twice daily.^Disp: 60 g^Rfl: 6 Cholecalciferol, Vitamin D3, 5,000 unit cap^Take 1 capsule by mouth once daily.^Disp: ^Rfl: MULTIVITAMIN ORAL^Take by mouth.^Disp: ^Rfl: rosuvastatin (CRESTOR) 10 mg tablet^Take 1 tablet by mouth daily at bedtime.^Disp: 90 tablet^Rfl: 1 gabapentin (NEURONTIN) 300 mg capsule^Add to 600 mg capsule to total 900 mg 3 times a day for chronic pain^Disp: 270 capsule^Rfl: 1 gabapentin (NEURONTIN) 600 mg tablet^Take 1 tablet by mouth three times daily for 90 days.^Disp: 270 tablet^Rfl: 1 Allergies: ALLERGIES Allergen Reactions [place] [Hydrocodone-* Hives ROS: See hPI PE: 03/26/23 0850 BP: 120/80 Pulse: 80 Resp: 16 Temp: 36.4 C (97.5 F) TempSrc: Left Tympanic Weight: 86.6 kg (191 lb) Gen: A&O, NAD, non-toxic appearing, hard of hearing, cooperative HEENT: NT/AC, PERRLA, EOMs intact b/l, sinus TTP frontal and maxillary, nares clear and patent b/l, pharynx without erythema, exudate or lesions. MMM, Uvula midline. EACs without erythema or debris. Neck: supple, No cervical LAD, no thyromegaly, no carotid bruits, significant ROM decrease in rotation and Flexion and extension due to arthritis CV: RRR, normal S1 and S2, no murmurs, no gallops, no rubs, Pulses 2+ and symmetric in UE and LE b/l Lungs: normal respiratory effort, CTA b/l, no wheezing or rhonchi or rales Abd: soft, overweight, NT, ND, +BS, no hepatosplenomegaly MS: arthritis changes of spine - neck and lumbar areas Neuro: CN II-XII intact b/l,gait is slowed Skin: warm, dry, intact, No rashes or lesions on exposed skin. No edema, normal pulses PDMP website checked and validated. All prescriptions have been APPROPRIATELY filled. No suspicious activity was identified. 03/27/2023 by Hong Matos DO ASSESSMENT/PLAN: 1. Chronic pain syndrome - ICD9: 338.4, ICD10: G89.4 (primary diagnosis) rx refilled, chronic, stable. - GABAPENTIN 300 MG CAPSULE - TSH BLD 2. Hyperlipidemia, mixed - ICD9: 272.2, ICD10: E78.2 - to be determined upon return of lab results - Encouraged following a low fat, low cholesterol diet. - Discussed the benefits of regular aerobic exercise and weight loss. - ROSUVASTATIN 10 MG TABLET - LIPID PANEL BASIC - TSH BLD 3. Osteoarthritis of spine with radiculopathy, lumbar region - ICD9: 721.3, ICD10: M47.26 rx refilled, chronic, stable, helping with ADLs and IADLs - GABAPENTIN 300 MG CAPSULE 4. Chronic midline low back pain with bilateral sciatica - ICD9: 724.2, 724.3, 338.29, ICD10: M54.41, M54.42, G89.29 rx refilled, chronic, stable, helping with ADLs and IADLs - GABAPENTIN 300 MG CAPSULE 5. Chronic bilateral thoracic back pain - ICD9: 724.1, 338.29, ICD10: M54.6, rx refilled, chronic, stable, helping with ADLs and IADLs - GABAPENTIN 300 MG CAPSULE 6. Fibromyalgia - ICD9: 729.1, ICD10: M79.7 rx refilled, chronic, stable, helping with ADLs and IADLs - GABAPENTIN 300 MG CAPSULE 7. Restless leg - ICD9: 333.94, ICD10: G25.81 rx refilled, chronic, stable, helping with ADLs and IADLs - GABAPENTIN 300 MG CAPSULE 8. Vitamin B12 deficiency - ICD9: 266.2, ICD10: E53.8 Continue medication, continue injection as d/w her today - GABAPENTIN 300 MG CAPSULE - VITAMIN B12 BLOOD 9. Hyperglycemia - ICD9: 790.29, ICD10: R73.9 - recheck labs - HGB A1C 10. Vitamin D deficiency - ICD9: 268.9, ICD10: E55.9 Continue supplement - VITAMIN D 25 HYDROXY 11. PVD (peripheral vascular disease) (HCC) - ICD9: 443.9, ICD10: I73.9 Hx of, no recent concerning symptoms 12. Body mass index (BMI) 45.0-49.9, adult (HCC) - ICD9: V85.42, ICD10: Z68.42 Weight decreasing - Eat well program Hong Matos DO To ER if develops chest pain, shortness of breath, or severe worsening of symptoms. Discussed risks, benefits, alternatives, and potential side effects of medications. Patient expressed understanding and agreed with the plan. Hong Matos DO [address] [place] [address] documented in this encounter [facility] 03-07-2023 Miscellaneous Notes Patient has been identified by name and date of : Yes Requested Prescriptions Pending Prescriptions Disp Refills sertraline (ZOLOFT) 100 mg tablet 90 tablet 3 Sig: Take 1 tablet by mouth daily at bedtime. Take with 25 mg tablet to total 125 mg a day sertraline (ZOLOFT) 25 mg tablet 90 tablet 3 Sig: Take 1 tablet by mouth daily at bedtime. Take with 100 mg tablet to total 125 mg a day RX INSTRUCTIONS: Patient uses mail order, calling to get the renewals. Patient aware RX escripted to mail away pharmacy. No need to notify patient. Zina Stokes Pss documented in this encounter [facility] 02-04-2023 Miscellaneous Notes PDMP website checked and validated. All prescriptions have been APPROPRIATELY filled. No suspicious activity was identified. 02/04/2023 by Nisa Rocha APRN.CNP The following approved medication requests have been transmitted electronically. Requested Prescriptions Signed Prescriptions Disp Refills traMADol (ULTRAM) 50 mg tablet 540 tablet 1 Sig: Take 2 every 8 hours as needed Authorizing Provider: NISA ROCHA APRN.CNP Pt reports she has been out of pills for quite a while. Patient has been identified by name and date of : Yes, Provider Dr Matos Date 02/04/23 Time 0905. Patient phones for refill(s): Requested Prescriptions Pending Prescriptions Disp Refills traMADol (ULTRAM) 50 mg tablet 540 tablet 1 Sig: Take 2 every 8 hours as needed Date of last office visit in primary care: 01/02/23 Future visit: 03/26/23 Last 2 Encounter Wt Readings: Date: Wt: 01/02/2023 85.3 kg (188 lb) 10/03/2022 84.8 kg (187 lb) Previous labs/tests for medication: Blood Pressure: BUN (mg/dL) Date Value 01/24/2023 16 08/02/2021 16 Sodium (mmol/L) Date Value 01/24/2023 139 08/02/2021 138 Last 1 Encounter BP Readings: Date: BP: 01/02/2023 118/80 Liver Function: ALT (U/L) Date Value 01/24/2023 11 08/02/2021 38 AST (U/L) Date Value 01/24/2023 22 08/02/2021 34 Please advise. Thank you. Elma Carranza RN documented in this encounter [facility] 01-29-2023 History of Present illness Narrative Patient presents for B-12 injection. Denies any problems at this time. Patient instructed on any SE of medication, verbalized understanding and agreed to proceed with treatment. Tolerated injection well. Nida Hedrick LPN documented in this encounter [facility] 01-24-2023 History of Present illness Narrative Lab work orders are placed as pt is in lab. Nisa Rocha APRN.EVELYN documented in this encounter [facility] 01-23-2023 Miscellaneous Notes Pt informed, verbalized understanding Myla Tucker Needs to have urine tox completed prior to refill. Petty Mendenhall APRN.EVELYN Patient phones requesting refills as follows: Maximum MME cannot be calculated for this prescription. Enter discrete sig details to calculate maximum MME. Requested Prescriptions Pending Prescriptions Disp Refills traMADol (ULTRAM) 50 mg tablet [Pharmacy Med Name: TRAMADOL HYDROCHLORIDE 50 MG Tablet] 180 tablet Sig: TAKE 2 TABLETS EVERY 8 HOURS NEEDED SINDHU-01/02/23 Labs-08/20/22 NOV-03/26/23 med filled 07/13/22 Please review and advise. Stacie Navarrete LPN documented in this encounter [facility] 12-04-2022 History of Present illness Narrative Patient presents for B-12 injection. Denies any problems at this time. Patient instructed on any SE of medication, verbalized understanding and agreed to proceed with treatment. Tolerated injection well. Nida Hedrick LPN documented in this encounter [facility] 11-12-2022 Miscellaneous Notes Sindhu--10/03/22 Nov--01/02/23 Last refill--11/01/21 90 with 3 refills Last labs--08/20/22 Patient has been identified by name and date of : Yes Requested Prescriptions Pending Prescriptions Disp Refills lisinopril (ZESTRIL, PRINIVIL) 10 mg tablet 90 tablet 3 Sig: Take 1 tablet by mouth once daily. RX INSTRUCTIONS: Patient aware RX will be sent to pharmacy. No need to notify patient. Jaz Taylor documented in this encounter [facility] 11-05-2022 History of Present illness Narrative Patient presents for B-12 injection. Denies any problems at this time. Patient instructed on any SE of medication, verbalized understanding and agreed to proceed with treatment. Tolerated injection well. Nida Hedrick LPN documented in this encounter [facility] 10-11-2022 Miscellaneous Notes Last office visit: 10/03/22 F/u scheduled: 01/02/23 Wendy Alva Ma documented in this encounter [facility] 10-03-2022 History of Present illness Narrative CC: Valencia Polo is a 67 year old female who presents to the office for follow up HPI: Chronic pain, has been taking her gabapentin as well as the Tramadol. Really not feeling that the tramadol is helping her pain symptoms, is interested in any other options to help with management of her chronic neck pain, chronic low back pain and chronic myalgia discomfort. Sometimes feels like it makes her overwhelmed and she will cry in the afternoon. Does feel the zoloft is helping mood but wondering if rx dosing needs adjusted. Lives alone in an apartment complex. No SI or HI. Does have support from her grown children. Knows she would benefit from a rollator walker. Sometimes struggles with her balance due to her arthritis HTN, stable, taking medications as prescribed Mood, still feels that she gets "antsy" and restless at times, mostly in the afternoon. Does feel that her zoloft is helping at 100 mg a day but wondering if needs dose adjustment. No SI or HI. Does live alone and sometimes lonely feeling. PAST MEDICAL HISTORY Diagnosis Date Chronic pain syndrome normal ESR, suspect fibromyalgia Depression Elevated cholesterol with high triglycerides Fibromyalgia GERD (gastroesophageal reflux disease) Hypertension Prediabetes RLS (restless legs syndrome) PAST SURGICAL HISTORY Procedure Laterality Date HYSTERECTOMY HX 1989 ovaries removed PAST SURGICAL HISTORY OF gallbladder removal PAST SURGICAL HISTORY OF benign tumor removed from L shoulder blade Social History: Social History Tobacco Use Smoking status: Former Smokeless tobacco: Never Substance Use Topics Alcohol use: Not Currently Drug use: No FAMILY HISTORY Problem Relation Age of Onset Cancer Mother esophagus other (angina) Mother other (angina) Father Current Outpatient prescriptions: traMADol (ULTRAM) 50 mg tablet^Take 2 every 8 hours as needed^Disp: 540 tablet^Rfl: 1 furosemide (LASIX) 20 mg tablet^Take 1 tablet by mouth once daily as needed for swelling/edema.^Disp: 90 tablet^Rfl: 1 lisinopril (ZESTRIL, PRINIVIL) 10 mg tablet^Take 1 tablet by mouth once daily.^Disp: 90 tablet^Rfl: 3 vitamin B complex (B COMPLEX-100 ORAL)^Take by mouth.^Disp: ^Rfl: Magnesium 250 mg tab^Take 250 mg by mouth twice daily.^Disp: ^Rfl: estradiol (ESTRACE) 0.01 % (0.1 mg/gram) vaginal cream^Finger-tip amount each night applied as directed in instructions^Disp: 42.5 g^Rfl: 2 omeprazole magnesium (PRILOSEC ORAL)^Take by mouth.^Disp: ^Rfl: phenazopyridine (PYRIDIUM) 200 mg tablet^Take 1 tablet by mouth three times daily as needed.^Disp: 14 tablet^Rfl: 0 triamcinolone acetonide (KENALOG) 0.5 % cream^Apply to affected area twice daily.^Disp: 15 g^Rfl: 6 bismuth subsalicylate (PEPTO-BISMOL) 262 mg chew^Take 1 tablet by mouth four times daily for 14 days.^Disp: 56 tablet^Rfl: 0 [DISCONTINUED] clobetasol (TEMOVATE) 0.05 % ointment^Apply 1 application to affected area twice daily.^Disp: 60 g^Rfl: 6 Cholecalciferol, Vitamin D3, 5,000 unit cap^Take 1 capsule by mouth once daily.^Disp: ^Rfl: MULTIVITAMIN ORAL^Take by mouth.^Disp: ^Rfl: gabapentin (NEURONTIN) 300 mg capsule^Add to 600 mg capsule to total 900 mg 3 times a day for chronic pain^Disp: 270 capsule^Rfl: 1 gabapentin (NEURONTIN) 600 mg tablet^Take 1 tablet by mouth three times daily for 90 days.^Disp: 270 tablet^Rfl: 1 sertraline (ZOLOFT) 100 mg tablet^Take 1 tablet by mouth daily at bedtime. Take with 25 mg tablet to total 125 mg a day^Disp: 90 tablet^Rfl: 1 sertraline (ZOLOFT) 25 mg tablet^Take 1 tablet by mouth daily at bedtime. Take with 100 mg tablet to total 125 mg a day^Disp: 90 tablet^Rfl: 1 WALKER ROLLATOR SEAT WITH 6" WHEELS - RED^Dx: low back pain, lumbar DDD, lumbar DJD,balance disorder^Disp: 1 Each^Rfl: 0 amoxicillin (AMOXIL) 875 mg tablet^Take 1 tablet by mouth twice daily for 10 days.^Disp: 20 tablet^Rfl: 0 Allergies: ALLERGIES Allergen Reactions [place] [Hydrocodone-* Hives ROS: See HPI PE: 10/03/22 0958 BP: 110/80 Pulse: 88 Resp: 16 Temp: (!) 35.8 C (96.5 F) TempSrc: Left Tympanic Weight: 84.8 kg (187 lb) Gen: A&O, NAD, non-toxic appearing, hard of hearing, cooperative HEENT: NT/AC, PERRLA, EOMs intact b/l, sinus TTP frontal and maxillary, nares clear and patent b/l, pharynx without erythema, exudate or lesions. MMM, Uvula midline. EACs without erythema or debris. TMs pearly miller with intact landmarks b/l. Neck: supple, No cervical LAD, no thyromegaly, no carotid bruits CV: RRR, normal S1 and S2, no murmurs, no gallops, no rubs, Pulses 2+ and symmetric in UE and LE b/l Lungs: normal respiratory effort, CTA b/l, no wheezing or rhonchi or rales Abd: soft, overweight, NT, ND, +BS, no hepatosplenomegaly MS: arthritis changes of spine - neck and lumbar areas Neuro: CN II-XII intact b/l,gait is slowed Skin: warm, dry, intact, No rashes or lesions on exposed skin. No edema, normal pulses ASSESSMENT/PLAN: 1. Osteoarthritis of spine with radiculopathy, lumbar region - ICD9: 721.3, ICD10: M47.26 (primary diagnosis) rx refilled, rollator walker and handicap placard provided today, f/u in 3 months and prn, medication still helping with ADLs and IADLs - GABAPENTIN 300 MG CAPSULE - PARKING FOR HANDICAPPED 2. Chronic midline low back pain with bilateral sciatica - ICD9: 724.2, 724.3, 338.29, ICD10: M54.41, M54.42, G89.29 rx refilled, rollator walker and handicap placard provided today, f/u in 3 months and prn, medication still helping with ADLs and IADLs - GABAPENTIN 300 MG CAPSULE - PARKING FOR HANDICAPPED 3. Chronic pain syndrome - ICD9: 338.4, ICD10: G89.4 rx refilled, rollator walker and handicap placard provided today, f/u in 3 months and prn, medication still helping with ADLs and IADLs - GABAPENTIN 300 MG CAPSULE - PARKING FOR HANDICAPPED 4. Chronic bilateral thoracic back pain - ICD9: 724.1, 338.29, ICD10: M54.6, G89.29 rx refilled, rollator walker and handicap placard provided today, f/u in 3 months and prn, medication still helping with ADLs and IADLs - GABAPENTIN 300 MG CAPSULE - PARKING FOR HANDICAPPED 5. Fibromyalgia - ICD9: 729.1, ICD10: M79.7 rx refilled, rollator walker and handicap placard provided today, f/u in 3 months and prn, medication still helping with ADLs and IADLs - GABAPENTIN 300 MG CAPSULE - PARKING FOR HANDICAPPED 6. Restless leg - ICD9: 333.94, ICD10: G25.81 rx refilled, rollator walker and handicap placard provided today, f/u in 3 months and prn, medication still helping with ADLs and IADLs - GABAPENTIN 300 MG CAPSULE - PARKING FOR HANDICAPPED 7. Vitamin B12 deficiency - ICD9: 266.2, ICD10: E53.8 Continue injections monthly - GABAPENTIN 300 MG CAPSULE 8. VÍCTOR (generalized anxiety disorder) - ICD9: 300.02, ICD10: F41.1 - increase dose of zoloft to 125 mg a day, no SI or HI concerns. - SERTRALINE 100 MG TABLET - SERTRALINE 25 MG TABLET 9. Depressive disorder - ICD9: 311, ICD10: F32.A - increase dose of zoloft to 125 mg a day, no SI or HI concerns. - SERTRALINE 100 MG TABLET - SERTRALINE 25 MG TABLET 10. History of COVID-19 - ICD9: V12.09, ICD10: Z86.16 Concerns for acute sinusitis, rx as below to start on and supportive care - AMOXICILLIN 875 MG TABLET 11. Acute non-recurrent frontal sinusitis - ICD9: 461.1, ICD10: J01.10 - Will begin treatment with as per antibiotic as written, see orders - AMOXICILLIN 875 MG TABLET Hong Matos DO To ER if develops chest pain, shortness of breath, or severe worsening of symptoms. Discussed risks, benefits, alternatives, and potential side effects of medications. Patient expressed understanding and agreed with the plan. Hong Matos DO [address] [place] [address] documented in this encounter [facility] 08-27-2022 Instructions Petty Mendenhall APRN.CNP - 08/27/2022 11:35 AM EDT Let me know in another week if your head cold/pressure hasn't improved and we can send you in an antibiotic. documented in this encounter [facility] 08-27-2022 History of Present illness Narrative Chief Complaint Patient presents with: Follow Up: UC on 08/20, covid positive HPI Valencia Polo is a 67 year old female who presents here today for Above Complaints. Today: Dx with COVID in urgent care 1 week ago. Was very nauseated, shaky sweaty. Now-nausea has improved. Feels like she has a cold in her head. No fevers. No cough. Labs-would like to review. Is due for her vitamin B12 shot on Saturday. Wondering if she can get it while she is here today. Past medical history, appointments, medications, allergies reviewed. Previous Medical History PAST MEDICAL HISTORY Diagnosis Date Chronic pain syndrome normal ESR, suspect fibromyalgia Depression Elevated cholesterol with high triglycerides Fibromyalgia GERD (gastroesophageal reflux disease) Hypertension Prediabetes RLS (restless legs syndrome) Previous Surgical History PAST SURGICAL HISTORY Procedure Laterality Date HYSTERECTOMY HX 1989 ovaries removed PAST SURGICAL HISTORY OF gallbladder removal PAST SURGICAL HISTORY OF benign tumor removed from L shoulder blade Family History FAMILY HISTORY Problem Relation Age of Onset Cancer Mother esophagus other (angina) Mother other (angina) Father Patient Allergies ALLERGIES Allergen Reactions [place] [Hydrocodone-* Hives Current Medications Current Outpatient Medications on File Prior to Visit Medication Sig traMADol (ULTRAM) 50 mg tablet Take 2 every 8 hours as needed gabapentin (NEURONTIN) 300 mg capsule Add to 600 mg capsule to total 900 mg 3 times a day for chronic pain gabapentin (NEURONTIN) 600 mg tablet Take 1 tablet by mouth three times daily for 90 days. sertraline (ZOLOFT) 100 mg tablet Take 1 tablet by mouth daily at bedtime. Take with 25 mg tablet to total 75 mg a day furosemide (LASIX) 20 mg tablet Take 1 tablet by mouth once daily as needed for swelling/edema. lisinopril (ZESTRIL, PRINIVIL) 10 mg tablet Take 1 tablet by mouth once daily. vitamin B complex (B COMPLEX-100 ORAL) Take by mouth. Magnesium 250 mg tab Take 250 mg by mouth twice daily. estradiol (ESTRACE) 0.01 % (0.1 mg/gram) vaginal cream Finger-tip amount each night applied as directed in instructions phenazopyridine (PYRIDIUM) 200 mg tablet Take 1 tablet by mouth three times daily as needed. triamcinolone acetonide (KENALOG) 0.5 % cream Apply to affected area twice daily. Cholecalciferol, Vitamin D3, 5,000 unit cap Take 1 capsule by mouth once daily. MULTIVITAMIN ORAL Take by mouth. omeprazole magnesium (PRILOSEC ORAL) Take by mouth. (Patient not taking: Reported on 08/27/2022) bismuth subsalicylate (PEPTO-BISMOL) 262 mg chew Take 1 tablet by mouth four times daily for 14 days. [DISCONTINUED] clobetasol (TEMOVATE) 0.05 % ointment Apply 1 application to affected area twice daily. Current Facility-Administered Medications on File Prior to Visit Medication cyanocobalamin 1,000 mcg injection cyanocobalamin 1,000 mcg injection Social History Social History Tobacco Use Smoking status: Former Smokeless tobacco: Never Substance Use Topics Alcohol use: Not Currently Drug use: No Review of Symptoms REVIEW OF SYSTEMS See HPI, otherwise negative EXAM: BP 106/80 (BP Site: Left Arm, BP Position: Sitting, BP Cuff Size: Regular Adult) Pulse 87 Temp 36.2 C (97.2 F) (Temporal) Resp 16 Wt 85.3 kg (188 lb) SpO2 97% BMI 34.95 kg/m General Appearance: Well appearing, alert, in no acute distress, well-hydrated, well nourished. and Overweight. Lungs: Lungs clear to auscultation. No wheezing, rhonchi, rales.. Heart: RRR without murmur, gallop, or rubs. No ectopy. Health Maintenance List DTAP,TDAP,TD(1 - Tdap) Never done SHINGRIX VACCINE(1 of 2) Never done INFLUENZA(1) due on 08/02/2022 COVID-19 VACCINE(1) due on 12/15/2022 DIABETES SCREEN due on 08/20/2025 LIPID SCREEN due on 03/13/2027 HEPATITIS C SCREENING Completed BONE DENSITY Addressed MAMMOGRAM Discontinued COLORECTAL CANCER SCREENING Discontinued ADVANCE DIRECTIVE DISCUSSION Discontinued PNEUMOCOCCAL: 65+ Discontinued Data reviewed Previous records, office notes ASSESSMENT/PLAN: 1. COVID - ICD9: 079.89, ICD10: U07.1 (primary diagnosis) Resolving. Ok to go without mask at this point as sx started on 08/15. Lingering head congestion. If still present in 1 week will consider antibiotic such as Z-van. 2. Vitamin B12 deficiency - ICD9: 266.2, ICD10: E53.8 Ok to receive injection today. Petty Mendenhall APRN.EVELYN documented in this encounter [facility] 08-21-2022 Miscellaneous Notes Patient given results and verbalized understanding of instructions given. Katelin Zepeda ----- Message from Cindi Guzman APRN.CARE MANAGEMENT SPECIALIST sent at 08/21/2022 7:46 AM EDT ----- Please advise patient of positive COVID test. The CDC recommends that people refrain from work and isolate themselves until the following criteria are met: At least 24 hours have passed since last fever without the use of fever-reducing medications Other symptoms have improved At least 5 days have passed since symptoms first appeared; then wear a mask for additional 5 days. Follow instructions given by provider at visit, f/u with PCP if symptoms persist or worsen. Spoke with patient regarding lab results-slightly low WBC and platelet count. Possible related to current/recent viral illness. Discussed with PCP as well. Patient scheduled for follow up with PCP office in 1 week 08/27 for additional work up as indicated. Spoke with patient if worsening symptoms to seek care sooner in ER. Patient denies syncope, chest pain, SOB, vertigo COVID results are still in process. Art Starr PA-C 08/20/2022 documented in this encounter [facility] 08-20-2022 History of Present illness Narrative 08/20/2022 Patient presents with: Ear Pain: L ear pain, nausea, chills, shakey x1 week SUBJECTIVE: This is a 67 year old that is here today for Complaint(s) of nausea and not feeling right per patient x 1 week. She had a RAMOS initially, but has since resolved. + body aches and fatigue. Having some left ear popping, but not "pain" per patient. She did start with some mild nasal congestion the last couple days. Denies cough, SOB, wheezing, vomiting, diarrhea, vertigo, syncope, chest pain, leg swelling, dysuria, hematuria, abdominal pain, numbness/tingling. No know COVID exposure PAST MEDICAL HISTORY Diagnosis Date Chronic pain syndrome normal ESR, suspect fibromyalgia Depression Elevated cholesterol with high triglycerides Fibromyalgia GERD (gastroesophageal reflux disease) Hypertension Prediabetes RLS (restless legs syndrome) ALLERGIES [place] [Hydrocodone-Acetaminophen] MEDICATIONS Current Outpatient Medications Medication Sig traMADol (ULTRAM) 50 mg tablet Take 2 every 8 hours as needed gabapentin (NEURONTIN) 300 mg capsule Add to 600 mg capsule to total 900 mg 3 times a day for chronic pain gabapentin (NEURONTIN) 600 mg tablet Take 1 tablet by mouth three times daily for 90 days. sertraline (ZOLOFT) 100 mg tablet Take 1 tablet by mouth daily at bedtime. Take with 25 mg tablet to total 75 mg a day furosemide (LASIX) 20 mg tablet Take 1 tablet by mouth once daily as needed for swelling/edema. lisinopril (ZESTRIL, PRINIVIL) 10 mg tablet Take 1 tablet by mouth once daily. vitamin B complex (B COMPLEX-100 ORAL) Take by mouth. Magnesium 250 mg tab Take 250 mg by mouth twice daily. estradiol (ESTRACE) 0.01 % (0.1 mg/gram) vaginal cream Finger-tip amount each night applied as directed in instructions triamcinolone acetonide (KENALOG) 0.5 % cream Apply to affected area twice daily. Cholecalciferol, Vitamin D3, 5,000 unit cap Take 1 capsule by mouth once daily. MULTIVITAMIN ORAL Take by mouth. omeprazole magnesium (PRILOSEC ORAL) Take by mouth. phenazopyridine (PYRIDIUM) 200 mg tablet Take 1 tablet by mouth three times daily as needed. bismuth subsalicylate (PEPTO-BISMOL) 262 mg chew Take 1 tablet by mouth four times daily for 14 days. Current Facility-Administered Medications Medication Dose Route Frequency cyanocobalamin 1,000 mcg injection 1,000 mcg INTRAMUSCULAR q 4 WEEKS cyanocobalamin 1,000 mcg injection 1,000 mcg INTRAMUSCULAR q 4 WEEKS SOCIAL HISTORY Social History Tobacco Use Smoking status: Former Smokeless tobacco: Never Substance Use Topics Alcohol use: Not Currently Drug use: No REVIEW OF SYSTEMS See HPI OBJECTIVE: BP 108/76 Pulse 87 Temp (!) 35.8 C (96.4 F) Resp 18 Wt 85.2 kg (187 lb 12.8 oz) SpO2 95% BMI 34.91 kg/m APPEARANCE alert, in no acute distress, well-hydrated, well nourished. EYES PERRLA, conjunctiva and sclera normal. EARS External ears normal, canals carmela. TMs normal HARJIT NOSE/SINUS Nares normal. Septum midline. Mucosa normal. No drainage or sinus tenderness. THROAT normal, no erythema NECK Supple, no adenopathy; HEART RRR with normal S1 and S2, LUNG clear to auscultation, No wheezing, rhonchi, rales. ABDOMEN soft, non-tender, non-distended, NEURO Awake, alert and oriented x 3, Cranial nerves II-XII grossly intact, Normal gait, and No involuntary motions. EXT no calf TTP, no LE edema, negative homans'. ASSESSMENT/PLAN: 1. Nausea - ICD9: 787.02, ICD10: R11.0 (primary diagnosis) Check labs. Patient with nasal congestion, possible early viral illness R/o COVID Reviewed red flags and when to seek care sooner in ER - GLUCOSE, BLOOD (POC) - UA DIP, URINE (POC) - 2019 CORONAVIRUS - CBC + DIFF - BASIC METABOLIC PNL 2. Lightheaded - ICD9: 780.4, ICD10: R42 Orthostatics are normal. - GLUCOSE, BLOOD (POC)- 103 - UA DIP, URINE (POC)-negative - 2019 CORONAVIRUS-r/o COVID - CBC + DIFF-check stat today - BASIC METABOLIC PNL-check stat today Good hydration, small frequent meals Reviewed red flags and when to seek care sooner in ER If all labs WNL and COVID negative, recommend close f/u in 24-48 hours if not improving, sooner if worsening The patient indicates understanding of these issues and agrees with the plan. Art Starr PA-C documented in this encounter [facility] 08-01-2022 History of Present illness Narrative Patient presents for B-12 injection. Denies any problems at this time. Patient instructed on any SE of medication, verbalized understanding and agreed to proceed with treatment. Tolerated injection well. Nida Hedrick LPN documented in this encounter [facility] 07-13-2022 Miscellaneous Notes [facility] website checked and validated. All prescriptions have been APPROPRIATELY filled. No suspicious activity was identified. 07/13/2022 by Nisa Olson APRN.CNP The following approved medication requests have been transmitted electronically. Requested Prescriptions Signed Prescriptions Disp Refills traMADol (ULTRAM) 50 mg tablet 540 tablet 1 Sig: Take 2 every 8 hours as needed Authorizing Provider: NISA OLSON APRN.CNP Pt. would like to go back on Tramadol 50 mg 2 every 8 hours. Pravin Hernandez LPN Please verify with patient and see if she has tolerated this in the past. Thank you, Nisa Olson APRN.EVELYN Emmanuelle with [facility] calls to verify it is ok to dispense Percocet 5-325 mg as ordered d/t allergy to hydrocodone-acetaminophen (reaction is hives). Emmanuelle requests call back at [phone] with provider response. Reference number is [id number]. Cece Beltrán RN documented in this encounter [facility] 07-04-2022 History of Present illness Narrative CC: Valencia Polo is a 67 year old female who presents to the office for follow up HPI: Seen in office last on 04/11/22, at that time: She was seen in the EMERGENCY DEPARTMENT recently at [facility] on 04/04 due to severity of a flare up of her restless leg symptoms in her thighs and lower legs. She states it started the night before on 04/03 in the evening, she tried walking, taking a hot shower without relief. She took a prn dose of her Requip at 10 pm, 1030 pm and 11 pm due to the symptoms bothering her so much. Didn't get relief. She then had her daughter take her to the EMERGENCY DEPARTMENT since she wasn't able to sleep. She was told to call the office for suggestions since the EMERGENCY DEPARTMENT physician checked labs etc and everything was normal. The director operations physician told her to increase her dose of gabapentin, she is tolerating this well. She is currently taking gabapentin 2 times a day as well as tramadol 2 -3 times a day. Tolerating this dose combination. The last few days her symptoms have much improved. Currently Chronic pain, has been taking her gabapentin as well as the Tramadol. Really not feeling that the tramadol is helping her pain symptoms, is interested in any other options to help with management of her chronic neck pain, chronic low back pain and chronic myalgia discomfort. Sometimes feels like it makes her overwhelmed and she will cry in the afternoon. Does feel the zoloft is helping mood but wondering if rx dosing needs adjusted. Lives alone in an apartment complex. No SI or HI. Does have support from her grown children. Urinary urgency and frequency, symptoms for a few days, burning discomfort with Urination, no flank pain or fevers or chills. History of UTI PAST MEDICAL HISTORY Diagnosis Date Chronic pain syndrome normal ESR, suspect fibromyalgia Depression Elevated cholesterol with high triglycerides Fibromyalgia GERD (gastroesophageal reflux disease) Hypertension Prediabetes RLS (restless legs syndrome) PAST SURGICAL HISTORY Procedure Laterality Date HYSTERECTOMY HX 1989 ovaries removed PAST SURGICAL HISTORY OF gallbladder removal PAST SURGICAL HISTORY OF benign tumor removed from L shoulder blade Current Outpatient Medications Medication Sig gabapentin (NEURONTIN) 300 mg capsule Add to 600 mg capsule to total 900 mg 3 times a day for chronic pain gabapentin (NEURONTIN) 600 mg tablet Take 1 tablet by mouth three times daily for 90 days. sertraline (ZOLOFT) 100 mg tablet Take 1 tablet by mouth daily at bedtime. Take with 25 mg tablet to total 75 mg a day furosemide (LASIX) 20 mg tablet Take 1 tablet by mouth once daily as needed for swelling/edema. lisinopril (ZESTRIL, PRINIVIL) 10 mg tablet Take 1 tablet by mouth once daily. Magnesium 250 mg tab Take 250 mg by mouth twice daily. estradiol (ESTRACE) 0.01 % (0.1 mg/gram) vaginal cream Finger-tip amount each night applied as directed in instructions phenazopyridine (PYRIDIUM) 200 mg tablet Take 1 tablet by mouth three times daily as needed. triamcinolone acetonide (KENALOG) 0.5 % cream Apply to affected area twice daily. Cholecalciferol, Vitamin D3, 5,000 unit cap Take 1 capsule by mouth once daily. oxyCODONE-acetaminophen (PERCOCET) 5-325 mg tablet Take 1 tablet by mouth every 8 hours as needed for pain. ciprofloxacin HCl (CIPRO) 500 mg tablet Take 1 tablet by mouth twice daily for 5 days. vitamin B complex (B COMPLEX-100 ORAL) Take by mouth. omeprazole magnesium (PRILOSEC ORAL) Take by mouth. bismuth subsalicylate (PEPTO-BISMOL) 262 mg chew Take 1 tablet by mouth four times daily for 14 days. MULTIVITAMIN ORAL Take by mouth. Current Facility-Administered Medications Medication Dose Route Frequency cyanocobalamin 1,000 mcg injection 1,000 mcg INTRAMUSCULAR q 4 WEEKS cyanocobalamin 1,000 mcg injection 1,000 mcg INTRAMUSCULAR q 4 WEEKS ALLERGIES Allergen Reactions [place] [Hydrocodone-* Hives Social History Tobacco Use Smoking status: Former Smoker Smokeless tobacco: Never Used Substance Use Topics Alcohol use: Not Currently Drug use: No ROS: See HPI PE: BP 100/60 Pulse 80 Temp (Src) 96.6 (Left Tympanic) Resp 16 Wt 191 lb (86.6kg) Gen: A&OX3, NAD, non-toxic appearing HEENT: PERRLA, EOMs intact b/l, nares without drainage, pharynx without erythema, exudate, lesions, or drainage. Uvula midline. Neck: No LAD, no thyromegaly, no meningismus. CV: RRR, no murmur Lungs: CTA b/l, no wheezing Skin: erythematous skin lesion right inner gluteal region with central ulceration without underlying fluctuance No edema, normal pulses Antalgic gait Neuropathy present in b/l legs ASSESSMENT/PLAN: 1. Osteoarthritis of spine with radiculopathy, lumbar region - ICD9: 721.3, ICD10: M47.26 (primary diagnosis) - rx for gabapentin refilled, discontinue the tramadol. Trial of percocet instead to see if this helps pain symptoms better, she is aware of proper use of medication and SE of medication. - GABAPENTIN 300 MG CAPSULE - OXYCODONE-ACETAMINOPHEN 5 MG-325 MG TABLET 2. Dysuria - ICD9: 788.1, ICD10: R30.0 acute - Patient education for prevention given - UA DIP, URINE (POC) - URINE CULTURE 3. Chronic midline low back pain with bilateral sciatica - ICD9: 724.2, 724.3, 338.29, ICD10: M54.41, M54.42, G89.29 - rx for gabapentin refilled, discontinue the tramadol. Trial of percocet instead to see if this helps pain symptoms better, she is aware of proper use of medication and SE of medication. - GABAPENTIN 300 MG CAPSULE - OXYCODONE-ACETAMINOPHEN 5 MG-325 MG TABLET 4. Chronic pain syndrome - ICD9: 338.4, ICD10: G89.4 See above - GABAPENTIN 300 MG CAPSULE - OXYCODONE-ACETAMINOPHEN 5 MG-325 MG TABLET 5. Chronic bilateral thoracic back pain - ICD9: 724.1, 338.29, ICD10: M54.6, G89.29 - rx for gabapentin refilled, discontinue the tramadol. Trial of percocet instead to see if this helps pain symptoms better, she is aware of proper use of medication and SE of medication. - GABAPENTIN 300 MG CAPSULE - OXYCODONE-ACETAMINOPHEN 5 MG-325 MG TABLET 6. Fibromyalgia - ICD9: 729.1, ICD10: M79.7 - rx for gabapentin refilled, discontinue the tramadol. Trial of percocet instead to see if this helps pain symptoms better, she is aware of proper use of medication and SE of medication. - GABAPENTIN 300 MG CAPSULE - OXYCODONE-ACETAMINOPHEN 5 MG-325 MG TABLET 7. Restless leg - ICD9: 333.94, ICD10: G25.81 - rx for gabapentin refilled, discontinue the tramadol. Trial of percocet instead to see if this helps pain symptoms better, she is aware of proper use of medication and SE of medication. - GABAPENTIN 300 MG CAPSULE - OXYCODONE-ACETAMINOPHEN 5 MG-325 MG TABLET 8. Vitamin B12 deficiency - ICD9: 266.2, ICD10: E53.8 - rx refilled. - GABAPENTIN 300 MG CAPSULE 9. VÍCTOR (generalized anxiety disorder) - ICD9: 300.02, ICD10: F41.1 Increase dose of medication, f/u in office in 2-3 months and prn, no SI or HI - SERTRALINE 100 MG TABLET 10. Depressive disorder - ICD9: 311, ICD10: F32.A Increase dose of medication, f/u in office in 2-3 months and prn, no SI or HI - SERTRALINE 100 MG TABLET Would also benefit from therapy/counseling as she is aware Hong Matos DO PDMP website checked and validated. All prescriptions have been APPROPRIATELY filled. No suspicious activity was identified. 07/04/2022 by Hong Matos DO Return if no improvement. Follow up with Hong Matos DO. To ER if develops chest pain, shortness of breath Discussed risks, benefits, alternatives, and potential side effects of medications. Patient/Guardian expressed understanding and agreed with the plan. See patient instructions. Hong Matos DO [id number] [place] [address] documented in this encounter [facility] 07-04-2022 Instructions Hong Matos DO - 07/04/2022 9:34 AM EDT Increase dose of sertraline to 100 mg in the evening to help mood documented in this encounter [facility] 06-06-2022 History of Present illness Narrative Patient presents for B-12 injection. Denies any problems at this time. Patient instructed on any SE of medication, verbalized understanding and agreed to proceed with treatment. Tolerated injection well. Nida Hedrick LPN documented in this encounter [facility] 05-09-2022 History of Present illness Narrative Patient presents for B-12 injection. Denies any problems at this time. Patient instructed on any SE of medication, verbalized understanding and agreed to proceed with treatment. Tolerated injection well. Nida Hedrick LPN documented in this encounter [facility] 04-26-2022 Miscellaneous Notes Patient has been identified by name and date of : Yes Patient phones for refill(s): Pending Prescriptions Disp Refills FUROSEMIDE 20 MG TABLET 90 tablet 1 Sig: Take 1 tablet by mouth once daily as needed for swelling/edema. PETE: No SERTRALINE 25 MG TABLET 90 tablet 1 Sig: Take 1 tablet by mouth daily at bedtime. Take with 50 mg tablet to total 75 mg a day PETE: No SERTRALINE 50 MG TABLET 90 tablet 1 Sig: Take 1 tablet by mouth daily at bedtime. Take with 25 mg tablet to total 75 mg a day PETE: No Date of last office visit in primary care: 04/11/2022, has appt 07/04/2022 Last 2 Encounter Wt Readings: Date: Wt: 04/11/2022 88.5 kg (195 lb) 03/19/2022 88.9 kg (196 lb) Previous labs/tests for medication: Blood Pressure: BUN (mg/dL) Date Value 03/13/2022 21 08/02/2021 16 Sodium (mmol/L) Date Value 03/13/2022 136 08/02/2021 138 Last 1 Encounter BP Readings: Date: BP: 04/11/2022 98/60 Please advise. Thank you. Reyna Tejada LPN documented in this encounter [facility] 04-11-2022 Instructions Hong Matos DO - 04/11/2022 10:55 AM EDT Gabapentin - take 900 mg in the morning and 900 mg in the afternoon. Can take an extra dose at night, if symptoms are present documented in this encounter [facility] 04-11-2022 History of Present illness Narrative CC: Valencia Polo is a 67 year old female who presents to the office for EMERGENCY DEPARTMENT follow up HPI: She was seen in the EMERGENCY DEPARTMENT recently at [facility] on 04/04 due to severity of a flare up of her restless leg symptoms in her thighs and lower legs. She states it started the night before on 04/03 in the evening, she tried walking, taking a hot shower without relief. She took a prn dose of her Requip at 10 pm, 1030 pm and 11 pm due to the symptoms bothering her so much. Didn't get relief. She then had her daughter take her to the EMERGENCY DEPARTMENT since she wasn't able to sleep. She was told to call the office for suggestions since the EMERGENCY DEPARTMENT physician checked labs etc and everything was normal. The director operations physician told her to increase her dose of gabapentin, she is tolerating this well. She is currently taking gabapentin 2 times a day as well as tramadol 2 -3 times a day. Tolerating this dose combination. The last few days her symptoms have much improved. PAST MEDICAL HISTORY Diagnosis Date Chronic pain syndrome normal ESR, suspect fibromyalgia Depression Elevated cholesterol with high triglycerides Fibromyalgia GERD (gastroesophageal reflux disease) Hypertension Prediabetes RLS (restless legs syndrome) PAST SURGICAL HISTORY Procedure Laterality Date HYSTERECTOMY HX 1989 ovaries removed PAST SURGICAL HISTORY OF gallbladder removal PAST SURGICAL HISTORY OF benign tumor removed from L shoulder blade Current Outpatient Medications Medication Sig gabapentin (NEURONTIN) 600 mg tablet Take 1 tablet by mouth three times daily for 90 days. nystatin (MYCOSTATIN) ointment Apply to affected area twice daily. On sore on gluteal traMADol (ULTRAM) 100 mg tablet Take 1 tablet by mouth every 8 hours as needed for pain for up to 90 days. gabapentin (NEURONTIN) 300 mg capsule Take 1 capsule by mouth three times daily for 90 days. sertraline (ZOLOFT) 50 mg tablet Take 1 tablet by mouth daily at bedtime. Take with 25 mg tablet to total 75 mg a day sertraline (ZOLOFT) 25 mg tablet Take 1 tablet by mouth daily at bedtime. Take with 50 mg tablet to total 75 mg a day lisinopril (ZESTRIL, PRINIVIL) 10 mg tablet Take 1 tablet by mouth once daily. furosemide (LASIX) 20 mg tablet Take 1 tablet by mouth once daily as needed for swelling/edema. vitamin B complex (B COMPLEX-100 ORAL) Take by mouth. Magnesium 250 mg tab Take 250 mg by mouth twice daily. estradiol (ESTRACE) 0.01 % (0.1 mg/gram) vaginal cream Finger-tip amount each night applied as directed in instructions omeprazole magnesium (PRILOSEC ORAL) Take by mouth. phenazopyridine (PYRIDIUM) 200 mg tablet Take 1 tablet by mouth three times daily as needed. triamcinolone acetonide (KENALOG) 0.5 % cream Apply to affected area twice daily. bismuth subsalicylate (PEPTO-BISMOL) 262 mg chew Take 1 tablet by mouth four times daily for 14 days. Cholecalciferol, Vitamin D3, 5,000 unit cap Take 1 capsule by mouth once daily. MULTIVITAMIN ORAL Take by mouth. Current Facility-Administered Medications Medication Dose Route Frequency cyanocobalamin 1,000 mcg injection 1,000 mcg INTRAMUSCULAR q 4 WEEKS cyanocobalamin 1,000 mcg injection 1,000 mcg INTRAMUSCULAR q 4 WEEKS ALLERGIES Allergen Reactions [place] [Hydrocodone-* Hives Social History Tobacco Use Smoking status: Former Smoker Smokeless tobacco: Never Used Substance Use Topics Alcohol use: Not Currently Drug use: No ROS: See HPI PE: BP 98/60 Pulse 76 Temp (Src) 97 (Temporal) Resp 16 Wt 195 lb (88.5kg) Gen: A&OX3, NAD, non-toxic appearing, cooperative HEENT: PERRLA, EOMs intact b/l, nares without drainage, pharynx without erythema, exudate, lesions, or drainage. Uvula midline. Neck: No LAD, no thyromegaly, no meningismus. CV: RRR, no murmur Lungs: CTA b/l, no wheezing Skin: No rashes, lesions, or wounds on exposed skin. No edema, normal pulses Gait slowed and antalgic but stable ASSESSMENT/PLAN: 1. Chronic pain syndrome - ICD9: 338.4, ICD10: G89.4 (primary diagnosis) Continue dose of 900 mg in AM and 900 mg in afternoon of her gabapentin and okay to take bedtime dose as needed. She can continue this regiment with her current tramadol dosing. If her restless legs/leg pain gets more severe, then will need to see Neurologist for next steps as d/w her today - GABAPENTIN 300 MG CAPSULE 2. Osteoarthritis of spine with radiculopathy, lumbar region - ICD9: 721.3, ICD10: M47.26 Continue dose of 900 mg in AM and 900 mg in afternoon of her gabapentin and okay to take bedtime dose as needed. She can continue this regiment with her current tramadol dosing. If her restless legs/leg pain gets more severe, then will need to see Neurologist for next steps as d/w her today - GABAPENTIN 300 MG CAPSULE 3. Chronic midline low back pain with bilateral sciatica - ICD9: 724.2, 724.3, 338.29, ICD10: M54.41, M54.42, G89.29 Continue dose of 900 mg in AM and 900 mg in afternoon of her gabapentin and okay to take bedtime dose as needed. She can continue this regiment with her current tramadol dosing. If her restless legs/leg pain gets more severe, then will need to see Neurologist for next steps as d/w her today - GABAPENTIN 300 MG CAPSULE 4. Chronic bilateral thoracic back pain - ICD9: 724.1, 338.29, ICD10: M54.6, G89.29 Continue dose of 900 mg in AM and 900 mg in afternoon of her gabapentin and okay to take bedtime dose as needed. She can continue this regiment with her current tramadol dosing. If her restless legs/leg pain gets more severe, then will need to see Neurologist for next steps as d/w her today - GABAPENTIN 300 MG CAPSULE 5. Fibromyalgia - ICD9: 729.1, ICD10: M79.7 Continue dose of 900 mg in AM and 900 mg in afternoon of her gabapentin and okay to take bedtime dose as needed. She can continue this regiment with her current tramadol dosing. If her restless legs/leg pain gets more severe, then will need to see Neurologist for next steps as d/w her today - GABAPENTIN 300 MG CAPSULE 6. Restless leg - ICD9: 333.94, ICD10: G25.81 Continue dose of 900 mg in AM and 900 mg in afternoon of her gabapentin and okay to take bedtime dose as needed. She can continue this regiment with her current tramadol dosing. If her restless legs/leg pain gets more severe, then will need to see Neurologist for next steps as d/w her today - GABAPENTIN 300 MG CAPSULE 7. Vitamin B12 deficiency - ICD9: 266.2, ICD10: E53.8 Continue injections - GABAPENTIN 300 MG CAPSULE Hong Matos DO Return if no improvement. Follow up with Hong Matos DO. To ER if develops chest pain, shortness of breath,. Discussed risks, benefits, alternatives, and potential side effects of medications. Patient/Guardian expressed understanding and agreed with the plan. See patient instructions. Hong Matos DO [address] [place] [address] documented in this encounter [facility] 04-04-2022 Miscellaneous Notes Spoke with Amy pharmacist gave information provided. She voices understanding. Agree with below. Verbal approval given. Nisa Olson APRN.CNP Amy, a pharmacist with [facility] calling to state patient's recent mail order of tramadol was mailed to patient's old address. Apparently patient has just recently moved and the tramadol was mailed to previous address just prior to patient updating [facility] with new address. Per Amy, there was confirmation of the tramadol arriving at previous [facility] post office and believes it is being sent back to [facility] but this has not been confirmed yet. In the meantime patient is without her tramadol. Pharmacist Amy states she can send a new 30 day supply of tramadol to patient with a verbal authorization approval from Dr. Matos to do so, and the supply will require a signature from patient upon receiving the tramadol, if provider is agreeable with this. Please call Amy at [phone] ext [phone]. May leave message on this secure line, per Amy. documented in this encounter [facility] 04-04-2022 Hospital Discharge instructions Patient Education 04/04/2022 12:49:56 Drug Reaction, Other Reaction to Medicine (Other Type) You are having a reaction to a medicine you have taken. This may not be the same as an allergic reaction. It is an undesired, unfavorable reaction, or a side effect of a medicine. This can cause a variety of symptoms, including: Dizziness or headache Rash Flushing or hot sensation Nausea, vomiting, or stomach pain Diarrhea or constipation Trouble breathing High or low blood pressure A reaction can be an upset stomach from something like aspirin or ibuprofen, feeling faint after taking a blood pressure medicine, feeling anxious, and many other things. Symptoms of a medicine reaction can range from very mild to very severe. In most cases, the reaction goes away within 1 to 12 hours. But it will probably occur again if you take this same medicine. Your healthcare provider will advise you whether to change how much, when, or how often you take this medicine. He or she may also advise you to discontinue this medicine or switch to another one. Home care Another medicine may be recommended to reduce your symptoms until the medicine s effect wears off. Follow your healthcare provider s advice. When the medicine s effect has worn off, there should be no further problem as long as you don't take the same medicine again. Ask your healthcare provider if you should also avoid similar medicines. Write down the information so you will remember it. Make certain the medicine reaction is documented in your medical record. Follow-up care Follow up with your healthcare provider, or as advised if your symptoms are not better within 24 hours. When to seek medical advice Call your healthcare provider right away if any of these occur. New symptoms that concern you Worsening of your current symptoms, including rash or facial swelling Symptoms that are not relieved by the treatment advised Fever of 100.4 F (38 C) or higher, or as advised by your healthcare provider Call 911 Call 911 if any of these occur: Trouble breathing or swallowing, or wheezing Hoarse voice or trouble speaking Confusion Extreme drowsiness or trouble awakening Fainting or loss of consciousness Rapid heart rate or slow heart rate Very low or very high blood pressure Vomiting blood, or large amounts of blood in stool Seizure [phone] [employer]. [address] [place] [address]. All rights reserved. This information is not intended as a substitute for professional medical care. Always follow your healthcare professional's instructions. 04/04/2022 12:49:53 Anxiety Reaction Anxiety Reaction Anxiety is the feeling we all get when we think something bad might happen. It is a normal response to stress and usually causes only a mild reaction. When anxiety becomes more severe, it can interfere with daily life. In some cases, you may not even be aware of what it is you re anxious about. There may also be a genetic link or it may be a learned behavior in the home. Both psychological and physical triggers cause stress reaction. It's often a response to fear or emotional stress, real or imagined. This stress may come from home, family, work, or social relationships. During an anxiety reaction, you may feel: Helpless Nervous Depressed Irritable Your body may show signs of anxiety in many ways. You may experience: Dry mouth Shakiness Dizziness Weakness Trouble breathing Breathing fast (hyperventilating) Chest pressure Sweating Headache Nausea Diarrhea Tiredness Inability to sleep Sexual problems Home care Try to locate the sources of stress in your life. They may not be obvious. These may include: oDaily hassles of life (such as traffic jams, missed appointments, or car troubles) oMajor life changes, both good (new baby or job promotion) and bad (loss of job or loss of loved one) oOverload: feeling that you have too many responsibilities and can't take care of all of them at once oFeeling helpless or feeling that your problems are beyond what you re able to solve Notice how your body reacts to stress. Learn to listen to your body signals. This will help you take action before the stress becomes severe. When you can, do something about the source of your stress. (Avoid hassles, limit the amount of change that happens in your life at one time and take a break when you feel overloaded). Unfortunately, many stressful situations can't be avoided. It is necessary to learn how to better manage stress. There are many proven methods that will reduce your anxiety. These include simple things like exercise, good nutrition, and adequate rest. Also, there are certain techniques that are helpful: oRelaxation oBreathing exercises oVisualization oBiofeedback oMeditation For more information about this, consult your healthcare provider or go to a local bookstore and review the many books and tapes available on this subject. Follow-up care If you feel that your anxiety is not responding to self-help measures, contact your healthcare provider or make an appointment with a counselor. You may need short-term psychological counseling and temporary medicine to help you manage stress. Call 911 Call 911 if any of these happen: Trouble breathing Confusion Drowsiness or trouble wakening Fainting or loss of consciousness Rapid heart rate Seizure New chest pain that becomes more severe, lasts longer, or spreads into your shoulder, arm, neck, jaw, or back When to seek medical advice Call your healthcare provider right away if any of these happen: Your symptoms get worse Severe headache not relieved by rest and mild pain reliever [id number] [employer]. [address] [place] [address]. All rights reserved. This information is not intended as a substitute for professional medical care. Always follow your healthcare professional's instructions. Follow Up Care 04/04/2022 11:09:31 With:HONG MATOS DO Address: [address] [place] [id number]- When:2-4 days [facility] 03-14-2022 Miscellaneous Notes Pt notified and verbalized understanding Myla Dallas Ma Please let Valencia know that we've received her labs. There is nothing acutely concerning, so she can follow up in more detail at her upcoming appointment with Dr. Matos. Petty Mendenhall APRN.CNP documented in this encounter [facility] 09-23-2020 History of Present illness Narrative Radiology Service Progress Note PATIENT NAME: Valencia Polo DATE OF SERVICE: September 23, 2020 TIME: 12:25 PM PATIENT IDENTITY VERIFICATION COMPLETED USING TWO (2) IDENTIFIERS: Name and Date of confirmed by patient verbally. FALL SCREENING: Has the patient had 2 falls in the last year or 1 fall with injury or currently using an Ambulatory Assistive Device (Walker, Cane, Wheelchair, Crutches, etc.)? No PATIENT GENDER DATA: Female. status: : No status: NO. PATIENT RELEVANT IMPLANT DATA REVIEWED: Not Applicable RADIOLOGY DEPARTMENT: General X-ray: Exam(s) Completed: Spine X-Ray(s): Cervical AP / LAT / OBL , Thoracic and Lumbar AP / LAT / L5-S1 PERIPHERAL IV DATA: Not applicable SIGNED BY: RT Vladimir September 23, 2020 12:25 PM documented in this encounter [facility] 02-04-2014 History of Past i llness Narrative Problem Noted Date Resolved Date Dysuria 02/04/2014 03/22/2014 Hematuria 02/04/2014 03/22/2014 Vulval lesion 02/04/2014 03/22/2014 Vulvar dermatitis 02/04/2014 03/22/2014 documented as of this encounter (statuses as of 03/14/2022) [facility] History of Past illness Narrative* Problem Noted Date Resolved Date Dysuria 02/04/2014 03/22/2014 Hematuria 02/04/2014 03/22/2014 Vulval lesion 02/04/2014 03/22/2014 Vulvar dermatitis 02/04/2014 03/22/2014 documented as of this encounter (statuses as of 04/04/2022) [facility] History of Past illness Narrative* Problem Noted Date Resolved Date Dysuria 02/04/2014 03/22/2014 Hematuria 02/04/2014 03/22/2014 Vulval lesion 02/04/2014 03/22/2014 Vulvar dermatitis 02/04/2014 03/22/2014 documented as of this encounter (statuses as of 04/11/2022) [facility] of Past illness Narrative* Problem Noted Date Resolved Date Dysuria 02/04/2014 03/22/2014 Hematuria 02/04/2014 03/22/2014 Vulval lesion 02/04/2014 03/22/2014 Vulvar dermatitis 02/04/2014 03/22/2014 documented as of this encounter (statuses as of 04/26/2022) [facility] of Past illness Narrative* Problem Noted Date Resolved Date Dysuria 02/04/2014 03/22/2014 Hematuria 02/04/2014 03/22/2014 Vulval lesion 02/04/2014 03/22/2014 Vulvar dermatitis 02/04/2014 03/22/2014 documented as of this encounter (statuses as of 05/09/2022) [facility] of Past illness Narrative* Problem Noted Date Resolved Date Dysuria 02/04/2014 03/22/2014 Hematuria 02/04/2014 03/22/2014 Vulval lesion 02/04/2014 03/22/2014 Vulvar dermatitis 02/04/2014 03/22/2014 documented as of this encounter (statuses as of 06/06/2022) [facility] of Past illness Narrative* Problem Noted Date Resolved Date Dysuria 02/04/2014 03/22/2014 Hematuria 02/04/2014 03/22/2014 Vulval lesion 02/04/2014 03/22/2014 Vulvar dermatitis 02/04/2014 03/22/2014 documented as of this encounter (statuses as of 07/05/2022) [facility] of Past illness Narrative* Problem Noted Date Resolved Date Dysuria 02/04/2014 03/22/2014 Hematuria 02/04/2014 03/22/2014 Vulval lesion 02/04/2014 03/22/2014 Vulvar dermatitis 02/04/2014 03/22/2014 documented as of this encounter (statuses as of 07/13/2022) [address] History of Past illness Narrative* Problem Noted Date Resolved Date Dysuria 02/04/2014 03/22/2014 Hematuria 02/04/2014 03/22/2014 Vulval lesion 02/04/2014 03/22/2014 Vulvar dermatitis 02/04/2014 03/22/2014 documented as of this encounter (statuses as of 08/01/2022) [facility] of Past illness Narrative* Problem Noted Date Resolved Date Dysuria 02/04/2014 03/22/2014 Hematuria 02/04/2014 03/22/2014 Vulval lesion 02/04/2014 03/22/2014 Vulvar dermatitis 02/04/2014 03/22/2014 documented as of this encounter (statuses as of 08/20/2022) [facility] of Past illness Narrative* Problem Noted Date Resolved Date Dysuria 02/04/2014 03/22/2014 Hematuria 02/04/2014 03/22/2014 Vulval lesion 02/04/2014 03/22/2014 Vulvar dermatitis 02/04/2014 03/22/2014 documented as of this encounter (statuses as of 08/21/2022) [facility] of Past illness Narrative* Problem Noted Date Resolved Date Dysuria 02/04/2014 03/22/2014 Hematuria 02/04/2014 03/22/2014 Vulval lesion 02/04/2014 03/22/2014 Vulvar dermatitis 02/04/2014 03/22/2014 documented as of this encounter (statuses as of 08/27/2022) [facility] of [facility] illness Narrative* Problem Noted Date Resolved Date Dysuria 02/04/2014 03/22/2014 Hematuria 02/04/2014 03/22/2014 Vulval lesion 02/04/2014 03/22/2014 Vulvar dermatitis 02/04/2014 03/22/2014 documented as of this encounter (statuses as of 10/03/2022) [facility] of [facility] illness Narrative* Problem Noted Date Resolved Date Dysuria 02/04/2014 03/22/2014 Hematuria 02/04/2014 03/22/2014 Vulval lesion 02/04/2014 03/22/2014 Vulvar dermatitis 02/04/2014 03/22/2014 documented as of this encounter (statuses as of 10/11/2022) [facility] of [facility] illness Narrative* Problem Noted Date Resolved Date Dysuria 02/04/2014 03/22/2014 Hematuria 02/04/2014 03/22/2014 Vulval lesion 02/04/2014 03/22/2014 Vulvar dermatitis 02/04/2014 03/22/2014 documented as of this encounter (statuses as of 11/05/2022) [facility] of [facility] illness Narrative* Problem Noted Date Resolved Date Dysuria 02/04/2014 03/22/2014 Hematuria 02/04/2014 03/22/2014 Vulval lesion 02/04/2014 03/22/2014 Vulvar dermatitis 02/04/2014 03/22/2014 documented as of this encounter (statuses as of 11/12/2022) [facility] of [facility] Narrative* Problem Noted Date Resolved Date Dysuria 02/04/2014 03/22/2014 Hematuria 02/04/2014 03/22/2014 Vulval lesion 02/04/2014 03/22/2014 Vulvar dermatitis 02/04/2014 03/22/2014 documented as of this encounter (statuses as of 12/06/2022) [facility] of [facility] illness Narrative* Problem Noted Date Resolved Date Dysuria 02/04/2014 03/22/2014 Hematuria 02/04/2014 03/22/2014 Vulval lesion 02/04/2014 03/22/2014 Vulvar dermatitis 02/04/2014 03/22/2014 documented as of this encounter (statuses as of 01/24/2023) [facility] Narrative* Problem Noted Date Resolved Date Dysuria 02/04/2014 03/22/2014 Hematuria 02/04/2014 03/22/2014 Vulval lesion 02/04/2014 03/22/2014 Vulvar dermatitis 02/04/2014 03/22/2014 documented as of this encounter (statuses as of 01/24/2023) [facility] of [facility] illness Narrative* Problem Noted Date Resolved Date Dysuria 02/04/2014 03/22/2014 Hematuria 02/04/2014 03/22/2014 Vulval lesion 02/04/2014 03/22/2014 Vulvar dermatitis 02/04/2014 03/22/2014 documented as of this encounter (statuses as of 01/29/2023) [facility] of [facility] illness Narrative* Problem Noted Date Resolved Date Dysuria 02/04/2014 03/22/2014 Hematuria 02/04/2014 03/22/2014 Vulval lesion 02/04/2014 03/22/2014 Vulvar dermatitis 02/04/2014 03/22/2014 documented as of this encounter (statuses as of 02/04/2023) [facility] of [facility] illness Narrative* Problem Noted Date Resolved Date Dysuria 02/04/2014 03/22/2014 Hematuria 02/04/2014 03/22/2014 Vulval lesion 02/04/2014 03/22/2014 Vulvar dermatitis 02/04/2014 03/22/2014 documented as of this encounter (statuses as of 03/07/2023) [facility] History of Past illness Narrative* Problem Noted Date Resolved Date Dysuria 02/04/2014 03/22/2014 Hematuria 02/04/2014 03/22/2014 Vulval lesion 02/04/2014 03/22/2014 Vulvar dermatitis 02/04/2014 03/22/2014 documented as of this encounter (statuses as of 03/28/2023) [facility] History of Past illness Narrative* Problem Noted Date Resolved Date Dysuria 02/04/2014 03/22/2014 Hematuria 02/04/2014 03/22/2014 Vulval lesion 02/04/2014 03/22/2014 Vulvar dermatitis 02/04/2014 03/22/2014 documented as of this encounter (statuses as of 04/11/2023) [facility] History of Past illness Narrative* Problem Noted Date Resolved Date Dysuria 02/04/2014 03/22/2014 Hematuria 02/04/2014 03/22/2014 Vulval lesion 02/04/2014 03/22/2014 Vulvar dermatitis 02/04/2014 03/22/2014 documented as of this encounter (statuses as of 05/21/2023) [facility] History of Past illness Narrative* Problem Noted Date Resolved Date Dysuria 02/04/2014 03/22/2014 Hematuria 02/04/2014 03/22/2014 Vulval lesion 02/04/2014 03/22/2014 Vulvar dermatitis 02/04/2014 03/22/2014 documented as of this encounter (statuses as of 05/28/2023) [facility] History of Past illness Narrative* Problem Noted Date Resolved Date Dysuria 02/04/2014 03/22/2014 Hematuria 02/04/2014 03/22/2014 Vulval lesion 02/04/2014 03/22/2014 Vulvar dermatitis 02/04/2014 03/22/2014 documented as of this encounter (statuses as of 06/04/2023) [facility] History of Past illness Narrative* Problem Noted Date Diagnosed Date Resolved Date Dysuria 02/04/2014 03/22/2014 Hematuria 02/04/2014 03/22/2014 Vulval lesion 02/04/2014 03/22/2014 Vulvar dermatitis 02/04/2014 03/22/2014 documented as of this encounter (statuses as of 07/23/2023) [facility] History of Past illness Narrative* Problem Noted Date Diagnosed Date Resolved Date Dysuria 02/04/2014 03/22/2014 Hematuria 02/04/2014 03/22/2014 Vulval lesion 02/04/2014 03/22/2014 Vulvar dermatitis 02/04/2014 03/22/2014 documented as of this encounter (statuses as of 08/12/2023) [facility] History of Past illness Narrative* Problem Noted Date Diagnosed Date Resolved Date Dysuria 02/04/2014 03/22/2014 Hematuria 02/04/2014 03/22/2014 Vulval lesion 02/04/2014 03/22/2014 Vulvar dermatitis 02/04/2014 03/22/2014 documented as of this encounter (statuses as of 08/14/2023) [facility] History of Past illness Narrative* Problem Noted Date Diagnosed Date Resolved Date Dysuria 02/04/2014 03/22/2014 Hematuria 02/04/2014 03/22/2014 Vulval lesion 02/04/2014 03/22/2014 Vulvar dermatitis 02/04/2014 03/22/2014 documented as of this encounter (statuses as of 08/22/2023) [facility] History of Past illness Narrative* Problem Noted Date Diagnosed Date Resolved Date Dysuria 02/04/2014 03/22/2014 Hematuria 02/04/2014 03/22/2014 Vulval lesion 02/04/2014 03/22/2014 Vulvar dermatitis 02/04/2014 03/22/2014 documented as of this encounter (statuses as of 09/12/2023) [facility] History of Past illness Narrative* Problem Noted Date Diagnosed Date Resolved Date Dysuria 02/04/2014 03/22/2014 Hematuria 02/04/2014 03/22/2014 Vulval lesion 02/04/2014 03/22/2014 Vulvar dermatitis 02/04/2014 03/22/2014 documented as of this encounter (statuses as of 09/17/2023) [facility] History of Past illness Narrative* Problem Noted Date Diagnosed Date Resolved Date Dysuria 02/04/2014 03/22/2014 Hematuria 02/04/2014 03/22/2014 Vulval lesion 02/04/2014 03/22/2014 Vulvar dermatitis 02/04/2014 03/22/2014 documented as of this encounter (statuses as of 10/15/2023) [facility] History of Past illness Narrative* Problem Noted Date Diagnosed Date Resolved Date Dysuria 02/04/2014 03/22/2014 Hematuria 02/04/2014 03/22/2014 Vulval lesion 02/04/2014 03/22/2014 Vulvar dermatitis 02/04/2014 03/22/2014 documented as of this encounter (statuses as of 10/25/2023) [facility] History of Past illness Narrative* Problem Noted Date Diagnosed Date Resolved Date Dysuria 02/04/2014 03/22/2014 Hematuria 02/04/2014 03/22/2014 Vulval lesion 02/04/2014 03/22/2014 Vulvar dermatitis 02/04/2014 03/22/2014 documented as of this encounter (statuses as of 11/06/2023) [facility] History of Past illness Narrative* Problem Noted Date Diagnosed Date Resolved Date Dysuria 02/04/2014 03/22/2014 Hematuria 02/04/2014 03/22/2014 Vulval lesion 02/04/2014 03/22/2014 Vulvar dermatitis 02/04/2014 03/22/2014 documented as of this encounter (statuses as of 11/07/2023) [facility] History of Past illness Narrative* Problem Noted Date Diagnosed Date Resolved Date Dysuria 02/04/2014 03/22/2014 Hematuria 02/04/2014 03/22/2014 Vulval lesion 02/04/2014 03/22/2014 Vulvar dermatitis 02/04/2014 03/22/2014 documented as of this encounter (statuses as of 11/12/2023) [facility] History of Past illness Narrative* Problem Noted Date Diagnosed Date Resolved Date Dysuria 02/04/2014 03/22/2014 Hematuria 02/04/2014 03/22/2014 Vulval lesion 02/04/2014 03/22/2014 Vulvar dermatitis 02/04/2014 03/22/2014 documented as of this encounter (statuses as of 11/12/2023) [facility] History of Past illness Narrative* Problem Noted Date Diagnosed Date Resolved Date Dysuria 02/04/2014 03/22/2014 Hematuria 02/04/2014 03/22/2014 Vulval lesion 02/04/2014 03/22/2014 Vulvar dermatitis 02/04/2014 03/22/2014 documented as of this encounter (statuses as of 11/14/2023) [facility] History of Past illness Narrative* Problem Noted Date Diagnosed Date Resolved Date Dysuria 02/04/2014 03/22/2014 Hematuria 02/04/2014 03/22/2014 Vulval lesion 02/04/2014 03/22/2014 Vulvar dermatitis 02/04/2014 03/22/2014 documented as of this encounter (statuses as of 11/21/2023) [facility] History of Past illness Narrative* Problem Noted Date Diagnosed Date Resolved Date Dysuria 02/04/2014 03/22/2014 Hematuria 02/04/2014 03/22/2014 Vulval lesion 02/04/2014 03/22/2014 Vulvar dermatitis 02/04/2014 03/22/2014 documented as of this encounter (statuses as of 01/10/2024) [facility] No data available for this section [facility] note* Diagnosis Chronic pain syndrome- Primary Osteoarthritis of spine with radiculopathy, 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 Chronic bilateral thoracic back pain Fibromyalgia Mylagia and myositis, unspecified Restless leg Restless legs syndrome (RLS) Vitamin B12 deficiency Other B-complex deficiencies [facility] Diagnosis Ankle edema, bilateral VÍCTOR (generalized anxiety disorder) Generalized anxiety disorder Depressive disorder Depressive disorder, not elsewhere classified [facility] Diagnosis Vitamin B12 deficiency- Primary Other B-complex deficiencies [facility]* Diagnosis Vitamin B12 deficiency- Primary Other B-complex deficiencies [facility] Diagnosis Osteoarthritis of spine with radiculopathy, lumbar region- Primary Dysuria Chronic midline low back pain with bilateral sciatica Chronic pain syndrome Chronic bilateral thoracic back pain Fibromyalgia Mylagia and myositis, unspecified Restless leg Restless legs syndrome (RLS) Vitamin B12 deficiency Other B-complex deficiencies VÍCTOR (generalized anxiety disorder) Generalized anxiety disorder Depressive disorder Depressive disorder, not elsewhere classified [facility] Diagnosis Osteoarthritis of spine with radiculopathy, lumbar region- Primary Chronic midline low back pain with bilateral sciatica Chronic pain syndrome Chronic bilateral thoracic back pain Fibromyalgia Mylagia and myositis, unspecified [facility]* Diagnosis Vitamin B12 deficiency- Primary Other B-complex deficiencies [facility]* Diagnosis Nausea- Primary Nausea alone Lightheaded Dizziness and giddiness [facility]* Diagnosis COVID- Primary Vitamin B12 deficiency Other B-complex deficiencies [facility] Diagnosis Osteoarthritis of spine with radiculopathy, lumbar region- Primary Chronic midline low back pain with bilateral sciatica Chronic pain syndrome Chronic bilateral thoracic back pain Fibromyalgia Mylagia and myositis, unspecified Restless leg Restless legs syndrome (RLS) Vitamin B12 deficiency Other B-complex deficiencies VÍCTOR (generalized anxiety disorder) Generalized anxiety disorder Depressive disorder Depressive disorder, not elsewhere classified History of COVID-19 Acute non-recurrent frontal sinusitis [facility]* Diagnosis Ankle edema, bilateral [facility]* Diagnosis Vitamin B12 deficiency- Primary Other B-complex deficiencies [facility]* Diagnosis Hyperlipidemia, mixed Mixed hyperlipidemia [facility]* Diagnosis Vitamin B12 deficiency- Primary Other B-complex deficiencies [facility] Diagnosis Osteoarthritis of spine with radiculopathy, 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 Chronic pain syndrome Chronic bilateral thoracic back pain Fibromyalgia Mylagia and myositis, unspecified [facility] Diagnosis Hyperlipidemia, mixed- Primary Mixed hyperlipidemia Fibromyalgia Mylagia and myositis, unspecified [facility] Diagnosis Vitamin B12 deficiency- Primary Other B-complex deficiencies [facility] Diagnosis Osteoarthritis of spine with radiculopathy, 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 Chronic pain syndrome Chronic bilateral thoracic back pain Fibromyalgia Mylagia and myositis, unspecified [facility] Diagnosis VÍCTOR (generalized anxiety disorder) Generalized anxiety disorder Depressive disorder Depressive disorder, not elsewhere classified [facility] Diagnosis Chronic pain syndrome- Primary Hyperlipidemia, mixed Mixed hyperlipidemia Osteoarthritis of spine with radiculopathy, 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 Chronic bilateral thoracic back pain Fibromyalgia Mylagia and myositis, unspecified Restless leg Restless legs syndrome (RLS) Vitamin B12 deficiency Other B-complex deficiencies Hyperglycemia Other abnormal glucose Vitamin D deficiency Unspecified vitamin D deficiency PVD (peripheral vascular disease) ([facility]) Peripheral vascular disease, unspecified Body mass index (BMI) 45.0-49.9, adult ([facility]) [facility]* Diagnosis Ankle edema, bilateral [facility] Diagnosis Vitamin B12 deficiency- Primary Other B-complex deficiencies [facility] Diagnosis Head congestion- Primary Other diseases of nasal cavity and sinuses Sore throat Acute pharyngitis [facility] this [facility] Diagnosis Osteoarthritis of spine with radiculopathy, 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 Chronic pain syndrome Chronic bilateral thoracic back pain Fibromyalgia Mylagia and myositis, unspecified [facility] Diagnosis Chronic midline low back pain with bilateral sciatica- Primary Hyperlipidemia, mixed Mixed hyperlipidemia Osteoarthritis of spine with radiculopathy, lumbar region Chronic pain syndrome Chronic bilateral thoracic back pain Fibromyalgia Mylagia and myositis, unspecified Restless leg Restless legs syndrome (RLS) Vitamin B12 deficiency Other B-complex deficiencies PAD (peripheral artery disease) ([facility]) Peripheral vascular disease, unspecified Body mass index (BMI) 45.0-49.9, adult ([facility]) [facility] Diagnosis Vitamin B12 deficiency- Primary Other B-complex deficiencies [facility] Diagnosis Osteoarthritis of spine with radiculopathy, 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 Chronic pain syndrome Chronic bilateral thoracic back pain Fibromyalgia Mylagia and myositis, unspecified Restless leg Restless legs syndrome (RLS) [facility]* Diagnosis Body aches- Primary Generalized pain Osteoarthritis of spine with radiculopathy, 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 Chronic pain syndrome Chronic bilateral thoracic back pain Fibromyalgia Mylagia and myositis, unspecified Restless leg Restless legs syndrome (RLS) Diarrhea, unspecified type [facility] Diagnosis Chronic bilateral thoracic back pain Fibromyalgia Mylagia and myositis, unspecified Restless leg Restless legs syndrome (RLS) Osteoarthritis of spine with radiculopathy, 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 Chronic pain syndrome [facility] Diagnosis Chronic bilateral thoracic back pain Fibromyalgia Mylagia and myositis, unspecified Restless leg Restless legs syndrome (RLS) [facility] Diagnosis Chronic bilateral thoracic back pain Fibromyalgia Mylagia and myositis, unspecified Restless leg Restless legs syndrome (RLS) [facility] this [facility] Diagnosis Arthritis of foot- Primary Unspecified arthropathy, ankle and foot Foot pain, bilateral Pain in limb Skew foot deformity, unspecified laterality [facility]* Diagnosis Chronic midline low back pain with bilateral sciatica- Primary Osteoarthritis of spine with radiculopathy, lumbar region Chronic pain syndrome Chronic bilateral thoracic back pain Fibromyalgia Mylagia and myositis, unspecified Restless leg Restless legs syndrome (RLS) Vitamin B12 deficiency Other B-complex deficiencies Sweating increase Generalized hyperhidrosis Fatigue, unspecified type Hypercalcemia Borderline abnormal thyroid function test Nonspecific abnormal results of thyroid function study IFG (impaired fasting glucose) Impaired fasting glucose PAD (peripheral artery disease) ([facility]) Peripheral vascular disease, unspecified Body mass index (BMI) 45.0-49.9, adult ([facility]) [facility] this encounter [facility] Diagnosis Low serum cortisol level- Primary Glucocorticoid deficiency [facility] Diagnosis Low serum cortisol level- Primary Glucocorticoid deficiency [facility]* Diagnosis Hyperlipidemia, mixed Mixed hyperlipidemia Hypertriglyceridemia Pure hyperglyceridemia Ankle edema, bilateral [facility] this encounter [facility] Diagnosis Gluteal abscess Cellulitis and abscess of buttock [facility] this [facility] Diagnosis Chronic pain syndrome- Primary Osteoarthritis of spine with radiculopathy, 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 Chronic bilateral thoracic back pain Fibromyalgia Mylagia and myositis, unspecified Restless leg Restless legs syndrome (RLS) Vitamin B12 deficiency Other B-complex deficiencies Low serum cortisol level Glucocorticoid deficiency Fatigue, unspecified type Vitamin D deficiency Unspecified vitamin D deficiency [facility]* Diagnosis Osteoarthritis of spine with radiculopathy, 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 Chronic pain syndrome Chronic bilateral thoracic back pain Fibromyalgia Mylagia and myositis, unspecified [facility]* Diagnosis VÍCTOR (generalized anxiety disorder) Generalized anxiety disorder Depressive disorder Depressive disorder, not elsewhere classified [facility]* Diagnosis Chronic pain syndrome Chronic neck pain Cervicalgia Chronic bilateral thoracic back pain Recurrent low back pain Lumbago [facility]* Diagnosis Hyperlipidemia, mixed Mixed hyperlipidemia [facility]* Diagnosis Memory loss- Primary Osteoarthritis of spine with radiculopathy, 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 Chronic pain syndrome Chronic bilateral thoracic back pain Fibromyalgia Mylagia and myositis, unspecified Restless leg Restless legs syndrome (RLS) Vitamin B12 deficiency Other B-complex deficiencies Dizziness Dizziness and giddiness documented in this encounter [facility] Diagnosis Memory loss Dizziness Dizziness and giddiness [facility]* Diagnosis Hyperlipidemia, mixed Mixed hyperlipidemia Hypertriglyceridemia Pure hyperglyceridemia Ankle edema, bilateral [facility] Diagnosis Hyperlipidemia, mixed Mixed hyperlipidemia Hypertriglyceridemia Pure hyperglyceridemia Ankle edema, bilateral Osteoarthritis of spine with radiculopathy, 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 Chronic pain syndrome Chronic bilateral thoracic back pain Fibromyalgia Mylagia and myositis, unspecified [facility] this encounter [facility] Diagnosis Acute right-sided low back pain with bilateral sciatica- Primary Right hip pain Pain in joint, pelvic region and thigh Acute non-recurrent maxillary sinusitis Fibromyalgia Mylagia and myositis, unspecified Hypertriglyceridemia Pure hyperglyceridemia Chronic pain syndrome Osteoarthritis of spine with radiculopathy, lumbar region Vitamin B12 deficiency Other B-complex deficiencies Vitamin D deficiency Unspecified vitamin D deficiency Fatigue, unspecified type Hyperglycemia Other abnormal glucose Restless legs Restless legs syndrome (RLS) documented [facility] this encounter [facility] Diagnosis Acute right-sided low back pain with bilateral sciatica Right hip pain Pain in joint, pelvic region and thigh [facility] Diagnosis Hyperlipidemia, mixed Mixed hyperlipidemia VÍCTOR (generalized anxiety disorder) Generalized anxiety disorder Depressive disorder Depressive disorder, not elsewhere classified [facility] this encounter [facility] Diagnosis VÍCTOR (generalized anxiety disorder) Generalized anxiety disorder Depressive disorder Depressive disorder, not elsewhere classified [facility] this encounter [facility] Diagnosis Acute right-sided low back pain with bilateral sciatica- Primary Right hip pain Pain in joint, pelvic region and thigh Fibromyalgia Mylagia and myositis, unspecified Chronic pain syndrome Osteoarthritis of spine with radiculopathy, lumbar region [facility] this encounter [facility] Diagnosis Osteoarthritis of spine with radiculopathy, 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 Chronic pain syndrome Chronic bilateral thoracic back pain Fibromyalgia Mylagia and myositis, unspecified [facility]* Diagnosis Medicare annual wellness visit, subsequent- Primary Routine general medical examination at a health care facility Osteoarthritis of spine with radiculopathy, 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 Chronic pain syndrome Chronic bilateral thoracic back pain Fibromyalgia Mylagia and myositis, unspecified VÍCTOR (generalized anxiety disorder) Generalized anxiety disorder Depressive disorder Depressive disorder, not elsewhere classified Hyperlipidemia, mixed Mixed hyperlipidemia Hypercalcemia Dysuria [facility] this encounter [facility] No data available for this section [facility] Reason for referral (narrative)* Outpatient Procedure (Routine) - Authorized Specialty Diagnoses / Procedures Referred By Bee garcia Referred To [facility] Diagnoses PAD (peripheral artery disease) (HCC) Procedures PVR ANK PRESS HARJIT VAS LAB NON-INVAS PHYSIOLOGIC STD EXTREMITY ART 2 LEVEL Hong Matos DO [address] [place] [address] [facility] [address] [place] [address] Referral ID Status Reason Start Date Expiration Date Visits Requested Visits Authorized [id number] Authorized Auto-Generat ed Referral 09/06/2023 09/05/2024 1 1 [facility] for visit Narrative* Diagnostic Procedure Only (Routine) - Closed Specialty Diagnoses / Procedures Referred By Bee garcia Referred To Contact [facility]AG[facility] Diagnoses Acute right-sided low back pain with bilateral sciatica Right hip pain Procedures XR HIP BILATERAL 5V PEL/AP/LAT EACH HIP RADEX HIPS BILATERAL WITH PELVIS MINIMUM 5 VIEWS Hong Matos DO [address] [place] [address] Phone: tel: fax: [place] [phone] Referral ID Status Reason Start Date Expiration Date V isits Requested Visits Authorized [id number] Closed Auto-Generate d Referral 01/13/2025 02/12/2026 1 1 [facility] Medications Administered Section Active Administered Medications - up to 3 most recent administrations Medication Order MAR Action Action Date Dose Rate Site cyanocobalamin 1,000 mcg injection 1,000 mcg, INTRAMUSCULAR, EVERY 4 WEEKS, 12 doses, First dose on Sat03/19/22 at 0900, Last dose on Sat01/21/23 at 0900 Given 04/11/2022 11:03 AM EDT 1,000 mcg Arm, Left Given 03/19/2022 9:53 AM EDT 1,000 mcg De ltoid, Left Active Administered Medications - up to 3 most recent administrations Medication Order MAR Action Action Date Dose Rate Site cyanocobalamin 1,000 mcg injection 1,000 mcg, INTRAMUSCULAR, EVERY 4 WEEKS, 12 doses, First dose on Sat03/19/22 at 0900, Last dose on Sat01/21/23 at 0900 Given 05/09/2022 10:03 AM EDT 1,000 mcg Deltoid, Right Given 04/11/2022 11:03 AM EDT 1,000 mcg A rm, Left Given 03/19/2022 9:53 AM EDT 1,000 mcg De ltoid, Left Active Administered Medications - up to 3 most recent administrations Medication Order MAR Action Action Date Dose Rate Site cyanocobalamin 1,000 mcg injection 1,000 mcg, INTRAMUSCULAR, EVERY 4 WEEKS, 12 doses, First dose on Sat03/19/22 at 0900, Last dose on Sat01/21/23 at 0900 Given 06/06/2022 10:06 AM EDT 1,000 mcg Deltoid, Left Given 05/09/2022 10:03 AM EDT 1,000 mcg D eltoid, Right Given 04/11/2022 11:03 AM EDT 1,000 mcg A rm, Left Active Administered Medications - up to 3 most recent administrations Medication Order MAR Action Action Date Dose Rate Site cyanocobalamin 1,000 mcg injection 1,000 mcg, INTRAMUSCULAR, EVERY 4 WEEKS, 12 doses, First dose on Sat03/19/22 at 0900, Last dose on Sat01/21/23 at 0900 Given 07/04/2022 9:46 AM EDT 1,000 mcg Deltoid, Right Given 06/06/2022 10:06 AM EDT 1,000 mcg D eltoid, Left Given 05/09/2022 10:03 AM EDT 1,000 mcg D eltoid, Right Active Administered Medications - up to 3 most recent administrations Medication Order MAR Action Action Date Dose Rate Site cyanocobalamin 1,000 mcg injection 1,000 mcg, INTRAMUSCULAR, EVERY 4 WEEKS, 12 doses, First dose on Sat03/19/22 at 0900, Last dose on Sat01/21/23 at 0900 Given 08/01/2022 9:21 AM EDT 1,000 mcg Deltoid, Left Given 07/04/2022 9:46 AM EDT 1,000 mcg De ltoid, Right Given 06/06/2022 10:06 AM EDT 1,000 mcg D eltoid, Left Active Administered Medications - up to 3 most recent administrations Medication Order MAR Action Action Date Dose Rate Site cyanocobalamin 1,000 mcg injection 1,000 mcg, INTRAMUSCULAR, EVERY 4 WEEKS, 12 doses, First dose on Sat03/19/22 at 0900, Last dose on Sat01/21/23 at 0900 Given 08/27/2022 11:47 AM EDT 1,000 mcg Deltoid, Right Given 08/01/2022 9:21 AM EDT 1,000 mcg De ltoid, Left Given 07/04/2022 9:46 AM EDT 1,000 mcg De ltoid, Right Active Administered Medications - up to 3 most recent administrations Medication Order MAR Action Action Date Dose Rate Site cyanocobalamin 1,000 mcg injection 1,000 mcg, INTRAMUSCULAR, EVERY 4 WEEKS, 12 doses, First dose on Sat03/19/22 at 0900, Last dose on Sat01/21/23 at 0900 Given 10/03/2022 10:14 AM EDT 1,000 mcg Deltoid, Left Given 08/27/2022 11:47 AM EDT 1,000 mcg D eltoid, Right Given 08/01/2022 9:21 AM EDT 1,000 mcg De ltoid, Left Active Administered Medications - up to 3 most recent administrations Medication Order MAR Action Action Date Dose Rate Site cyanocobalamin 1,000 mcg injection 1,000 mcg, INTRAMUSCULAR, EVERY 4 WEEKS, 12 doses, First dose on Sat03/19/22 at 0900, Last dose on Sat01/21/23 at 0900 Given 11/05/2022 11:06 AM EST 1,000 mcg Deltoid, Right Given 10/03/2022 10:14 AM EDT 1,000 mcg D eltoid, Left Given 08/27/2022 11:47 AM EDT 1,000 mcg D eltoid, Right Active Administered Medications - up to 3 most recent administrations Medication Order MAR Action Action Date Dose Rate Site cyanocobalamin 1,000 mcg injection 1,000 mcg, INTRAMUSCULAR, EVERY 4 WEEKS, 12 doses, First dose on Sat03/19/22 at 0900, Last dose on Sat01/21/23 at 0900 Given 12/04/2022 11:10 AM EST 1,000 mcg Deltoid, Left Given 11/05/2022 11:06 AM EST 1,000 mcg D eltoid, Right Given 10/03/2022 10:14 AM EDT 1,000 mcg D eltoid, Left Inactive Administered Medications - up to 3 most recent administrations Medication Order MAR Action Action Date Dose Rate Site cyanocobalamin 1,000 mcg injection 1,000 mcg, INTRAMUSCULAR, EVERY 4 WEEKS, 12 doses, First dose on Sat03/19/22 at 0900, Last dose on Sat01/21/23 at 0900 Given 01/29/2023 8:59 AM EST 1,000 mcg Deltoid, Left Given 01/02/2023 9:26 AM EST 1,000 mcg Ar m, Right Given 12/04/2022 11:10 AM EST 1,000 mcg D eltoid, Left Active Administered Medications - up to 3 most recent administrations Medication Order MAR Action Action Date Dose Rate Site cyanocobalamin 1,000 mcg injection 1,000 mcg, INTRAMUSCULAR, EVERY 4 WEEKS, 12 doses, First dose on Sat02/26/23 at 0000, Last dose on Sat12/31/23 at 0000 Given 2023 9:20 AM EDT 1,000 mcg Deltoid, Right Active Administered Medications - up to 3 most recent administrations Medication Order MAR Action Action Date Dose Rate Site cyanocobalamin 1,000 mcg injection 1,000 mcg, INTRAMUSCULAR, EVERY 4 WEEKS, 12 doses, First dose on Sat02/26/23 at 0000, Last dose on Sat12/31/23 at 0000 Given 05/28/2023 9:59 AM EDT 1,000 mcg Deltoid, Right Given 04/26/2023 9:07 AM EDT 1,000 mcg De ltoid, Left Given 2023 9:20 AM EDT 1,000 mcg De ltoid, Right Active Administered Medications - up to 3 most recent administrations Medication Order MAR Action Action Date Dose Rate Site cyanocobalamin 1,000 mcg injection 1,000 mcg, INTRAMUSCULAR, EVERY 4 WEEKS, 12 doses, First dose on Sat02/26/23 at 0000, Last dose on Sat12/31/23 at 0000 Given 07/23/2023 9:16 AM EDT 1,000 mcg Deltoid, Right Given 06/25/2023 9:41 AM EDT 1,000 mcg De ltoid, Left Given 05/28/2023 9:59 AM EDT 1,000 mcg De ltoid, Right Active Administered Medications - up to 3 most recent administrations Medication Order MAR Action Action Date Dose Rate Site cyanocobalamin 1,000 mcg injection 1,000 mcg, INTRAMUSCULAR, EVERY 4 WEEKS, 12 doses, First dose on Sat02/26/23 at 0000, Last dose on Sat12/31/23 at 0000 Given 09/17/2023 9:12 AM EDT 1,000 mcg Deltoid, Right Given 08/20/2023 9:03 AM EDT 1,000 mcg De ltoid, Left Given 07/23/2023 9:16 AM EDT 1,000 mcg De ltoid, Right Active Administered Medications - up to 3 most recent administrations Medication Order MAR Action Action Date Dose Rate Site cyanocobalamin 1,000 mcg injection 1,000 mcg, INTRAMUSCULAR, EVERY 4 WEEKS, 12 doses, First dose on Sat02/26/23 at 0000, Last dose on Sat12/31/23 at 0000 Given 10/15/2023 10:20 AM EST 1,000 mcg Deltoid, Left Given 09/17/2023 9:12 AM EDT 1,000 mcg De ltoid, Right Given 08/20/2023 9:03 AM EDT 1,000 mcg De ltoid, Left Active Administered Medications - up to 3 most recent administrations Medication Order MAR Action Action Date Dose Rate Site cyanocobalamin 1,000 mcg injection 1,000 mcg, INTRAMUSCULAR, EVERY 4 WEEKS, 12 doses, First dose on Sat02/26/23 at 0000, Last dose on Sat12/31/23 at 0000 Given 11/12/2023 9:05 AM EST 1,000 mcg Deltoid, Right Given 10/15/2023 10:20 AM EST 1,000 mcg D eltoid, Left Given 09/17/2023 9:12 AM EDT 1,000 mcg De ltoid, Right Summary Purpose Family History No Family History Records FoundNo Family History Records FoundNo Family History Records Found Advance Directives No Advanced Directives Records FoundNo Advanced Directives Records FoundNo Advanced Directives Records Found Health Concerns Infection Onset Date Last Indicated Resolved Time COVID-19 Confirmed 08/20/2022 08/20/2022 Reason for Referral Specialty Diagnoses / Procedures Referred By Bee garcia Referred To Contact CT IMAGING Diagnoses Memory loss Dizziness Procedures CT BRAIN WO IVCON CT HEAD/BRAIN W/O CONTRAST MATERIAL Hong Matos, DO [address] [place] [address] [place] [address] Referral ID Status Reason Start Date Expiration Date Visits Requested Visits Authorized [id number] Authorized Auto-Generat ed Referral 11/19/2025 1 1 Specialty Diagnoses / Procedures Referred By Contac t Referred To Contact Diagnoses Osteoarthritis of spine with radiculopathy, 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 Chronic pain syndrome Chronic bilateral thoracic back pain Fibromyalgia Hong Matos, DO [address] [place] [address] Referral ID Status Reason Start Date Expiration Date V isits Requested Visits Authorized [id number] Authorized 10/20/2024 10/20/2024 1 1 Additional Source Comments Source Comments (unrecognize d section and content) In the event this informatio n is protected by the Federal Confidentiality of Alcohol and Drug Abuse Patient Records regulations: The Federal rules restrict any use of the information to criminally investigate or prosecute any alcohol or drug abuse patient.[facility] the event this information is protected by the Federal Confidentiality of Alcohol and Drug Abuse Patient Records regulations: The Federal rules restrict any use of the information to criminally investigate or prosecute any alcohol or drug abuse patient.[facility] CenterIn the event this information is protected by the Federal Confidentiality of Alcohol and Drug Abuse Patient Records regulations: The Federal rules restrict any use of the information to criminally investigate or prosecute any alcohol or drug abuse patient.[facility] the event this information is protected by the Federal Confidentiality of Alcohol and Drug Abuse Patient Records regulations: The Federal rules restrict any use of the information to criminally investigate or prosecute any alcohol or drug abuse patient.[facility] CenterIn the event this information is protected by the Federal Confidentiality of Alcohol and Drug Abuse Patient Records regulations: The Federal rules restrict any use of the information to criminally investigate or prosecute any alcohol or drug abuse patient.[facility] CenterIn the event this information is protected by the Federal Confidentiality of Alcohol and Drug Abuse Patient Records regulations: The Federal rules restrict any use of the information to criminally investigate or prosecute any alcohol or drug abuse patient.[facility] the event this information is protected by the Federal Confidentiality of Alcohol and Drug Abuse Patient Records regulations: The Federal rules restrict any use of the information to criminally investigate or prosecute any alcohol or drug abuse patient.[facility] CenterIn the event this information is protected by the Federal Confidentiality of Alcohol and Drug Abuse Patient Records regulations: The Federal rules restrict any use of the information to criminally investigate or prosecute any alcohol or drug abuse patient.[facility] CenterIn the event this information is protected by the Federal Confidentiality of Alcohol and Drug Abuse Patient Records regulations: The Federal rules restrict any use of the information to criminally investigate or prosecute any alcohol or drug abuse patient.[facility] CenterIn the event this information is protected by the Federal Confidentiality of Alcohol and Drug Abuse Patient Records regulations: The Federal rules restrict any use of the information to criminally investigate or prosecute any alcohol or drug abuse patient.[facility] CenterIn the event this information is protected by the Federal Confidentiality of Alcohol and Drug Abuse Patient Records regulations: The Federal rules restrict any use of the information to criminally investigate or prosecute any alcohol or drug abuse patient.[facility] CenterIn the event this information is protected by the Federal Confidentiality of Alcohol and Drug Abuse Patient Records regulations: The Federal rules restrict any use of the information to criminally investigate or prosecute any alcohol or drug abuse patient.[facility] CenterIn the event this information is protected by the Federal Confidentiality of Alcohol and Drug Abuse Patient Records regulations: The Federal rules restrict any use of the information to criminally investigate or prosecute any alcohol or drug abuse patient.[facility] CenterIn the event this information is protected by the Federal Confidentiality of Alcohol and Drug Abuse Patient Records regulations: The Federal rules restrict any use of the information to criminally investigate or prosecute any alcohol or drug abuse patient.[facility] CenterIn the event this information is protected by the Federal Confidentiality of Alcohol and Drug Abuse Patient Records regulations: The Federal rules restrict any use of the information to criminally investigate or prosecute any alcohol or drug abuse patient.[facility] CenterIn the event this information is protected by the Federal Confidentiality of Alcohol and Drug Abuse Patient Records regulations: The Federal rules restrict any use of the information to criminally investigate or prosecute any alcohol or drug abuse patient.[facility] CenterIn the event this information is protected by the Federal Confidentiality of Alcohol and Drug Abuse Patient Records regulations: The Federal rules restrict any use of the information to criminally investigate or prosecute any alcohol or drug abuse patient.[facility] CenterIn the event this information is protected by the Federal Confidentiality of Alcohol and Drug Abuse Patient Records regulations: The Federal rules restrict any use of the information to criminally investigate or prosecute any alcohol or drug abuse patient.[facility] CenterIn the event this information is protected by the Federal Confidentiality of Alcohol and Drug Abuse Patient Records regulations: The Federal rules restrict any use of the information to criminally investigate or prosecute any alcohol or drug abuse patient.[facility] CenterIn the event this information is protected by the Federal Confidentiality of Alcohol and Drug Abuse Patient Records regulations: The Federal rules restrict any use of the information to criminally investigate or prosecute any alcohol or drug abuse patient.[facility] CenterIn the event this information is protected by the Federal Confidentiality of Alcohol and Drug Abuse Patient Records regulations: The Federal rules restrict any use of the information to criminally investigate or prosecute any alcohol or drug abuse patient.[facility] CenterIn the event this information is protected by the Federal Confidentiality of Alcohol and Drug Abuse Patient Records regulations: The Federal rules restrict any use of the information to criminally investigate or prosecute any alcohol or drug abuse patient.[facility] CenterIn the event this information is protected by the Federal Confidentiality of Alcohol and Drug Abuse Patient Records regulations: The Federal rules restrict any use of the information to criminally investigate or prosecute any alcohol or drug abuse patient.[facility] CenterIn the event this information is protected by the Federal Confidentiality of Alcohol and Drug Abuse Patient Records regulations: The Federal rules restrict any use of the information to criminally investigate or prosecute any alcohol or drug abuse patient.[facility] CenterIn the event this information is protected by the Federal Confidentiality of Alcohol and Drug Abuse Patient Records regulations: The Federal rules restrict any use of the information to criminally investigate or prosecute any alcohol or drug abuse patient.[facility] CenterIn the event this information is protected by the Federal Confidentiality of Alcohol and Drug Abuse Patient Records regulations: The Federal rules restrict any use of the information to criminally investigate or prosecute any alcohol or drug abuse patient.[facility] CenterIn the event this information is protected by the Federal Confidentiality of Alcohol and Drug Abuse Patient Records regulations: The Federal rules restrict any use of the information to criminally investigate or prosecute any alcohol or drug abuse patient.[facility] CenterIn the event this information is protected by the Federal Confidentiality of Alcohol and Drug Abuse Patient Records regulations: The Federal rules restrict any use of the information to criminally investigate or prosecute any alcohol or drug abuse patient.[facility] CenterIn the event this information is protected by the Federal Confidentiality of Alcohol and Drug Abuse Patient Records regulations: The Federal rules restrict any use of the information to criminally investigate or prosecute any alcohol or drug abuse patient.[facility] CenterIn the event this information is protected by the Federal Confidentiality of Alcohol and Drug Abuse Patient Records regulations: The Federal rules restrict any use of the information to criminally investigate or prosecute any alcohol or drug abuse patient.[facility] CenterIn the event this information is protected by the Federal Confidentiality of Alcohol and Drug Abuse Patient Records regulations: The Federal rules restrict any use of the information to criminally investigate or prosecute any alcohol or drug abuse patient.[facility] CenterIn the event this information is protected by the Federal Confidentiality of Alcohol and Drug Abuse Patient Records regulations: The Federal rules restrict any use of the information to criminally investigate or prosecute any alcohol or drug abuse patient.[facility] CenterIn the event this information is protected by the Federal Confidentiality of Alcohol and Drug Abuse Patient Records regulations: The Federal rules restrict any use of the information to criminally investigate or prosecute any alcohol or drug abuse patient.[facility] CenterIn the event this information is protected by the Federal Confidentiality of Alcohol and Drug Abuse Patient Records regulations: The Federal rules restrict any use of the information to criminally investigate or prosecute any alcohol or drug abuse patient.[facility] CenterIn the event this information is protected by the Federal Confidentiality of Alcohol and Drug Abuse Patient Records regulations: The Federal rules restrict any use of the information to criminally investigate or prosecute any alcohol or drug abuse patient.[facility] CenterIn the event this information is protected by the Federal Confidentiality of Alcohol and Drug Abuse Patient Records regulations: The Federal rules restrict any use of the information to criminally investigate or prosecute any alcohol or drug abuse patient.[facility] CenterIn the event this information is protected by the Federal Confidentiality of Alcohol and Drug Abuse Patient Records regulations: The Federal rules restrict any use of the information to criminally investigate or prosecute any alcohol or drug abuse patient.[facility] CenterIn the event this information is protected by the Federal Confidentiality of Alcohol and Drug Abuse Patient Records regulations: The Federal rules restrict any use of the information to criminally investigate or prosecute any alcohol or drug abuse patient.[facility] CenterIn the event this information is protected by the Federal Confidentiality of Alcohol and Drug Abuse Patient Records regulations: The Federal rules restrict any use of the information to criminally investigate or prosecute any alcohol or drug abuse patient.[facility] CenterIn the event this information is protected by the Federal Confidentiality of Alcohol and Drug Abuse Patient Records regulations: The Federal rules restrict any use of the information to criminally investigate or prosecute any alcohol or drug abuse patient.[facility] CenterIn the event this information is protected by the Federal Confidentiality of Alcohol and Drug Abuse Patient Records regulations: The Federal rules restrict any use of the information to criminally investigate or prosecute any alcohol or drug abuse patient.[facility] CenterIn the event this information is protected by the Federal Confidentiality of Alcohol and Drug Abuse Patient Records regulations: The Federal rules restrict any use of the information to criminally investigate or prosecute any alcohol or drug abuse patient.[facility] CenterIn the event this information is protected by the Federal Confidentiality of Alcohol and Drug Abuse Patient Records regulations: The Federal rules restrict any use of the information to criminally investigate or prosecute any alcohol or drug abuse patient.[facility] CenterIn the event this information is protected by the Federal Confidentiality of Alcohol and Drug Abuse Patient Records regulations: The Federal rules restrict any use of the information to criminally investigate or prosecute any alcohol or drug abuse patient.[facility] CenterIn the event this information is protected by the Federal Confidentiality of Alcohol and Drug Abuse Patient Records regulations: The Federal rules restrict any use of the information to criminally investigate or prosecute any alcohol or drug abuse patient.[facility] CenterIn the event this information is protected by the Federal Confidentiality of Alcohol and Drug Abuse Patient Records regulations: The Federal rules restrict any use of the information to criminally investigate or prosecute any alcohol or drug abuse patient.[facility] CenterIn the event this information is protected by the Federal Confidentiality of Alcohol and Drug Abuse Patient Records regulations: The Federal rules restrict any use of the information to criminally investigate or prosecute any alcohol or drug abuse patient.[facility] CenterIn the event this information is protected by the Federal Confidentiality of Alcohol and Drug Abuse Patient Records regulations: The Federal rules restrict any use of the information to criminally investigate or prosecute any alcohol or drug abuse patient.[facility] CenterIn the event this information is protected by the Federal Confidentiality of Alcohol and Drug Abuse Patient Records regulations: The Federal rules restrict any use of the information to criminally investigate or prosecute any alcohol or drug abuse patient.[facility] CenterIn the event this information is protected by the Federal Confidentiality of Alcohol and Drug Abuse Patient Records regulations: The Federal rules restrict any use of the information to criminally investigate or prosecute any alcohol or drug abuse patient.[facility] CenterIn the event this information is protected by the Federal Confidentiality of Alcohol and Drug Abuse Patient Records regulations: The Federal rules restrict any use of the information to criminally investigate or prosecute any alcohol or drug abuse patient.[facility] CenterIn the event this information is protected by the Federal Confidentiality of Alcohol and Drug Abuse Patient Records regulations: The Federal rules restrict any use of the information to criminally investigate or prosecute any alcohol or drug abuse patient.[facility] CenterIn the event this information is protected by the Federal Confidentiality of Alcohol and Drug Abuse Patient Records regulations: The Federal rules restrict any use of the information to criminally investigate or prosecute any alcohol or drug abuse patient.[facility] the event this information is protected by the Federal Confidentiality of Alcohol and Drug Abuse Patient Records regulations: The Federal rules restrict any use of the information to criminally investigate or prosecute any alcohol or drug abuse patient.[facility] CenterIn the event this information is protected by the Federal Confidentiality of Alcohol and Drug Abuse Patient Records regulations: The Federal rules restrict any use of the information to criminally investigate or prosecute any alcohol or drug abuse patient.[facility] CenterIn the event this information is protected by the Federal Confidentiality of Alcohol and Drug Abuse Patient Records regulations: The Federal rules restrict any use of the information to criminally investigate or prosecute any alcohol or drug abuse patient.[facility]In the event this information is protected by the Federal Confidentiality of Alcohol and Drug Abuse Patient Records regulations: The Federal rules restrict any use of the information to criminally investigate or prosecute any alcohol or drug abuse patient.[facility] CenterIn the event this information is protected by the Federal Confidentiality of Alcohol and Drug Abuse Patient Records regulations: The Federal rules restrict any use of the information to criminally investigate or prosecute any alcohol or drug abuse patient.[facility] CenterIn the event this information is protected by the Federal Confidentiality of Alcohol and Drug Abuse Patient Records regulations: The Federal rules restrict any use of the information to criminally investigate or prosecute any alcohol or drug abuse patient.[facility] CenterIn the event this information is protected by the Federal Confidentiality of Alcohol and Drug Abuse Patient Records regulations: The Federal rules restrict any use of the information to criminally investigate or prosecute any alcohol or drug abuse patient.[facility] CenterIn the event this information is protected by the Federal Confidentiality of Alcohol and Drug Abuse Patient Records regulations: The Federal rules restrict any use of the information to criminally investigate or prosecute any alcohol or drug abuse patient.[facility] CenterIn the event this information is protected by the Federal Confidentiality of Alcohol and Drug Abuse Patient Records regulations: The Federal rules restrict any use of the information to criminally investigate or prosecute any alcohol or drug abuse patient.[facility] CenterIn the event this information is protected by the Federal Confidentiality of Alcohol and Drug Abuse Patient Records regulations: The Federal rules restrict any use of the information to criminally investigate or prosecute any alcohol or drug abuse patient.[facility] CenterIn the event this information is protected by the Federal Confidentiality of Alcohol and Drug Abuse Patient Records regulations: The Federal rules restrict any use of the information to criminally investigate or prosecute any alcohol or drug abuse patient.[facility] CenterIn the event this information is protected by the Federal Confidentiality of Alcohol and Drug Abuse Patient Records regulations: The Federal rules restrict any use of the information to criminally investigate or prosecute any alcohol or drug abuse patient.[facility] CenterIn the event this information is protected by the Federal Confidentiality of Alcohol and Drug Abuse Patient Records regulations: The Federal rules restrict any use of the information to criminally investigate or prosecute any alcohol or drug abuse patient.[facility] CenterIn the event this information is protected by the Federal Confidentiality of Alcohol and Drug Abuse Patient Records regulations: The Federal rules restrict any use of the information to criminally investigate or prosecute any alcohol or drug abuse patient.[facility] Reason for Visit (unrecogniz ed section and content) Reason Comments Results Reason Comments Medication Request Reason Comments ER F/U Reason Onset Date Comments Refill Request 04/26/2022 Reason Comments B-12 Injection Reason Comments Follow Up 3 months Reason Comments Medication Problem Reason Comments Ear Pain L ear pain, nausea, chills, shakey x1 week Reason Comments Follow Up UC on 08/20, covid po sitive Reason Comments Follow Up Reason Comments Refill Request Reason Onset Date Comments Refill Request 11/12/2022 Reason Onset Date Comments Refill Request 02/04/2023 Reason Onset Date Comments Refill Request 03/07/2023 MAIL ORDER See R x notes Reason Comments F/U 3 Month Reason Comments sore throat, runny nose ,slight cough, s inus pressiure , bi Started Saturday evening. Specialty Diagnoses / Procedures Referred By Bee garcia Referred To Contact FAMILY MEDICINE Diagnoses sore throat, runny nose, body aches Procedures sick visit Hong Matos, DO [address] [place] [address] [facility] [address] [place] [address] Referral ID Status Reason Start Date Expiration Date Visits Requested Visits Authorized [id number] Pending Review OON/Self Pay Override 08/12/2023 02/08/2024 1 1 Reason Comments F/U 6 Month Reason Onset Date Comments Refill Request 10/25/2023 Reason Comments restless leg syndrom Started Saturday at 4 pm and has not stopped all day long Reason Onset Date Comments Refill Request 11/13/2023 Reason Comments New Pain Swelling Specialty Diagnoses / Procedures Referred By Bee garcia Referred To Contact Podiatry Diagnoses Foot pain, bilateral Procedures CONSULT TO PODIATRY OFFICE/OUTPATIENT NEW HIGH MDM 60 MINUTES Hong Matos, DO [address] [place] [address] Referral ID Status Reason Start Date Expiration Date V isits Requested Visits Authorized [id number] Closed PCP Requested Referral 12/23/2023 12/22/2024 1 1 Reason Onset Date Comments Refill Request 06/24/2024 Reason Onset Date Comments Refill Request 07/20/2024 Reason Comments medication not on current med list Reason Onset Date Comments Refill Request 09/04/2024 Reason Onset Date Comments Refill Request 10/02/2024 Reason Comments F/U 3 Month Reason Comments Radiology CT Specialty Diagnoses / Procedures Referred By Bee garcia Referred To Contact CT IMAGING Diagnoses Memory loss Dizziness Procedures CT BRAIN WO IVCON CT HEAD/BRAIN W/O CONTRAST MATERIAL Hong Matos, DO [address] [place] [address] [place] [address] Referral ID Status Reason Start Date Expiration Date V isits Requested Visits Authorized [id number] Closed Auto-Generate d Referral 10/30/2024 12/01/2024 1 1 Reason Onset Date Comments Refill Request 12/15/2024 Reason Comments Follow Up Reason Onset Date Comments Refill Request 02/23/2025 Reason Comments Medication Question Reason Onset Date Comments Refill Request 03/15/2025 Reason Comments Medication Problem Tramadol prescriptio n Reason Comments Medicare Wellness Exam Care Teams (unrecognized sec tion and content) Fabric Cutter Relationship Specialty Start Date End Date Hong Matos DO [address] [place] [address] PCP - General Family Practice 10/13/20 Fabric Cutter Relationship Specialty Start Date End Date Hong Matos DO [address] [facility] [place] [address] PCP - General Family Practice 10/13/20 Fabric Cutter Relationship Specialty Start Date End Date Hong Matos DO [address] [facility] [place] [address] PCP - General Family Practice 10/13/20 Fabric Cutter Relationship Specialty Start Date End Date Hong Matos DO [address] [facility] [place] [address] PCP - General Family Practice 10/13/20 Fabric Cutter Relationship Specialty Start Date End Date Hong Matos DO [address] [facility] [place] [address] PCP - General Family Practice 10/13/20 Fabric Cutter Relationship Specialty Start Date End Date Hong Matos DO [address] [facility] [place] [address] PCP - General Family Practice 10/13/20 Fabric Cutter Relationship Specialty Start Date End Date Hong Matos, DO [address] [place] [address] PCP - General Family Practice 10/13/20 Fabric Cutter Relationship Specialty Start Date End Date Hong Matos, DO [address] [place] [address] PCP - General Family Practice 10/13/20 Fabric Cutter Relationship Specialty Start Date End Date Hong Matos, DO [address] [place] [address] PCP - General Family Practice 10/13/20 Fabric Cutter Relationship Specialty Start Date End Date Hong Matos, DO [address] [place] [address] PCP - General Family Medicine 10/13/20 Fabric Cutter Relationship Specialty Start Date End Date Hong Matos, DO [address] [place] [address] PCP - General Family Medicine 10/13/20 Fabric Cutter Relationship Specialty Start Date End Date Hong Matos, DO [address] [place] [address] PCP - General Family Medicine 10/13/20 Fabric Cutter Relationship Specialty Start Date End Date Hong Matos, DO [address] [place] [address] PCP - General Family Medicine 10/13/20 Fabric Cutter Relationship Specialty Start Date End Date Hong Matos, DO [address] [place] [address] PCP - General Family Medicine 10/13/20 Fabric Cutter Relationship Specialty Start Date End Date Hong Matos, DO [address] [place] [address] PCP - General Family Medicine 10/13/20 Fabric Cutter Relationship Specialty Start Date End Date Hong Matos, DO [address] [place] [address] PCP - General Family Medicine 10/13/20 Fabric Cutter Relationship Specialty Start Date End Date Hong Matos, DO [address] [place] [address] PCP - General Family Medicine 10/13/20 Fabric Cutter Relationship Specialty Start Date End Date Hong Matos, DO [address] [place] [address] PCP - General Family Medicine 10/13/20 Fabric Cutter Relationship Specialty Start Date End Date Hong Matos DO [address] [place] [address] PCP - General Family Medicine 10/13/20 Fabric Cutter Relationship Specialty Start Date End Date Hong Matos DO [address] [place] [address] PCP - General Family Medicine 10/13/20 Fabric Cutter Relationship Specialty Start Date End Date Hong Matos DO [address] [place] [address] PCP - General Family Medicine 10/13/20 Fabric Cutter Relationship Specialty Start Date End Date Hong Matos DO [address] [place] [address] PCP - General Family Medicine 10/13/20 Fabric Cutter Relationship Specialty Start Date End Date Hong Matos DO [address] [place] [address] PCP - General Family Medicine 10/13/20 Fabric Cutter Relationship Specialty Start Date End Date Hong Matos DO [address] [place] [address] PCP - General Family Medicine 10/13/20 Fabric Cutter Relationship Specialty Start Date End Date Hong Matos DO [address] [place] [address] PCP - General Family Medicine 10/13/20 Fabric Cutter Relationship Specialty Start Date End Date Hong Matos DO [address] [place] [address] PCP - General Family Medicine 10/13/20 Fabric Cutter Relationship Specialty Start Date End Date Hong Matos DO [address] [place] [address] PCP - General Family Medicine 10/13/20 Fabric Cutter Relationship Specialty Start Date End Date Hong Matos DO [address] [place] [address] PCP - General Family Medicine 10/13/20 Fabric Cutter Relationship Specialty Start Date End Date Hong Matos DO [address] [place] [address] PCP - General Family Medicine 10/13/20 Fabric Cutter Relationship Specialty Start Date End Date Hong Matos DO [address] [place] [address] PCP - General Family Medicine 10/13/20 Fabric Cutter Relationship Specialty Start Date End Date Hong Matos DO [address] [place] [address] PCP - General Family Medicine 10/13/20 Fabric Cutter Relationship Specialty Start Date End Date Hong Matos DO [address] [place] [address] PCP - General Family Medicine 10/13/20 Fabric Cutter Relationship Specialty Start Date End Date Hong Matos DO [address] [place] [address] PCP - General Family Medicine 10/13/20 Fabric Cutter Relationship Specialty Start Date End Date Hong Matos DO [address] [place] [address] PCP - General Family Medicine 10/13/20 Fabric Cutter Relationship Specialty Start Date End Date Hong Matos DO [address] [place] [address] PCP - General Family Medicine 10/13/20 Fabric Cutter Relationship Specialty Start Date End Date Hong Matos DO [address] [place] [address] PCP - General Family Medicine 10/13/20 Fabric Cutter Relationship Specialty Start Date End Date Hong Matos DO [address] [place] [address] PCP - General Family Medicine 10/13/20 Fabric Cutter Relationship Specialty Start Date End Date Hong Matos DO [address] [place] [address] PCP - General Family Medicine 10/13/20 Fabric Cutter Relationship Specialty Start Date End Date Will Alejandre MD [address] [place] [address] PCP - General Family Medicine 08/04/19 10/12/20 Fabric Cutter Relationship Specialty Start Date End Date Hong Matos DO [address] [place] [address] PCP - General Family Medicine 10/13/20 Fabric Cutter Relationship Specialty Start Date End Date Hong Matos DO [address] [facility] [place] [address] PCP - General Family Medicine 10/13/20 Fabric Cutter Relationship Specialty Start Date End Date Hong Matos DO [address] [facility] [place] [address] PCP - General Family Medicine 10/13/20 Nisa Rocha, MANAGER MEDIA RELATIONS.CARE MANAGEMENT SPECIALIST [address] [facility] [address] Molecular Biologist Family Medicine 11/08/24 Petty Mendenhall, MANAGER MEDIA RELATIONS.CARE MANAGEMENT SPECIALIST [address] [place] [address] Molecular Biologist Family Medicine 11/08/24 Fabric Cutter Relationship Specialty Start Date End Date Hong Matos DO [address] [facility] [place] [address] PCP - General Family Medicine 10/13/20 Nisa Rocha, MANAGER MEDIA RELATIONS.CARE MANAGEMENT SPECIALIST [address] [facility] [place] [address] Molecular Biologist Family Medicine 11/08/24 Petty Mendenhall, MANAGER MEDIA RELATIONS.CARE MANAGEMENT SPECIALIST [address] [facility] [place] [address] [facility] Fabric Cutter Relationship Specialty Start Date End Date Hong Matos DO [address] [facility] [place] [address] PCP - General Family Medicine 10/13/20 Nisa Rocha, MANAGER MEDIA RELATIONS.CARE MANAGEMENT SPECIALIST [address] [facility] [address] [facility] 11/08/24 [facility], MANAGER MEDIA RELATIONS.CARE MANAGEMENT SPECIALIST [address] [facility] [place] [address] [facility] 11/08/24 Fabric Cutter Relationship Specialty Start Date End Date Hong Matos DO [address] [facility] [place] [address] PCP - General Family Medicine 10/13/20 Nisa Rocha, MANAGER MEDIA RELATIONS.CARE MANAGEMENT SPECIALIST [address] [facility] [place] [address] [facility] 11/08/24 [facility], MANAGER MEDIA RELATIONS.CARE MANAGEMENT SPECIALIST [address] [facility] [place] [address] [facility] 11/08/24 Fabric Cutter Relationship Specialty Start Date End Date Hong Matos DO [address] [facility] [place] [address] PCP - General Family Medicine 10/13/20 Nisa Rocha, MANAGER MEDIA RELATIONS.CARE MANAGEMENT SPECIALIST [address] [place] [address] Molecular Biologist Family Medicine 11/08/24 [facility], MANAGER MEDIA RELATIONS.CARE MANAGEMENT SPECIALIST [address] [place] [address] [facility] 11/08/24 Fabric Cutter Relationship Specialty Start Date End Date Hong Matos DO [address] [place] [address] PCP - General Family Medicine 10/13/20 Nisa Rocha, MANAGER MEDIA RELATIONS.CARE MANAGEMENT SPECIALIST [address] [place] [address] [facility] 11/08/24 [facility], MANAGER MEDIA RELATIONS.CARE MANAGEMENT SPECIALIST [address] [place] [address] Molecular Biologist Family Medicine 11/08/24 Jarrod New, HANH [address] [place], [place] [address] Clinical Nurse Leader Internal Medicine 01/28/25 Fabric Cutter Relationship Specialty Start Date End Date Hong Matos DO [address] [place] [address] PCP - General Family Medicine 10/13/20 [facility], MANAGER MEDIA RELATIONS.CARE MANAGEMENT SPECIALIST [address] [place] [address] Molecular Biologist [facility] 11/08/24 Jarrod New RN [address] [place] [address] Clinical Nurse Leader Internal Medicine 01/28/25 Fabric Cutter Relationship Specialty Start Date End Date Hong Matos DO [address] [place] [address] PCP - General Family Medicine 10/13/20 [place]kaPetty, MANAGER MEDIA RELATIONS.CARE MANAGEMENT SPECIALIST [address] [place] [address] Molecular Biologist Family [facility] 11/08/24 Jarrod New, HANH [address] [place] [address] Clinical Nurse Leader Internal Medicine 01/28/25 Fabric Cutter Relationship Specialty Start Date End Date Hong Matos DO [address] [place] [address] PCP - General Family Medicine 10/13/20 [place]kaPetty, MANAGER MEDIA RELATIONS.CARE MANAGEMENT SPECIALIST [address] [place] [address] Molecular Biologist Family [facility] 11/08/24 Jarrod New RN [address] [place] [address] Clinical Nurse Leader Internal Medicine 01/28/25 Fabric Cutter Relationship Specialty Start Date End Date Hong Matos DO [address] [place] [address] PCP - General Family Medicine 10/13/20 WaleskaPetty, MANAGER MEDIA RELATIONS.CARE MANAGEMENT SPECIALIST [address] [place] [address] Molecular Biologist Family Medicine 11/08/24 Jarrod New RN [address] [place] [address] Clinical Nurse Leader Internal Medicine 01/28/25 Fabric Cutter Relationship Specialty Start Date End Date Hong Matos DO [address] [place] [address] PCP - General Family Medicine 10/13/20 WaleskaPetty, MANAGER MEDIA RELATIONS.CARE MANAGEMENT SPECIALIST [address] [place] [address] Molecular Biologist Family Medicine 11/08/24 Jarrod New, RN [address] [place] [address] Clinical Nurse Leader Internal Medicine 01/28/25 INFORMATION SOURCE (unrecogn ized section and content) DATE CREATED AUTHOR 04/14/2022 [facility] ([place]) DATE CREATED AUTHOR AUTHOR'S ORGANIZ ATION 04/21/2025 [facility] DATE CREATED AUTHOR AUTHOR'S ORGANIZ ATION 06/15/2025 [facility] FOR RECORDS PERTAINING TO PATIENTS WHO ARE OR HAVE BEEN ENROLLED IN A CHEMICAL DEPENDENCY/SUBSTANCEABUSE PROGRAM, SOME INFORMATION MAY BE OMITTED. This clinical summary was aggregated from multiple sources. Caution should be exercised in using it in the provision of clinical care. This summary normalizes information from multiple sources, and as a consequence, information in this document may materially change the coding, format and clinical context of patient data. In addition, data may be omitted in some cases. CLINICAL DECISIONS SHOULD BE BASED ON THE PRIMARY CLINICAL RECORDS. [employer] [facility]. provides no warranty or guarantee of the accuracy or completeness of information in this document.
== END | disposition home or self-care (01) ==
LOC: MRI 06:57
PROVIDERS: PCP Anesthesiology; Referring Provider Anesthesiology; Visit Provider Anesthesiology
DX: M54.16 Radiculopathy, lumbar region (principal)
CPT/HCPCS: 72148